=== PATIENT | female | born 1955 | race Caucasian/White ===

== ENCOUNTER 2018-10-23 11:12 | Inpatient (IN) | payer OTHER ==
--- NOTE | 2018-10-23 12:00 | PDOC ---
History of Present Illness - General Chief Complaint: Abnormal Lab Results (Outside) Stated Complaint: ABD NORMAL BLOOD WORK History Source: Patient Exam Limitations: No Limitations - History of Present Illness Initial Comments: 10/23/18 11:56 63 yo F h/o prior esrd, nephropathy, transplant, last dialysis 3 yrs ago, here with failing transplant. 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 and creatinine of 7. pt denies cp. no f/c does feel sob with walking. and leg swelling. no f/c. still had left upper extremity fistula. Past History - Past Medical History Allergies/Adverse Reactions: Allergies Allergy/AdvReac Type Severity Reaction Status Date / Time No Known Drug Allergies Allergy Verified 04/19/14 09:13 Home Medications: Ambulatory Orders Amlodipine Besylate [Norvasc -] 10 mg PO DAILY 04/19/14 Famotidine [Pepcid -] 20 mg PO DAILY 10/23/18 Furosemide [Lasix] 80 mg PO DAILY 10/23/18 Hydralazine HCl 100 mg PO TID 10/23/18 Leflunomide [Arava] 30 mg PO DAILY 10/23/18 Metoprolol Succinate [Toprol Xl] 50 mg PO DAILY 10/23/18 Multivitamin [Multiple Vitamins] 1 each PO DAILY 10/23/18 Nifedipine [Nifedipine ER] 90 mg PO DAILY 10/23/18 Pravastatin Sodium [Pravachol (Nf)] 40 mg PO HS 10/23/18 Prednisone 5 mg PO DAILY 10/23/18 Sodium Bicarbonate - 1,300 mg PO BID 10/23/18 Tacrolimus Anhydrous [Prograf] 5 mg PO BID 10/23/18 cloNIDine HCL [Catapres -] 0.1 mg PO DAILY 10/23/18 Anemia: Yes Asthma: No Cancer: No Cardiac Disorders: No CVA: No COPD: No CHF: No Dementia: No Diabetes: No GI Disorders: Yes (REFLUX) Disorders: No HTN: Yes Hypercholesterolemia: Yes Liver Disease: No Seizures: No Thyroid Disease: No - Immunization History Immunization Up to Date: No - Suicide/Smoking/Psychosocial Hx Smoking History: Never smoked Have you smoked in the past 12 months: No Number of Cigarettes Smoked Daily: 20 Information on smoking cessation initiated: No 'Breaking Loose' booklet given: 04/19/14 Hx Alcohol Use: No Drug/Substance Use Hx: No Substance Use Type: None Hx Substance Use Treatment: No Review of Systems - Review of Systems Constitutional: No: Chills, Diaphoresis, Fever HEENTM: No: Eye Pain Respiratory: Yes: Shortness of Breath. No: Cough Cardiac (ROS): No: Chest Pain ABD/GI: No: Vomiting : No: Burning, Dysuria Integumentary: No: Bruising All Other Systems: Reviewed and Negative *Physical Exam - Vital Signs Last Vital Signs Temp Pulse Resp BP Pulse Ox 98.2 F 74 16 135/54 L 97 10/23/18 11:16 10/23/18 11:16 10/23/18 11:16 10/23/18 11:16 10/23/18 11:16 - Physical Exam Comments: 10/23/18 11:58 awake alert lungs clear bilat heart rrr no mrg abd soft nt nd. ext wwp. mild nonpitting edema bilat lower ext. left upper ext fistula good bruit. nuero alert oriented x 3. skin warm and dry. Heart Score/ECG Review #1 General ECG Interpretation: Sinus Rhythm, Normal Rate (65), Normal Intervals, No acute ischemic changes ED Treatment Course - LABORATORY CBC & Chemistry Diagram: 10/23/18 13:03 10/23/18 13:03 - RADIOLOGY Radiology Studies Ordered: Category Date Time Status CHEST PA & LAT [RAD] Stat Radiology 10/23/18 11:51 Ordered Medical Decision Making - Medical Decision Making 10/23/18 11:59 63 yo F h/o renal transplant , esrd with worsenign sob edema. and increasing creatinine. 10/23/18 13:59 pt with severe anemia, likley secondary to ckd, renal failure. hgb 5. will admit for anemia renal failure. 10/23/18 14:02 d/w admitting team will admit pt for dialysis and transfusion of at least one unit prior to dialysis per dr Lamas. *DC/Admit/Observation/Transfer Diagnosis at time of Disposition: Anemia, ESRD on hemodialysis, Renal failure - Discharge Dispostion Condition at time of disposition: Stable Decision to Admit order: Yes - Referrals Referrals: Manas Rodriguez [Primary Care Provider] - - Patient Instructions - Post Discharge Activity
[2018-10-23 13:13] LABS: BASO % 0.4 % (0-2.0); EOS % 0.8 % (0-4.5); HEMATOCRIT 16.9 % (32.4-45.2); MCH 31.2 pg (25.7-33.7); MCHC 31.4 g/dl (32.0-36.0); MEAN CELL VOLUME 99.3 fl (80-96); MEAN PLT VOLUME 9.2 fl (7.5-11.1); MONO % 9.2 % (3.8-10.2); NEUT % 70.6 % (42.8-82.8); PLATELET COUNT 121 K/MM3 (134-434); RDW 17.9 % (11.6-15.6); WHITE BLOOD COUNT 4.8 K/mm3 (4.0-10.0)
[2018-10-23 13:25] LABS: HEMOGLOBIN 5.3 GM/dL (10.7-15.3)
[2018-10-23 13:41] LABS: BILIRUBIN,TOTAL 0.3 mg/dL (0.2-1); BLOOD UREA NITROGEN 65.3 mg/dL (7-18); CALCIUM 8.5 mg/dL (8.5-10.1); POTASSIUM 4.1 mmol/L (3.5-5.1); TOT PROT 5.9 g/dl (6.4-8.2)
[2018-10-23 13:47] LABS: CREATININE 7.6 mg/dL (0.55-1.3)
--- NOTE | 2018-10-23 14:35 | EKG ---
Test Reason : Blood Pressure : / mmHG Vent. Rate : 065 BPM Atrial Rate : 065 BPM P-R Int : 124 ms QRS Dur : 082 ms QT Int : 434 ms P-R-T Axes : 052 022 053 degrees QTc Int : 451 ms NORMAL SINUS RHYTHM NORMAL ECG WHEN COMPARED WITH ECG OF 06-OCT-2014 17:07, CRITERIA FOR SEPTAL INFARCT ARE NO LONGER PRESENT Confirmed by DAVID PHIPPS MD ([id number]) on 10/23/2018 2:35:31 PM Referred By: Confirmed By:DAVID PHIPPS MD
[2018-10-23 15:10] LABS: INR 0.97 (0.83-1.09); PROTHROMBIN TIME (PATIENT) 11.5 SEC (9.7-13.0)
--- NOTE | 2018-10-23 15:59 | CONSULT ---
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 She presented yesterday to the office after being send from the transplant team. Her creatinine had been in the 7 range. She complains of weakness and fatigue. She was found to be anemic. Her potassium was elevated from yesterdays labs however it is normal today. She denies chest pain or palpitations. SHe does have loss of appetite. - History Source History Provided By: Patient - Past Medical History Cardio/Vascular: Yes: HTN, Hyperlipdemia Gastrointestinal: Yes: GERD Renal/: Yes: Renal Failure, Hemodialysis - Past Surgical History Past Surgical History: Yes: AV Fistula/Graft, Kidney Transplant - Alcohol/Substance Use Hx Alcohol Use: No - Smoking History Smoking history: Never smoked Have you smoked in the past 12 months: No Aproximately how many cigarettes per day: 20 Home Medications - Allergies Allergies/Adverse Reactions: Allergies Allergy/AdvReac Type Severity Reaction Status Date / Time No Known Drug Allergies Allergy Verified 04/19/14 09:13 - Home Medications Home Medications: Ambulatory Orders Amlodipine Besylate [Norvasc -] 10 mg PO DAILY 04/19/14 Famotidine [Pepcid -] 20 mg PO DAILY 10/23/18 Furosemide [Lasix] 80 mg PO DAILY 10/23/18 Hydralazine HCl 100 mg PO TID 10/23/18 Leflunomide [Arava] 30 mg PO DAILY 10/23/18 Metoprolol Succinate [Toprol Xl] 50 mg PO DAILY 10/23/18 Multivitamin [Multiple Vitamins] 1 each PO DAILY 10/23/18 Nifedipine [Nifedipine ER] 90 mg PO DAILY 10/23/18 Pravastatin Sodium [Pravachol (Nf)] 40 mg PO HS 10/23/18 Prednisone 5 mg PO DAILY 10/23/18 Sodium Bicarbonate - 1,300 mg PO BID 10/23/18 Tacrolimus Anhydrous [Prograf] 5 mg PO BID 10/23/18 cloNIDine HCL [Catapres -] 0.1 mg PO DAILY 10/23/18 Family Disease History - Family Disease History Family History: Denies Review of Systems - Review of Systems Constitutional: reports: Malaise Eyes: reports: No Symptoms HENT: reports: No Symptoms Neck: reports: No Symptoms Cardiovascular: reports: Edema Respiratory: reports: SOB on Exertion Genitourinary: reports: Hematuria Musculoskeletal: reports: No Symptoms Integumentary: reports: No Symptoms Neurological: reports: No Symptoms Endocrine: reports: No Symptoms Hematology/Lymphatic: reports: No Symptoms Psychiatric: reports: No Symptoms Physical Exam Vital Signs: Vital Signs Temperature 98.6 F 10/23/18 14:42 Pulse Rate 88 10/23/18 14:42 Respiratory Rate 19 10/23/18 14:42 Blood Pressure 110/68 10/23/18 14:42 O2 Sat by Pulse Oximetry (%) 100 10/23/18 14:42 Constitutional: Yes: Calm Eyes: Yes: Conjunctiva Clear HENT: Yes: Atraumatic Neck: Yes: Supple Cardiovascular: Yes: S1, S2 Respiratory: Yes: CTA Bilaterally Gastrointestinal: Yes: Soft Renal/: Yes: WNL, Other (graft is non tender, neg bruit) Musculoskeletal: Yes: WNL Extremities: Yes: Other (left arm fistula with thrill and bruit) Edema: Yes Edema: LLE: Trace, RLE: Trace Neurological: Yes: Oriented Psychiatric: Yes: Oriented Labs: CBC, BMP 10/23/18 13:03 10/23/18 13:03 Assessment/Plan Impression 1. ESRD 2. kidney transplant 3. htn 4. anemia 5. BK nephropathy Plan - transfuse prbc - resume home meds including transplant meds - send ua and urine culture - abd ultrasound - potassium is stable - vascular eval for fistula - will start HD likely tomorrow - check hep panel
--- NOTE | 2018-10-23 16:20 | HP ---
Admitting History and Physical - Primary Care Physician PCP: Manas Rodriguez - Admission Chief Complaint: malaise History of Present Illness: Patient is a 63 year old female with a signficant past medical history of ESRD ( on dialysis via left arm fistula - last dialysis 3 years ago), right renal transplant 3 years at [facility] in the [place] from a an unknown donor, hypertension, neuropathy. Patient was sent here by nephrology after she was found to have developed kidney rejection and presents with a creatinine in the 7.6 range and labs noted to be anemic requiring 2 units of prbc transfusion. She complains of weakness and fatigue. Per Ed report, her potassium was elevated yesterday, but normal on our labs. Patient denies shortness of breath , denies chest pain, hematuria, denies bloody stools. She reports taking her anti rejection medications as ordered without missing any doses. On exam patient is awake, alert and in no acute distress. She further denies any dark/tarry stools, denies dizziness. States she has increased weakness and malaise. Patient is being admitted for initiation of dialysis. Will consult SW as patient will need to be set up with a home dialysis center. ED Course notable for: - hmg/hct 5.3/16.9 - stat order for 2 units of prbc - platelets 121 - creat 7.6/bun 65 - + bruit/thrill, left arm fistula - potassium wnl - Past Medical History Cardiovascular: Yes: HTN, Hyperlipdemia Gastrointestinal: Yes: GERD Renal/: Yes: Renal Failure, Hemodialysis - Past Surgical History Past Surgical History: Yes: AV Fistula/Graft, Kidney Transplant - Smoking History Smoking history: Never smoked Have you smoked in the past 12 months: No Aproximately how many cigarettes per day: 20 - Alcohol/Substance Use Hx Alcohol Use: No Home Medications - Allergies Allergies/Adverse Reactions: Allergies Allergy/AdvReac Type Severity Reaction Status Date / Time No Known Drug Allergies Allergy Verified 04/19/14 09:13 - Home Medications Home Medications: Ambulatory Orders Amlodipine Besylate [Norvasc -] 10 mg PO DAILY 04/19/14 Famotidine [Pepcid -] 20 mg PO DAILY 10/23/18 Furosemide [Lasix] 80 mg PO DAILY 10/23/18 Hydralazine HCl 100 mg PO TID 10/23/18 Leflunomide [Arava] 30 mg PO DAILY 10/23/18 Metoprolol Succinate [Toprol Xl] 50 mg PO DAILY 10/23/18 Multivitamin [Multiple Vitamins] 1 each PO DAILY 10/23/18 Nifedipine [Nifedipine ER] 90 mg PO DAILY 10/23/18 Pravastatin Sodium [Pravachol (Nf)] 40 mg PO HS 10/23/18 Prednisone 5 mg PO DAILY 10/23/18 Sodium Bicarbonate - 1,300 mg PO BID 10/23/18 Tacrolimus Anhydrous [Prograf] 5 mg PO BID 10/23/18 cloNIDine HCL [Catapres -] 0.1 mg PO DAILY 10/23/18 Physical Examination Vital Signs: Vital Signs Temperature 98.6 F 10/23/18 14:42 Pulse Rate 88 10/23/18 14:42 Respiratory Rate 19 10/23/18 14:42 Blood Pressure 110/68 10/23/18 14:42 O2 Sat by Pulse Oximetry (%) 100 10/23/18 14:42 Labs: CBC, BMP 10/23/18 13:03 10/23/18 13:03 Problem List - Problems (1) Kidney transplant rejection Assessment/Plan: s/p right kidney transplant at [facility] 3 years ago. Now with elevated bun/ creatinine on outpatient labs. hospital labs: bun65/creat 7.6. Potassium stable. patient for dialysis tomorrow as per nephrology. will received 2 units of prbc today for severe anemia. Start renal diet continue anti rejection meds per nephrology (2) Anemia Assessment/Plan: for 2 units of prbc for hmg/hct 5.3/16.9 iron studies ordered stool for occult blood ordered Code(s): D64.9 - ANEMIA, UNSPECIFIED (3) Renal failure Assessment/Plan: Bun/creat 65/ 7.6. Will continue anti rejection meds per renal. monitor labs daily. Code(s): N19 - UNSPECIFIED KIDNEY FAILURE (4) Hypertension Assessment/Plan: BP controlled. continue home meds. Amlodopine, metoprolol, hydralazine. Code(s): I10 - ESSENTIAL (PRIMARY) HYPERTENSION (5) Thrombocytopenia Assessment/Plan: history of low platelets. defer a/c 2/2 to low platelets and anemia. Code(s): D69.6 - THROMBOCYTOPENIA, UNSPECIFIED (6) Prophylactic measure Assessment/Plan: fen oral hydration monitor electrolytes renal diet prophy defer a/c Code(s): Z29.9 - ENCOUNTER FOR PROPHYLACTIC MEASURES, UNSPECIFIED Visit type - Emergency Visit Emergency Visit: Yes ED Registration Date: 10/23/18 Care time: The patient presented to the Emergency Department on the above date and was hospitalized for further evaluation of their emergent condition. - New Patient This patient is new to me today: Yes Date on this admission: 10/24/18 - Critical Care Critical Care patient: No
[2018-10-23] MEDS: SODIUM BICARBONATE 650 MG TABLET PO SCH (22:39)
[2018-10-23] MEDS: ATORVASTATIN CA 10 MG TABLET (FP) PO SCH (22:39)
[2018-10-23] MEDS: hydrALAZINE HCL 50 MG TABLET (FP) PO SCH (22:39)
[2018-10-23 22:45] LABS: EPI CELLS 1.7 /HPF (0-5/HPF); HYALINE CASTS 0 /lpf (0-8); PH,URINE >= 9.0 (5.0-8.0); URINE APPEARANCE CLOUDY; URINE BACTERIA 0.8 /hpf (NEGATIVE); URINE BILIRUBIN NEGATIVE (NEGATIVE); URINE COLOR RED; URINE GLUCOSE (UA) TRACE (NEGATIVE); URINE KETONE NEGATIVE (NEGATIVE); URINE LEUK ESTERASE TRACE (NEGATIVE); URINE NITRITE NEGATIVE (NEGATIVE); URINE PROTEIN 1+ (NEGATIVE); URINE RBC 2188 /hpf (0-4); URINE UROBILINOGEN 0.2 mg/dL (0.2-1.0); URINE WBC 4 /hpf (0-5)
[2018-10-23] MEDS: TACROLIMUS ANHYDROUS 5 MG CAPSULE PO SCH (23:20)
[2018-10-24] MEDS: hydrALAZINE HCL 50 MG TABLET (FP) PO SCH ×4 (06:13→22:37)
[2018-10-24] MEDS ORDERED: amLODIPine BESYLATE 10 MG TABLET (FP) PO SCH (10:00)
[2018-10-24] MEDS ORDERED: LEFLUNOMIDE 10 MG TABLET PO SCH (10:00)
[2018-10-24] MEDS ORDERED: FUROSEMIDE 40 MG TABLET (FP) PO SCH (10:00)
[2018-10-24 10:03] LABS: BASO % 0.4 % (0-2.0); EOS % 0.7 % (0-4.5); HEMATOCRIT 28.7 % (32.4-45.2); HEMOGLOBIN 9.6 GM/dL (10.7-15.3); LYMPH % 20.7 % (8-40); MCH 30.5 pg (25.7-33.7); MCHC 33.5 g/dl (32.0-36.0); MEAN CELL VOLUME 90.9 fl (80-96); MEAN PLT VOLUME 9.2 fl (7.5-11.1); MONO % 7.9 % (3.8-10.2); NEUT % 70.3 % (42.8-82.8); PLATELET COUNT 135 K/MM3 (134-434); RBC 3.16 M/mm3 (3.60-5.2); RDW 18.8 % (11.6-15.6); WHITE BLOOD COUNT 6.2 K/mm3 (4.0-10.0)
[2018-10-24 10:22] LABS: ALBUMIN 3.2 g/dl (3.4-5.0); BILIRUBIN,TOTAL 0.8 mg/dL (0.2-1); CALCIUM 8.9 mg/dL (8.5-10.1); CREATININE 7.1 mg/dL (0.55-1.3); MAGNESIUM 2.1 mg/dL (1.8-2.4); PHOSPHOROUS 3.4 mg/dL (2.5-4.9); TOT PROT 6.4 g/dl (6.4-8.2)
--- NOTE | 2018-10-24 11:22 | PN ---
Progress Note, Physician History of Present Illness: Patient is a 63 year old female with a signficant past medical history of ESRD ( on dialysis via left arm fistula - last dialysis 3 years ago), right renal transplant 3 years at [facility] in the [place] from an unknown donor, hypertension, neuropathy. Patient was sent here by nephrology after she was found to have developed kidney rejection and presents with a creatinine in the 7.6 range and labs noted to be anemic. She complains of weakness and fatigue. Per Ed report, her potassium was elevated yesterday on outpatient labs, but normal on our labs. Patient denies shortness of breath, denies chest pain, hematuria, denies bloody stools. She reports taking her anti rejection medications as ordered without missing any doses. On exam patient is awake, alert and in no acute distress. She further denies any dark/tarry stools, denies dizziness. States she has increased weakness and malaise. Patient is being admitted for initiation of dialysis. - Current Medication List Current Medications: Active Medications Atorvastatin Calcium (Lipitor -) 10 mg PO HS [facility] Last Admin: 10/23/18 22:39 Dose: 10 mg Clonidine (Catapres -) 0.1 mg PO DAILY [facility] Epoetin Talha (Epogen -) 5,000 unit IVPUSH ONCE ONE Stop: 10/24/18 10:30 Furosemide (Lasix -) 80 mg PO DAILY [facility] Hydralazine HCl (Apresoline -) 100 mg PO TID [facility] Last Admin: 10/24/18 06:13 Dose: 100 mg Sodium Chloride (Normal Saline -) 250 mls @ 3,000 mls/hr IV PRN PRN PRN Reason: Hypotension during Dialysis Stop: 10/25/18 10:29 Leflunomide (Arava -) 10 mg PO DAILY [facility] Metoprolol Succinate (Toprol Xl -) 50 mg PO DAILY [facility] Multivitamins/Minerals/Vitamin C (Tab-A-Vit -) 1 tab PO DAILY [facility] Nifedipine (Procardia Xl -) 90 mg PO DAILY [facility] Prednisone (Deltasone -) 5 mg PO DAILY [facility] Ranitidine HCl (Zantac -) 150 mg PO DAILY [facility] Sodium Bicarbonate (Sodium Bicarbonate -) 1,300 mg PO BID [facility] Last Admin: 10/23/18 22:39 Dose: 1,300 mg Tacrolimus (Prograf) 5 mg PO BID [facility] Last Admin: 10/23/18 23:20 Dose: 5 mg - Objective Vital Signs: Vital Signs Temperature 98.8 F 10/24/18 09:00 Pulse Rate 85 10/24/18 10:56 Respiratory Rate 20 10/24/18 10:56 Blood Pressure 138/78 10/24/18 10:56 O2 Sat by Pulse Oximetry (%) 97 10/23/18 23:41 Constitutional: Yes: Well Nourished, No Distress, Calm Eyes: Yes: WNL HENT: Yes: WNL Neck: Yes: WNL, Supple Cardiovascular: Yes: Regular Rate and Rhythm Respiratory: Yes: WNL, Regular, CTA Bilaterally Gastrointestinal: Yes: Normal Bowel Sounds, Soft ...Rectal Exam: Yes: Deferred Genitourinary: Yes: WNL Musculoskeletal: Yes: WNL Edema: Yes Edema: LLE: 1+, RLE: 1+ Integumentary: Yes: WNL Additional Findings/Remarks: left arm fistula, + bruit/thrill Labs: CBC, BMP 10/24/18 09:36 10/24/18 09:36 INR, PTT INR 0.97 (0.83-1.09) 10/23/18 14:17 Problem List - Problems (1) Kidney transplant rejection Assessment/Plan: s/p right kidney transplant at [facility] 3 years ago. Now with elevated bun/ creatinine on outpatient labs. hospital labs: bun65/creat 7.6 on admission, creat. 7.1 today. Potassium stable. patient for dialysis today pending vascular allowance to use left arm fistula. patient is s/p 2 units of prbc on 10/23/18 for severe anemia. - on renal diet - evaluated by dietary -renal dose medications continue anti rejection meds per nephrology (2) Anemia Assessment/Plan: s/p 2 units of prbc with appropriate rise in hmg/hct iron studies pending stool for occult blood negative, has +3 blood in urine Code(s): D64.9 - ANEMIA, UNSPECIFIED (3) Renal failure Assessment/Plan: for initiation of dialysis today for renal ultrasound today Code(s): N19 - UNSPECIFIED KIDNEY FAILURE (4) Hypertension Assessment/Plan: controlled Code(s): I10 - ESSENTIAL (PRIMARY) HYPERTENSION (5) Thrombocytopenia Assessment/Plan: history of low platelets. defer a/c 2/2 to low platelets and anemia. Code(s): D69.6 - THROMBOCYTOPENIA, UNSPECIFIED (6) Prophylactic measure Assessment/Plan: fen oral hydration monitor electrolytes renal diet prophy defer a/c Code(s): Z29.9 - ENCOUNTER FOR PROPHYLACTIC MEASURES, UNSPECIFIED Visit type - Emergency Visit Emergency Visit: Yes ED Registration Date: 10/23/18 Care time: The patient presented to the Emergency Department on the above date and was hospitalized for further evaluation of their emergent condition. - New Patient This patient is new to me today: No - Critical Care Critical Care patient: No - Discharge Referral Referred to [facility] Med P.C.: No
[2018-10-24 11:26] VITALS: BMI 19.7
[2018-10-24] MEDS ORDERED: SODIUM CHLORIDE 250 ML IV PRN (15:09)
[2018-10-24] MEDS ORDERED: EPOETIN ALFA 3,000 UNIT/1 ML ML IVPUSH ONE (15:15)
--- NOTE | 2018-10-24 15:47 | PN ---
Progress Note, Physician History of Present Illness: Pt seen and examined at bedside. She is awake and alert. She denies shortness of breath. She complains of fatigue and loss of appetite. - Current Medication List Current Medications: Active Medications Atorvastatin Calcium (Lipitor -) 10 mg PO HS [facility] Last Admin: 10/23/18 22:39 Dose: 10 mg Clonidine (Catapres -) 0.1 mg PO DAILY [facility] Furosemide (Lasix -) 80 mg PO DAILY [facility] Hydralazine HCl (Apresoline -) 100 mg PO TID [facility] Last Admin: 10/24/18 14:40 Dose: Not Given Sodium Chloride (Normal Saline -) 250 mls @ 3,000 mls/hr IV PRN PRN PRN Reason: Hypotension during Dialysis Stop: 10/24/18 22:00 Leflunomide (Arava -) 10 mg PO DAILY [facility] Metoprolol Succinate (Toprol Xl -) 50 mg PO DAILY [facility] Multivitamins/Minerals/Vitamin C (Tab-A-Vit -) 1 tab PO DAILY [facility] Nifedipine (Procardia Xl -) 90 mg PO DAILY [facility] Prednisone (Deltasone -) 5 mg PO DAILY [facility] Ranitidine HCl (Zantac -) 150 mg PO DAILY [facility] Sodium Bicarbonate (Sodium Bicarbonate -) 1,300 mg PO BID [facility] Last Admin: 10/23/18 22:39 Dose: 1,300 mg Tacrolimus (Prograf) 5 mg PO BID [facility] Last Admin: 10/23/18 23:20 Dose: 5 mg - Objective Vital Signs: Vital Signs Temperature 98.5 F 10/24/18 14:55 Pulse Rate 74 10/24/18 15:00 Respiratory Rate 18 10/24/18 15:00 Blood Pressure 184/98 H 10/24/18 15:00 O2 Sat by Pulse Oximetry (%) 97 10/23/18 23:41 Constitutional: Yes: Calm Eyes: Yes: Conjunctiva Clear HENT: Yes: Atraumatic Cardiovascular: Yes: S1, S2 Respiratory: Yes: CTA Bilaterally Gastrointestinal: Yes: Soft Genitourinary: Yes: WNL, Other (graft soft and non tender) Musculoskeletal: Yes: WNL Edema: Yes Edema: LLE: Trace, RLE: Trace Neurological: Yes: Oriented Psychiatric: Yes: Oriented Labs: CBC, BMP 10/24/18 09:36 10/24/18 09:36 INR, PTT INR 0.97 (0.83-1.09) 10/23/18 14:17 Problem List - Problems (1) Anemia Code(s): D64.9 - ANEMIA, UNSPECIFIED (2) ESRD on hemodialysis Code(s): N18.6 - END STAGE RENAL DISEASE; Z99.2 - DEPENDENCE ON RENAL DIALYSIS Assessment/Plan Current Medications Generic Name Dose Route Start Last Admin Trade Name Freq PRN Reason Stop Dose Admin Atorvastatin Calcium 10 mg 10/23/18 22:00 10/23/18 22:39 Lipitor - PO 10 mg HS [facility] Administration Clonidine 0.1 mg 10/24/18 10:00 Catapres - PO DAILY [facility] Furosemide 80 mg 10/24/18 10:00 Lasix - PO DAILY [facility] Hydralazine HCl 100 mg 10/23/18 22:00 10/24/18 14:40 Apresoline - PO Not Given TID [facility] Sodium Chloride 250 mls @ 3,000 mls/hr 10/24/18 15:09 Normal Saline - IV 10/24/18 22:00 PRN PRN Hypotension during Dialysis Leflunomide 10 mg 10/24/18 10:00 Arava - PO DAILY [facility] Metoprolol Succinate 50 mg 10/24/18 10:00 Toprol Xl - PO DAILY [facility] Multivitamins/Minerals/Vitamin C 1 tab 10/24/18 10:00 Tab-A-Vit - PO DAILY [facility] Nifedipine 90 mg 10/24/18 10:00 Procardia Xl - PO DAILY [facility] Prednisone 5 mg 10/24/18 10:00 Deltasone - PO DAILY [facility] Ranitidine HCl 150 mg 10/24/18 10:00 Zantac - PO DAILY [facility] Sodium Bicarbonate 1,300 mg 10/23/18 22:00 10/23/18 22:39 Sodium Bicarbonate - PO 1,300 mg BID [facility] Administration Tacrolimus 5 mg 10/23/18 22:00 10/23/18 23:20 Prograf PO 5 mg BID [facility] Administration Impression 1. ESRD 2. kidney transplant 3. htn 4. anemia 5. BK nephropathy Plan - HD today - give bp meds - d/c lasix and d/c bicarb - hg is improved - ultrasound reviewed - epogen for anemia - send information to [facility] for Renal care in [facility] as that is where she lives
--- NOTE | 2018-10-24 17:40 | CONSULT ---
Consult - text type - Consultation Consultation Note: 63 year old woman with failed kidney transplant who needs to restart dialysis. She has a left arm AV fistula. The fistula has a thrill but feels firm. This could be a sign of proximal stenosis. Rec: Ok to use fistula. If there is high venous pressure or excessive bleeding she will need a venogram.
[2018-10-24] MEDS: cloNIDine HCL 0.1 MG TABLET PO SCH (18:33)
[2018-10-24] MEDS: SODIUM BICARBONATE 650 MG TABLET PO SCH (18:34)
[2018-10-24] MEDS: NIFEdipine E.R. 90 MG TABLET (FP) PO SCH (18:34)
[2018-10-24] MEDS: predniSONE 5 MG TABLET (UD) PO SCH (18:34)
[2018-10-24] MEDS: MULTIVITAMINS (DAILY MVI) TABLET (FP) PO SCH (18:34)
[2018-10-24] MEDS: RANITIDINE HCL 150 MG TABLET (FP) PO SCH (18:34)
[2018-10-24] MEDS: TACROLIMUS ANHYDROUS 5 MG CAPSULE PO SCH (18:35)
[2018-10-24] MEDS: LEFLUNOMIDE 10 MG TABLET PO SCH (20:30)
[2018-10-24] MEDS: ATORVASTATIN CA 10 MG TABLET (FP) PO SCH (22:37)
[2018-10-25] MEDS: TACROLIMUS ANHYDROUS 5 MG CAPSULE PO SCH ×4 (00:35→22:14)
[2018-10-25] MEDS: hydrALAZINE HCL 50 MG TABLET (FP) PO SCH ×3 (06:52→22:14)
[2018-10-25] MEDS ORDERED: ONDANSETRON 4 MG/2 ML VIAL IVPUSH PRN (10:15)
[2018-10-25] MEDS: predniSONE 5 MG TABLET (UD) PO SCH ×2 (10:15→12:00)
[2018-10-25] MEDS: cloNIDine HCL 0.1 MG TABLET PO SCH ×2 (10:15→12:01)
[2018-10-25] MEDS: LEFLUNOMIDE 10 MG TABLET PO SCH ×2 (10:15→12:01)
[2018-10-25] MEDS: NIFEdipine E.R. 90 MG TABLET (FP) PO SCH ×2 (10:15→12:00)
[2018-10-25] MEDS: RANITIDINE HCL 150 MG TABLET (FP) PO SCH (10:16)
[2018-10-25] MEDS: MULTIVITAMINS (DAILY MVI) TABLET (FP) PO SCH ×2 (10:16→12:00)
[2018-10-25 11:01] LABS: BASO % 0.4 % (0-2.0); EOS % 0.7 % (0-4.5); HEMATOCRIT 29.2 % (32.4-45.2); HEMOGLOBIN 9.7 GM/dL (10.7-15.3); LYMPH % 24.1 % (8-40); MCH 30.3 pg (25.7-33.7); MCHC 33.2 g/dl (32.0-36.0); MEAN CELL VOLUME 91.2 fl (80-96); MEAN PLT VOLUME 9.2 fl (7.5-11.1); MONO % 10.9 % (3.8-10.2); NEUT % 63.9 % (42.8-82.8); PLATELET COUNT 117 K/MM3 (134-434); RDW 18.8 % (11.6-15.6); WHITE BLOOD COUNT 4.6 K/mm3 (4.0-10.0)
[2018-10-25 11:24] LABS: BILIRUBIN,TOTAL 0.5 mg/dL (0.2-1); BLOOD UREA NITROGEN 33.7 mg/dL (7-18); CREATININE 4.7 mg/dL (0.55-1.3); MAGNESIUM 1.9 mg/dL (1.8-2.4); POTASSIUM 4.5 mmol/L (3.5-5.1)
[2018-10-25] MEDS ORDERED: FAMOTIDINE 20 MG/50 ML IVPB 20 MG/50 ML MG IVPB SCH ×2 (11:45→22:00)
[2018-10-25] MEDS ORDERED: PT OWN MED DRAWER 7, Y5N ONE ×2 (11:51→22:13)
[2018-10-25] MEDS: FAMOTIDINE 20 MG/50 ML IVPB 20 MG/50 ML MG IVPB SCH (12:13)
--- NOTE | 2018-10-25 13:26 | PN ---
Progress Note, Physician History of Present Illness: Patient is a 63 year old female with a signficant past medical history of ESRD ( on dialysis via left arm fistula - last dialysis 3 years ago), right renal transplant 3 years at [facility] in the [place] from an unknown donor, hypertension, neuropathy. Patient was sent here by nephrology after she was found to have developed kidney rejection and presents with a creatinine in the 7.6 range and labs noted to be anemic. She complains of weakness and fatigue. Per Ed report, her potassium was elevated yesterday on outpatient labs, but normal on our labs. Patient denies shortness of breath, denies chest pain, hematuria, denies bloody stools. She reports taking her anti rejection medications as ordered without missing any doses. On exam patient is awake, alert and in no acute distress. She further denies any dark/tarry stools, denies dizziness. States she has increased weakness and malaise. Patient is being admitted for initiation of dialysis. - Current Medication List Current Medications: Active Medications Atorvastatin Calcium (Lipitor -) 10 mg PO HS [facility] Last Admin: 10/24/18 22:37 Dose: 10 mg Clonidine (Catapres -) 0.1 mg PO DAILY [facility] Last Admin: 10/25/18 12:01 Dose: 0.1 mg Hydralazine HCl (Apresoline -) 100 mg PO TID [facility] Last Admin: 10/25/18 06:52 Dose: 100 mg Famotidine/Sodium Chloride (Pepcid 20 Mg Premixed Ivpb -) 20 mg in 50 mls @ 100 mls/hr IVPB DAILY [facility] Last Admin: 10/25/18 12:13 Dose: 100 mls/hr Leflunomide (Arava -) 10 mg PO DAILY [facility] Last Admin: 10/25/18 12:01 Dose: 10 mg Metoprolol Succinate (Toprol Xl -) 50 mg PO DAILY [facility] Last Admin: 10/25/18 12:00 Dose: 50 mg Multivitamins/Minerals/Vitamin C (Tab-A-Vit -) 1 tab PO DAILY [facility] Last Admin: 10/25/18 12:00 Dose: 1 tab Nifedipine (Procardia Xl -) 90 mg PO DAILY [facility] Last Admin: 10/25/18 12:00 Dose: 90 mg Ondansetron HCl (Zofran Injection) 4 mg IVPUSH Q6H PRN PRN Reason: NAUSEA AND/OR VOMITING Last Admin: 10/25/18 10:51 Dose: 4 mg Prednisone (Deltasone -) 5 mg PO DAILY [facility] Last Admin: 10/25/18 12:00 Dose: 5 mg Tacrolimus (Prograf) 5 mg PO BID [facility] Last Admin: 10/25/18 12:01 Dose: 5 mg - Objective Vital Signs: Vital Signs Temperature 98.5 F 10/25/18 11:09 Pulse Rate 75 10/25/18 11:54 Respiratory Rate 20 10/25/18 11:54 Blood Pressure 129/67 10/25/18 11:54 O2 Sat by Pulse Oximetry (%) 95 10/24/18 21:00 Constitutional: Yes: Well Nourished, No Distress, Calm Eyes: Yes: WNL HENT: Yes: WNL Neck: Yes: WNL Cardiovascular: Yes: WNL, Regular Rate and Rhythm Respiratory: Yes: WNL, Regular, CTA Bilaterally Gastrointestinal: Yes: WNL, Normal Bowel Sounds, Soft ...Rectal Exam: Yes: WNL Genitourinary: Yes: WNL Musculoskeletal: Yes: WNL Extremities: Yes: WNL Edema: LLE: Trace, RLE: Trace Integumentary: Yes: WNL Wound/Incision: Yes: Clean/Dry Neurological: Yes: WNL, Alert, Oriented ...Motor Strength: WNL Psychiatric: Yes: WNL, Alert, Oriented Labs: CBC, BMP 10/25/18 07:10 10/25/18 07:10 INR, PTT INR 0.97 (0.83-1.09) 10/23/18 14:17 Problem List - Problems (1) Kidney transplant rejection Assessment/Plan: s/p right kidney transplant at [facility] 3 years ago. Now with elevated bun/ creatinine on outpatient labs. hospital labs: bun 65/creat 7.6 on admission, creat. 4.7 today. Potassium stable. She is s/p dialysis on 10/24/2018 via left upper arm AV fistula. She is s/p 2 units of prbc on 10/23/18 for severe anemia. - on renal diet - evaluated by dietary - renal dose medications continue anti rejection meds per nephrology (2) Anemia Assessment/Plan: s/p 2 units of prbc with appropriate rise in hmg/hct stool for occult blood negative, has +3 blood in urine Code(s): D64.9 - ANEMIA, UNSPECIFIED (3) Renal failure Assessment/Plan: for initiation of dialysis. renal u/s reviewed. patient needs outpatient dialysis set up by [facility]. Code(s): N19 - UNSPECIFIED KIDNEY FAILURE (4) Hypertension Assessment/Plan: controlled Code(s): I10 - ESSENTIAL (PRIMARY) HYPERTENSION (5) Thrombocytopenia Assessment/Plan: history of low platelets. defer a/c 2/2 to low platelets and anemia. Code(s): D69.6 - THROMBOCYTOPENIA, UNSPECIFIED (6) Prophylactic measure Assessment/Plan: fen oral hydration monitor electrolytes renal diet prophy defer a/c Code(s): Z29.9 - ENCOUNTER FOR PROPHYLACTIC MEASURES, UNSPECIFIED Visit type - Emergency Visit Emergency Visit: Yes ED Registration Date: 10/23/18 Care time: The patient presented to the Emergency Department on the above date and was hospitalized for further evaluation of their emergent condition. - New Patient This patient is new to me today: No - Critical Care Critical Care patient: No - Discharge Referral Referred to [facility] Med P.C.: No
--- NOTE | 2018-10-25 15:33 | PN ---
Progress Note, Physician History of Present Illness: Pt seen and examined at bedside. She is awake and alert. She denies shortness of breath. - Current Medication List Current Medications: Active Medications Atorvastatin Calcium (Lipitor -) 10 mg PO HS [facility] Last Admin: 10/24/18 22:37 Dose: 10 mg Clonidine (Catapres -) 0.1 mg PO DAILY [facility] Last Admin: 10/25/18 12:01 Dose: 0.1 mg Hydralazine HCl (Apresoline -) 100 mg PO TID [facility] Last Admin: 10/25/18 14:34 Dose: 100 mg Famotidine/Sodium Chloride (Pepcid 20 Mg Premixed Ivpb -) 20 mg in 50 mls @ 100 mls/hr IVPB DAILY [facility] Last Admin: 10/25/18 12:13 Dose: 100 mls/hr Leflunomide (Arava -) 10 mg PO DAILY [facility] Last Admin: 10/25/18 12:01 Dose: 10 mg Metoprolol Succinate (Toprol Xl -) 50 mg PO DAILY [facility] Last Admin: 10/25/18 12:00 Dose: 50 mg Multivitamins/Minerals/Vitamin C (Tab-A-Vit -) 1 tab PO DAILY [facility] Last Admin: 10/25/18 12:00 Dose: 1 tab Nifedipine (Procardia Xl -) 90 mg PO DAILY [facility] Last Admin: 10/25/18 12:00 Dose: 90 mg Ondansetron HCl (Zofran Injection) 4 mg IVPUSH Q6H PRN PRN Reason: NAUSEA AND/OR VOMITING Last Admin: 10/25/18 10:51 Dose: 4 mg Prednisone (Deltasone -) 5 mg PO DAILY [facility] Last Admin: 10/25/18 12:00 Dose: 5 mg Tacrolimus (Prograf) 5 mg PO BID [facility] Last Admin: 10/25/18 12:01 Dose: 5 mg - Objective Vital Signs: Vital Signs Temperature 98.4 F 10/25/18 14:52 Pulse Rate 69 10/25/18 14:33 Respiratory Rate 20 10/25/18 14:33 Blood Pressure 118/68 10/25/18 14:33 O2 Sat by Pulse Oximetry (%) 95 10/25/18 10:30 Constitutional: Yes: Calm Eyes: Yes: Conjunctiva Clear HENT: Yes: Atraumatic Neck: Yes: Supple Cardiovascular: Yes: S1, S2 Respiratory: Yes: CTA Bilaterally Gastrointestinal: Yes: Soft Genitourinary: Yes: Other (graft non tender) Musculoskeletal: Yes: WNL Edema: No Neurological: Yes: Oriented Psychiatric: Yes: Oriented Labs: CBC, BMP 10/25/18 07:10 10/25/18 07:10 INR, PTT INR 0.97 (0.83-1.09) 10/23/18 14:17 Problem List - Problems (1) Anemia Code(s): D64.9 - ANEMIA, UNSPECIFIED (2) ESRD on hemodialysis Code(s): N18.6 - END STAGE RENAL DISEASE; Z99.2 - DEPENDENCE ON RENAL DIALYSIS Assessment/Plan Current Medications Generic Name Dose Route Start Last Admin Trade Name Freq PRN Reason Stop Dose Admin Atorvastatin Calcium 10 mg 10/23/18 22:00 10/24/18 22:37 Lipitor - PO 10 mg HS SERJIO Administration Clonidine 0.1 mg 10/24/18 10:00 10/25/18 12:01 Catapres - PO 0.1 mg DAILY SERJIO Administration Hydralazine HCl 100 mg 10/23/18 22:00 10/25/18 14:34 Apresoline - PO 100 mg TID SERJIO Administration Famotidine/Sodium Chloride 20 mg in 50 mls @ 100 mls/hr 10/25/18 12:00 12:13 Pepcid 20 Mg Premixed Ivpb - IVPB 100 mls/hr DAILY SERJIO Administration Leflunomide 10 mg 10/24/18 10:00 10/25/18 12:01 Arava - PO 10 mg DAILY SERJIO Administration Metoprolol Succinate 50 mg 10/24/18 10:00 10/25/18 12:00 Toprol Xl - PO 50 mg DAILY SERJIO Administration Multivitamins/Minerals/Vitamin C 1 tab 10/24/18 10:00 10/25/18 12:00 Tab-A-Vit - PO 1 tab DAILY SERJIO Administration Nifedipine 90 mg 10/24/18 10:00 10/25/18 12:00 Procardia Xl - PO 90 mg DAILY SERJIO Administration Ondansetron HCl 4 mg 10/25/18 10:15 10/25/18 10:51 Zofran Injection IVPUSH 4 mg Q6H PRN Administration NAUSEA AND/OR VOMITING Prednisone 5 mg 10/24/18 10:00 10/25/18 12:00 Deltasone - PO 5 mg DAILY SERJIO Administration Tacrolimus 5 mg 10/23/18 22:00 10/25/18 12:01 Prograf PO 5 mg BID SERJIO Administration Impression 1. ESRD 2. kidney transplant 3. htn 4. anemia 5. BK nephropathy Plan - monitor bp - cont meds - renal diet - epogen for anemia - send information to [facility] for Renal care in [facility] as that is where she lives - next HD on Saturday
[2018-10-25] MEDS: ATORVASTATIN CA 10 MG TABLET (FP) PO SCH (22:14)
[2018-10-26] MEDS: hydrALAZINE HCL 50 MG TABLET (FP) PO SCH ×3 (05:49→22:04)
[2018-10-26 09:00] LABS: BASO % 0.6 % (0-2.0); EOS % 1.4 % (0-4.5); HEMATOCRIT 26.5 % (32.4-45.2); HEMOGLOBIN 8.9 GM/dL (10.7-15.3); LYMPH % 31.3 % (8-40); MCH 31.1 pg (25.7-33.7); MCHC 33.6 g/dl (32.0-36.0); MEAN CELL VOLUME 92.4 fl (80-96); MEAN PLT VOLUME 8.9 fl (7.5-11.1); MONO % 9.5 % (3.8-10.2); NEUT % 57.2 % (42.8-82.8); PLATELET COUNT 98 K/MM3 (134-434); RBC 2.87 M/mm3 (3.60-5.2); RDW 18.1 % (11.6-15.6); WHITE BLOOD COUNT 4.6 K/mm3 (4.0-10.0)
[2018-10-26 09:38] LABS: ALBUMIN 2.9 g/dl (3.4-5.0); BILIRUBIN,TOTAL 0.4 mg/dL (0.2-1); BLOOD UREA NITROGEN 45.9 mg/dL (7-18); CALCIUM 8.9 mg/dL (8.5-10.1); CREATININE 6.2 mg/dL (0.55-1.3); MAGNESIUM 2.2 mg/dL (1.8-2.4); POTASSIUM 4.2 mmol/L (3.5-5.1); TOT PROT 5.8 g/dl (6.4-8.2)
[2018-10-26] MEDS ORDERED: PT OWN MED DRAWER 7, Y5N ONE ×2 (10:35→21:26)
[2018-10-26] MEDS: cloNIDine HCL 0.1 MG TABLET PO SCH (10:36)
[2018-10-26] MEDS: predniSONE 5 MG TABLET (UD) PO SCH (10:36)
[2018-10-26] MEDS: MULTIVITAMINS (DAILY MVI) TABLET (FP) PO SCH (10:38)
[2018-10-26] MEDS: TACROLIMUS ANHYDROUS 5 MG CAPSULE PO SCH ×2 (10:39→22:06)
[2018-10-26] MEDS: NIFEdipine E.R. 90 MG TABLET (FP) PO SCH (10:39)
[2018-10-26] MEDS: FAMOTIDINE 20 MG/50 ML IVPB 20 MG/50 ML MG IVPB SCH (10:40)
[2018-10-26] MEDS: LEFLUNOMIDE 10 MG TABLET PO SCH (10:40)
--- NOTE | 2018-10-26 12:01 | PN ---
Progress Note, Physician History of Present Illness: Patient is a 63 year old female with a signficant past medical history of ESRD ( on dialysis via left arm fistula - last dialysis 3 years ago), right renal transplant 3 years at [facility] in the [place] from an unknown donor, hypertension, neuropathy. Patient was sent here by nephrology after she was found to have developed kidney rejection and presents with a creatinine in the 7.6 range and labs noted to be anemic. She complains of weakness and fatigue. Per Ed report, her potassium was elevated yesterday on outpatient labs, but normal on our labs. Patient denies shortness of breath, denies chest pain, hematuria, denies bloody stools. She reports taking her anti rejection medications as ordered without missing any doses. On exam patient is awake, alert and in no acute distress. She further denies any dark/tarry stools, denies dizziness. States she has increased weakness and malaise. Patient is being admitted for initiation of dialysis. - Current Medication List Current Medications: Active Medications Atorvastatin Calcium (Lipitor -) 10 mg PO HS [facility] Last Admin: 10/25/18 22:14 Dose: 10 mg Clonidine (Catapres -) 0.1 mg PO DAILY [facility] Last Admin: 10/26/18 10:36 Dose: 0.1 mg Hydralazine HCl (Apresoline -) 100 mg PO TID [facility] Last Admin: 10/26/18 05:49 Dose: 100 mg Famotidine/Sodium Chloride (Pepcid 20 Mg Premixed Ivpb -) 20 mg in 50 mls @ 100 mls/hr IVPB DAILY [facility] Last Admin: 10/26/18 10:40 Dose: 100 mls/hr Leflunomide (Arava -) 10 mg PO DAILY [facility] Last Admin: 10/26/18 10:40 Dose: 10 mg Metoprolol Succinate (Toprol Xl -) 50 mg PO DAILY [facility] Last Admin: 10/26/18 10:36 Dose: 50 mg Multivitamins/Minerals/Vitamin C (Tab-A-Vit -) 1 tab PO DAILY [facility] Last Admin: 10/26/18 10:38 Dose: 1 tab Nifedipine (Procardia Xl -) 90 mg PO DAILY [facility] Last Admin: 10/26/18 10:39 Dose: 90 mg Ondansetron HCl (Zofran Injection) 4 mg IVPUSH Q6H PRN PRN Reason: NAUSEA AND/OR VOMITING Last Admin: 10/25/18 10:51 Dose: 4 mg Prednisone (Deltasone -) 5 mg PO DAILY [facility] Last Admin: 10/26/18 10:36 Dose: 5 mg Tacrolimus (Prograf) 5 mg PO BID [facility] Last Admin: 10/26/18 10:39 Dose: 5 mg - Objective Vital Signs: Vital Signs Temperature 99.1 F 10/26/18 10:27 Pulse Rate 68 10/26/18 10:27 Respiratory Rate 20 10/26/18 10:27 Blood Pressure 153/82 10/26/18 10:27 O2 Sat by Pulse Oximetry (%) 95 10/25/18 21:00 Constitutional: Yes: Well Nourished, No Distress, Calm Eyes: Yes: WNL HENT: Yes: WNL Neck: Yes: Supple Cardiovascular: Yes: Regular Rate and Rhythm Respiratory: Yes: Regular Gastrointestinal: Yes: Normal Bowel Sounds ...Rectal Exam: Yes: Deferred Genitourinary: Yes: WNL Labs: CBC, BMP 10/26/18 08:40 10/26/18 08:40 INR, PTT INR 0.97 (0.83-1.09) 10/23/18 14:17 Problem List - Problems (1) Kidney transplant rejection Assessment/Plan: s/p right kidney transplant at [facility] 3 years ago. Now with elevated bun/ creatinine on outpatient labs. hospital labs: bun 65/creat 7.6 on admission, creat. 4.7 today. Potassium stable. She is s/p dialysis on 10/24/2018 via left upper arm AV fistula. She is s/p 2 units of prbc on 10/23/18 for severe anemia. - on renal diet - evaluated by dietary - renal dose medications continue anti rejection meds per nephrology (2) Anemia Assessment/Plan: s/p 2 units of prbc with appropriate rise in hmg/hct stool for occult blood negative, has +3 blood in urine Code(s): D64.9 - ANEMIA, UNSPECIFIED (3) Renal failure Assessment/Plan: for inpatient dialysis tomorrow per renal. renal u/s reviewed. patient needs outpatient dialysis set up by . hepatitis panel pending Code(s): N19 - UNSPECIFIED KIDNEY FAILURE (4) Hypertension Assessment/Plan: controlled Code(s): I10 - ESSENTIAL (PRIMARY) HYPERTENSION (5) Thrombocytopenia Assessment/Plan: history of low platelets. defer a/c 2/2 to low platelets and anemia. Code(s): D69.6 - THROMBOCYTOPENIA, UNSPECIFIED (6) Abnormal loss of weight Assessment/Plan: dietary following. on nepro bid. Code(s): R63.4 - ABNORMAL WEIGHT LOSS (7) Prophylactic measure Assessment/Plan: fen oral hydration monitor electrolytes renal diet prophy defer a/c Code(s): Z29.9 - ENCOUNTER FOR PROPHYLACTIC MEASURES, UNSPECIFIED Visit type - Emergency Visit Emergency Visit: No - New Patient This patient is new to me today: Yes Date on this admission: 10/26/18 - Critical Care Critical Care patient: No - Discharge Referral Referred to [facility] Med P.C.: No
--- NOTE | 2018-10-26 14:07 | PN ---
Progress Note, Physician History of Present Illness: Pt seen and examined at bedside. She is awake and alert. She denies shortness of breath. - Current Medication List Current Medications: Active Medications Atorvastatin Calcium (Lipitor -) 10 mg PO HS [facility] Last Admin: 10/25/18 22:14 Dose: 10 mg Clonidine (Catapres -) 0.1 mg PO DAILY [facility] Last Admin: 10/26/18 10:36 Dose: 0.1 mg Hydralazine HCl (Apresoline -) 100 mg PO TID [facility] Last Admin: 10/26/18 05:49 Dose: 100 mg Famotidine/Sodium Chloride (Pepcid 20 Mg Premixed Ivpb -) 20 mg in 50 mls @ 100 mls/hr IVPB DAILY [facility] Last Admin: 10/26/18 10:40 Dose: 100 mls/hr Leflunomide (Arava -) 10 mg PO DAILY [facility] Last Admin: 10/26/18 10:40 Dose: 10 mg Metoprolol Succinate (Toprol Xl -) 50 mg PO DAILY [facility] Last Admin: 10/26/18 10:36 Dose: 50 mg Multivitamins/Minerals/Vitamin C (Tab-A-Vit -) 1 tab PO DAILY [facility] Last Admin: 10/26/18 10:38 Dose: 1 tab Nifedipine (Procardia Xl -) 90 mg PO DAILY [facility] Last Admin: 10/26/18 10:39 Dose: 90 mg Ondansetron HCl (Zofran Injection) 4 mg IVPUSH Q6H PRN PRN Reason: NAUSEA AND/OR VOMITING Last Admin: 10/25/18 10:51 Dose: 4 mg Prednisone (Deltasone -) 5 mg PO DAILY [facility] Last Admin: 10/26/18 10:36 Dose: 5 mg Tacrolimus (Prograf) 5 mg PO BID [facility] Last Admin: 10/26/18 10:39 Dose: 5 mg - Objective Vital Signs: Vital Signs Temperature 99.1 F 10/26/18 10:27 Pulse Rate 68 10/26/18 10:27 Respiratory Rate 20 10/26/18 10:27 Blood Pressure 153/82 10/26/18 10:27 O2 Sat by Pulse Oximetry (%) 95 10/25/18 21:00 Constitutional: Yes: Calm Eyes: Yes: Conjunctiva Clear HENT: Yes: Atraumatic Neck: Yes: Supple Cardiovascular: Yes: S1, S2 Respiratory: Yes: CTA Bilaterally Gastrointestinal: Yes: Normal Bowel Sounds, Soft Genitourinary: Yes: WNL, Other (graft soft) Edema: No Neurological: Yes: Oriented Psychiatric: Yes: Oriented Labs: CBC, BMP 10/26/18 08:40 10/26/18 08:40 INR, PTT INR 0.97 (0.83-1.09) 10/23/18 14:17 Problem List - Problems (1) Anemia Code(s): D64.9 - ANEMIA, UNSPECIFIED (2) ESRD on hemodialysis Code(s): N18.6 - END STAGE RENAL DISEASE; Z99.2 - DEPENDENCE ON RENAL DIALYSIS Assessment/Plan Current Medications Generic Name Dose Route Start Last Admin Trade Name Freq PRN Reason Stop Dose Admin Atorvastatin Calcium 10 mg 10/23/18 22:00 10/25/18 22:14 Lipitor - PO 10 mg HS SERJIO Administration Clonidine 0.1 mg 10/24/18 10:00 10/26/18 10:36 Catapres - PO 0.1 mg DAILY SERJIO Administration Hydralazine HCl 100 mg 10/23/18 22:00 10/26/18 05:49 Apresoline - PO 100 mg TID SERJIO Administration Famotidine/Sodium Chloride 20 mg in 50 mls @ 100 mls/hr 10/25/18 12:00 10:40 Pepcid 20 Mg Premixed Ivpb - IVPB 100 mls/hr DAILY SERJIO Administration Leflunomide 10 mg 10/24/18 10:00 10/26/18 10:40 Arava - PO 10 mg DAILY SERJIO Administration Metoprolol Succinate 50 mg 10/24/18 10:00 10/26/18 10:36 Toprol Xl - PO 50 mg DAILY SERJIO Administration Multivitamins/Minerals/Vitamin C 1 tab 10/24/18 10:00 10/26/18 10:38 Tab-A-Vit - PO 1 tab DAILY SERJIO Administration Nifedipine 90 mg 10/24/18 10:00 10/26/18 10:39 Procardia Xl - PO 90 mg DAILY SERJIO Administration Ondansetron HCl 4 mg 10/25/18 10:15 10/25/18 10:51 Zofran Injection IVPUSH 4 mg Q6H PRN Administration NAUSEA AND/OR VOMITING Prednisone 5 mg 10/24/18 10:00 10/26/18 10:36 Deltasone - PO 5 mg DAILY SERJIO Administration Tacrolimus 5 mg 10/23/18 22:00 10/26/18 10:39 Prograf PO 5 mg BID SERJIO Administration Impression 1. ESRD 2. kidney transplant 3. htn 4. anemia 5. BK nephropathy Plan - HD tomorrow - epogen for anemia - pending outpt HD placement - renal diet - send information to [facility] for Renal care in [place] as that is where she lives - follow hep panel, will need results before hd placement
[2018-10-26] MEDS: ATORVASTATIN CA 10 MG TABLET (FP) PO SCH (22:05)
[2018-10-27] MEDS: hydrALAZINE HCL 50 MG TABLET (FP) PO SCH ×3 (05:49→21:43)
[2018-10-27] MEDS ORDERED: SODIUM CHLORIDE 250 ML IV PRN (09:27)
[2018-10-27] MEDS ORDERED: EPOETIN ALFA 10,000 UNIT/1 ML VIAL IVPUSH ONE (09:30)
[2018-10-27 09:49] LABS: BASO % 0.4 % (0-2.0); EOS % 1.1 % (0-4.5); HEMATOCRIT 27.4 % (32.4-45.2); LYMPH % 31.2 % (8-40); MCH 30.5 pg (25.7-33.7); MCHC 32.8 g/dl (32.0-36.0); MEAN PLT VOLUME 9.3 fl (7.5-11.1); MONO % 7.1 % (3.8-10.2); NEUT % 60.2 % (42.8-82.8); PLATELET COUNT 90 K/MM3 (134-434); RBC 2.95 M/mm3 (3.60-5.2); RDW 17.7 % (11.6-15.6); WHITE BLOOD COUNT 5.5 K/mm3 (4.0-10.0)
[2018-10-27 10:13] LABS: ALBUMIN 3.1 g/dl (3.4-5.0); BILIRUBIN,TOTAL 0.4 mg/dL (0.2-1); BLOOD UREA NITROGEN 58.5 mg/dL (7-18); CALCIUM 8.6 mg/dL (8.5-10.1); CREATININE 6.8 mg/dL (0.55-1.3); MAGNESIUM 2.1 mg/dL (1.8-2.4); POTASSIUM 3.7 mmol/L (3.5-5.1); TOT PROT 6.1 g/dl (6.4-8.2)
--- NOTE | 2018-10-27 10:24 | PN ---
Progress Note, Physician Chief Complaint: offers no complaints, wants to go home History of Present Illness: Patient is a 63 year old female with a signficant past medical history of ESRD ( on dialysis via left arm fistula - last dialysis 3 years ago), right renal transplant 3 years at [facility] in the [place] from an unknown donor, hypertension, neuropathy. Patient was sent here by nephrology after she was found to have developed kidney rejection and presents with a creatinine in the 7.6 range and labs noted to be anemic. She complains of weakness and fatigue. Per Ed report, her potassium was elevated yesterday on outpatient labs, but normal on our labs. Patient denies shortness of breath, denies chest pain, hematuria, denies bloody stools. She reports taking her anti rejection medications as ordered without missing any doses. On exam patient is awake, alert and in no acute distress. She further denies any dark/tarry stools, denies dizziness. States she has increased weakness and malaise. Patient was being admitted for initiation of dialysis. SW setting up home dialysis center. Awaiting results of hepatitis panel before discharging patient home. - Current Medication List Current Medications: Active Medications Atorvastatin Calcium (Lipitor -) 10 mg PO HS [facility] Last Admin: 10/26/18 22:05 Dose: 10 mg Clonidine (Catapres -) 0.1 mg PO DAILY [facility] Last Admin: 10/26/18 10:36 Dose: 0.1 mg Hydralazine HCl (Apresoline -) 100 mg PO TID [facility] Last Admin: 10/27/18 05:49 Dose: 100 mg Famotidine/Sodium Chloride (Pepcid 20 Mg Premixed Ivpb -) 20 mg in 50 mls @ 100 mls/hr IVPB DAILY [facility] Last Admin: 10/26/18 10:40 Dose: 100 mls/hr Leflunomide (Arava -) 10 mg PO DAILY [facility] Last Admin: 10/26/18 10:40 Dose: 10 mg Metoprolol Succinate (Toprol Xl -) 50 mg PO DAILY [facility] Last Admin: 10/26/18 10:36 Dose: 50 mg Multivitamins/Minerals/Vitamin C (Tab-A-Vit -) 1 tab PO DAILY [facility] Last Admin: 10/26/18 10:38 Dose: 1 tab Nifedipine (Procardia Xl -) 90 mg PO DAILY [facility] Last Admin: 10/26/18 10:39 Dose: 90 mg Ondansetron HCl (Zofran Injection) 4 mg IVPUSH Q6H PRN PRN Reason: NAUSEA AND/OR VOMITING Last Admin: 10/25/18 10:51 Dose: 4 mg Prednisone (Deltasone -) 5 mg PO DAILY [facility] Last Admin: 10/26/18 10:36 Dose: 5 mg Tacrolimus (Prograf) 5 mg PO BID [facility] Last Admin: 10/26/18 22:06 Dose: 5 mg - Objective Vital Signs: Vital Signs Temperature 97.6 F 10/27/18 06:00 Pulse Rate 67 10/27/18 06:00 Respiratory Rate 18 10/27/18 06:00 Blood Pressure 153/78 10/27/18 06:00 O2 Sat by Pulse Oximetry (%) 92 L 10/26/18 21:00 Constitutional: Yes: Well Nourished, No Distress, Calm Eyes: Yes: WNL HENT: Yes: WNL Neck: Yes: WNL Cardiovascular: Yes: WNL, Regular Rate and Rhythm Respiratory: Yes: Regular, CTA Bilaterally Labs: CBC, BMP 10/27/18 08:15 10/27/18 08:15 INR, PTT INR 0.97 (0.83-1.09) 10/23/18 14:17 Problem List - Problems (1) Kidney transplant rejection Assessment/Plan: s/p right kidney transplant at [facility] 3 years ago. Now with elevated bun/ creatinine on outpatient labs. hospital labs: bun 65/creat 7.6 on admission, improved with initiation of dialysis. Potassium stable. She is for dialysis today via left upper arm AV fistula. She is s/p 2 units of prbc on 10/23/18 for severe anemia. - on renal diet - evaluated by dietary - renal dose medications continue anti rejection meds per nephrology Awaiting hepatitis panel to result before discharge home. outpatient facility for dialysis being set up by social work. (2) Anemia Assessment/Plan: s/p 2 units of prbc with appropriate rise in hmg/hct stool for occult blood negative, has +3 blood in urine Code(s): D64.9 - ANEMIA, UNSPECIFIED (3) Renal failure Assessment/Plan: dialysis today renal u/s reviewed. patient needs outpatient dialysis set up by . hepatitis panel pending Code(s): N19 - UNSPECIFIED KIDNEY FAILURE (4) Hypertension Assessment/Plan: controlled Code(s): I10 - ESSENTIAL (PRIMARY) HYPERTENSION (5) Thrombocytopenia Assessment/Plan: history of low platelets. defer a/c 2/2 to low platelets and anemia. Code(s): D69.6 - THROMBOCYTOPENIA, UNSPECIFIED (6) Abnormal loss of weight Assessment/Plan: dietary following. on nepro bid. Code(s): R63.4 - ABNORMAL WEIGHT LOSS (7) Prophylactic measure Assessment/Plan: fen oral hydration monitor electrolytes renal diet prophy defer a/c Code(s): Z29.9 - ENCOUNTER FOR PROPHYLACTIC MEASURES, UNSPECIFIED Visit type - Emergency Visit Emergency Visit: Yes ED Registration Date: 10/23/18 Care time: The patient presented to the Emergency Department on the above date and was hospitalized for further evaluation of their emergent condition. - New Patient This patient is new to me today: No - Critical Care Critical Care patient: No - Discharge Referral Referred to [facility] Med P.C.: No
[2018-10-27] MEDS ORDERED: PT OWN MED DRAWER 7, Y5N ONE ×2 (10:44→20:58)
[2018-10-27] MEDS: predniSONE 5 MG TABLET (UD) PO SCH (12:30)
[2018-10-27] MEDS: cloNIDine HCL 0.1 MG TABLET PO SCH (12:30)
[2018-10-27] MEDS: FAMOTIDINE 20 MG/50 ML IVPB 20 MG/50 ML MG IVPB SCH (12:30)
[2018-10-27] MEDS: LEFLUNOMIDE 10 MG TABLET PO SCH (12:31)
[2018-10-27] MEDS: TACROLIMUS ANHYDROUS 5 MG CAPSULE PO SCH ×2 (12:31→21:44)
[2018-10-27] MEDS: NIFEdipine E.R. 90 MG TABLET (FP) PO SCH (12:34)
[2018-10-27] MEDS: MULTIVITAMINS (DAILY MVI) TABLET (FP) PO SCH (12:34)
[2018-10-27] MEDS ORDERED: LIDOCAINE 2.5%/PRILOCAINE 2.5% (5 Gram/TUBE) TP ONE (13:54)
--- NOTE | 2018-10-27 13:54 | PN ---
Progress Note, Physician History of Present Illness: Pt seen and examined at bedside. She is awake and alert. SHe tolerated HD. - Current Medication List Current Medications: Active Medications Atorvastatin Calcium (Lipitor -) 10 mg PO HS [facility] Last Admin: 10/26/18 22:05 Dose: 10 mg Clonidine (Catapres -) 0.1 mg PO DAILY [facility] Last Admin: 10/27/18 12:30 Dose: 0.1 mg Hydralazine HCl (Apresoline -) 100 mg PO TID [facility] Last Admin: 10/27/18 05:49 Dose: 100 mg Famotidine/Sodium Chloride (Pepcid 20 Mg Premixed Ivpb -) 20 mg in 50 mls @ 100 mls/hr IVPB DAILY [facility] Last Admin: 10/27/18 12:30 Dose: 100 mls/hr Leflunomide (Arava -) 10 mg PO DAILY [facility] Last Admin: 10/27/18 12:31 Dose: 10 mg Metoprolol Succinate (Toprol Xl -) 50 mg PO DAILY [facility] Last Admin: 10/27/18 12:30 Dose: 50 mg Multivitamins/Minerals/Vitamin C (Tab-A-Vit -) 1 tab PO DAILY [facility] Last Admin: 10/27/18 12:34 Dose: 1 tab Nifedipine (Procardia Xl -) 90 mg PO DAILY [facility] Last Admin: 10/27/18 12:34 Dose: 90 mg Ondansetron HCl (Zofran Injection) 4 mg IVPUSH Q6H PRN PRN Reason: NAUSEA AND/OR VOMITING Last Admin: 10/25/18 10:51 Dose: 4 mg Prednisone (Deltasone -) 5 mg PO DAILY [facility] Last Admin: 10/27/18 12:30 Dose: 5 mg Tacrolimus (Prograf) 5 mg PO BID [facility] Last Admin: 10/27/18 12:31 Dose: 5 mg - Objective Vital Signs: Vital Signs Temperature 98.2 F 10/27/18 10:00 Pulse Rate 81 10/27/18 12:06 Respiratory Rate 18 10/27/18 12:06 Blood Pressure 173/94 H 10/27/18 12:06 O2 Sat by Pulse Oximetry (%) 92 L 10/27/18 09:00 Constitutional: Yes: Calm Eyes: Yes: Conjunctiva Clear HENT: Yes: Atraumatic Neck: Yes: Supple Cardiovascular: Yes: S1, S2 Respiratory: Yes: CTA Bilaterally Gastrointestinal: Yes: Normal Bowel Sounds, Soft Genitourinary: Yes: WNL Musculoskeletal: Yes: WNL Edema: No Neurological: Yes: Oriented Psychiatric: Yes: Oriented Labs: CBC, BMP 10/27/18 08:15 10/27/18 08:15 INR, PTT INR 0.97 (0.83-1.09) 10/23/18 14:17 Problem List - Problems (1) Anemia Code(s): D64.9 - ANEMIA, UNSPECIFIED (2) ESRD on hemodialysis Code(s): N18.6 - END STAGE RENAL DISEASE; Z99.2 - DEPENDENCE ON RENAL DIALYSIS Assessment/Plan Microbiology 10/24/18 21:20 Blood - Peripheral Venous Blood Culture - Preliminary NO GROWTH OBTAINED AFTER 48 HOURS, INCUBATION TO CONTINUE FOR 3 DAYS. 10/24/18 21:45 Blood - Peripheral Venous Blood Culture - Preliminary NO GROWTH OBTAINED AFTER 48 HOURS, INCUBATION TO CONTINUE FOR 3 DAYS. Laboratory Tests 10/24/18 15:00 Hep Bs Antigen Negative Hep C Ab Diagnostic <0.1 Current Medications Generic Name Dose Route Start Last Admin Trade Name Leo PRN Reason Stop Dose Admin Atorvastatin Calcium 10 mg 10/23/18 22:00 10/26/18 22:05 Lipitor - PO 10 mg HS SERJIO Administration Clonidine 0.1 mg 10/24/18 10:00 10/27/18 12:30 Catapres - PO 0.1 mg DAILY SERJIO Administration Hydralazine HCl 100 mg 10/23/18 22:00 10/27/18 05:49 Apresoline - PO 100 mg TID SERJIO Administration Famotidine/Sodium Chloride 20 mg in 50 mls @ 100 mls/hr 10/25/18 12:00 12:30 Pepcid 20 Mg Premixed Ivpb - IVPB 100 mls/hr DAILY SERJIO Administration Leflunomide 10 mg 10/24/18 10:00 10/27/18 12:31 Arava - PO 10 mg DAILY SERJIO Administration Metoprolol Succinate 50 mg 10/24/18 10:00 10/27/18 12:30 Toprol Xl - PO 50 mg DAILY SERJIO Administration Multivitamins/Minerals/Vitamin C 1 tab 10/24/18 10:00 10/27/18 12:34 Tab-A-Vit - PO 1 tab DAILY SERJIO Administration Nifedipine 90 mg 10/24/18 10:00 10/27/18 12:34 Procardia Xl - PO 90 mg DAILY SERJIO Administration Ondansetron HCl 4 mg 10/25/18 10:15 10/25/18 10:51 Zofran Injection IVPUSH 4 mg Q6H PRN Administration NAUSEA AND/OR VOMITING Prednisone 5 mg 10/24/18 10:00 10/27/18 12:30 Deltasone - PO 5 mg DAILY SERJIO Administration Tacrolimus 5 mg 10/23/18 22:00 10/27/18 12:31 Prograf PO 5 mg BID SERJIO Administration Impression 1. ESRD 2. kidney transplant 3. htn 4. anemia 5. BK nephropathy Plan - pt tolerate HD - emla cream for access, will need script when discharged - pending placement - hep panel noted
--- NOTE | 2018-10-27 18:09 | DS ---
Physical Exam: SUBJECTIVE: Patient seen and examined OBJECTIVE: Vital Signs Period Temp Pulse Resp BP Sys/[place] Pulse Ox Last 24 Hr 97 F-99.3 F 65-81 18-18 106-176/52-98 92-92 PHYSICAL EXAM GENERAL: The patient is awake, alert, and fully oriented, in no acute distress. HEAD: Normal with no signs of trauma. EYES: PERRL, extraocular movements intact, sclera anicteric, conjunctiva clear. ENT: Ears normal, nares patent, oropharynx clear without exudates, moist mucous membranes. NECK: Trachea midline, full range of motion, supple. LUNGS: Breath sounds equal, clear to auscultation bilaterally, no wheezes, no crackles, no accessory muscle use. HEART: Regular rate and rhythm, S1, S2 without murmur, rub or gallop. ABDOMEN: Soft, nontender, nondistended, normoactive bowel sounds, no guarding, no rebound, no hepatosplenomegaly, no masses. EXTREMITIES: 2+ pulses, warm, well-perfused, no edema. NEUROLOGICAL: Cranial nerves II through XII grossly intact. Normal speech, gait not observed. PSYCH: Normal mood, normal affect. SKIN: Warm, dry, normal turgor, no rashes or lesions noted. LABS Laboratory Results - last 24 hr 10/23/18 10/27/18 10/27/18 14:27 08:15 08:15 WBC 5.5 RBC 2.95 L Hgb 9.0 L Hct 27.4 L MCV 93.0 MCH 30.5 MCHC 32.8 RDW 17.7 H Plt Count 90 L MPV 9.3 Absolute Neuts (auto) 3.3 Neutrophils % 60.2 Lymphocytes % 31.2 Monocytes % 7.1 Eosinophils % 1.1 Basophils % 0.4 Nucleated RBC % 0 Sodium 142 Potassium 3.7 Chloride 110 H Carbon Dioxide 24 Anion Gap 8 BUN 58.5 H Creatinine 6.8 H Est GFR (CKD-EPI)AfAm 6.89 Est GFR (CKD-EPI)NonAf 5.94 Random Glucose 127 H Calcium 8.6 Magnesium 2.1 Total Bilirubin 0.4 AST 11 L ALT 8 L Alkaline Phosphatase 79 Total Protein 6.1 L Albumin 3.1 L Blood Type A NEGATIVE Antibody Screen Negative Crossmatch See Detail HOSPITAL COURSE: Date of Admission:10/23/18 Date of Discharge: 10/27/18 Discharge Summary Reason For Visit: TRANSPLANTATION,ANEMIA,RENAL FAILURE Current Active Problems Abnormal loss of weight (Acute) Anemia (Acute) ESRD on hemodialysis (Acute) Kidney transplant rejection (Acute) Prophylactic measure (Acute) Renal failure (Acute) Condition: Stable - Instructions Referrals: Katie Lamas MD [Staff Physician] - Disposition: HOME - Home Medications Comprehensive Discharge Medication List: Ambulatory Orders Amlodipine Besylate [Norvasc -] 10 mg PO DAILY 04/19/14 Famotidine [Pepcid -] 20 mg PO DAILY 10/23/18 Furosemide [Lasix] 80 mg PO DAILY 10/23/18 Hydralazine HCl 100 mg PO TID 10/23/18 Leflunomide [Arava] 30 mg PO DAILY 10/23/18 Metoprolol Succinate [Toprol Xl] 50 mg PO DAILY 10/23/18 Multivitamin [Multiple Vitamins] 1 each PO DAILY 10/23/18 Nifedipine [Nifedipine ER] 90 mg PO DAILY 10/23/18 Pravastatin Sodium [Pravachol -] 40 mg PO HS 10/23/18 Prednisone 5 mg PO DAILY 10/23/18 Sodium Bicarbonate - 1,300 mg PO BID 10/23/18 Tacrolimus Anhydrous [Prograf] 5 mg PO BID 10/23/18 cloNIDine HCL [Catapres -] 0.1 mg PO DAILY 10/23/18 Problem List - Problems (2) Anemia Code(s): D64.9 - ANEMIA, UNSPECIFIED (3) Renal failure Code(s): N19 - UNSPECIFIED KIDNEY FAILURE (4) Hypertension Code(s): I10 - ESSENTIAL (PRIMARY) HYPERTENSION (5) Thrombocytopenia Code(s): D69.6 - THROMBOCYTOPENIA, UNSPECIFIED (6) Abnormal loss of weight Code(s): R63.4 - ABNORMAL WEIGHT LOSS (7) Prophylactic measure Code(s): Z29.9 - ENCOUNTER FOR PROPHYLACTIC MEASURES, UNSPECIFIED - Discharge Referral Referred to [facility] Med P.C.: No
[2018-10-27] MEDS: ATORVASTATIN CA 10 MG TABLET (FP) PO SCH (21:44)
[2018-10-27 22:06] LABS: HEP B CORE AB, TOT Negative (Negative)
[2018-10-28] MEDS: hydrALAZINE HCL 50 MG TABLET (FP) PO SCH (06:21)
[2018-10-28 07:54] VITALS: PULSE 74
[2018-10-28 08:19] VITALS: BP 145/72; TEMP 99.4
[2018-10-28] MEDS ORDERED: PT OWN MED DRAWER 7, Y5N ONE (09:30)
[2018-10-28] MEDS: LEFLUNOMIDE 10 MG TABLET PO SCH (10:16)
[2018-10-28] MEDS: cloNIDine HCL 0.1 MG TABLET PO SCH (10:16)
[2018-10-28] MEDS: predniSONE 5 MG TABLET (UD) PO SCH (10:16)
[2018-10-28] MEDS: FAMOTIDINE 20 MG/50 ML IVPB 20 MG/50 ML MG IVPB SCH (10:17)
[2018-10-28] MEDS: NIFEdipine E.R. 90 MG TABLET (FP) PO SCH (10:17)
[2018-10-28] MEDS: MULTIVITAMINS (DAILY MVI) TABLET (FP) PO SCH (10:17)
[2018-10-28] MEDS: TACROLIMUS ANHYDROUS 5 MG CAPSULE PO SCH (10:17)
[2018-10-28 10:23] LABS: BASO % 0.4 % (0-2.0); EOS % 0.8 % (0-4.5); HEMATOCRIT 28.4 % (32.4-45.2); HEMOGLOBIN 9.3 GM/dL (10.7-15.3); LYMPH % 30.7 % (8-40); MCH 30.6 pg (25.7-33.7); MCHC 32.7 g/dl (32.0-36.0); MEAN CELL VOLUME 93.4 fl (80-96); MEAN PLT VOLUME 9.4 fl (7.5-11.1); MONO % 10.3 % (3.8-10.2); NEUT % 57.8 % (42.8-82.8); PLATELET COUNT 89 K/MM3 (134-434); RBC 3.04 M/mm3 (3.60-5.2); RDW 17.3 % (11.6-15.6); WHITE BLOOD COUNT 5.3 K/mm3 (4.0-10.0)
[2018-10-28 10:56] LABS: ALBUMIN 3.2 g/dl (3.4-5.0); BILIRUBIN,TOTAL 0.4 mg/dL (0.2-1); BLOOD UREA NITROGEN 25.6 mg/dL (7-18); CALCIUM 8.9 mg/dL (8.5-10.1); CREATININE 4.5 mg/dL (0.55-1.3); MAGNESIUM 1.9 mg/dL (1.8-2.4); TOT PROT 6.4 g/dl (6.4-8.2)
--- NOTE | 2018-10-28 12:16 | DS ---
Physical Exam: SUBJECTIVE: Patient seen and examined OBJECTIVE: Vital Signs Period Temp Pulse Resp BP Sys/[place] Pulse Ox Last 24 Hr 98.4 F-99.4 F 66-78 17-18 99-160/53-86 94 PHYSICAL EXAM GENERAL: The patient is awake, alert, and fully oriented, in no acute distress. HEAD: Normal with no signs of trauma. EYES: PERRL, extraocular movements intact, sclera anicteric, conjunctiva clear. ENT: Ears normal, nares patent, oropharynx clear without exudates, moist mucous membranes. NECK: Trachea midline, full range of motion, supple. LUNGS: Breath sounds equal, clear to auscultation bilaterally, no wheezes, no crackles, no accessory muscle use. HEART: Regular rate and rhythm, S1, S2 without murmur, rub or gallop. ABDOMEN: Soft, nontender, nondistended, normoactive bowel sounds, no guarding, no rebound, no hepatosplenomegaly, no masses. EXTREMITIES: 2+ pulses, warm, well-perfused, no edema. NEUROLOGICAL: Cranial nerves II through XII grossly intact. Normal speech, gait not observed. PSYCH: Normal mood, normal affect. SKIN: Warm, dry, normal turgor, no rashes or lesions noted. LABS Laboratory Results - last 24 hr 10/25/18 10/25/18 10/28/18 05:00 06:40 10:08 WBC 5.3 RBC 3.04 L Hgb 9.3 L Hct 28.4 L MCV 93.4 MCH 30.6 MCHC 32.7 RDW 17.3 H Plt Count 89 L MPV 9.4 Absolute Neuts (auto) 3.1 Neutrophils % 57.8 Lymphocytes % 30.7 Monocytes % 10.3 H Eosinophils % 0.8 Basophils % 0.4 Nucleated RBC % 0 Sodium Potassium Chloride Carbon Dioxide Anion Gap BUN Creatinine Est GFR (CKD-EPI)AfAm Est GFR (CKD-EPI)NonAf Random Glucose Calcium Magnesium Total Bilirubin AST ALT Alkaline Phosphatase Total Protein Albumin Tacrolimus 7.4 Hep A IgM Ab Confirm Negative Hepatitis A Ab Total Positive H Hep Bs Antigen Negative Hep Bs Antibody Non reactive Hep B Core Total Ab Negative Hep B Core IgM Ab Negative Hepatitis Be Antibody Negative Hepatitis Be Antigen Negative HCV Quantitation Hcv not detected HCV RNA log copies/mL TNP 10/28/18 10:08 WBC RBC Hgb Hct MCV MCH MCHC RDW Plt Count MPV Absolute Neuts (auto) Neutrophils % Lymphocytes % Monocytes % Eosinophils % Basophils % Nucleated RBC % Sodium 143 Potassium 4.0 Chloride 106 Carbon Dioxide 29 Anion Gap 8 BUN 25.6 H Creatinine 4.5 H Est GFR (CKD-EPI)AfAm 11.35 Est GFR (CKD-EPI)NonAf 9.79 Random Glucose 118 H Calcium 8.9 Magnesium 1.9 Total Bilirubin 0.4 AST 13 L ALT 9 L Alkaline Phosphatase 81 Total Protein 6.4 Albumin 3.2 L Tacrolimus Hep A IgM Ab Confirm Hepatitis A Ab Total Hep Bs Antigen Hep Bs Antibody Hep B Core Total Ab Hep B Core IgM Ab Hepatitis Be Antibody Hepatitis Be Antigen HCV Quantitation HCV RNA log copies/mL HOSPITAL COURSE: Date of Admission:10/23/18 Date of Discharge: 10/28/18 Patient is a 63 year old female with a signficant past medical history of ESRD ( on dialysis via left arm fistula - last dialysis 3 years ago), right renal transplant 3 years at [facility] in the [place] from an unknown donor, hypertension, neuropathy. Patient was sent here by nephrology after she was found to have developed kidney rejection and presents with a creatinine in the 7.6 range and labs noted to be anemic. She complains of weakness and fatigue. Per Ed report, her potassium was elevated yesterday on outpatient labs, but normal on our labs. Patient denies shortness of breath, denies chest pain, hematuria, denies bloody stools. She reports taking her anti rejection medications as ordered without missing any doses. On exam patient is awake, alert and in no acute distress. She further denies any dark/tarry stools, denies dizziness. S Patient was being admitted for initiation of dialysis. SW set up home dialysis center. Discharge Summary Reason For Visit: TRANSPLANTATION,ANEMIA,RENAL FAILURE Current Active Problems Abnormal loss of weight (Acute) Anemia (Acute) ESRD on hemodialysis (Acute) Kidney transplant rejection (Acute) Prophylactic measure (Acute) Renal failure (Acute) Condition: Stable - Instructions Referrals: Katie Lamas MD [Staff Physician] - Disposition: HOME - Home Medications Comprehensive Discharge Medication List: Ambulatory Orders Amlodipine Besylate [Norvasc -] 10 mg PO DAILY 04/19/14 Famotidine [Pepcid -] 20 mg PO DAILY 10/23/18 Furosemide [Lasix] 80 mg PO DAILY 10/23/18 Hydralazine HCl 100 mg PO TID 10/23/18 Leflunomide [Arava] 30 mg PO DAILY 10/23/18 Metoprolol Succinate [Toprol Xl] 50 mg PO DAILY 10/23/18 Multivitamin [Multiple Vitamins] 1 each PO DAILY 10/23/18 Nifedipine [Nifedipine ER] 90 mg PO DAILY 10/23/18 Pravastatin Sodium [Pravachol -] 40 mg PO HS 10/23/18 Prednisone 5 mg PO DAILY 10/23/18 Sodium Bicarbonate - 1,300 mg PO BID 10/23/18 Tacrolimus Anhydrous [Prograf] 5 mg PO BID 10/23/18 cloNIDine HCL [Catapres -] 0.1 mg PO DAILY 10/23/18 Problem List - Problems (1) Kidney transplant rejection Assessment/Plan: s/p right kidney transplant at [facility] 3 years ago. Underwent HD yesterday without incident She is for dialysis today via left upper arm AV fistula. - on renal diet - renal dose medications continue anti rejection meds per nephrology (2) Anemia Assessment/Plan: s/p 2 units of prbc with appropriate rise in hmg/hct stool for occult blood negative, has +3 blood in urine will continue to follow H/H as outpatient Code(s): D64.9 - ANEMIA, UNSPECIFIED (3) Renal failure Assessment/Plan: dialysis 10/28 Code(s): N19 - UNSPECIFIED KIDNEY FAILURE (4) Hypertension Assessment/Plan: controlled c/w home medications Code(s): I10 - ESSENTIAL (PRIMARY) HYPERTENSION (5) Thrombocytopenia Assessment/Plan: history of low platelets. Plt count stable and will continue to follow as poutpatient Code(s): D69.6 - THROMBOCYTOPENIA, UNSPECIFIED (6) Abnormal loss of weight Assessment/Plan: Seen by eveline on nepro bi d and will continue as outpatient Code(s): R63.4 - ABNORMAL WEIGHT LOSS Patient to be discharged home with service set up for HD Minutes to complete discharge: 60 Discharge Summary Reason For Visit: TRANSPLANTATION,ANEMIA,RENAL FAILURE Current Active Problems Abnormal loss of weight (Acute) Anemia (Acute) ESRD on hemodialysis (Acute) Kidney transplant rejection (Acute) Prophylactic measure (Acute) Renal failure (Acute) Condition: Stable - Instructions Diet, Activity, Other Instructions: Continue renal diet with Nepro supplements twice daily. Referrals: Katie Lamas MD [Staff Physician] - - Home Medications Comprehensive Discharge Medication List: Ambulatory Orders Amlodipine Besylate [Norvasc -] 10 mg PO DAILY 04/19/14 Famotidine [Pepcid -] 20 mg PO DAILY 10/23/18 Furosemide [Lasix] 80 mg PO DAILY 10/23/18 Hydralazine HCl 100 mg PO TID 10/23/18 Leflunomide [Arava] 30 mg PO DAILY 10/23/18 Metoprolol Succinate [Toprol Xl] 50 mg PO DAILY 10/23/18 Multivitamin [Multiple Vitamins] 1 each PO DAILY 10/23/18 Nifedipine [Nifedipine ER] 90 mg PO DAILY 10/23/18 Pravastatin Sodium [Pravachol -] 40 mg PO HS 10/23/18 Prednisone 5 mg PO DAILY 10/23/18 Sodium Bicarbonate - 1,300 mg PO BID 10/23/18 Tacrolimus Anhydrous [Prograf] 5 mg PO BID 10/23/18 cloNIDine HCL [Catapres -] 0.1 mg PO DAILY 10/23/18 This patient is new to me today: Yes Date on this admission: 10/28/18 Emergency Visit: Yes ED Registration Date: 10/23/18 Care time: The patient presented to the Emergency Department on the above date and was hospitalized for further evaluation of their emergent condition. Critical Care patient: No - Discharge Referral Referred to [facility] Med P.C.: No
--- NOTE | 2018-10-28 14:28 | PN ---
Progress Note, Physician History of Present Illness: Pt seen and examined at bedside. She is awake and alert. HD was set up as outpt. - Objective Vital Signs: Vital Signs Temperature 99.4 F 10/28/18 08:18 Pulse Rate 74 10/28/18 08:18 Respiratory Rate 17 10/28/18 09:00 Blood Pressure 145/72 10/28/18 08:18 O2 Sat by Pulse Oximetry (%) 94 L 10/28/18 09:00 Constitutional: Yes: Calm Eyes: Yes: Conjunctiva Clear HENT: Yes: Atraumatic Neck: Yes: Supple Cardiovascular: Yes: S1, S2 Respiratory: Yes: CTA Bilaterally Gastrointestinal: Yes: Soft Genitourinary: Yes: WNL Musculoskeletal: Yes: WNL Edema: No Integumentary: Yes: WNL Neurological: Yes: Oriented Psychiatric: Yes: Oriented Labs: CBC, BMP 10/28/18 10:08 10/28/18 10:08 INR, PTT INR 0.97 (0.83-1.09) 10/23/18 14:17 Problem List - Problems (1) Anemia Code(s): D64.9 - ANEMIA, UNSPECIFIED (2) ESRD on hemodialysis Code(s): N18.6 - END STAGE RENAL DISEASE; Z99.2 - DEPENDENCE ON RENAL DIALYSIS Assessment/Plan Impression 1. ESRD 2. kidney transplant 3. htn 4. anemia 5. BK nephropathy Plan - hd set up as outpt - pt will be on a TTS schedule - her last hd was yesterday - resume home meds
== END 2018-10-28 14:01 | disposition home or self-care (01) | DRG 698 ==
LOC: JER 11:12 → JERBED 14:02 → J5S 21:56
PROVIDERS: ADMIT Internal Medicine; ATTEND Nurse Practitioner Acute Care
PROC: 30233N1 Transfusion of Nonautologous Red Blood Cells into Peripheral Vein, Percutaneous Approach (ICD-10-PCS; 2018-10-23)
PROC: 5A1D70Z Performance of Urinary Filtration, Intermittent, Less than 6 Hours Per Day (ICD-10-PCS; principal; 2018-10-27)
DX: T86.11 Kidney transplant rejection (principal); N18.6 End stage renal disease; N17.9 Acute kidney failure, unspecified; Z68.1 Body mass index [BMI] 19.9 or less, adult; I12.0 Hypertensive chronic kidney disease with stage 5 chronic kidney disease or end stage renal disease; Z94.0 Kidney transplant status; N14.2 Nephropathy induced by unspecified drug, medicament or biological substance; D69.6 Thrombocytopenia, unspecified; D64.9 Anemia, unspecified; R63.0 Anorexia; R63.4 Abnormal weight loss
CPT/HCPCS: 36415; 36430; 71046-TC-FY; 76775-TC; 76776-TC; 80048; 80053; 80197; 81003; 82272; 83540; 83550; 83735; 84100; 85025; 85610; 85730; 86704; 86706; 86707; 86708; 86709; 86803; 86850; 86900; 86901; 86922; 87040; 87086; 87340; 87522; 93005; 93010; 99285-25; J0735; J0885; P9038; P9058

== ENCOUNTER 2019-04-14 11:17 | Inpatient (IN) | payer OTHER ==
[2019-04-14] MEDS ORDERED: ACETAMINOPHEN INJECTION 100 ML IVPB ONE (11:35)
[2019-04-14] MEDS ORDERED: LACTATED RINGERS SOLUTION 1000 ML INFUS.BAG IV ONE (11:57)
--- NOTE | 2019-04-14 12:00 | PDOC ---
History of Present Illness - General Chief Complaint: SIRS, Suspected/Possible Stated Complaint: WEAKNESS FROM DIALYSIS Time Seen by Provider: 04/14/19 11:57 - History of Present Illness Initial Comments: The pt is a 63F w/ a history of ESRD on iHD (partial session today), s/p renal transplant s/p rejection 2/2 BK nephropathy, HTN, CKD who presents for evaluation of 5 days of chills, congestion, cough. She states that today at dialysis she was feeling weak during her session and was thus sent to the ED. She has not tried taking anything for her symptoms. She denies N/V/C/D, dysuria, hematuria, rash, or changes in sensation. 04/14/19 12:06 Past History - Past Medical History Allergies/Adverse Reactions: Allergies Allergy/AdvReac Type Severity Reaction Status Date / Time No Known Drug Allergies Allergy Verified 04/14/19 11:27 Home Medications: Ambulatory Orders Amlodipine Besylate [Norvasc -] 10 mg PO DAILY 04/19/14 Famotidine [Pepcid -] 20 mg PO DAILY 10/23/18 Furosemide [Lasix] 80 mg PO DAILY 10/23/18 Hydralazine HCl 100 mg PO TID 10/23/18 Leflunomide [Arava] 30 mg PO DAILY 10/23/18 Metoprolol Succinate [Toprol Xl] 50 mg PO DAILY 10/23/18 Multivitamin [Multiple Vitamins] 1 each PO DAILY 10/23/18 Nifedipine [Nifedipine ER] 90 mg PO DAILY 10/23/18 Pravastatin Sodium [Pravachol -] 40 mg PO HS 10/23/18 Prednisone 5 mg PO DAILY 10/23/18 Sodium Bicarbonate - 1,300 mg PO BID 10/23/18 Tacrolimus Anhydrous [Prograf] 5 mg PO BID 10/23/18 cloNIDine HCL [Catapres -] 0.1 mg PO DAILY 10/23/18 Anemia: Yes Asthma: No Cancer: No Cardiac Disorders: No CVA: No COPD: No CHF: No Dementia: No Diabetes: No Dialysis: Yes GI Disorders: Yes (REFLUX) Disorders: No HTN: Yes Hypercholesterolemia: Yes Liver Disease: No Seizures: No Thyroid Disease: No - Immunization History Immunization Up to Date: No - Psycho Social/Smoking Cessation Hx Smoking History: Smoker current status UNK Have you smoked in the past 12 months: No Number of Cigarettes Smoked Daily: 20 Information on smoking cessation initiated: No 'Breaking Loose' booklet given: 04/19/14 Hx Alcohol Use: No Drug/Substance Use Hx: No Substance Use Type: None Hx Substance Use Treatment: No Review of Systems - Review of Systems Able to Perform ROS?: Yes Comments:: GENERAL/CONSTITUTIONAL: + fever or chills HEAD, EYES, EARS, NOSE AND THROAT: No change in vision. No change in hearing. No sore throat CARDIOVASCULAR: No chest pain or shortness of breath RESPIRATORY: +cough; Denies hemoptysis GASTROINTESTINAL: No nausea, vomiting, diarrhea or constipation GENITOURINARY: No dysuria, frequency, or change in urination MUSCULOSKELETAL: No joint or muscle swelling or pain. No neck or back pain SKIN: No rash NEUROLOGIC: No headache, vertigo, loss of consciousness, or change in strength/ sensation ENDOCRINE: No increased thirst. No abnormal weight change HEMATOLOGIC/LYMPHATIC: No anemia, easy bleeding, or history of blood clots ALLERGIC/IMMUNOLOGIC: No hives or skin allergy 04/14/19 11:59 Is the patient limited Senegalese proficient: No *Physical Exam - Vital Signs Last Vital Signs Temp Pulse Resp BP Pulse Ox 102.0 F H 74 18 96/53 L 95 04/14/19 11:27 04/14/19 11:27 04/14/19 11:27 04/14/19 11:27 04/14/19 11:27 - Physical Exam GENERAL: Awake, tired appearing, and oriented to person/place/time HEAD: No signs of trauma, normoc ephalic, atraumatic EYES: PERRLA, EOMI, sclera anicteric, conjunctiva clear ENT: Hearing grossly normal, nares patent, oropharynx clear without exudates. Moist mucosa LUNGS: No distress, speaks in full sentences, clear to auscultation bilaterally HEART: Regular rate and rhythm, normal S1 and S2, no murmurs appreciated, peripheral pulses normal and equal bilaterally ABDOMEN: Soft, nontender, normoactive bowel sounds. No guarding, no rebound EXTREMITIES: Normal inspection, Normal range of motion, no edema. No clubbing or cyanosis NEUROLOGICAL: Cranial nerves II through XII grossly intact. Normal speech, no focal sensorimotor deficits SKIN: Warm, Dry 04/14/19 11:59 ED Treatment Course - LABORATORY CBC & Chemistry Diagram: 04/14/19 12:00 04/14/19 12:00 - RADIOLOGY Radiology Studies Ordered: Category Date Time Status CHEST X-RAY PORTABLE* [RAD] Stat Radiology 04/14/19 11:57 Ordered Radiograph Interpretation: RAD/CHEST X-RAY PORTABLE No evidence of pneumonia, atelectasis, pulmonary edema or CHF. No pleural effusion or pneumothorax is seen. Uncoiled thoracic aorta. Prominent cardiac silhouette. Intact visualized also structures Left axillary vascular stent. Bilateral apical pleural thickening, scarring. Impression. No evidence of active pulmonary disease 04/14/19 13:37 Medical Decision Making - Medical Decision Making The pt is a 63F w/ a history of ESRD on iHD (partial session today), s/p renal transplant s/p rejection 2/2 BK nephropathy, HTN, CKD who presents for evaluation of 5 days of chills, congestion, cough. Ddx: influenza vs sepsis ED Course Sepsis labs sent ECG CXR Influenza swab IVF, Ofirmev given ECG w/ NSR; HR 68; QTc 457; poor baseline in II-III; no ROSEY 04/14/19 12:18 CXR w/o acute pathology No leukocytosis Anemia noted, will not transfuse at this time Lytes unremarkable Cr noted, ESRD on iHD LFTs unremarkable Trop I neg Flu neg Will give IV abx for sepsis Pt signed out to Admitting Service Discharge - Discharge Information Problems reviewed: Yes Clinical Impression/Diagnosis: ESRD on hemodialysis Sepsis Qualifiers: Sepsis type: sepsis due to unspecified organism Sepsis acute organ dysfunction status: unspecified Qualified Code(s): A41.9 - Sepsis, unspecified organism Fever Qualifiers: Fever type: unspecified Qualified Code(s): R50.9 - Fever, unspecified Condition: Guarded - Admission Yes - Follow up/Referral - Patient Discharge Instructions - Post Discharge Activity
[2019-04-14] MEDS ORDERED: VANCOMYCIN 1 GM in D5W (PRE-DOCKED) 1,000 MG/250 ML IVPB ONE ×2 (12:04→13:04)
[2019-04-14] MEDS ORDERED: PIPERACILLIN/TAZOB 2.25 GM 2.25 GM in DEXTROSE 5%-WATER - 50 ML IVPB ONE ×2 (12:04→13:04)
[2019-04-14 12:26] LABS: EOS % 7.1 % (0-4.5); HEMOGLOBIN 7.3 GM/dL (10.7-15.3); LYMPH % 22.4 % (8-40); MCH 31.7 pg (25.7-33.7); MEAN CELL VOLUME 96.2 fl (80-96); MEAN PLT VOLUME 9.5 fl (7.5-11.1); MONO % 11.5 % (3.8-10.2); PLATELET COUNT 124 K/MM3 (134-434); RBC 2.29 M/mm3 (3.60-5.2); RDW 15.3 % (11.6-15.6); WHITE BLOOD COUNT 4.2 K/mm3 (4.0-10.0)
--- NOTE | 2019-04-14 12:40 | PDOC ---
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 She states that today at dialysis she was feeling weak during her session and was thus sent to the ED. did not finish her HD session She has not tried taking anything for her symptoms. She denies N/V/C/D, dysuria, hematuria, rash, or changes in sensation. - Physicial Exam PE: 04/14/19 12:51 Agree with the resident's HPI and PE as documented in the electronic medical record. NAD, well appearing, malodorous. EOMI, PERRL, nl conjunctiva, anicteric; neck supple. lungs clear, RRR, abdomen soft nontender. no rebound, guarding. Back nontender. RENE x4, no focal neuro deficits. No peripheral edema. normal color for ethnicity, WWP. LUE AVF, palp thrill. 04/14/19 14:20 - Medical Decision Making 04/14/19 12:39 Vital Signs Temp Pulse Resp BP Pulse Ox 99.6 F 68 18 90/50 L 100 04/14/19 12:34 04/14/19 12:34 04/14/19 12:34 04/14/19 12:34 04/14/19 12:34 Differential diagnosis includes viral syndrome, influenza, infection, dehydration, anemia, electrolyte/metabolic derangements, infection Vital signs notable for fever and hypotension, given IV fluids, patient is able to urinate so we will hydrate appropriately. No tachycardia, no respiratory distress, normal sats. Interpreted by ED Physician: CXR (2 view): no acute abnormality: no infiltrates , bones appear intact and structures normal alignment, cardiac silhouette within normal limits. no free air under diaphragm, no pneumothorax. Bilateral apical pleural thickening and scarring likely chronic Laboratory results remarkable for no WBC count, acute on chronic anemia likely secondary from her ESRD. Coags are normal, no acidosis. Creatinine is 7.5, patient gets dialysis did not finish her tray today. Her electrolytes including her potassium are normal limits. Troponin is negative. Flu is preliminarily negative as well. Patient could have bacterial infection given risk factors and ESRD requiring dialysis. Chest x-ray is negative for any acute pathology. IV antibiotics. vancomycin/zosyn given comorbidities treat ua prelim neg for infection, f/u culture given tylenol for fever bp remains stable with sbp in the 90s, mentating, no acute distress. Admission for dehydration/infection/borderline hypotension, continue supportive care medical management 04/14/19 14:20 04/14/19 16:32 04/14/19 16:32
[2019-04-14 12:47] LABS: INR 1.09 (0.83-1.09); PROTHROMBIN TIME (PATIENT) 12.9 SEC (9.7-13.0)
[2019-04-14 12:49] LABS: ACTIVATED PTT 34.2 SECONDS (25.2-36.5)
[2019-04-14 12:52] LABS: VENOUS PC02 42.7 mmHg (38-52); VENOUS PH 7.48 (7.31-7.41)
[2019-04-14 12:53] LABS: VENOUS PO2 < 49 mmHg (28-48)
[2019-04-14 13:11] LABS: ALBUMIN 2.7 g/dl (3.4-5.0); ALK PHOS 115 U/L (45-117); ANION GAP 7 MMOL/L (8-16); BILIRUBIN,TOTAL 0.4 mg/dL (0.2-1); BLOOD UREA NITROGEN 29.6 mg/dL (7-18); CALCIUM 7.9 mg/dL (8.5-10.1); CHLORIDE 98 mmol/L (98-107); CO2 32 mmol/L (21-32); GLUCOSE,RANDOM 95 mg/dL (74-106); POTASSIUM 4.3 mmol/L (3.5-5.1); SGOT/AST 17 U/L (15-37); SGPT/ALT 11 U/L (13-61); SODIUM 137 mmol/L (136-145); TOT PROT 6.4 g/dl (6.4-8.2)
[2019-04-14 13:13] LABS: CREATININE 7.5 mg/dL (0.55-1.3)
[2019-04-14] MEDS ORDERED: VANCOMYCIN 1 GRAM (PRE-DOCKED) 1,000 MG/250 ML BAG IVPB ONE (13:31)
[2019-04-14] MEDS ORDERED: PIPERACILLIN/TAZOB 2.25 GM 2.25 GM/50 ML BAG IVPB ONE (13:31)
--- NOTE | 2019-04-14 13:34 | EKG ---
Test Reason : Blood Pressure : / mmHG Vent. Rate : 068 BPM Atrial Rate : 068 BPM P-R Int : 128 ms QRS Dur : 090 ms QT Int : 430 ms P-R-T Axes : 055 -06 037 degrees QTc Int : 457 ms NORMAL SINUS RHYTHM POSSIBLE ANTERIOR INFARCT , AGE UNDETERMINED ABNORMAL ECG WHEN COMPARED WITH ECG OF 23-OCT-2018 12:42, BORDERLINE CRITERIA FOR ANTERIOR INFARCT ARE NOW PRESENT Confirmed by MD ARACELY, ALMITA ([id number]) on 04/14/2019 1:34:24 PM Referred By: Confirmed By:ALMITA JESSICA MD
--- NOTE | 2019-04-14 13:54 | CONSULT ---
Consultation: REQUESTING PROVIDER:Dr. 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 patient only tolerated an hour of dialysis this AM then developed fevers/chills/and abdominal pain. She had been complaining of cough/cold symptoms for a few days as well. This AM she had not eaten anything due to lack of appetite . she states that she has not been on transplant medications since March. she denies having any urinary symptoms, nor has she had any diarrhea. in the ER initial vitals: T102, BP 96/53, HR 68, labs notable: WBC 4.2, Hgb 7.3 (last Hgb 9.3), Cr 7.5, lactic acid 1.4 received 1L LR vanc/zosyn- CXR negative for any acute process. REVIEW OF SYSTEMS: CONSTITUTIONAL: Present: fever Absent: , chills, diaphoresis, generalized weakness, malaise, loss of appetite, weight change HEENT: Absent: rhinorrhea, nasal congestion, throat pain, throat swelling, difficulty swallowing, mouth swelling, ear pain, eye pain, visual changes CARDIOVASCULAR: Absent: chest pain, syncope, palpitations, irregular heart rate, lightheadedness , peripheral edema RESPIRATORY: Absent: cough, shortness of breath, dyspnea with exertion, orthopnea, wheezing, stridor, hemoptysis GASTROINTESTINAL: Absent: abdominal pain, abdominal distension, nausea, vomiting, diarrhea, constipation, melena, hematochezia GENITOURINARY: Absent: dysuria, frequency, urgency, hesitancy, hematuria, flank pain, genital pain MUSCULOSKELETAL: Absent: myalgia, arthralgia, joint swelling, back pain, neck pain SKIN: Absent: rash, itching, pallor HEMATOLOGIC/IMMUNOLOGIC: Absent: easy bleeding, easy bruising, lymphadenopathy, frequent infections ENDOCRINE: Absent: unexplained weight gain, unexplained weight loss, heat intolerance, cold intolerance NEUROLOGIC: Absent: headache, focal weakness or paresthesias, dizziness, unsteady gait, seizure, mental status changes, bladder or bowel incontinence PSYCHIATRIC: Absent: anxiety, depression, suicidal or homicidal ideation, hallucinations. PHYSICAL EXAMINATION Vital Signs - 24 hr 04/14/19 04/14/19 04/14/19 11:27 12:10 12:15 Temperature 102.0 F H 102 F H Pulse Rate 74 74 Pulse Rate [ Apical] Respiratory 18 20 Rate Blood Pressure 96/53 L 99/53 L Blood Pressure [Right Arm] O2 Sat by Pulse 95 98 Oximetry (%) 04/14/19 12:34 Temperature 99.6 F Pulse Rate Pulse Rate [ 68 Apical] Respiratory 18 Rate Blood Pressure Blood Pressure 90/50 L [Right Arm] O2 Sat by Pulse 100 Oximetry (%) GENERAL: Awake, alert, and fully oriented, in no acute distress. EYES: PEERLA; EOMI; no scleral icterus NECK: no JVD; no lymphadenopathy LUNGS: CTA B/L; no rales, rhonchi or wheezing HEART: Regular rate and rhythm, normal S1 and S2 without murmur, rub or gallop. ABDOMEN: Soft, NT/ND +BS in all 4 quadrants MUSCULOSKELETAL: Normal range of motion at all joints. No bony deformities or tenderness. No CVA tenderness. EXTREMITIES: warm; well-perfused no clubbing/cyanosis or edema . NEUROLOGICAL: Cranial nerves II-XII intact. Normal speech. Normal gait. PSYCHIATRIC: Cooperative. Good eye contact. Appropriate mood and affect. SKIN: Warm, dry, normal turgor, no rashes or lesions noted. Laboratory Results - last 24 hr 04/14/19 04/14/19 04/14/19 12:00 12:00 12:00 WBC 4.2 RBC 2.29 L Hgb 7.3 L Hct 22.0 L D MCV 96.2 H MCH 31.7 MCHC 33.0 RDW 15.3 D Plt Count 124 L D MPV 9.5 Absolute Neuts (auto) 2.4 Neutrophils % 58.0 Lymphocytes % 22.4 D Monocytes % 11.5 H Eosinophils % 7.1 H D Basophils % 1.0 Nucleated RBC % 0 PT with INR 12.90 INR 1.09 PTT (Actin FS) 34.2 VBG pH POC VBG pCO2 POC VBG pO2 VBG HCO3 VBG O2 Sat (Julio César) VBG Base Excess Sodium 137 Potassium 4.3 Chloride 98 Carbon Dioxide 32 Anion Gap 7 L BUN 29.6 H Creatinine 7.5 H* Est GFR (CKD-EPI)AfAm 6.12 Est GFR (CKD-EPI)NonAf 5.28 Random Glucose 95 Lactic Acid Calcium 7.9 L Total Bilirubin 0.4 AST 17 ALT 11 L Alkaline Phosphatase 115 Troponin I < 0.02 Total Protein 6.4 Albumin 2.7 L Influenza A (Rapid) Influenza B (Rapid) 04/14/19 04/14/19 04/14/19 12:00 12:00 12:00 WBC RBC Hgb Hct MCV MCH MCHC RDW Plt Count MPV Absolute Neuts (auto) Neutrophils % Lymphocytes % Monocytes % Eosinophils % Basophils % Nucleated RBC % PT with INR INR PTT (Actin FS) VBG pH 7.48 H POC VBG pCO2 42.7 POC VBG pO2 < 49 H VBG HCO3 31.2 H VBG O2 Sat (Julio César) 53.7 L VBG Base Excess 7.4 H Sodium Potassium Chloride Carbon Dioxide Anion Gap BUN Creatinine Est GFR (CKD-EPI)AfAm Est GFR (CKD-EPI)NonAf Random Glucose Lactic Acid 1.4 Calcium Total Bilirubin AST ALT Alkaline Phosphatase Troponin I Total Protein Albumin Influenza A (Rapid) Negative Influenza B (Rapid) Negative ASSESSMENT/PLAN: 63y/o F w/ PMH of ESRD on HD (partial session today- usually t//), s/p 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 Thank you for this consultative opportunity. Problem List - Problems (1) ESRD on hemodialysis Code(s): N18.6 - END STAGE RENAL DISEASE; Z99.2 - DEPENDENCE ON RENAL DIALYSIS Visit type - Emergency Visit Emergency Visit: Yes Care time: The patient presented to the Emergency Department on the above date and was hospitalized for further evaluation of their emergent condition. - New Patient This patient is new to me today: Yes Date on this admission: 04/14/19 - Critical Care Critical Care patient: No ATTENDING PHYSICIAN STATEMENT I saw and evaluated the patient. I reviewed the resident's note and discussed the case with the resident. I agree with the resident's findings and plan as documented. SUBJECTIVE: OBJECTIVE: ASSESSMENT AND PLAN:
--- NOTE | 2019-04-14 14:01 | HP ---
Admitting History and Physical - Primary Care Physician PCP: Manas Rodriguez - Admission Chief Complaint: cough, weakness, malaise x 5 days History of Present Illness: 63F w/ a history of ESRD on HD (partial session today), s/p renal transplant s/ p rejection 2/2 BK nephropathy, HTN, CKD who presents for evaluation of 5 days of chills, congestion, cough. SHe was sent to ED from HD for c/o weakness during sessions. She denies N/V/C/D, dysuria, hematuria, rash,fever. Of note she has been off anti rejection medications since mar. History Source: Patient Limitations to Obtaining History: Poor Historian - Past Medical History Cardiovascular: Yes: HTN, Hyperlipdemia Gastrointestinal: Yes: GERD Renal/: Yes: Renal Failure, Hemodialysis - Past Surgical History Past Surgical History: Yes: AV Fistula/Graft, Kidney Transplant - Smoking History Smoking history: Smoker current status UNK Have you smoked in the past 12 months: No Aproximately how many cigarettes per day: 20 - Alcohol/Substance Use Hx Alcohol Use: No - Social History Usual Living Arrangement: Yes: Alone ADL: Independent Occupation: on disability History of Recent Travel: No Home Medications - Allergies Allergies/Adverse Reactions: Allergies Allergy/AdvReac Type Severity Reaction Status Date / Time No Known Drug Allergies Allergy Verified 04/14/19 11:27 - Home Medications Home Medications: Ambulatory Orders Amlodipine Besylate [Norvasc -] 10 mg PO DAILY 04/19/14 Famotidine [Pepcid -] 20 mg PO DAILY 10/23/18 Furosemide [Lasix] 80 mg PO DAILY 10/23/18 Hydralazine HCl 100 mg PO TID 10/23/18 Leflunomide [Arava] 30 mg PO DAILY 10/23/18 Metoprolol Succinate [Toprol Xl] 50 mg PO DAILY 10/23/18 Multivitamin [Multiple Vitamins] 1 each PO DAILY 10/23/18 Nifedipine [Nifedipine ER] 90 mg PO DAILY 10/23/18 Pravastatin Sodium [Pravachol -] 40 mg PO HS 10/23/18 Prednisone 5 mg PO DAILY 10/23/18 Sodium Bicarbonate - 1,300 mg PO BID 10/23/18 Tacrolimus Anhydrous [Prograf] 5 mg PO BID 10/23/18 cloNIDine HCL [Catapres -] 0.1 mg PO DAILY 10/23/18 Family Medical History Family History: Denies Review of Systems - Review of Systems Constitutional: reports: Chills, Fever Eyes: reports: No Symptoms HENT: reports: Nasal Congestion Neck: reports: Swollen Glands Respiratory: reports: Cough Gastrointestinal: reports: Abdominal Pain (not presently) Genitourinary: reports: No Symptoms Breasts: reports: No Symptoms Reported Musculoskeletal: reports: No Symptoms Integumentary: reports: No Symptoms Neurological: reports: No Symptoms Endocrine: reports: No Symptoms Hematology/Lymphatic: reports: No Symptoms Psychiatric: reports: No Symptoms Physical Examination Vital Signs: Vital Signs Temperature 99.6 F 04/14/19 12:34 Pulse Rate 68 04/14/19 12:34 Respiratory Rate 18 04/14/19 12:34 Blood Pressure 90/50 L 04/14/19 12:34 O2 Sat by Pulse Oximetry (%) 100 04/14/19 12:34 Constitutional: Yes: Well Nourished, No Distress, Calm Eyes: Yes: WNL, Conjunctiva Clear, EOM Intact HENT: Yes: WNL, Atraumatic, Normocephalic Neck: Yes: WNL, Supple, Trachea Midline Cardiovascular: Yes: WNL, Regular Rate and Rhythm Respiratory: Yes: Regular, CTA Bilaterally, Diminished (at bases) Gastrointestinal: Yes: WNL, Normal Bowel Sounds, Soft ...Rectal Exam: Yes: Deferred Renal/: Yes: Anuria Breast(s): Yes: WNL Musculoskeletal: Yes: WNL Extremities: Yes: Other (left arm fistula +bruit +thrill) Edema: Yes Edema: LLE: Trace, RLE: Trace Peripheral Pulses WNL: Yes Peripheral Pulses: Left Radial: 2+, Right Radial: 2+, Left Doralis Pedis: 2+, Right Dorsalis Pedis: 2+, Left Femoral: 2+, Right Femoral: 2+ Integumentary: Yes: WNL Neurological: Yes: WNL, Alert, Oriented ...Motor Strength: WNL Psychiatric: Yes: WNL Labs: CBC, BMP 04/14/19 12:00 04/14/19 12:00 Imaging - Results Chest X-ray: Report Reviewed, Image Reviewed (no effusion/infiltrates) Problem List - Problems (1) Anemia in chronic kidney disease, on chronic dialysis Assessment/Plan: ESRD on HD Hgb 7.3 no signs of active bleeding BP low but responding to gentle hydration if becomes hemodynamically unstable with give 1u PRBC followed by lasix continue to monitor H/H 1 dose of epogen ordered and pending Code(s): N18.6 - END STAGE RENAL DISEASE; D63.1 - ANEMIA IN CHRONIC KIDNEY DISEASE; Z99.2 - DEPENDENCE ON RENAL DIALYSIS (2) Fever Assessment/Plan: 102 on admission to ED, 99.6 present;y pancultured tylenol prn vanco/zosyn x 1 dose each ID consulted Code(s): R50.9 - FEVER, UNSPECIFIED (3) Weakness Assessment/Plan: c/o weakness during HD session PT eval requested fall precautions Code(s): R53.1 - WEAKNESS (4) ESRD on hemodialysis Assessment/Plan: not able to complete HD session today renal consult request & schedule to be determined Code(s): N18.6 - END STAGE RENAL DISEASE; Z99.2 - DEPENDENCE ON RENAL DIALYSIS (5) Hypertension Assessment/Plan: on norvasc,nifidepine,hydralazine , metoprolol, lasix at home BP low will hold anti-hypertensives and re-evaluate in am Code(s): I10 - ESSENTIAL (PRIMARY) HYPERTENSION (6) Kidney transplant rejection Assessment/Plan: off all antirejection meds since Mar (7) Prophylactic measure Assessment/Plan: FEN Fluids: no addition IVF at this time Electrolytes: replete as indicated Nutrition: renal diet DVT prophylaxis: heparin sq oob, ambulation Dispo: admit for observation with possible in-patient admission Full code discharge planning Code(s): Z29.9 - ENCOUNTER FOR PROPHYLACTIC MEASURES, UNSPECIFIED Visit type - Emergency Visit Emergency Visit: Yes ED Registration Date: 04/14/19 Care time: The patient presented to the Emergency Department on the above date and was hospitalized for further evaluation of their emergent condition. - New Patient This patient is new to me today: Yes Date on this admission: 04/14/19 - Critical Care Critical Care patient: No
[2019-04-14] MEDS ORDERED: SODIUM CHLORIDE 1,000 ML IV STA (14:14)
[2019-04-14 14:20] LABS: EPI CELLS 0 /HPF (0-5/HPF); HYALINE CASTS 94 /lpf (0-8); URINE APPEARANCE CLOUDY; URINE BACTERIA 19.8 /hpf (NEGATIVE); URINE BILIRUBIN NEGATIVE (NEGATIVE); URINE COLOR YELLOW; URINE GLUCOSE (UA) TRACE (NEGATIVE); URINE KETONE NEGATIVE (NEGATIVE); URINE LEUK ESTERASE NEGATIVE (NEGATIVE); URINE NITRITE NEGATIVE (NEGATIVE); URINE PROTEIN 4+ (NEGATIVE); URINE RBC 53 /hpf (0-4); URINE UROBILINOGEN 0.2 mg/dL (0.2-1.0)
--- NOTE | 2019-04-14 15:32 | PN ---
Teaching Attending Note Name of Resident: Rachel Abrams (Nephrology) ATTENDING PHYSICIAN STATEMENT I saw and evaluated the patient. I reviewed the resident's note and discussed the case with the resident. I agree with the resident's findings and plan as documented. Renal Pt is a 63 year old female with pmhx of esrd, htn and failed transplant who I sent in for fever and chills during hd. SHe hada bout one hour of dialysis today. She complains of generalized body aches and malaise. She did have abd pain as well however that has resolved. pmhx esrd htn pshx avf kidney transplant nkda social hx denies family hx non contrib Laboratory Tests 04/14/19 12:00 Sodium 137 Potassium 4.3 BUN 29.6 H Creatinine 7.5 H* Current Medications Generic Name Dose Route Start Last Admin Trade Name Freq PRN Reason Stop Dose Admin Atorvastatin Calcium 10 mg 04/14/19 22:00 Lipitor - PO HS SERJIO Famotidine 20 mg 04/15/19 10:00 Pepcid - PO DAILY SERJIO Heparin Sodium (Porcine) 5,000 unit 04/14/19 22:00 Heparin - SQ BID SERJIO Leflunomide 10 mg 04/15/19 10:00 Arava - PO DAILY SERJIO Multivitamins/Minerals/Vitamin C 1 tab 04/15/19 10:00 Tab-A-Vit - PO DAILY SERJIO Sodium Bicarbonate 1,300 mg 04/14/19 22:00 Sodium Bicarbonate - PO BID SERJIO crdio s1s2 reg pulm clear GI soft ext neg edema skin neg rash Impression 1. ESRD 2. kidney transplant 3. htn 4. anemia 5. BK nephropathy 6. r/o sepsis Plan - hd tomorrow - follow cultures - d/c po bicarb - she is off of rejection meds - if she develops abd pain, get ct abdomen
[2019-04-14 18:16] LABS: URINE WBC 56.2 /hpf (0-5)
--- NOTE | 2019-04-14 18:16 | CON.ID ---
Consult Consult Specialty:: infectious diseases Referred by:: hospitalist Reason for Consultation:: fever,sepsis,weakness - History of Present Illness Chief Complaint: weakness History of Present Illness: 63F w/ a history of ESRD on HD (partial session today), s/p renal transplant s/ p rejection 2/2 BK nephropathy, HTN, CKD who presents for evaluation of 5 days of chills, congestion, cough. SHe was sent to ED from HD for c/o weakness during sessions. She denies N/V/C/D, dysuria, hematuria, rash,fever. Of note she has been off anti rejection medications since mar. patient feels very cold and weak - History Source History Provided By: Patient, Friend, Medical Record Limitations to Obtaining History: Language Barrier - Past Medical History Cardio/Vascular: Yes: HTN, Hyperlipdemia Gastrointestinal: Yes: GERD Renal/: Yes: Renal Failure, Hemodialysis - Past Surgical History Past Surgical History: Yes: AV Fistula/Graft, Kidney Transplant - Alcohol/Substance Use Hx Alcohol Use: No - Smoking History Smoking history: Smoker current status UNK Have you smoked in the past 12 months: No Aproximately how many cigarettes per day: 20 - Social History ADL: Independent Occupation: on disability History of Recent Travel: No Home Medications - Allergies Allergies/Adverse Reactions: Allergies Allergy/AdvReac Type Severity Reaction Status Date / Time No Known Drug Allergies Allergy Verified 04/14/19 11:27 - Home Medications Home Medications: Ambulatory Orders RX: Amlodipine Besylate [Norvasc -] 10 mg PO DAILY 04/19/14 RX: Famotidine [Pepcid -] 20 mg PO DAILY 10/23/18 RX: Furosemide [Lasix] 80 mg PO DAILY 10/23/18 RX: Hydralazine HCl 100 mg PO TID 10/23/18 RX: Leflunomide [Arava] 30 mg PO DAILY 10/23/18 RX: Metoprolol Succinate [Toprol Xl] 50 mg PO DAILY 10/23/18 RX: Multivitamin [Multiple Vitamins] 1 each PO DAILY 10/23/18 RX: Nifedipine [Nifedipine ER] 90 mg PO DAILY 10/23/18 RX: Pravastatin Sodium [Pravachol -] 40 mg PO HS 10/23/18 RX: Prednisone 5 mg PO DAILY 10/23/18 RX: Sodium Bicarbonate - 1,300 mg PO BID 10/23/18 RX: Tacrolimus Anhydrous [Prograf] 5 mg PO BID 10/23/18 RX: cloNIDine HCL [Catapres -] 0.1 mg PO DAILY 10/23/18 Review of Systems - Review of Systems Constitutional: reports: Fever, Weakness Eyes: reports: No Symptoms HENT: reports: No Symptoms Neck: reports: No Symptoms Cardiovascular: reports: No Symptoms Respiratory: reports: No Symptoms Gastrointestinal: reports: No Symptoms Genitourinary: reports: No Symptoms Musculoskeletal: reports: No Symptoms Integumentary: reports: No Symptoms Neurological: reports: No Symptoms Endocrine: reports: No Symptoms Hematology/Lymphatic: reports: No Symptoms Psychiatric: reports: No Symptoms Physical Exam Vital Signs: Vital Signs Temperature 99.6 F 04/14/19 12:34 Pulse Rate 69 04/14/19 15:38 Respiratory Rate 18 04/14/19 15:38 Blood Pressure 95/51 L 04/14/19 15:38 O2 Sat by Pulse Oximetry (%) 100 04/14/19 15:38 Constitutional: Yes: Calm, Mild Distress Eyes: Yes: Conjunctiva Clear HENT: Yes: Atraumatic, Normocephalic Neck: Yes: Supple, Trachea Midline Cardiovascular: Yes: Regular Rate and Rhythm Respiratory: Yes: Regular, CTA Bilaterally Gastrointestinal: Yes: Normal Bowel Sounds, Soft Musculoskeletal: Yes: WNL Extremities: Yes: WNL Neurological: Yes: Alert, Oriented Psychiatric: Yes: Alert, Oriented Labs: CBC, BMP 04/14/19 12:00 04/14/19 12:00 Imaging - Results Chest X-ray: Report Reviewed, Image Reviewed Assessment/Plan Problem List - Problems (1) Anemia in chronic kidney disease, on chronic dialysis Code(s): N18.6 - END STAGE RENAL DISEASE; D63.1 - ANEMIA IN CHRONIC KIDNEY DISEASE; Z99.2 - DEPENDENCE ON RENAL DIALYSIS (2) Fever Code(s): R50.9 - FEVER, UNSPECIFIED (3) Weakness Code(s): R53.1 - WEAKNESS (4) ESRD on hemodialysis Code(s): N18.6 - END STAGE RENAL DISEASE; Z99.2 - DEPENDENCE ON RENAL DIALYSIS (5) Hypertension Code(s): I10 - ESSENTIAL (PRIMARY) HYPERTENSION (6) Kidney transplant rejection Assessment/Plan: off all antirejection meds since Mar plan will start on broad spectrum abx monitor fevers close watch await for all reports imaging studies rest as per the team
[2019-04-14] MEDS: ACETAMINOPHEN 325 MG TABLET (FP) PO PRN (20:00)
[2019-04-14] MEDS ORDERED: TACROLIMUS ANHYDROUS 5 MG CAPSULE PO SCH (22:00)
[2019-04-14] MEDS ORDERED: PATIENT'S OWN MEDICATION (NON-FORMULARY) (Hydralazine Hcl [Hydralazine Hcl] 100 MG) PO SCH (22:00)
[2019-04-14] MEDS ORDERED: SODIUM BICARBONATE 650 MG TABLET PO SCH (22:00)
[2019-04-14] MEDS: HEPARIN NA (PORCINE) 5,000 UNITS/ML 1ML VIAL SQ SCH (22:13)
[2019-04-14] MEDS: ATORVASTATIN CA 10 MG TABLET (FP) PO SCH (22:14)
[2019-04-15] MEDS ORDERED: DEXTROSE 5%-WATER - 50 ML IVPB ONE ×3 (01:21→17:58)
[2019-04-15] MEDS ORDERED: PIPERACILLIN/TAZOBACTAM 2.25 GM VIAL IVPB ONE ×3 (01:21→17:58)
[2019-04-15] MEDS: PIPERACILLIN/TAZOB 2.25 GM 2.25 GM in DEXTROSE 5%-WATER - 50 ML IVPB SCH ×3 (01:48→18:04)
[2019-04-15] MEDS: ACETAMINOPHEN 1000 MG/100 ML VIAL (NON FORMULARY) IVPB PRN ×2 (06:27→18:27)
--- NOTE | 2019-04-15 07:37 | PN ---
Progress Note, Physician Chief Complaint: T 103 overnight. Denies any further abdominal pain. 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 SHe was sent to ED from HD for c/o weakness during sessions. She denies N/V/C/D, dysuria, hematuria, rash,fever. Of note she has been off anti rejection medications since mar. - Current Medication List Current Medications: Active Medications Acetaminophen (Ofirmev Injection -) 1,000 mg IVPB Q6H PRN PRN Reason: FEVER Stop: 04/15/19 23:59 Last Admin: 04/15/19 06:27 Dose: 1,000 mg Acetaminophen (Tylenol -) 650 mg PO Q6H PRN PRN Reason: FEVER Last Admin: 04/14/19 20:00 Dose: 650 mg Amlodipine Besylate (Norvasc -) 10 mg PO DAILY [facility] Atorvastatin Calcium (Lipitor -) 10 mg PO HS [facility] Last Admin: 04/14/19 22:14 Dose: 10 mg Clonidine (Catapres -) 0.1 mg PO DAILY [facility] Epoetin Talha (Epogen -) 10,000 unit IVPUSH ONCE ONE Stop: 04/15/19 15:33 Famotidine (Pepcid -) 20 mg PO DAILY [facility] Heparin Sodium (Porcine) (Heparin -) 5,000 unit SQ BID [facility] Last Admin: 04/14/19 22:13 Dose: 5,000 unit Sodium Chloride (Normal Saline -) 250 mls @ 3,000 mls/hr IV PRN PRN PRN Reason: Hypotension during Dialysis Stop: 04/15/19 15:32 Piperacillin Sod/Tazobactam (Sod 2.25 gm/ Dextrose) 50 mls @ 100 mls/hr IVPB Q8H-IV [facility] Last Admin: 04/15/19 01:48 Dose: 100 mls/hr Leflunomide (Arava -) 10 mg PO DAILY [facility] Multivitamins/Minerals/Vitamin C (Tab-A-Vit -) 1 tab PO DAILY [facility] Pneumococcal 13-Valent Conj Vacc (Prevnar 13 Syringe -) 0.5 ml IM .ONCE ONE Stop: 04/15/19 03:07 - Objective Vital Signs: Vital Signs Temperature 103 F H 04/15/19 06:00 Pulse Rate 85 04/15/19 06:00 Respiratory Rate 24 H 04/15/19 06:00 Blood Pressure 147/65 04/15/19 06:00 O2 Sat by Pulse Oximetry (%) 97 04/14/19 21:00 Additional Findings/Remarks: Constitutional: Yes: Well Nourished, No Distress, Calm Eyes: Yes: WNL, Conjunctiva Clear, EOM Intact HENT: Yes: WNL, Atraumatic, Normocephalic Neck: Yes: WNL, Supple, Trachea Midline Cardiovascular: Yes: WNL, Regular Rate and Rhythm Respiratory: Yes: Regular, CTA Bilaterally, Diminished (at bases) Gastrointestinal: Yes: WNL, Normal Bowel Sounds, Soft, nontender ...Rectal Exam: Yes: Deferred Renal/: Yes: Anuria Breast(s): Yes: WNL Musculoskeletal: Yes: WNL Extremities: Yes: Other (left arm fistula +bruit +thrill) Edema: Yes Edema: LLE: Trace, RLE: Trace Peripheral Pulses WNL: Yes Peripheral Pulses: Left Radial: 2+, Right Radial: 2+, Left Doralis Pedis: 2+, Right Dorsalis Pedis: 2+, Left Femoral: 2+, Right Femoral: 2+ Integumentary: Yes: WNL Neurological: Yes: WNL, Alert, Oriented ...Motor Strength: WNL Psychiatric: Yes: WNL Labs: CBC, BMP 04/14/19 12:00 04/14/19 12:00 INR, PTT INR 1.09 (0.83-1.09) 04/14/19 12:00 - ....Imaging Chest X-ray: Image Reviewed (no effusions infiltrates) Problem List - Problems (1) Anemia in chronic kidney disease, on chronic dialysis Assessment/Plan: ESRD on HD Hgb 6.9 no signs of active bleeding 1u of PRBC ordered while on HD continue to monitor H/H 1 dose of epogen given Code(s): N18.6 - END STAGE RENAL DISEASE; D63.1 - ANEMIA IN CHRONIC KIDNEY DISEASE; Z99.2 - DEPENDENCE ON RENAL DIALYSIS (2) Fever Assessment/Plan: spiked T to 103 last night at 2200 and again today at 0600 responded to tylenol pancultured in ED and repeat Bcx sent today tylenol prn c/w vanco by level /zosyn follow cx appreciate ID consultation Code(s): R50.9 - FEVER, UNSPECIFIED Qualifiers: Fever type: unspecified Qualified Code(s): R50.9 - Fever, unspecified (3) Weakness Assessment/Plan: c/w PT PT eval requested fall precautions Code(s): R53.1 - WEAKNESS (4) ESRD on hemodialysis Assessment/Plan: HD today Dr Lamas following Code(s): N18.6 - END STAGE RENAL DISEASE; Z99.2 - DEPENDENCE ON RENAL DIALYSIS (5) Hypertension Assessment/Plan: on norvasc,nifidepine,hydralazine , metoprolol, lasix at home BP low yesterday will start re-introducing meds as tolerated after HD Code(s): I10 - ESSENTIAL (PRIMARY) HYPERTENSION (6) Kidney transplant rejection Assessment/Plan: off all antirejection meds since Mar c/o abd pain on presnetation to ED, denies now abd CT ordered and pending to r/o BK involvement (7) Prophylactic measure Assessment/Plan: FEN Fluids: no addition IVF at this time Electrolytes: replete as indicated Nutrition: renal diet DVT prophylaxis: heparin sq oob, ambulation Dispo: requires in-patient admission-tele monitoring Full code discharge planning Code(s): Z29.9 - ENCOUNTER FOR PROPHYLACTIC MEASURES, UNSPECIFIED Visit type - Emergency Visit Emergency Visit: Yes ED Registration Date: 04/14/19 Care time: The patient presented to the Emergency Department on the above date and was hospitalized for further evaluation of their emergent condition. - New Patient This patient is new to me today: No - Critical Care Critical Care patient: No - Discharge Referral Referred to [facility] No
[2019-04-15 08:28] LABS: BASO % 0.2 % (0-2.0); EOS % 11.9 % (0-4.5); HEMATOCRIT 20.7 % (32.4-45.2); LYMPH % 11.6 % (8-40); MCH 31.9 pg (25.7-33.7); MCHC 33.2 g/dl (32.0-36.0); MEAN CELL VOLUME 96.1 fl (80-96); MEAN PLT VOLUME 9.5 fl (7.5-11.1); MONO % 9.2 % (3.8-10.2); NEUT % 67.1 % (42.8-82.8); PLATELET COUNT 109 K/MM3 (134-434); RBC 2.15 M/mm3 (3.60-5.2); RDW 15.7 % (11.6-15.6); WHITE BLOOD COUNT 3.6 K/mm3 (4.0-10.0)
[2019-04-15 08:39] LABS: HEMOGLOBIN 6.9 GM/dL (10.7-15.3)
[2019-04-15 08:50] LABS: ALBUMIN 2.3 g/dl (3.4-5.0); BILIRUBIN,TOTAL 0.4 mg/dL (0.2-1); BLOOD UREA NITROGEN 37.7 mg/dL (7-18); CALCIUM 7.2 mg/dL (8.5-10.1); PHOSPHOROUS 3.7 mg/dL (2.5-4.9); POTASSIUM 4.5 mmol/L (3.5-5.1); TOT PROT 5.7 g/dl (6.4-8.2)
[2019-04-15 09:12] LABS: CREATININE 8.9 mg/dL (0.55-1.3)
[2019-04-15] MEDS ORDERED: LEFLUNOMIDE 10 MG TABLET PO SCH ×2 (10:00)
[2019-04-15] MEDS ORDERED: cloNIDine HCL 0.1 MG TABLET PO SCH (10:00)
[2019-04-15] MEDS ORDERED: amLODIPine BESYLATE 10 MG TABLET (FP) PO SCH (10:00)
[2019-04-15] MEDS ORDERED: NIFEDIPINE 90 MG PO SCH (10:00)
[2019-04-15 10:09] LABS: ANISOCYTOSIS 1+; MACROCYTOSIS 0; PLATELET ESTIMATE DECREASED
[2019-04-15] MEDS: HEPARIN NA (PORCINE) 5,000 UNITS/ML 1ML VIAL SQ SCH ×2 (10:27→21:11)
[2019-04-15] MEDS: MULTIVITAMINS (DAILY MVI) TABLET (FP) PO SCH (10:28)
[2019-04-15] MEDS: amLODIPine BESYLATE 10 MG TABLET (FP) PO SCH (10:28)
[2019-04-15] MEDS: FAMOTIDINE 20 MG TABLET PO SCH (10:28)
[2019-04-15] MEDS: cloNIDine HCL 0.1 MG TABLET PO SCH (10:28)
[2019-04-15] MEDS ORDERED: PNEUMOC 13-VAL CONJ-DIP CRM/PF 0.5 ML DISP.SYRIN IM ONE (11:00)
[2019-04-15] MEDS ORDERED: SODIUM CHLORIDE 250 ML IV PRN (11:50)
--- NOTE | 2019-04-15 11:54 | PN ---
Progress Note, Physician History of Present Illness: patient looks much better spiked a high grade fever being dialysed - Current Medication List Current Medications: Active Medications Acetaminophen (Ofirmev Injection -) 1,000 mg IVPB Q6H PRN PRN Reason: FEVER Stop: 04/15/19 23:59 Last Admin: 04/15/19 06:27 Dose: 1,000 mg Acetaminophen (Tylenol -) 650 mg PO Q6H PRN PRN Reason: FEVER Last Admin: 04/14/19 20:00 Dose: 650 mg Amlodipine Besylate (Norvasc -) 10 mg PO DAILY [facility] Last Admin: 04/15/19 10:28 Dose: Not Given Atorvastatin Calcium (Lipitor -) 10 mg PO HS [facility] Last Admin: 04/14/19 22:14 Dose: 10 mg Clonidine (Catapres -) 0.1 mg PO DAILY [facility] Last Admin: 04/15/19 10:28 Dose: Not Given Epoetin Talha (Procrit -) 10,000 unit IVPUSH ONCE ONE Stop: 04/15/19 12:01 Famotidine (Pepcid -) 20 mg PO DAILY [facility] Last Admin: 04/15/19 10:28 Dose: 20 mg Heparin Sodium (Porcine) (Heparin -) 5,000 unit SQ BID [facility] Last Admin: 04/15/19 10:27 Dose: 5,000 unit Piperacillin Sod/Tazobactam (Sod 2.25 gm/ Dextrose) 50 mls @ 100 mls/hr IVPB Q8H-IV [facility] Last Admin: 04/15/19 10:27 Dose: 100 mls/hr Leflunomide (Arava -) 10 mg PO DAILY [facility] Multivitamins/Minerals/Vitamin C (Tab-A-Vit -) 1 tab PO DAILY [facility] Last Admin: 04/15/19 10:28 Dose: 1 tab - Objective Vital Signs: Vital Signs Temperature 99.3 F 04/15/19 10:00 Pulse Rate 78 04/15/19 08:29 Respiratory Rate 18 04/15/19 08:29 Blood Pressure 102/44 L 04/15/19 08:29 O2 Sat by Pulse Oximetry (%) 97 04/15/19 08:15 Constitutional: Yes: No Distress, Calm Cardiovascular: Yes: S1, S2 Respiratory: Yes: Regular, CTA Bilaterally Gastrointestinal: Yes: Normal Bowel Sounds, Soft Musculoskeletal: Yes: WNL Extremities: Yes: Other Neurological: Yes: Alert, Oriented Psychiatric: Yes: Alert, Oriented Labs: CBC, BMP 04/15/19 07:29 04/15/19 07:29 INR, PTT INR 1.09 (0.83-1.09) 04/14/19 12:00 Assessment/Plan Problem List - Problems (1) Anemia in chronic kidney disease, on chronic dialysis Code(s): N18.6 - END STAGE RENAL DISEASE; D63.1 - ANEMIA IN CHRONIC KIDNEY DISEASE; Z99.2 - DEPENDENCE ON RENAL DIALYSIS (2) Fever Code(s): R50.9 - FEVER, UNSPECIFIED (3) Weakness Code(s): R53.1 - WEAKNESS (4) ESRD on hemodialysis Code(s): N18.6 - END STAGE RENAL DISEASE; Z99.2 - DEPENDENCE ON RENAL DIALYSIS (5) Hypertension Code(s): I10 - ESSENTIAL (PRIMARY) HYPERTENSION (6) Kidney transplant rejection Assessment/Plan: off all antirejection meds since Mar plan continue abx vanco level ordered post dialysis if vanco level low will give a dose of vanco rest as per the team
[2019-04-15] MEDS ORDERED: EPOETIN ALFA 10,000 UNIT/1 ML VIAL IVPUSH ONE (12:00)
--- NOTE | 2019-04-15 12:50 | PN ---
Progress Note, Physician History of Present Illness: Pt seen and examined at bedside. She is awake and alert. She feels better today. - Current Medication List Current Medications: Active Medications Acetaminophen (Ofirmev Injection -) 1,000 mg IVPB Q6H PRN PRN Reason: FEVER Stop: 04/15/19 23:59 Last Admin: 04/15/19 06:27 Dose: 1,000 mg Acetaminophen (Tylenol -) 650 mg PO Q6H PRN PRN Reason: FEVER Last Admin: 04/14/19 20:00 Dose: 650 mg Amlodipine Besylate (Norvasc -) 10 mg PO DAILY [facility] Last Admin: 04/15/19 10:28 Dose: Not Given Atorvastatin Calcium (Lipitor -) 10 mg PO HS [facility] Last Admin: 04/14/19 22:14 Dose: 10 mg Clonidine (Catapres -) 0.1 mg PO DAILY [facility] Last Admin: 04/15/19 10:28 Dose: Not Given Famotidine (Pepcid -) 20 mg PO DAILY [facility] Last Admin: 04/15/19 10:28 Dose: 20 mg Heparin Sodium (Porcine) (Heparin -) 5,000 unit SQ BID [facility] Last Admin: 04/15/19 10:27 Dose: 5,000 unit Piperacillin Sod/Tazobactam (Sod 2.25 gm/ Dextrose) 50 mls @ 100 mls/hr IVPB Q8H-IV [facility] Last Admin: 04/15/19 10:27 Dose: 100 mls/hr Leflunomide (Arava -) 10 mg PO DAILY [facility] Multivitamins/Minerals/Vitamin C (Tab-A-Vit -) 1 tab PO DAILY [facility] Last Admin: 04/15/19 10:28 Dose: 1 tab - Objective Vital Signs: Vital Signs Temperature 98.8 F 04/15/19 11:35 Pulse Rate 71 04/15/19 12:10 Respiratory Rate 18 04/15/19 12:10 Blood Pressure 94/44 L 04/15/19 12:10 O2 Sat by Pulse Oximetry (%) 97 04/15/19 08:15 Constitutional: Yes: Calm Eyes: Yes: Conjunctiva Clear HENT: Yes: Atraumatic Neck: Yes: Supple Cardiovascular: Yes: S1, S2 Respiratory: Yes: CTA Bilaterally Gastrointestinal: Yes: Normal Bowel Sounds, Soft Genitourinary: Yes: WNL Musculoskeletal: Yes: WNL Edema: No Neurological: Yes: Oriented Psychiatric: Yes: Oriented Labs: CBC, BMP 04/15/19 07:29 04/15/19 07:29 INR, PTT INR 1.09 (0.83-1.09) 04/14/19 12:00 Assessment/Plan Current Medications Generic Name Dose Route Start Last Admin Trade Name Freq PRN Reason Stop Dose Admin Acetaminophen 1,000 mg 04/14/19 21:05 04/15/19 06:27 Ofirmev Injection - IVPB 04/15/19 23:59 1,000 mg Q6H PRN Administration FEVER Acetaminophen 650 mg 04/15/19 00:00 04/14/19 20:00 Tylenol - PO 650 mg Q6H PRN Administration FEVER Amlodipine Besylate 10 mg 04/15/19 10:00 04/15/19 10:28 Norvasc - PO Not Given DAILY [facility] Atorvastatin Calcium 10 mg 04/14/19 22:00 04/14/19 22:14 Lipitor - PO 10 mg HS [facility] Administration Clonidine 0.1 mg 04/15/19 10:00 04/15/19 10:28 Catapres - PO Not Given DAILY [facility] Famotidine 20 mg 04/15/19 10:00 04/15/19 10:28 Pepcid - PO 20 mg DAILY [facility] Administration Heparin Sodium (Porcine) 5,000 unit 04/14/19 22:00 04/15/19 10:27 Heparin - SQ 5,000 unit BID [facility] Administration Piperacillin Sod/Tazobactam 50 mls @ 100 mls/hr 04/15/19 02:00 04/15/19 10:27 Sod 2.25 gm/ Dextrose IVPB 100 mls/hr Q8H-IV [facility] Administration Leflunomide 10 mg 04/15/19 10:00 Arava - PO DAILY [facility] Multivitamins/Minerals/Vitamin C 1 tab 04/15/19 10:00 04/15/19 10:28 Tab-A-Vit - PO 1 tab DAILY [facility] Administration Impression 1. ESRD 2. kidney transplant 3. htn 4. anemia 5. BK nephropathy 6. r/o sepsis Plan - HD today - transfuse prbc - follow cultures - discussed with medical team - ct abdomen once stable
[2019-04-15] MEDS ORDERED: VANCOMYCIN 1 GM in D5W (PRE-DOCKED) 1,000 MG/250 ML IVPB ONE (16:00)
[2019-04-15] MEDS: LEFLUNOMIDE 10 MG TABLET PO SCH (16:14)
[2019-04-15] MEDS: ATORVASTATIN CA 10 MG TABLET (FP) PO SCH (21:10)
[2019-04-16] MEDS ORDERED: ACETAMINOPHEN 1000 MG/100 ML VIAL (NON FORMULARY) IVPB ONE (01:32)
[2019-04-16] MEDS ORDERED: ONDANSETRON 4 MG/2 ML VIAL IVPUSH ONE (01:33)
[2019-04-16] MEDS ORDERED: DEXTROSE 5%-WATER - 50 ML IVPB ONE ×3 (01:41→17:07)
[2019-04-16] MEDS ORDERED: PIPERACILLIN/TAZOBACTAM 2.25 GM VIAL IVPB ONE ×3 (01:41→17:07)
[2019-04-16] MEDS: PIPERACILLIN/TAZOB 2.25 GM 2.25 GM in DEXTROSE 5%-WATER - 50 ML IVPB SCH ×3 (01:44→17:33)
[2019-04-16 06:37] LABS: HEMATOCRIT 23.1 % (32.4-45.2); MCH 31.2 pg (25.7-33.7); MCHC 33.8 g/dl (32.0-36.0); MEAN CELL VOLUME 92.6 fl (80-96); MEAN PLT VOLUME 9.1 fl (7.5-11.1); PLATELET COUNT 113 K/MM3 (134-434); RDW 17.3 % (11.6-15.6); WHITE BLOOD COUNT 4.8 K/mm3 (4.0-10.0)
[2019-04-16 06:55] LABS: HEMOGLOBIN 7.8 GM/dL (10.7-15.3)
[2019-04-16 06:57] LABS: ALBUMIN 2.2 g/dl (3.4-5.0); BILIRUBIN,TOTAL 0.5 mg/dL (0.2-1); BLOOD UREA NITROGEN 15.4 mg/dL (7-18); CALCIUM 7.3 mg/dL (8.5-10.1); POTASSIUM 3.3 mmol/L (3.5-5.1); TOT PROT 5.5 g/dl (6.4-8.2)
--- NOTE | 2019-04-16 07:20 | PN ---
Progress Note, Physician Chief Complaint: Dialyzed yesterday. Afebrile. No complaints offered. 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 SHe was sent to ED from HD for c/o weakness during sessions. She denies N/V/C/D, dysuria, hematuria, rash,fever. Of note she has been off anti rejection medications since mar. - Current Medication List Current Medications: Active Medications Acetaminophen (Tylenol -) 650 mg PO Q6H PRN PRN Reason: FEVER Last Admin: 04/14/19 20:00 Dose: 650 mg Amlodipine Besylate (Norvasc -) 10 mg PO DAILY [facility] Last Admin: 04/15/19 10:28 Dose: Not Given Atorvastatin Calcium (Lipitor -) 10 mg PO HS [facility] Last Admin: 04/15/19 21:10 Dose: 10 mg Clonidine (Catapres -) 0.1 mg PO DAILY [facility] Last Admin: 04/15/19 10:28 Dose: Not Given Famotidine (Pepcid -) 20 mg PO DAILY [facility] Last Admin: 04/15/19 10:28 Dose: 20 mg Heparin Sodium (Porcine) (Heparin -) 5,000 unit SQ BID [facility] Last Admin: 04/15/19 21:11 Dose: 5,000 unit Piperacillin Sod/Tazobactam (Sod 2.25 gm/ Dextrose) 50 mls @ 100 mls/hr IVPB Q8H-IV [facility] Last Admin: 04/16/19 01:44 Dose: 100 mls/hr Leflunomide (Arava -) 10 mg PO DAILY [facility] Last Admin: 04/15/19 16:14 Dose: 10 mg Metoprolol Succinate (Toprol Xl -) 50 mg PO DAILY [facility] Multivitamins/Minerals/Vitamin C (Tab-A-Vit -) 1 tab PO DAILY [facility] Last Admin: 04/15/19 10:28 Dose: 1 tab - Objective Vital Signs: Vital Signs Temperature 98.7 F 04/16/19 06:00 Pulse Rate 71 04/16/19 06:00 Respiratory Rate 16 04/16/19 06:00 Blood Pressure 103/48 L 04/16/19 06:00 O2 Sat by Pulse Oximetry (%) 97 04/15/19 21:00 Additional Findings/Remarks: Constitutional: Yes: Well Nourished, No Distress, Calm Eyes: Yes: WNL, Conjunctiva Clear, EOM Intact HENT: Yes: WNL, Atraumatic, Normocephalic Neck: Yes: WNL, Supple, Trachea Midline Cardiovascular: Yes: WNL, Regular Rate and Rhythm Respiratory: Yes: Regular, CTA Bilaterally, Diminished (at bases) Gastrointestinal: Yes: WNL, Normal Bowel Sounds, Soft, nontender ...Rectal Exam: Yes: Deferred Renal/: Yes: Anuria Breast(s): Yes: WNL Musculoskeletal: Yes: WNL Extremities: Yes: Other (left arm fistula +bruit +thrill) Edema: Yes Edema: LLE: Trace, RLE: Trace Peripheral Pulses WNL: Yes Peripheral Pulses: Left Radial: 2+, Right Radial: 2+, Left Doralis Pedis: 2+, Right Dorsalis Pedis: 2+, Left Femoral: 2+, Right Femoral: 2+ Integumentary: Yes: WNL Neurological: Yes: WNL, Alert, Oriented ...Motor Strength: WNL Psychiatric: Yes: WNL Labs: CBC, BMP 04/16/19 05:20 04/16/19 05:20 INR, PTT INR 1.09 (0.83-1.09) 04/14/19 12:00 - ....Imaging Cat Scan: Report Reviewed (Abd CT: Polycystic kideny disease with multiple hepatic cysts. Mild hydro of trasplanted kidney. No acute pathology) Problem List - Problems (1) Anemia in chronic kidney disease, on chronic dialysis Assessment/Plan: ESRD on HD Hgb 7.8 no signs of active bleeding 1u of PRBC given on HD continue to monitor H/H 1 dose of epogen given Code(s): N18.6 - END STAGE RENAL DISEASE; D63.1 - ANEMIA IN CHRONIC KIDNEY DISEASE; Z99.2 - DEPENDENCE ON RENAL DIALYSIS (2) Fever Assessment/Plan: spiked T to 103 yesterday, afebrile presently BCx NGTD abd CT without acute pathology c/w vanco by level /zosyn appreciate ID consultation Code(s): R50.9 - FEVER, UNSPECIFIED Qualifiers: Fever type: unspecified Qualified Code(s): R50.9 - Fever, unspecified (3) Weakness Assessment/Plan: c/w PT fall precautions Code(s): R53.1 - WEAKNESS (4) ESRD on hemodialysis Assessment/Plan: HD as per renal Dr Lamas following Code(s): N18.6 - END STAGE RENAL DISEASE; Z99.2 - DEPENDENCE ON RENAL DIALYSIS (5) Hypertension Assessment/Plan: on norvasc,nifidepine,hydralazine , metoprolol, lasix at home restarted antihypertensive meds Code(s): I10 - ESSENTIAL (PRIMARY) HYPERTENSION (6) Kidney transplant rejection Assessment/Plan: off all antirejection meds since Mar c/o abd pain on presnetation to ED, denies now abd CT negative (7) Prophylactic measure Assessment/Plan: FEN Fluids: no addition IVF at this time Electrolytes: replete as indicated Nutrition: renal diet DVT prophylaxis: heparin sq oob, ambulation Dispo: requires in-patient admission-can transfer to med-surg unit Full code discharge planning Code(s): Z29.9 - ENCOUNTER FOR PROPHYLACTIC MEASURES, UNSPECIFIED Visit type - Emergency Visit Emergency Visit: Yes ED Registration Date: 04/16/19 Care time: The patient presented to the Emergency Department on the above date and was hospitalized for further evaluation of their emergent condition. - New Patient This patient is new to me today: No - Critical Care Critical Care patient: No - Discharge Referral Referred to [facility] No
[2019-04-16] MEDS ORDERED: POTASSIUM CHLORIDE TABS 20 MEQ TABLET.ER (FP) PO ONE (07:32)
[2019-04-16] MEDS: amLODIPine BESYLATE 10 MG TABLET (FP) PO SCH (11:09)
[2019-04-16] MEDS: FAMOTIDINE 20 MG TABLET PO SCH (11:09)
[2019-04-16] MEDS: cloNIDine HCL 0.1 MG TABLET PO SCH (11:10)
[2019-04-16] MEDS: MULTIVITAMINS (DAILY MVI) TABLET (FP) PO SCH (11:10)
[2019-04-16] MEDS: HEPARIN NA (PORCINE) 5,000 UNITS/ML 1ML VIAL SQ SCH ×2 (11:10→21:28)
[2019-04-16] MEDS ORDERED: PT OWN MED DRAWER 7, Y5N ONE (11:12)
[2019-04-16] MEDS: LEFLUNOMIDE 10 MG TABLET PO SCH (11:13)
--- NOTE | 2019-04-16 13:22 | PN ---
Progress Note, Physician History of Present Illness: Pt seen and examined at bedside. She is awake and alert. She denies shortness of breath. - Current Medication List Current Medications: Active Medications Acetaminophen (Tylenol -) 650 mg PO Q6H PRN PRN Reason: FEVER Last Admin: 04/14/19 20:00 Dose: 650 mg Amlodipine Besylate (Norvasc -) 10 mg PO DAILY [facility] Last Admin: 04/16/19 11:09 Dose: 10 mg Atorvastatin Calcium (Lipitor -) 10 mg PO HS [facility] Last Admin: 04/15/19 21:10 Dose: 10 mg Clonidine (Catapres -) 0.1 mg PO DAILY [facility] Last Admin: 04/16/19 11:10 Dose: 0.1 mg Famotidine (Pepcid -) 20 mg PO DAILY [facility] Last Admin: 04/16/19 11:09 Dose: 20 mg Heparin Sodium (Porcine) (Heparin -) 5,000 unit SQ BID [facility] Last Admin: 04/16/19 11:10 Dose: 5,000 unit Piperacillin Sod/Tazobactam (Sod 2.25 gm/ Dextrose) 50 mls @ 100 mls/hr IVPB Q8H-IV [facility] Last Admin: 04/16/19 11:10 Dose: 100 mls/hr Leflunomide (Arava -) 10 mg PO DAILY [facility] Last Admin: 04/16/19 11:13 Dose: 10 mg Metoprolol Succinate (Toprol Xl -) 50 mg PO DAILY [facility] Last Admin: 04/16/19 11:09 Dose: 50 mg Multivitamins/Minerals/Vitamin C (Tab-A-Vit -) 1 tab PO DAILY [facility] Last Admin: 04/16/19 11:10 Dose: 1 tab - Objective Vital Signs: Vital Signs Temperature 98.7 F 04/16/19 06:00 Pulse Rate 71 04/16/19 06:00 Respiratory Rate 16 04/16/19 06:00 Blood Pressure 103/48 L 04/16/19 06:00 O2 Sat by Pulse Oximetry (%) 95 04/16/19 09:00 Constitutional: Yes: Calm Eyes: Yes: Conjunctiva Clear HENT: Yes: Atraumatic Neck: Yes: Supple Cardiovascular: Yes: S1, S2 Respiratory: Yes: CTA Bilaterally Gastrointestinal: Yes: Soft Genitourinary: Yes: WNL Musculoskeletal: Yes: WNL Edema: No Neurological: Yes: Oriented Psychiatric: Yes: Oriented Labs: CBC, BMP 04/16/19 05:20 04/16/19 05:20 INR, PTT INR 1.09 (0.83-1.09) 04/14/19 12:00 Assessment/Plan Current Medications Generic Name Dose Route Start Last Admin Trade Name Freq PRN Reason Stop Dose Admin Acetaminophen 650 mg 04/15/19 00:00 04/14/19 20:00 Tylenol - PO 650 mg Q6H PRN Administration FEVER Amlodipine Besylate 10 mg 04/15/19 10:00 04/16/19 11:09 Norvasc - PO 10 mg DAILY [facility] Administration Atorvastatin Calcium 10 mg 04/14/19 22:00 04/15/19 21:10 Lipitor - PO 10 mg HS [facility] Administration Clonidine 0.1 mg 04/15/19 10:00 04/16/19 11:10 Catapres - PO 0.1 mg DAILY [facility] Administration Famotidine 20 mg 04/15/19 10:00 04/16/19 11:09 Pepcid - PO 20 mg DAILY [facility] Administration Heparin Sodium (Porcine) 5,000 unit 04/14/19 22:00 04/16/19 11:10 Heparin - SQ 5,000 unit BID [facility] Administration Piperacillin Sod/Tazobactam 50 mls @ 100 mls/hr 04/15/19 02:00 04/16/19 11:10 Sod 2.25 gm/ Dextrose IVPB 100 mls/hr Q8H-IV [facility] Administration Leflunomide 10 mg 04/15/19 10:00 04/16/19 11:13 Arava - PO 10 mg DAILY [facility] Administration Metoprolol Succinate 50 mg 04/16/19 10:00 04/16/19 11:09 Toprol Xl - PO 50 mg DAILY [facility] Administration Multivitamins/Minerals/Vitamin C 1 tab 04/15/19 10:00 04/16/19 11:10 Tab-A-Vit - PO 1 tab DAILY [facility] Administration Impression 1. ESRD 2. kidney transplant 3. htn 4. anemia 5. BK nephropathy 6. r/o sepsis Plan - pt had HD yesterday - HD tomorrow - contabx - follow cultures - ct reviewed - ID follow up - monitor temp
--- NOTE | 2019-04-16 14:23 | PN ---
Progress Note, Physician History of Present Illness: stable continues to spike fever clinically looks better - Current Medication List Current Medications: Active Medications Acetaminophen (Tylenol -) 650 mg PO Q6H PRN PRN Reason: FEVER Last Admin: 04/14/19 20:00 Dose: 650 mg Amlodipine Besylate (Norvasc -) 10 mg PO DAILY [facility] Last Admin: 04/16/19 11:09 Dose: 10 mg Atorvastatin Calcium (Lipitor -) 10 mg PO HS [facility] Last Admin: 04/15/19 21:10 Dose: 10 mg Clonidine (Catapres -) 0.1 mg PO DAILY [facility] Last Admin: 04/16/19 11:10 Dose: 0.1 mg Epoetin Talha (Epogen -) 12,000 unit IVPUSH ONCE ONE Stop: 04/17/19 13:23 Famotidine (Pepcid -) 20 mg PO DAILY [facility] Last Admin: 04/16/19 11:09 Dose: 20 mg Heparin Sodium (Porcine) (Heparin -) 5,000 unit SQ BID [facility] Last Admin: 04/16/19 11:10 Dose: 5,000 unit Piperacillin Sod/Tazobactam (Sod 2.25 gm/ Dextrose) 50 mls @ 100 mls/hr IVPB Q8H-IV [facility] Last Admin: 04/16/19 11:10 Dose: 100 mls/hr Sodium Chloride (Normal Saline -) 250 mls @ 3,000 mls/hr IV PRN PRN PRN Reason: Hypotension during Dialysis Stop: 04/17/19 13:23 Leflunomide (Arava -) 10 mg PO DAILY [facility] Last Admin: 04/16/19 11:13 Dose: 10 mg Metoprolol Succinate (Toprol Xl -) 50 mg PO DAILY [facility] Last Admin: 04/16/19 11:09 Dose: 50 mg Multivitamins/Minerals/Vitamin C (Tab-A-Vit -) 1 tab PO DAILY [facility] Last Admin: 04/16/19 11:10 Dose: 1 tab - Objective Vital Signs: Vital Signs Temperature 101.3 F H 04/16/19 14:00 Pulse Rate 74 04/16/19 14:00 Respiratory Rate 16 04/16/19 14:00 Blood Pressure 127/53 L 04/16/19 14:00 O2 Sat by Pulse Oximetry (%) 95 04/16/19 09:00 Constitutional: Yes: No Distress, Calm Cardiovascular: Yes: S1, S2 Respiratory: Yes: Regular, CTA Bilaterally Gastrointestinal: Yes: Normal Bowel Sounds, Soft Musculoskeletal: Yes: WNL Extremities: Yes: WNL Neurological: Yes: Alert, Oriented Psychiatric: Yes: Alert, Oriented Labs: CBC, BMP 04/16/19 05:20 04/16/19 05:20 INR, PTT INR 1.09 (0.83-1.09) 04/14/19 12:00 Assessment/Plan Problem List - Problems (1) Anemia in chronic kidney disease, on chronic dialysis Code(s): N18.6 - END STAGE RENAL DISEASE; D63.1 - ANEMIA IN CHRONIC KIDNEY DISEASE; Z99.2 - DEPENDENCE ON RENAL DIALYSIS (2) Fever Code(s): R50.9 - FEVER, UNSPECIFIED (3) Weakness Code(s): R53.1 - WEAKNESS (4) ESRD on hemodialysis Code(s): N18.6 - END STAGE RENAL DISEASE; Z99.2 - DEPENDENCE ON RENAL DIALYSIS (5) Hypertension Code(s): I10 - ESSENTIAL (PRIMARY) HYPERTENSION (6) Kidney transplant rejection Assessment/Plan: off all antirejection meds since Mar plan abx await for all reports monitor fever rest as per the team
[2019-04-16] MEDS: ACETAMINOPHEN 325 MG TABLET (FP) PO PRN (17:33)
[2019-04-16] MEDS: ATORVASTATIN CA 10 MG TABLET (FP) PO SCH (21:28)
[2019-04-17] MEDS: PIPERACILLIN/TAZOB 2.25 GM 2.25 GM in DEXTROSE 5%-WATER - 50 ML IVPB SCH ×2 (01:29→13:14)
[2019-04-17 07:14] LABS: BASO % 0.4 % (0-2.0); EOS % 16.9 % (0-4.5); HEMATOCRIT 24.9 % (32.4-45.2); HEMOGLOBIN 8.2 GM/dL (10.7-15.3); LYMPH % 14.9 % (8-40); MCH 31.4 pg (25.7-33.7); MEAN CELL VOLUME 95.3 fl (80-96); MEAN PLT VOLUME 9.4 fl (7.5-11.1); MONO % 8.5 % (3.8-10.2); NEUT % 59.3 % (42.8-82.8); PLATELET COUNT 111 K/MM3 (134-434); RBC 2.62 M/mm3 (3.60-5.2); WHITE BLOOD COUNT 5.5 K/mm3 (4.0-10.0)
[2019-04-17 07:31] LABS: ALBUMIN 2.1 g/dl (3.4-5.0); BILIRUBIN,TOTAL 0.4 mg/dL (0.2-1); BLOOD UREA NITROGEN 27.8 mg/dL (7-18); CALCIUM 7.7 mg/dL (8.5-10.1); CREATININE 7.3 mg/dL (0.55-1.3); MAGNESIUM 1.9 mg/dL (1.8-2.4); PHOSPHOROUS 2.2 mg/dL (2.5-4.9); POTASSIUM 4.4 mmol/L (3.5-5.1); TOT PROT 5.4 g/dl (6.4-8.2)
--- NOTE | 2019-04-17 07:33 | PN ---
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 SHe was sent to ED from HD for c/o weakness during sessions. She denies N/V/C/D, dysuria, hematuria, rash,fever. Of note she has been off anti rejection medications since mar. - Current Medication List Current Medications: Active Medications Acetaminophen (Tylenol -) 650 mg PO Q6H PRN PRN Reason: FEVER Last Admin: 04/16/19 17:33 Dose: 650 mg Amlodipine Besylate (Norvasc -) 10 mg PO DAILY [facility] Last Admin: 04/16/19 11:09 Dose: 10 mg Atorvastatin Calcium (Lipitor -) 10 mg PO HS [facility] Last Admin: 04/16/19 21:28 Dose: 10 mg Clonidine (Catapres -) 0.1 mg PO DAILY [facility] Last Admin: 04/16/19 11:10 Dose: 0.1 mg Epoetin Talha (Epogen -) 12,000 unit IVPUSH ONCE ONE Stop: 04/17/19 13:23 Famotidine (Pepcid -) 20 mg PO DAILY [facility] Last Admin: 04/16/19 11:09 Dose: 20 mg Heparin Sodium (Porcine) (Heparin -) 5,000 unit SQ BID [facility] Last Admin: 04/16/19 21:28 Dose: 5,000 unit Piperacillin Sod/Tazobactam (Sod 2.25 gm/ Dextrose) 50 mls @ 100 mls/hr IVPB Q8H-IV [facility] Last Admin: 04/17/19 01:29 Dose: 100 mls/hr Sodium Chloride (Normal Saline -) 250 mls @ 3,000 mls/hr IV PRN PRN PRN Reason: Hypotension during Dialysis Stop: 04/17/19 13:23 Leflunomide (Arava -) 10 mg PO DAILY [facility] Last Admin: 04/16/19 11:13 Dose: 10 mg Metoprolol Succinate (Toprol Xl -) 50 mg PO DAILY [facility] Last Admin: 04/16/19 11:09 Dose: 50 mg Multivitamins/Minerals/Vitamin C (Tab-A-Vit -) 1 tab PO DAILY [facility] Last Admin: 04/16/19 11:10 Dose: 1 tab - Objective Vital Signs: Vital Signs Temperature 100.4 F H 04/16/19 18:00 Pulse Rate 88 04/17/19 02:00 Respiratory Rate 30 H 04/17/19 02:00 Blood Pressure 131/53 L 04/17/19 02:00 O2 Sat by Pulse Oximetry (%) 95 04/16/19 21:00 Additional Findings/Remarks: Constitutional: Yes: Well Nourished, No Distress, Calm Eyes: Yes: WNL, Conjunctiva Clear, EOM Intact HENT: Yes: WNL, Atraumatic, Normocephalic Neck: Yes: WNL, Supple, Trachea Midline Cardiovascular: Yes: WNL, Regular Rate and Rhythm Respiratory: Yes: Regular, CTA Bilaterally, Diminished (at bases) Gastrointestinal: Yes: WNL, Normal Bowel Sounds, Soft, nontender ...Rectal Exam: Yes: Deferred Renal/: Yes: Anuria Breast(s): Yes: WNL Musculoskeletal: Yes: WNL Extremities: Yes: Other (left arm fistula +bruit +thrill) Edema: Yes Edema: LLE: Trace, RLE: Trace Peripheral Pulses WNL: Yes Peripheral Pulses: Left Radial: 2+, Right Radial: 2+, Left Doralis Pedis: 2+, Right Dorsalis Pedis: 2+, Left Femoral: 2+, Right Femoral: 2+ Integumentary: Yes: WNL Neurological: Yes: WNL, Alert, Oriented ...Motor Strength: WNL Psychiatric: Yes: WNL Labs: CBC, BMP 04/17/19 06:27 04/17/19 06:00 INR, PTT INR 1.09 (0.83-1.09) 04/14/19 12:00 Problem List - Problems (1) Anemia in chronic kidney disease, on chronic dialysis Code(s): N18.6 - END STAGE RENAL DISEASE; D63.1 - ANEMIA IN CHRONIC KIDNEY DISEASE; Z99.2 - DEPENDENCE ON RENAL DIALYSIS (2) Fever Code(s): R50.9 - FEVER, UNSPECIFIED Qualifiers: Fever type: unspecified Qualified Code(s): R50.9 - Fever, unspecified (3) Weakness Code(s): R53.1 - WEAKNESS (4) ESRD on hemodialysis Code(s): N18.6 - END STAGE RENAL DISEASE; Z99.2 - DEPENDENCE ON RENAL DIALYSIS (5) Hypertension Code(s): I10 - ESSENTIAL (PRIMARY) HYPERTENSION (7) Prophylactic measure Code(s): Z29.9 - ENCOUNTER FOR PROPHYLACTIC MEASURES, UNSPECIFIED Visit type - Emergency Visit Emergency Visit: Yes ED Registration Date: 04/16/19 Care time: The patient presented to the Emergency Department on the above date and was hospitalized for further evaluation of their emergent condition. - New Patient This patient is new to me today: No - Critical Care Critical Care patient: No - Discharge Referral Referred to [facility] Med P.C.: No
[2019-04-17] MEDS ORDERED: PIPERACILLIN/TAZOBACTAM 2.25 GM VIAL IVPB ONE (09:33)
[2019-04-17] MEDS ORDERED: DEXTROSE 5%-WATER - 50 ML IVPB ONE (09:33)
[2019-04-17] MEDS ORDERED: PT OWN MED DRAWER 7, Y5N ONE ×3 (09:33→12:13)
[2019-04-17 09:47] LABS: ANISOCYTOSIS 1+; MACROCYTOSIS 0; OVALOCYTE 1+; PLATELET ESTIMATE DECREASED
[2019-04-17] MEDS ORDERED: SODIUM CHLORIDE 250 ML IV PRN (10:23)
[2019-04-17] MEDS ORDERED: EPOETIN ALFA 10,000 UNIT, EPOETIN ALFA 2,000 UNIT IVPUSH ONE (11:30)
--- NOTE | 2019-04-17 12:20 | PN ---
Progress Note, Physician Chief Complaint: being dialyzed now. 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 SHe was sent to ED from HD for c/o weakness during sessions. She denies N/V/C/D, dysuria, hematuria, rash,fever. Of note she has been off anti rejection medications since mar. - Current Medication List Current Medications: Active Medications Acetaminophen (Tylenol -) 650 mg PO Q6H PRN PRN Reason: FEVER Last Admin: 04/16/19 17:33 Dose: 650 mg Amlodipine Besylate (Norvasc -) 10 mg PO DAILY [facility] Last Admin: 04/16/19 11:09 Dose: 10 mg Atorvastatin Calcium (Lipitor -) 10 mg PO HS [facility] Last Admin: 04/16/19 21:28 Dose: 10 mg Clonidine (Catapres -) 0.1 mg PO DAILY [facility] Last Admin: 04/16/19 11:10 Dose: 0.1 mg Famotidine (Pepcid -) 20 mg PO DAILY [facility] Last Admin: 04/16/19 11:09 Dose: 20 mg Heparin Sodium (Porcine) (Heparin -) 5,000 unit SQ BID [facility] Last Admin: 04/16/19 21:28 Dose: 5,000 unit Piperacillin Sod/Tazobactam (Sod 2.25 gm/ Dextrose) 50 mls @ 100 mls/hr IVPB Q8H-IV [facility] Last Admin: 04/17/19 01:29 Dose: 100 mls/hr Sodium Chloride (Normal Saline -) 250 mls @ 3,000 mls/hr IV PRN PRN PRN Reason: Hypotension during Dialysis Stop: 04/18/19 10:22 Leflunomide (Arava -) 10 mg PO DAILY [facility] Last Admin: 04/16/19 11:13 Dose: 10 mg Metoprolol Succinate (Toprol Xl -) 50 mg PO DAILY [facility] Last Admin: 04/16/19 11:09 Dose: 50 mg Multivitamins/Minerals/Vitamin C (Tab-A-Vit -) 1 tab PO DAILY [facility] Last Admin: 04/16/19 11:10 Dose: 1 tab - Objective Vital Signs: Vital Signs Temperature 99.1 F 04/17/19 06:00 Pulse Rate 92 H 04/17/19 11:50 Respiratory Rate 18 04/17/19 11:50 Blood Pressure 116/84 04/17/19 11:50 O2 Sat by Pulse Oximetry (%) 94 L 04/17/19 09:00 Additional Findings/Remarks: Constitutional: Yes: Well Nourished, No Distress, Calm Eyes: Yes: WNL, Conjunctiva Clear, EOM Intact HENT: Yes: WNL, Atraumatic, Normocephalic Neck: Yes: WNL, Supple, Trachea Midline Cardiovascular: Yes: WNL, Regular Rate and Rhythm Respiratory: Yes: Regular, CTA Bilaterally, Diminished (at bases) Gastrointestinal: Yes: WNL, Normal Bowel Sounds, Soft, nontender ...Rectal Exam: Yes: Deferred Renal/: Yes: Anuria Breast(s): Yes: WNL Musculoskeletal: Yes: WNL Extremities: Yes: Other (left arm fistula +bruit +thrill) Edema: Yes Edema: LLE: Trace, RLE: Trace Peripheral Pulses WNL: Yes Peripheral Pulses: Left Radial: 2+, Right Radial: 2+, Left Doralis Pedis: 2+, Right Dorsalis Pedis: 2+, Left Femoral: 2+, Right Femoral: 2+ Integumentary: Yes: WNL Neurological: Yes: WNL, Alert, Oriented ...Motor Strength: WNL Psychiatric: Yes: WNL Labs: CBC, BMP 04/17/19 06:27 04/17/19 06:00 INR, PTT INR 1.09 (0.83-1.09) 04/14/19 12:00 Problem List - Problems (1) Anemia in chronic kidney disease, on chronic dialysis Assessment/Plan: ESRD on HD Hgb 8.2 no signs of active bleeding 1u of PRBC given continue to monitor H/H 1 dose of epogen given Code(s): N18.6 - END STAGE RENAL DISEASE; D63.1 - ANEMIA IN CHRONIC KIDNEY DISEASE; Z99.2 - DEPENDENCE ON RENAL DIALYSIS (2) Fever Assessment/Plan: spiked T to 101 yesterday, afebrile presently BCx NGTD abd CT without acute pathology c/w vanco by level /zosyn appreciate ID consultation Code(s): R50.9 - FEVER, UNSPECIFIED Qualifiers: Fever type: unspecified Qualified Code(s): R50.9 - Fever, unspecified (3) Weakness Assessment/Plan: c/w PT fall precautions Code(s): R53.1 - WEAKNESS (4) ESRD on hemodialysis Assessment/Plan: HD as per renal Dr Lamas following Problems reviewed: Yes Code(s): N18.6 - END STAGE RENAL DISEASE; Z99.2 - DEPENDENCE ON RENAL DIALYSIS (5) Hypertension Assessment/Plan: on norvasc,nifidepine,hydralazine , metoprolol, lasix at home c/w antihypertensive meds as BP allows Code(s): I10 - ESSENTIAL (PRIMARY) HYPERTENSION (6) Kidney transplant rejection Assessment/Plan: off all antirejection meds since Mar c/o abd pain on presnetation to ED, denies now abd CT negative (7) Prophylactic measure Assessment/Plan: FEN Fluids: no addition IVF at this time Electrolytes: replete as indicated Nutrition: renal diet DVT prophylaxis: heparin sq oob, ambulation Dispo: requires in-patient admission-can transfer to med-surg unit Full code discharge planning Code(s): Z29.9 - ENCOUNTER FOR PROPHYLACTIC MEASURES, UNSPECIFIED Visit type - Emergency Visit Emergency Visit: Yes ED Registration Date: 04/16/19 Care time: The patient presented to the Emergency Department on the above date and was hospitalized for further evaluation of their emergent condition. - New Patient This patient is new to me today: No - Critical Care Critical Care patient: No - Discharge Referral Referred to [facility] Med P.C.: No
--- NOTE | 2019-04-17 12:53 | PN ---
Progress Note, Physician History of Present Illness: Pt seen and examined at bedside. She is awake and alert. She denies shortness of breath. She denies fevers but get chills. - Current Medication List Current Medications: Active Medications Acetaminophen (Tylenol -) 650 mg PO Q6H PRN PRN Reason: FEVER Last Admin: 04/16/19 17:33 Dose: 650 mg Amlodipine Besylate (Norvasc -) 10 mg PO DAILY [facility] Last Admin: 04/16/19 11:09 Dose: 10 mg Atorvastatin Calcium (Lipitor -) 10 mg PO HS [facility] Last Admin: 04/16/19 21:28 Dose: 10 mg Clonidine (Catapres -) 0.1 mg PO DAILY [facility] Last Admin: 04/16/19 11:10 Dose: 0.1 mg Famotidine (Pepcid -) 20 mg PO DAILY [facility] Last Admin: 04/16/19 11:09 Dose: 20 mg Heparin Sodium (Porcine) (Heparin -) 5,000 unit SQ BID [facility] Last Admin: 04/16/19 21:28 Dose: 5,000 unit Piperacillin Sod/Tazobactam (Sod 2.25 gm/ Dextrose) 50 mls @ 100 mls/hr IVPB Q8H-IV [facility] Last Admin: 04/17/19 01:29 Dose: 100 mls/hr Sodium Chloride (Normal Saline -) 250 mls @ 3,000 mls/hr IV PRN PRN PRN Reason: Hypotension during Dialysis Stop: 04/18/19 10:22 Leflunomide (Arava -) 10 mg PO DAILY [facility] Last Admin: 04/16/19 11:13 Dose: 10 mg Metoprolol Succinate (Toprol Xl -) 50 mg PO DAILY [facility] Last Admin: 04/16/19 11:09 Dose: 50 mg Multivitamins/Minerals/Vitamin C (Tab-A-Vit -) 1 tab PO DAILY [facility] Last Admin: 04/16/19 11:10 Dose: 1 tab - Objective Vital Signs: Vital Signs Temperature 99.1 F 04/17/19 06:00 Pulse Rate 92 H 04/17/19 11:50 Respiratory Rate 18 04/17/19 11:50 Blood Pressure 116/84 04/17/19 11:50 O2 Sat by Pulse Oximetry (%) 94 L 04/17/19 09:00 Constitutional: Yes: Calm Eyes: Yes: Conjunctiva Clear HENT: Yes: Atraumatic Neck: Yes: Supple Cardiovascular: Yes: S1, S2 Respiratory: Yes: CTA Bilaterally Gastrointestinal: Yes: Normal Bowel Sounds, Soft Genitourinary: Yes: WNL Musculoskeletal: Yes: WNL Edema: No Neurological: Yes: Oriented Psychiatric: Yes: Oriented Labs: CBC, BMP 04/17/19 06:27 04/17/19 06:00 INR, PTT INR 1.09 (0.83-1.09) 04/14/19 12:00 Problem List - Problems (1) ESRD on hemodialysis Code(s): N18.6 - END STAGE RENAL DISEASE; Z99.2 - DEPENDENCE ON RENAL DIALYSIS (2) Fever Code(s): R50.9 - FEVER, UNSPECIFIED Qualifiers: Fever type: unspecified Qualified Code(s): R50.9 - Fever, unspecified Assessment/Plan Current Medications Generic Name Dose Route Start Last Admin Trade Name Freq PRN Reason Stop Dose Admin Acetaminophen 650 mg 04/15/19 00:00 04/16/19 17:33 Tylenol - PO 650 mg Q6H PRN Administration FEVER Amlodipine Besylate 10 mg 04/15/19 10:00 04/16/19 11:09 Norvasc - PO 10 mg DAILY [facility] Administration Atorvastatin Calcium 10 mg 04/14/19 22:00 04/16/19 21:28 Lipitor - PO 10 mg HS [facility] Administration Clonidine 0.1 mg 04/15/19 10:00 04/16/19 11:10 Catapres - PO 0.1 mg DAILY [facility] Administration Famotidine 20 mg 04/15/19 10:00 04/16/19 11:09 Pepcid - PO 20 mg DAILY [facility] Administration Heparin Sodium (Porcine) 5,000 unit 04/14/19 22:00 04/16/19 21:28 Heparin - SQ 5,000 unit BID [facility] Administration Piperacillin Sod/Tazobactam 50 mls @ 100 mls/hr 04/15/19 02:00 04/17/19 01:29 Sod 2.25 gm/ Dextrose IVPB 100 mls/hr Q8H-IV [facility] Administration Sodium Chloride 250 mls @ 3,000 mls/hr 04/17/19 10:23 Normal Saline - IV 04/18/19 10:22 PRN PRN Hypotension during Dialysis Leflunomide 10 mg 04/15/19 10:00 04/16/19 11:13 Arava - PO 10 mg DAILY [facility] Administration Metoprolol Succinate 50 mg 04/16/19 10:00 04/16/19 11:09 Toprol Xl - PO 50 mg DAILY [facility] Administration Multivitamins/Minerals/Vitamin C 1 tab 04/15/19 10:00 04/16/19 11:10 Tab-A-Vit - PO 1 tab DAILY [facility] Administration Impression 1. ESRD 2. kidney transplant 3. htn 4. anemia 5. BK nephropathy 6. r/o sepsis Plan - cultures negative so far - HD today - ID follow up for abx duration - monitor temp
[2019-04-17] MEDS: LEFLUNOMIDE 10 MG TABLET PO SCH (13:14)
[2019-04-17] MEDS: FAMOTIDINE 20 MG TABLET PO SCH (13:15)
[2019-04-17] MEDS: MULTIVITAMINS (DAILY MVI) TABLET (FP) PO SCH (13:16)
[2019-04-17] MEDS: amLODIPine BESYLATE 10 MG TABLET (FP) PO SCH ×2 (13:16→13:49)
[2019-04-17] MEDS: cloNIDine HCL 0.1 MG TABLET PO SCH ×2 (13:18→14:05)
[2019-04-17] MEDS: HEPARIN NA (PORCINE) 5,000 UNITS/ML 1ML VIAL SQ SCH ×2 (13:18→21:23)
[2019-04-17] MEDS ORDERED: EPOETIN ALFA 3,000 UNIT/1 ML ML IVPUSH ONE (13:22)
--- NOTE | 2019-04-17 16:17 | PN ---
Progress Note, Physician History of Present Illness: patient clinically stable still continues to spike all cx negative so far - Current Medication List Current Medications: Active Medications Acetaminophen (Tylenol -) 650 mg PO Q6H PRN PRN Reason: FEVER Last Admin: 04/16/19 17:33 Dose: 650 mg Amlodipine Besylate (Norvasc -) 10 mg PO DAILY [facility] Last Admin: 04/17/19 13:49 Dose: Not Given Atorvastatin Calcium (Lipitor -) 10 mg PO HS [facility] Last Admin: 04/16/19 21:28 Dose: 10 mg Clonidine (Catapres -) 0.1 mg PO DAILY [facility] Last Admin: 04/17/19 14:05 Dose: Not Given Famotidine (Pepcid -) 20 mg PO DAILY [facility] Last Admin: 04/17/19 13:15 Dose: 20 mg Heparin Sodium (Porcine) (Heparin -) 5,000 unit SQ BID [facility] Last Admin: 04/17/19 13:18 Dose: 5,000 unit Sodium Chloride (Normal Saline -) 250 mls @ 3,000 mls/hr IV PRN PRN PRN Reason: Hypotension during Dialysis Stop: 04/18/19 10:22 Leflunomide (Arava -) 10 mg PO DAILY [facility] Last Admin: 04/17/19 13:14 Dose: 10 mg Metoprolol Succinate (Toprol Xl -) 50 mg PO DAILY [facility] Last Admin: 04/17/19 13:15 Dose: 50 mg Multivitamins/Minerals/Vitamin C (Tab-A-Vit -) 1 tab PO DAILY [facility] Last Admin: 04/17/19 13:16 Dose: 1 tab - Objective Vital Signs: Vital Signs Temperature 98.3 F 04/17/19 10:00 Pulse Rate 108 H 04/17/19 13:00 Respiratory Rate 18 04/17/19 13:00 Blood Pressure 130/89 04/17/19 13:00 O2 Sat by Pulse Oximetry (%) 94 L 04/17/19 09:00 Constitutional: Yes: No Distress, Calm Cardiovascular: Yes: S1, S2 Respiratory: Yes: Regular, CTA Bilaterally Gastrointestinal: Yes: Normal Bowel Sounds, Soft Musculoskeletal: Yes: WNL Extremities: Yes: WNL Neurological: Yes: Alert, Oriented Psychiatric: Yes: Alert, Oriented Labs: CBC, BMP 04/17/19 06:27 04/17/19 06:00 INR, PTT INR 1.09 (0.83-1.09) 04/14/19 12:00 Assessment/Plan Problem List - Problems (1) Anemia in chronic kidney disease, on chronic dialysis Code(s): N18.6 - END STAGE RENAL DISEASE; D63.1 - ANEMIA IN CHRONIC KIDNEY DISEASE; Z99.2 - DEPENDENCE ON RENAL DIALYSIS (2) Fever Code(s): R50.9 - FEVER, UNSPECIFIED (3) Weakness Code(s): R53.1 - WEAKNESS (4) ESRD on hemodialysis Code(s): N18.6 - END STAGE RENAL DISEASE; Z99.2 - DEPENDENCE ON RENAL DIALYSIS (5) Hypertension Code(s): I10 - ESSENTIAL (PRIMARY) HYPERTENSION (6) Kidney transplant rejection Assessment/Plan: off all antirejection meds since Mar i am going to hold off on abx and monitor if patient spikes again will alonzo cx rest as per the team monitor closely
[2019-04-17] MEDS: VITAMIN B COMP W-C 1 EA TABLET PO SCH (17:15)
[2019-04-17] MEDS: ACETAMINOPHEN 325 MG TABLET (FP) PO PRN (18:40)
[2019-04-17] MEDS: ATORVASTATIN CA 10 MG TABLET (FP) PO SCH (21:23)
--- NOTE | 2019-04-18 08:42 | PN ---
Progress Note, Physician Chief Complaint: Pt with mild tenderness over AV graft site. Afebrile overnight. 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 She was sent to ED from HD for c/o weakness during sessions. She denies N/V/C/D, dysuria, hematuria, rash,fever. Of note she has been off anti rejection medications since mar. - Current Medication List Current Medications: Active Medications Acetaminophen (Tylenol -) 650 mg PO Q6H PRN PRN Reason: FEVER Last Admin: 04/17/19 18:40 Dose: 650 mg Amlodipine Besylate (Norvasc -) 10 mg PO DAILY [facility] Atorvastatin Calcium (Lipitor -) 10 mg PO HS [facility] Last Admin: 04/17/19 21:23 Dose: 10 mg Clonidine (Catapres -) 0.1 mg PO DAILY [facility] Famotidine (Pepcid -) 20 mg PO DAILY [facility] Heparin Sodium (Porcine) (Heparin -) 5,000 unit SQ BID [facility] Last Admin: 04/17/19 21:23 Dose: 5,000 unit Sodium Chloride (Normal Saline -) 250 mls @ 3,000 mls/hr IV PRN PRN PRN Reason: Hypotension during Dialysis Stop: 04/18/19 10:22 Leflunomide (Arava -) 10 mg PO DAILY [facility] Metoprolol Succinate (Toprol Xl -) 50 mg PO DAILY [facility] Multivit/Ca Carb/B Cmplx/FA/Prenat (Nephro-Niharika -) 1 tablet PO DAILY [facility] Last Admin: 04/17/19 17:15 Dose: 1 tablet Multivitamins/Minerals/Vitamin C (Tab-A-Vit -) 1 tab PO DAILY [facility] - Objective Vital Signs: Vital Signs Temperature 98.7 F 04/18/19 06:00 Pulse Rate 96 H 04/18/19 06:00 Respiratory Rate 18 04/18/19 06:00 Blood Pressure 116/55 L 04/18/19 06:00 O2 Sat by Pulse Oximetry (%) 96 04/17/19 21:00 Additional Findings/Remarks: Constitutional: Yes: Well Nourished, No Distress, Calm Eyes: Yes: WNL, Conjunctiva Clear, EOM Intact HENT: Yes: WNL, Atraumatic, Normocephalic Neck: Yes: WNL, Supple, Trachea Midline Cardiovascular: Yes: WNL, Regular Rate and Rhythm Respiratory: Yes: Regular, CTA Bilaterally, Diminished (at bases) Gastrointestinal: Yes: WNL, Normal Bowel Sounds, Soft, nontender ...Rectal Exam: Yes: Deferred Renal/: Yes: Anuria Breast(s): Yes: WNL Musculoskeletal: Yes: WNL Extremities: Yes: Other (left arm fistula +bruit +thrill. Mild erythema to sire , mild tenderness) Edema: Yes Edema: LLE: Trace, RLE: Trace Peripheral Pulses WNL: Yes Peripheral Pulses: Left Radial: 2+, Right Radial: 2+, Left Doralis Pedis: 2+, Right Dorsalis Pedis: 2+, Left Femoral: 2+, Right Femoral: 2+ Integumentary: Yes: WNL Neurological: Yes: WNL, Alert, Oriented ...Motor Strength: WNL Psychiatric: Yes: WNL Labs: INR, PTT INR 1.09 (0.83-1.09) 04/14/19 12:00 Problem List - Problems (1) Anemia in chronic kidney disease, on chronic dialysis Assessment/Plan: ESRD on HD Hgb 8.0 1u PRBC during stay,1 dose of epogen continue to monitor H/H Code(s): N18.6 - END STAGE RENAL DISEASE; D63.1 - ANEMIA IN CHRONIC KIDNEY DISEASE; Z99.2 - DEPENDENCE ON RENAL DIALYSIS (2) Fever Assessment/Plan: afebrile BCx NGTD abd CT without acute pathology observe off abx appreciate ID consultation Code(s): R50.9 - FEVER, UNSPECIFIED Qualifiers: Fever type: unspecified Qualified Code(s): R50.9 - Fever, unspecified (3) Weakness Assessment/Plan: c/w PT fall precautions Code(s): R53.1 - WEAKNESS (4) ESRD on hemodialysis Assessment/Plan: HD as per renal Dr Lamas following Code(s): N18.6 - END STAGE RENAL DISEASE; Z99.2 - DEPENDENCE ON RENAL DIALYSIS (5) Hypertension Assessment/Plan: on norvasc,nifidepine,hydralazine , metoprolol, lasix at home c/w antihypertensive meds as BP allows Code(s): I10 - ESSENTIAL (PRIMARY) HYPERTENSION (6) Kidney transplant rejection Assessment/Plan: off all antirejection meds since Mar c/o abd pain on presentation to ED, denies now abd CT negative (7) Prophylactic measure Assessment/Plan: FEN Fluids: no addition IVF at this time Electrolytes: replete as indicated Nutrition: renal diet DVT prophylaxis: heparin sq oob, ambulation Dispo: requires in-patient admission-can transfer to med-surg unit Full code discharge planning Code(s): Z29.9 - ENCOUNTER FOR PROPHYLACTIC MEASURES, UNSPECIFIED Visit type - Emergency Visit Emergency Visit: Yes ED Registration Date: 04/16/19 Care time: The patient presented to the Emergency Department on the above date and was hospitalized for further evaluation of their emergent condition. - New Patient This patient is new to me today: No - Critical Care Critical Care patient: No - Discharge Referral Referred to [facility] Med [facility] No
[2019-04-18 08:44] LABS: BASO % 0.6 % (0-2.0); EOS % 16.6 % (0-4.5); HEMATOCRIT 24.2 % (32.4-45.2); LYMPH % 22.9 % (8-40); MCHC 33.1 g/dl (32.0-36.0); MEAN CELL VOLUME 93.8 fl (80-96); MEAN PLT VOLUME 9.6 fl (7.5-11.1); MONO % 12.7 % (3.8-10.2); NEUT % 47.2 % (42.8-82.8); PLATELET COUNT 108 K/MM3 (134-434); RBC 2.58 M/mm3 (3.60-5.2); RDW 16.9 % (11.6-15.6); WHITE BLOOD COUNT 4.9 K/mm3 (4.0-10.0)
[2019-04-18 09:13] LABS: ALBUMIN 2.1 g/dl (3.4-5.0); BILIRUBIN,TOTAL 0.3 mg/dL (0.2-1); BLOOD UREA NITROGEN 16.8 mg/dL (7-18); CALCIUM 7.4 mg/dL (8.5-10.1); MAGNESIUM 1.9 mg/dL (1.8-2.4); PHOSPHOROUS 1.9 mg/dL (2.5-4.9); POTASSIUM 3.7 mmol/L (3.5-5.1); TOT PROT 5.5 g/dl (6.4-8.2)
[2019-04-18] MEDS: amLODIPine BESYLATE 10 MG TABLET (FP) PO SCH (10:14)
[2019-04-18] MEDS: LEFLUNOMIDE 10 MG TABLET PO SCH (10:14)
[2019-04-18] MEDS: cloNIDine HCL 0.1 MG TABLET PO SCH (10:15)
[2019-04-18] MEDS: MULTIVITAMINS (DAILY MVI) TABLET (FP) PO SCH (10:15)
[2019-04-18] MEDS: VITAMIN B COMP W-C 1 EA TABLET PO SCH (10:15)
[2019-04-18] MEDS: HEPARIN NA (PORCINE) 5,000 UNITS/ML 1ML VIAL SQ SCH ×2 (10:15→21:42)
[2019-04-18] MEDS: FAMOTIDINE 20 MG TABLET PO SCH (10:15)
[2019-04-18 15:27] LABS: ANISOCYTOSIS 1+; MACROCYTOSIS 0; OVALOCYTE 1+; PLATELET ESTIMATE DECREASED; TEAR DROP CELLS 1+
--- NOTE | 2019-04-18 17:22 | PN ---
Progress Note, Physician History of Present Illness: Pt is alert, denies having any specific complaints. No SOB/cough/abd pain/ dysuria. Afebrile today. - Current Medication List Current Medications: Active Medications Acetaminophen (Tylenol -) 650 mg PO Q6H PRN PRN Reason: FEVER Last Admin: 04/17/19 18:40 Dose: 650 mg Amlodipine Besylate (Norvasc -) 10 mg PO DAILY COUNTS INCLUDE 234 BEDS AT THE [facility] Last Admin: 04/18/19 10:14 Dose: 10 mg Atorvastatin Calcium (Lipitor -) 10 mg PO HS COUNTS INCLUDE 234 BEDS AT THE [facility] Last Admin: 04/17/19 21:23 Dose: 10 mg Clonidine (Catapres -) 0.1 mg PO DAILY COUNTS INCLUDE 234 BEDS AT THE [facility] Last Admin: 04/18/19 10:15 Dose: 0.1 mg Famotidine (Pepcid -) 20 mg PO DAILY COUNTS INCLUDE 234 BEDS AT THE [facility] Last Admin: 04/18/19 10:15 Dose: 20 mg Heparin Sodium (Porcine) (Heparin -) 5,000 unit SQ BID COUNTS INCLUDE 234 BEDS AT THE [facility] Last Admin: 04/18/19 10:15 Dose: 5,000 unit Leflunomide (Arava -) 10 mg PO DAILY COUNTS INCLUDE 234 BEDS AT THE [facility] Last Admin: 04/18/19 10:14 Dose: 10 mg Metoprolol Succinate (Toprol Xl -) 50 mg PO DAILY COUNTS INCLUDE 234 BEDS AT THE [facility] Last Admin: 04/18/19 10:14 Dose: 50 mg Multivit/Ca Carb/B Cmplx/FA/Prenat (Nephro-Niharika -) 1 tablet PO DAILY COUNTS INCLUDE 234 BEDS AT THE [facility] Last Admin: 04/18/19 10:15 Dose: 1 tablet Multivitamins/Minerals/Vitamin C (Tab-A-Vit -) 1 tab PO DAILY COUNTS INCLUDE 234 BEDS AT THE [facility] Last Admin: 04/18/19 10:15 Dose: 1 tab - Objective Vital Signs: Vital Signs Temperature 98.6 F 04/18/19 14:25 Pulse Rate 81 04/18/19 14:25 Respiratory Rate 18 04/18/19 14:25 Blood Pressure 101/55 L 04/18/19 14:25 O2 Sat by Pulse Oximetry (%) 96 04/18/19 08:20 Constitutional: Yes: No Distress, Calm Cardiovascular: Yes: Regular Rate and Rhythm Respiratory: Yes: CTA Bilaterally Gastrointestinal: Yes: Normal Bowel Sounds, Soft Genitourinary: Yes: WNL Neurological: Yes: Alert, Oriented Labs: CBC, BMP 04/18/19 07:00 04/18/19 07:00 INR, PTT INR 1.09 (0.83-1.09) 04/14/19 12:00 Microbiology 04/14/19 12:00 Blood - Peripheral Venous Blood Culture - Preliminary NO GROWTH OBTAINED AFTER 96 HOURS, INCUBATION TO CONTINUE FOR 1 DAYS. 04/14/19 12:00 Blood - Peripheral Venous Blood Culture - Preliminary NO GROWTH OBTAINED AFTER 96 HOURS, INCUBATION TO CONTINUE FOR 1 DAYS. 04/14/19 21:30 Blood - Peripheral Venous Blood Culture - Preliminary NO GROWTH OBTAINED AFTER 72 HOURS, INCUBATION TO CONTINUE FOR 2 DAYS. 04/14/19 21:30 Blood - Peripheral Venous Blood Culture - Preliminary NO GROWTH OBTAINED AFTER 72 HOURS, INCUBATION TO CONTINUE FOR 2 DAYS. 04/14/19 13:00 Urine - Urine Clean Catch Urine Culture - Final NO GROWTH OBTAINED Problem List - Problems (1) ESRD on hemodialysis Code(s): N18.6 - END STAGE RENAL DISEASE; Z99.2 - DEPENDENCE ON RENAL DIALYSIS (2) Fever Code(s): R50.9 - FEVER, UNSPECIFIED Qualifiers: Fever type: unspecified Qualified Code(s): R50.9 - Fever, unspecified (3) Anemia Code(s): D64.9 - ANEMIA, UNSPECIFIED (4) Hypertension Code(s): I10 - ESSENTIAL (PRIMARY) HYPERTENSION Assessment/Plan Pt is afebrile, without specific complaints at this time Repeat cultures neg. Continue monitor off of antibiotics
--- NOTE | 2019-04-18 18:54 | PN ---
Progress Note (short form) - Note Progress Note: 1. ESRD 2. kidney transplant 3. htn 4. anemia 5. BK nephropathy 6. r/o sepsis Current Medications Acetaminophen (Tylenol -) 650 mg PO Q6H PRN PRN Reason: FEVER Last Admin: 04/17/19 18:40 Dose: 650 mg Amlodipine Besylate (Norvasc -) 10 mg PO DAILY [facility] Last Admin: 04/18/19 10:14 Dose: 10 mg Atorvastatin Calcium (Lipitor -) 10 mg PO HS [facility] Last Admin: 04/17/19 21:23 Dose: 10 mg Clonidine (Catapres -) 0.1 mg PO DAILY [facility] Last Admin: 04/18/19 10:15 Dose: 0.1 mg Famotidine (Pepcid -) 20 mg PO DAILY [facility] Last Admin: 04/18/19 10:15 Dose: 20 mg Heparin Sodium (Porcine) (Heparin -) 5,000 unit SQ BID [facility] Last Admin: 04/18/19 10:15 Dose: 5,000 unit Leflunomide (Arava -) 10 mg PO DAILY [facility] Last Admin: 04/18/19 10:14 Dose: 10 mg Metoprolol Succinate (Toprol Xl -) 50 mg PO DAILY [facility] Last Admin: 04/18/19 10:14 Dose: 50 mg Multivit/Ca Carb/B Cmplx/FA/Prenat (Nephro-Niharika -) 1 tablet PO DAILY [facility] Last Admin: 04/18/19 10:15 Dose: 1 tablet Multivitamins/Minerals/Vitamin C (Tab-A-Vit -) 1 tab PO DAILY [facility] Last Admin: 04/18/19 10:15 Dose: 1 tab Last Vital Signs Temp Pulse Resp BP Pulse Ox 98.6 F 81 18 101/55 L 96 04/18/19 14:25 04/18/19 14:25 04/18/19 14:25 04/18/19 14:25 04/18/19 08:20 CBC, BMP 04/18/19 07:00 04/18/19 07:00 Plan - cultures negative so far - HD today - ID follow up for abx duration - monitor temp
[2019-04-18] MEDS: ATORVASTATIN CA 10 MG TABLET (FP) PO SCH (21:42)
[2019-04-19 07:56] LABS: BASO % 0.7 % (0-2.0); EOS % 14.8 % (0-4.5); HEMOGLOBIN 7.9 GM/dL (10.7-15.3); LYMPH % 32.6 % (8-40); MCH 31.1 pg (25.7-33.7); MEAN CELL VOLUME 94.2 fl (80-96); MEAN PLT VOLUME 9.1 fl (7.5-11.1); MONO % 11.6 % (3.8-10.2); NEUT % 40.3 % (42.8-82.8); PLATELET COUNT 104 K/MM3 (134-434); RBC 2.55 M/mm3 (3.60-5.2); RDW 16.4 % (11.6-15.6); WHITE BLOOD COUNT 4.9 K/mm3 (4.0-10.0)
--- NOTE | 2019-04-19 08:01 | PN ---
Progress Note, Physician Chief Complaint: Spiking fevers to 101.0. All cultures negative. Pending TTE & ultrasound of fistula. 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 She was sent to ED from HD for c/o weakness during sessions. She denies N/V/C/D, dysuria, hematuria, rash,fever. Of note she has been off anti rejection medications since mar. - Current Medication List Current Medications: Active Medications Acetaminophen (Tylenol -) 650 mg PO Q6H PRN PRN Reason: FEVER Last Admin: 04/17/19 18:40 Dose: 650 mg Amlodipine Besylate (Norvasc -) 10 mg PO DAILY [facility] Last Admin: 04/18/19 10:14 Dose: 10 mg Atorvastatin Calcium (Lipitor -) 10 mg PO HS [facility] Last Admin: 04/18/19 21:42 Dose: 10 mg Clonidine (Catapres -) 0.1 mg PO DAILY [facility] Last Admin: 04/18/19 10:15 Dose: 0.1 mg Famotidine (Pepcid -) 20 mg PO DAILY [facility] Last Admin: 04/18/19 10:15 Dose: 20 mg Heparin Sodium (Porcine) (Heparin -) 5,000 unit SQ BID [facility] Last Admin: 04/18/19 21:42 Dose: 5,000 unit Leflunomide (Arava -) 10 mg PO DAILY [facility] Last Admin: 04/18/19 10:14 Dose: 10 mg Metoprolol Succinate (Toprol Xl -) 50 mg PO DAILY [facility] Last Admin: 04/18/19 10:14 Dose: 50 mg Multivit/Ca Carb/B Cmplx/FA/Prenat (Nephro-Niharika -) 1 tablet PO DAILY [facility] Last Admin: 04/18/19 10:15 Dose: 1 tablet Multivitamins/Minerals/Vitamin C (Tab-A-Vit -) 1 tab PO DAILY [facility] Last Admin: 04/18/19 10:15 Dose: 1 tab - Objective Vital Signs: Vital Signs Temperature 98.7 F 04/19/19 06:00 Pulse Rate 87 04/19/19 06:00 Respiratory Rate 18 04/19/19 06:00 Blood Pressure 112/64 01/19/20 06:00 O2 Sat by Pulse Oximetry (%) 95 04/18/19 21:00 Additional Findings/Remarks: Constitutional: Yes: Well Nourished, No Distress, Calm Eyes: Yes: WNL, Conjunctiva Clear, EOM Intact HENT: Yes: WNL, Atraumatic, Normocephalic Neck: Yes: WNL, Supple, Trachea Midline Cardiovascular: Yes: WNL, Regular Rate and Rhythm Respiratory: Yes: Regular, CTA Bilaterally, Diminished (at bases) Gastrointestinal: Yes: WNL, Normal Bowel Sounds, Soft, nontender ...Rectal Exam: Yes: Deferred Renal/: Yes: Anuria Breast(s): Yes: WNL Musculoskeletal: Yes: WNL Extremities: Yes: Other (left arm fistula +bruit +thrill. Mild erythema to site , mild tenderness) Edema: Yes Edema: LLE: Trace, RLE: Trace Peripheral Pulses WNL: Yes Peripheral Pulses: Left Radial: 2+, Right Radial: 2+, Left Doralis Pedis: 2+, Right Dorsalis Pedis: 2+, Left Femoral: 2+, Right Femoral: 2+ Integumentary: Yes: WNL Neurological: Yes: WNL, Alert, Oriented ...Motor Strength: WNL Psychiatric: Yes: WNL Labs: CBC, BMP 04/19/19 07:07 INR, PTT INR 1.09 (0.83-1.09) 04/14/19 12:00 Problem List - Problems (1) Anemia in chronic kidney disease, on chronic dialysis Assessment/Plan: ESRD on HD Hgb 7.9 1u PRBC during stay,1 dose of epogen continue to monitor H/H Code(s): N18.6 - END STAGE RENAL DISEASE; D63.1 - ANEMIA IN CHRONIC KIDNEY DISEASE; Z99.2 - DEPENDENCE ON RENAL DIALYSIS (2) Fever Assessment/Plan: spiked to 101.3 BCx, Ucx NGTD(both repeated) abd CT without acute pathology TTE pending, LE dopplers to r/o DVT & doppler of fistula pending observe off abx appreciate ID consultation Code(s): R50.9 - FEVER, UNSPECIFIED Qualifiers: Fever type: unspecified Qualified Code(s): R50.9 - Fever, unspecified (3) Weakness Assessment/Plan: c/w PT fall precautions Code(s): R53.1 - WEAKNESS (4) ESRD on hemodialysis Assessment/Plan: HD as per renal Dr Lamas following Code(s): N18.6 - END STAGE RENAL DISEASE; Z99.2 - DEPENDENCE ON RENAL DIALYSIS (5) Hypertension Assessment/Plan: on norvasc,nifidepine,hydralazine , metoprolol, lasix at home c/w antihypertensive meds as BP allows Code(s): I10 - ESSENTIAL (PRIMARY) HYPERTENSION (6) Kidney transplant rejection Assessment/Plan: off all antirejection meds since Mar c/o abd pain on presentation to ED, denies now abd CT negative (7) Prophylactic measure Assessment/Plan: FEN Fluids: no addition IVF at this time Electrolytes: replete as indicated Nutrition: renal diet DVT prophylaxis: heparin sq oob, ambulation Dispo: requires in-patient admission Full code discharge planning Code(s): Z29.9 - ENCOUNTER FOR PROPHYLACTIC MEASURES, UNSPECIFIED Visit type - Emergency Visit Emergency Visit: Yes ED Registration Date: 04/16/19 Care time: The patient presented to the Emergency Department on the above date and was hospitalized for further evaluation of their emergent condition. - New Patient This patient is new to me today: No - Critical Care Critical Care patient: No - Discharge Referral Referred to [facility] No
[2019-04-19 08:27] LABS: BILIRUBIN,TOTAL 0.3 mg/dL (0.2-1); BLOOD UREA NITROGEN 27.8 mg/dL (7-18); CALCIUM 7.8 mg/dL (8.5-10.1); MAGNESIUM 2.1 mg/dL (1.8-2.4); POTASSIUM 3.7 mmol/L (3.5-5.1); TOT PROT 5.5 g/dl (6.4-8.2)
[2019-04-19 08:59] LABS: CREATININE 7.4 mg/dL (0.55-1.3)
[2019-04-19] MEDS ORDERED: PT OWN MED DRAWER 7, Y5N ONE (09:20)
[2019-04-19] MEDS: LEFLUNOMIDE 10 MG TABLET PO SCH (10:36)
[2019-04-19] MEDS: HEPARIN NA (PORCINE) 5,000 UNITS/ML 1ML VIAL SQ SCH ×2 (10:37→21:32)
[2019-04-19] MEDS: amLODIPine BESYLATE 10 MG TABLET (FP) PO SCH (10:37)
[2019-04-19] MEDS: cloNIDine HCL 0.1 MG TABLET PO SCH (10:37)
[2019-04-19] MEDS: VITAMIN B COMP W-C 1 EA TABLET PO SCH (10:37)
[2019-04-19] MEDS: MULTIVITAMINS (DAILY MVI) TABLET (FP) PO SCH (10:38)
[2019-04-19] MEDS: FAMOTIDINE 20 MG TABLET PO SCH (10:38)
[2019-04-19] MEDS: ACETAMINOPHEN 325 MG TABLET (FP) PO PRN (11:01)
[2019-04-19 12:39] LABS: ANISOCYTOSIS 1+; MACROCYTOSIS 0; OVALOCYTE 1+; PLATELET ESTIMATE DECREASED; TEAR DROP CELLS 1+
[2019-04-19] MEDS ORDERED: VANCOMYCIN 1 GRAM (PRE-DOCKED) 1,000 MG/250 ML BAG IVPB ONE (20:06)
--- NOTE | 2019-04-19 20:13 | PN ---
Progress Note, Physician History of Present Illness: Pt with recurrence of fevers. Today she states she feels tired but denies SOB/ cough/CP/[place]/neck stiffness/ abd pain/n/v/d/rash or any other specific complaints. - Current Medication List Current Medications: Active Medications Acetaminophen (Tylenol -) 650 mg PO Q6H PRN PRN Reason: FEVER Last Admin: 04/19/19 11:01 Dose: 650 mg Amlodipine Besylate (Norvasc -) 10 mg PO DAILY [facility] Last Admin: 04/19/19 10:37 Dose: 10 mg Atorvastatin Calcium (Lipitor -) 10 mg PO HS [facility] Last Admin: 04/18/19 21:42 Dose: 10 mg Clonidine (Catapres -) 0.1 mg PO DAILY [facility] Last Admin: 04/19/19 10:37 Dose: 0.1 mg Famotidine (Pepcid -) 20 mg PO DAILY [facility] Last Admin: 04/19/19 10:38 Dose: 20 mg Heparin Sodium (Porcine) (Heparin -) 5,000 unit SQ BID [facility] Last Admin: 04/19/19 10:37 Dose: 5,000 unit Vancomycin HCl 1,000 mg/ (Dextrose) 250 mls @ 166.667 mls/hr IVPB ONCE ONE; Protocol Stop: 04/19/19 21:35 Leflunomide (Arava -) 10 mg PO DAILY [facility] Last Admin: 04/19/19 10:36 Dose: 10 mg Metoprolol Succinate (Toprol Xl -) 50 mg PO DAILY [facility] Last Admin: 04/19/19 10:38 Dose: 50 mg Multivit/Ca Carb/B Cmplx/FA/Prenat (Nephro-Niharika -) 1 tablet PO DAILY [facility] Last Admin: 04/19/19 10:37 Dose: 1 tablet Multivitamins/Minerals/Vitamin C (Tab-A-Vit -) 1 tab PO DAILY [facility] Last Admin: 04/19/19 10:38 Dose: 1 tab - Objective Vital Signs: Vital Signs Temperature 100.2 F H 04/19/19 14:24 Pulse Rate 78 04/19/19 14:24 Respiratory Rate 18 04/19/19 14:24 Blood Pressure 89/46 L 04/19/19 14:24 O2 Sat by Pulse Oximetry (%) 95 04/18/19 21:00 Constitutional: Yes: No Distress Eyes: Yes: Conjunctiva Clear, EOM Intact Cardiovascular: Yes: Regular Rate and Rhythm Respiratory: Yes: CTA Bilaterally Gastrointestinal: Yes: Normal Bowel Sounds, Soft Genitourinary: Yes: WNL Musculoskeletal: Yes: WNL Extremities: Yes: WNL Edema: No Integumentary: Yes: WNL Neurological: Yes: Alert, Oriented Labs: CBC, BMP 04/19/19 07:07 04/19/19 07:07 INR, PTT INR 1.09 (0.83-1.09) 04/14/19 12:00 Microbiology 04/14/19 12:00 Blood - Peripheral Venous Blood Culture - Final NO GROWTH AFTER 5 DAYS INCUBATION 04/14/19 12:00 Blood - Peripheral Venous Blood Culture - Final NO GROWTH AFTER 5 DAYS INCUBATION 04/14/19 21:30 Blood - Peripheral Venous Blood Culture - Preliminary NO GROWTH OBTAINED AFTER 96 HOURS, INCUBATION TO CONTINUE FOR 1 DAYS. 04/14/19 21:30 Blood - Peripheral Venous Blood Culture - Preliminary NO GROWTH OBTAINED AFTER 96 HOURS, INCUBATION TO CONTINUE FOR 1 DAYS. 04/14/19 13:00 Urine - Urine Clean Catch Urine Culture - Final NO GROWTH OBTAINED - ....Imaging Chest X-ray: Report Reviewed Cat Scan: Report Reviewed Problem List - Problems (1) ESRD on hemodialysis Code(s): N18.6 - END STAGE RENAL DISEASE; Z99.2 - DEPENDENCE ON RENAL DIALYSIS (2) Fever Code(s): R50.9 - FEVER, UNSPECIFIED Qualifiers: Fever type: unspecified Qualified Code(s): R50.9 - Fever, unspecified (3) Anemia Code(s): D64.9 - ANEMIA, UNSPECIFIED (4) Hypertension Code(s): I10 - ESSENTIAL (PRIMARY) HYPERTENSION Assessment/Plan Recurrent Fever ESRD on HD s/p Renal transplant with failure/BK nephropathy HTN -- Pt febrile again today, feels tired. Unclear source. -- Will repeat blood cultures , awaiting TTE and US of AV fistula -- will give one dose of Vancomycin now -- continue monitor vitals, labs daily
--- NOTE | 2019-04-19 21:31 | PN ---
Progress Note (short form) - Note Progress Note: 1. ESRD 2. kidney transplant 3. htn 4. anemia 5. BK nephropathy 6. r/o sepsis Current Medications Acetaminophen (Tylenol -) 650 mg PO Q6H PRN PRN Reason: FEVER Last Admin: 04/19/19 11:01 Dose: 650 mg Amlodipine Besylate (Norvasc -) 10 mg PO DAILY [facility] Last Admin: 04/19/19 10:37 Dose: 10 mg Atorvastatin Calcium (Lipitor -) 10 mg PO HS [facility] Last Admin: 04/18/19 21:42 Dose: 10 mg Clonidine (Catapres -) 0.1 mg PO DAILY [facility] Last Admin: 04/19/19 10:37 Dose: 0.1 mg Famotidine (Pepcid -) 20 mg PO DAILY [facility] Last Admin: 04/19/19 10:38 Dose: 20 mg Heparin Sodium (Porcine) (Heparin -) 5,000 unit SQ BID [facility] Last Admin: 04/19/19 10:37 Dose: 5,000 unit Vancomycin HCl (Vancomycin (Pre-Docked)) 1,000 mg in 250 mls @ 166.667 mls/hr IVPB ONCE ONE; Protocol Stop: 04/19/19 21:35 Leflunomide (Arava -) 10 mg PO DAILY [facility] Last Admin: 04/19/19 10:36 Dose: 10 mg Metoprolol Succinate (Toprol Xl -) 50 mg PO DAILY [facility] Last Admin: 04/19/19 10:38 Dose: 50 mg Multivit/Ca Carb/B Cmplx/FA/Prenat (Nephro-Niharika -) 1 tablet PO DAILY [facility] Last Admin: 04/19/19 10:37 Dose: 1 tablet Multivitamins/Minerals/Vitamin C (Tab-A-Vit -) 1 tab PO DAILY [facility] Last Admin: 04/19/19 10:38 Dose: 1 tab Last Vital Signs Temp Pulse Resp BP Pulse Ox 100.4 F H 80 18 116/53 L 95 04/19/19 18:00 04/19/19 18:00 04/19/19 18:00 04/19/19 18:00 04/18/19 21:00 alert denies any localizing symptoms Lungs clear Heart reg Abd soft Ext no redness or signs ocellulitis avf site looks intact CBC, BMP 04/19/19 07:07 04/19/19 07:07 CBC, BMP 04/18/19 07:00 04/18/19 07:00 ESRD Kidney txplant anemia Plan HD maintenance in am
[2019-04-19] MEDS: ATORVASTATIN CA 10 MG TABLET (FP) PO SCH (21:32)
[2019-04-19] MEDS ORDERED: SODIUM CHLORIDE 250 ML IV PRN (21:33)
[2019-04-20] MEDS: ACETAMINOPHEN 325 MG TABLET (FP) PO PRN (06:03)
--- NOTE | 2019-04-20 08:49 | PN ---
Progress Note (short form) - Note Progress Note: VASCULAR 63yo F was consulted to vascular to evaluate LUE AV fistula to rule out source of infection. Pt has been spiking fevers and feeling weak. Pt denies any pain or issues with her fistula, she continues to get HD without issue. Last Vital Signs Temp Pulse Resp BP Pulse Ox 101.2 F H 83 18 109/55 L 95 04/20/19 06:00 04/20/19 06:00 04/20/19 06:00 04/20/19 06:00 04/18/19 21:00 CBC, BMP 04/19/19 07:07 04/19/19 07:07 PE: Gen: A&O x 3 Resp: breathing comfortably LUE: AV fistula nontender, no erythema, good thrill, +2 radial pulse, no edema <Jose Delgadillo - Last Filed: 04/20/19 08:35> - Note Progress Note: Left upper arm fistula has no erythema, swelling or tenderness. It is highly unlikely that this is a source of infection. <Momo Bedoya - Last Filed: 04/22/19 08:57> Problem List - Problems (1) Fever Assessment/Plan: Plan -AV fistula appears completely benign, no signs of infection at this time. May continue to use for HD Pt discussed with Dr. Bedoya who agrees with plan Code(s): R50.9 - FEVER, UNSPECIFIED Qualifiers: Fever type: unspecified Qualified Code(s): R50.9 - Fever, unspecified <Jose Delgadillo - Last Filed: 04/20/19 08:35>
[2019-04-20 09:14] LABS: BASO % 0.6 % (0-2.0); EOS % 15.1 % (0-4.5); HEMATOCRIT 23.2 % (32.4-45.2); HEMOGLOBIN 7.7 GM/dL (10.7-15.3); LYMPH % 19.7 % (8-40); MCH 31.8 pg (25.7-33.7); MCHC 33.4 g/dl (32.0-36.0); MEAN CELL VOLUME 95.1 fl (80-96); MEAN PLT VOLUME 9.3 fl (7.5-11.1); MONO % 11.1 % (3.8-10.2); NEUT % 53.5 % (42.8-82.8); PLATELET COUNT 93 K/MM3 (134-434); RBC 2.44 M/mm3 (3.60-5.2); RDW 16.3 % (11.6-15.6)
[2019-04-20] MEDS ORDERED: SODIUM CHLORIDE 250 ML IV PRN (09:30)
--- NOTE | 2019-04-20 09:44 | PN ---
Physical Exam: SUBJECTIVE: Patient seen and examined at the bedside. states she is having chills. 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 She also reported abdominal pain. Patient has been off antirejection medications s/p Renal transplant with failure per renal. imaging: ct/abdomen/pelvis without contrast 04/15/19: findings consistent with adult polycystic kidney disease, multiple hepatic cysts. mild hepatosplenomegaly, s/ p right renal transplat with mild hydronephrosis of the transplanted kidney. Vital Signs Period Temp Pulse Resp BP Sys/[place] Pulse Ox Last 24 Hr 97.9 F-101.3 F 71-95 18-18 89-125/46-78 GENERAL: The patient is awake, alert, and fully oriented, in no acute distress. HEAD: Normal with no signs of trauma. EYES: PERRL, extraocular movements intact, sclera anicteric, conjunctiva clear. No ptosis. ENT: Ears normal, nares patent, oropharynx clear without exudates NECK: Trachea midline, full range of motion, supple. LUNGS: Breath sounds equal, diminished bilaterally HEART: Regular rate and rhythm ABDOMEN: Soft, nontender, nondistended, normoactive bowel sounds EXTREMITIES: no edema. NEUROLOGICAL: Normal speech, gait not observed. PSYCH: Normal mood, normal affect. SKIN: Warm, dry, normal turgor, no rashes or lesions noted Laboratory Results - last 24 hr 04/19/19 04/20/19 07:07 08:45 WBC 6.0 RBC 2.44 L Hgb 7.7 L Hct 23.2 L MCV 95.1 MCH 31.8 MCHC 33.4 RDW 16.3 H Plt Count 93 L MPV 9.3 Absolute Neuts (auto) 3.2 Neutrophils % 53.5 D Neutrophils % (Manual) 35.3 L Band Neutrophils % 1.0 Lymphocytes % 19.7 D Lymphocytes % (Manual) 27.3 D Monocytes % 11.1 H Monocytes % (Manual) 9 Eosinophils % 15.1 H Eosinophils % (Manual) 10.1 H Basophils % 0.6 Basophils % (Manual) 1.0 Myelocytes % (Man) 0 Promyelocytes % (Man) 0 Blast Cells % (Manual) 0 Nucleated RBC % 0 0 Metamyelocytes 0 Hypochromia 0 Platelet Estimate Decreased Platelet Comment Present Polychromasia 0 Poikilocytosis 1+ Anisocytosis 1+ Microcytosis 1+ Macrocytosis 0 Spherocytes 1+ Tear Drop Cells 1+ Ovalocytes 1+ Active Medications Generic Name Dose Route Start Last Admin Trade Name Freq PRN Reason Stop Dose Admin Acetaminophen 650 mg 04/17/19 18:30 04/20/19 06:03 Tylenol - PO 650 mg Q6H PRN Administration FEVER Amlodipine Besylate 10 mg 04/18/19 10:00 04/19/19 10:37 Norvasc - PO 10 mg DAILY [facility] Administration Atorvastatin Calcium 10 mg 04/17/19 22:00 04/19/19 21:32 Lipitor - PO 10 mg HS [facility] Administration Clonidine 0.1 mg 04/18/19 10:00 04/19/19 10:37 Catapres - PO 0.1 mg DAILY [facility] Administration Epoetin Talha 10,000 unit 04/20/19 11:00 Procrit - IVPUSH 04/20/19 11:01 ONCE ONE Famotidine 20 mg 04/18/19 10:00 04/19/19 10:38 Pepcid - PO 20 mg DAILY [facility] Administration Heparin Sodium (Porcine) 5,000 unit 04/17/19 22:00 04/19/19 21:32 Heparin - SQ 5,000 unit BID [facility] Administration Sodium Chloride 250 mls @ 3,000 mls/hr 04/20/19 09:30 Normal Saline - IV 04/21/19 09:29 PRN PRN Hypotension during Dialysis Leflunomide 10 mg 04/18/19 10:00 04/19/19 10:36 Arava - PO 10 mg DAILY [facility] Administration Metoprolol Succinate 50 mg 04/18/19 10:00 04/19/19 10:38 Toprol Xl - PO 50 mg DAILY [facility] Administration Multivit/Ca Carb/B Cmplx/FA/Prenat 1 tablet 04/17/19 17:00 04/19/19 10:37 Nephro-Niharika - PO 1 tablet DAILY [facility] Administration Multivitamins/Minerals/Vitamin C 1 tab 04/18/19 10:00 04/19/19 10:38 Tab-A-Vit - PO 1 tab DAILY [facility] Administration ASSESSMENT/PLAN: Problem List - Problems (1) Anemia in chronic kidney disease, on chronic dialysis Assessment/Plan: s/p Renal transplant with failure now on chronic dialysis Code(s): N18.6 - END STAGE RENAL DISEASE; D63.1 - ANEMIA IN CHRONIC KIDNEY DISEASE; Z99.2 - DEPENDENCE ON RENAL DIALYSIS (2) ESRD on hemodialysis Assessment/Plan: s/p dialysis today Code(s): N18.6 - END STAGE RENAL DISEASE; Z99.2 - DEPENDENCE ON RENAL DIALYSIS (3) Fever Assessment/Plan: continues to have fever, tmax 101.2. unknown source abd pelvis without source of fever blood culture repeated and pending Code(s): R50.9 - FEVER, UNSPECIFIED Qualifiers: Fever type: unspecified Qualified Code(s): R50.9 - Fever, unspecified (4) Sepsis Assessment/Plan: spiked to 101.2, blood and urine negative and repeated abd ct without acute pathology of fevers echo pending, lower ext dopplers negative fistula doppler ID consulted and following Code(s): A41.9 - SEPSIS, UNSPECIFIED ORGANISM Qualifiers: Sepsis type: sepsis due to unspecified organism Sepsis acute organ dysfunction status: unspecified Qualified Code(s): A41.9 - Sepsis, unspecified organism (5) Weakness Code(s): R53.1 - WEAKNESS (6) Anemia Code(s): D64.9 - ANEMIA, UNSPECIFIED (7) Kidney transplant rejection Assessment/Plan: off antirejection medications. (8) Thrombocytopenia Code(s): D69.6 - THROMBOCYTOPENIA, UNSPECIFIED (9) Prophylactic measure Code(s): Z29.9 - ENCOUNTER FOR PROPHYLACTIC MEASURES, UNSPECIFIED (10) Hypertension Assessment/Plan: on norvasc,nifidepine,hydralazine , metoprolol, lasix at home c/w antihypertensive meds as BP allows Code(s): I10 - ESSENTIAL (PRIMARY) HYPERTENSION Visit type - Emergency Visit Emergency Visit: Yes ED Registration Date: 04/16/19 Care time: The patient presented to the Emergency Department on the above date and was hospitalized for further evaluation of their emergent condition. - New Patient This patient is new to me today: Yes Date on this admission: 04/20/19 - Critical Care Critical Care patient: No - Discharge Referral Referred to [facility] No
[2019-04-20 09:57] LABS: BILIRUBIN,TOTAL 0.5 mg/dL (0.2-1); BLOOD UREA NITROGEN 41.6 mg/dL (7-18); CALCIUM 7.9 mg/dL (8.5-10.1); MAGNESIUM 2.1 mg/dL (1.8-2.4); PHOSPHOROUS 2.3 mg/dL (2.5-4.9); POTASSIUM 3.4 mmol/L (3.5-5.1); TOT PROT 5.7 g/dl (6.4-8.2)
[2019-04-20 10:52] LABS: CREATININE 9.5 mg/dL (0.55-1.3)
[2019-04-20] MEDS ORDERED: EPOETIN ALFA 10,000 UNIT/1 ML VIAL IVPUSH ONE (11:00)
--- NOTE | 2019-04-20 13:01 | PN ---
Progress Note, Physician History of Present Illness: continues to spike fever - Current Medication List Current Medications: Active Medications Acetaminophen (Tylenol -) 650 mg PO Q6H PRN PRN Reason: FEVER Last Admin: 04/20/19 06:03 Dose: 650 mg Amlodipine Besylate (Norvasc -) 10 mg PO DAILY [facility] Last Admin: 04/19/19 10:37 Dose: 10 mg Atorvastatin Calcium (Lipitor -) 10 mg PO HS [facility] Last Admin: 04/19/19 21:32 Dose: 10 mg Clonidine (Catapres -) 0.1 mg PO DAILY [facility] Last Admin: 04/19/19 10:37 Dose: 0.1 mg Famotidine (Pepcid -) 20 mg PO DAILY [facility] Last Admin: 04/19/19 10:38 Dose: 20 mg Heparin Sodium (Porcine) (Heparin -) 5,000 unit SQ BID [facility] Last Admin: 04/19/19 21:32 Dose: 5,000 unit Sodium Chloride (Normal Saline -) 250 mls @ 3,000 mls/hr IV PRN PRN PRN Reason: Hypotension during Dialysis Stop: 04/21/19 09:29 Leflunomide (Arava -) 10 mg PO DAILY [facility] Last Admin: 04/19/19 10:36 Dose: 10 mg Metoprolol Succinate (Toprol Xl -) 50 mg PO DAILY [facility] Last Admin: 04/19/19 10:38 Dose: 50 mg Multivit/Ca Carb/B Cmplx/FA/Prenat (Nephro-Niharika -) 1 tablet PO DAILY [facility] Last Admin: 04/19/19 10:37 Dose: 1 tablet Multivitamins/Minerals/Vitamin C (Tab-A-Vit -) 1 tab PO DAILY [facility] Last Admin: 04/19/19 10:38 Dose: 1 tab - Objective Vital Signs: Vital Signs Temperature 97.9 F 04/20/19 08:40 Pulse Rate 71 04/20/19 11:50 Respiratory Rate 18 04/20/19 11:50 Blood Pressure 97/49 L 04/20/19 11:50 O2 Sat by Pulse Oximetry (%) 95 04/18/19 21:00 Constitutional: Yes: No Distress, Calm Cardiovascular: Yes: S1, S2 Respiratory: Yes: Regular, CTA Bilaterally Gastrointestinal: Yes: Normal Bowel Sounds, Soft Musculoskeletal: Yes: WNL Extremities: Yes: WNL Neurological: Yes: Alert, Oriented Psychiatric: Yes: Alert, Oriented Labs: CBC, BMP 04/20/19 08:45 04/20/19 08:45 INR, PTT INR 1.09 (0.83-1.09) 04/14/19 12:00 Assessment/Plan Problem List - Problems (1) Anemia in chronic kidney disease, on chronic dialysis Code(s): N18.6 - END STAGE RENAL DISEASE; D63.1 - ANEMIA IN CHRONIC KIDNEY DISEASE; Z99.2 - DEPENDENCE ON RENAL DIALYSIS (2) Fever Code(s): R50.9 - FEVER, UNSPECIFIED (3) Weakness Code(s): R53.1 - WEAKNESS (4) ESRD on hemodialysis Code(s): N18.6 - END STAGE RENAL DISEASE; Z99.2 - DEPENDENCE ON RENAL DIALYSIS (5) Hypertension Code(s): I10 - ESSENTIAL (PRIMARY) HYPERTENSION (6) Kidney transplant rejection Assessment/Plan: off all antirejection meds since Mar plan awaiting cmv results if patient continues to spike fever will have to start gangcylovir will d/w the team will need to d/w the derrickman helper rest as per the team
[2019-04-20] MEDS: HEPARIN NA (PORCINE) 5,000 UNITS/ML 1ML VIAL SQ SCH ×2 (13:34→21:15)
[2019-04-20] MEDS: cloNIDine HCL 0.1 MG TABLET PO SCH (13:34)
[2019-04-20] MEDS: LEFLUNOMIDE 10 MG TABLET PO SCH (13:34)
[2019-04-20] MEDS: FAMOTIDINE 20 MG TABLET PO SCH (13:35)
[2019-04-20] MEDS: VITAMIN B COMP W-C 1 EA TABLET PO SCH (13:35)
[2019-04-20] MEDS: amLODIPine BESYLATE 10 MG TABLET (FP) PO SCH (13:35)
[2019-04-20] MEDS: MULTIVITAMINS (DAILY MVI) TABLET (FP) PO SCH (13:35)
[2019-04-20 14:58] LABS: ANISOCYTOSIS 1+; MACROCYTOSIS 0; OVALOCYTE 1+; PLATELET ESTIMATE DECREASED; TEAR DROP CELLS 1+
--- NOTE | 2019-04-20 16:44 | PN ---
Progress Note, Physician History of Present Illness: Pt seen and examined at bedside. SHe is awake and alert. She tolerated HD. - Current Medication List Current Medications: Active Medications Acetaminophen (Tylenol -) 650 mg PO Q6H PRN PRN Reason: FEVER Last Admin: 04/20/19 06:03 Dose: 650 mg Amlodipine Besylate (Norvasc -) 10 mg PO DAILY [facility] Last Admin: 04/20/19 13:35 Dose: 10 mg Atorvastatin Calcium (Lipitor -) 10 mg PO HS [facility] Last Admin: 04/19/19 21:32 Dose: 10 mg Clonidine (Catapres -) 0.1 mg PO DAILY [facility] Last Admin: 04/20/19 13:34 Dose: 0.1 mg Famotidine (Pepcid -) 20 mg PO DAILY [facility] Last Admin: 04/20/19 13:35 Dose: 20 mg Heparin Sodium (Porcine) (Heparin -) 5,000 unit SQ BID [facility] Last Admin: 04/20/19 13:34 Dose: 5,000 unit Sodium Chloride (Normal Saline -) 250 mls @ 3,000 mls/hr IV PRN PRN PRN Reason: Hypotension during Dialysis Stop: 04/21/19 09:29 Leflunomide (Arava -) 10 mg PO DAILY [facility] Last Admin: 04/20/19 13:34 Dose: 10 mg Metoprolol Succinate (Toprol Xl -) 50 mg PO DAILY [facility] Last Admin: 04/20/19 13:36 Dose: 50 mg Multivit/Ca Carb/B Cmplx/FA/Prenat (Nephro-Niharika -) 1 tablet PO DAILY [facility] Last Admin: 04/20/19 13:35 Dose: 1 tablet Multivitamins/Minerals/Vitamin C (Tab-A-Vit -) 1 tab PO DAILY [facility] Last Admin: 04/20/19 13:35 Dose: 1 tab - Objective Vital Signs: Vital Signs Temperature 99.8 F H 04/20/19 15:02 Pulse Rate 80 04/20/19 15:02 Respiratory Rate 20 04/20/19 15:02 Blood Pressure 94/45 L 04/20/19 15:02 O2 Sat by Pulse Oximetry (%) 95 04/18/19 21:00 Constitutional: Yes: Calm Eyes: Yes: Conjunctiva Clear HENT: Yes: Atraumatic Neck: Yes: Supple Cardiovascular: Yes: S1, S2 Respiratory: Yes: CTA Bilaterally Gastrointestinal: Yes: Soft Genitourinary: Yes: WNL Musculoskeletal: Yes: WNL Edema: No Neurological: Yes: Oriented Psychiatric: Yes: Oriented Labs: CBC, BMP 04/20/19 08:45 04/20/19 08:45 INR, PTT INR 1.09 (0.83-1.09) 04/14/19 12:00 Problem List - Problems (1) ESRD on hemodialysis Code(s): N18.6 - END STAGE RENAL DISEASE; Z99.2 - DEPENDENCE ON RENAL DIALYSIS (2) Fever Code(s): R50.9 - FEVER, UNSPECIFIED Qualifiers: Qualified Code(s): R50.9 - Fever, unspecified Assessment/Plan Current Medications Generic Name Dose Route Start Last Admin Trade Name Freq PRN Reason Stop Dose Admin Acetaminophen 650 mg 04/17/19 18:30 04/20/19 06:03 Tylenol - PO 650 mg Q6H PRN Administration FEVER Amlodipine Besylate 10 mg 04/18/19 10:00 04/20/19 13:35 Norvasc - PO 10 mg DAILY [facility] Administration Atorvastatin Calcium 10 mg 04/17/19 22:00 04/19/19 21:32 Lipitor - PO 10 mg HS [facility] Administration Clonidine 0.1 mg 04/18/19 10:00 04/20/19 13:34 Catapres - PO 0.1 mg DAILY [facility] Administration Famotidine 20 mg 04/18/19 10:00 04/20/19 13:35 Pepcid - PO 20 mg DAILY [facility] Administration Heparin Sodium (Porcine) 5,000 unit 04/17/19 22:00 04/20/19 13:34 Heparin - SQ 5,000 unit BID [facility] Administration Sodium Chloride 250 mls @ 3,000 mls/hr 04/20/19 09:30 Normal Saline - IV 04/21/19 09:29 PRN PRN Hypotension during Dialysis Leflunomide 10 mg 04/18/19 10:00 04/20/19 13:34 Arava - PO 10 mg DAILY [facility] Administration Metoprolol Succinate 50 mg 04/18/19 10:00 04/20/19 13:36 Toprol Xl - PO 50 mg DAILY [facility] Administration Multivit/Ca Carb/B Cmplx/FA/Prenat 1 tablet 04/17/19 17:00 04/20/19 13:35 Nephro-Niharika - PO 1 tablet DAILY [facility] Administration Multivitamins/Minerals/Vitamin C 1 tab 04/18/19 10:00 04/20/19 13:35 Tab-A-Vit - PO 1 tab DAILY [facility] Administration Impression 1. ESRD 2. kidney transplant 3. htn 4. anemia 5. BK nephropathy 6. r/o sepsis Plan - HD today - fever workup per ID - cultures negative so far - monitor temp - epogen for anemia
[2019-04-20] MEDS: ATORVASTATIN CA 10 MG TABLET (FP) PO SCH (21:15)
[2019-04-21 05:08] LABS: CMV IgM 38.4 AU/mL (0.0-29.9)
[2019-04-21 08:30] LABS: BASO % 0.7 % (0-2.0); EOS % 10.6 % (0-4.5); HEMATOCRIT 22.1 % (32.4-45.2); HEMOGLOBIN 7.3 GM/dL (10.7-15.3); LYMPH % 30.9 % (8-40); MCH 32.1 pg (25.7-33.7); MCHC 33.2 g/dl (32.0-36.0); MEAN CELL VOLUME 96.7 fl (80-96); MEAN PLT VOLUME 10.1 fl (7.5-11.1); NEUT % 44.8 % (42.8-82.8); PLATELET COUNT 83 K/MM3 (134-434); RBC 2.29 M/mm3 (3.60-5.2); RDW 16.5 % (11.6-15.6); WHITE BLOOD COUNT 5.2 K/mm3 (4.0-10.0)
[2019-04-21 09:01] LABS: ALBUMIN 1.8 g/dl (3.4-5.0); BILIRUBIN,TOTAL 0.5 mg/dL (0.2-1); BLOOD UREA NITROGEN 16.5 mg/dL (7-18); CALCIUM 7.7 mg/dL (8.5-10.1); CREATININE 5.7 mg/dL (0.55-1.3); POTASSIUM 3.8 mmol/L (3.5-5.1); TOT PROT 5.7 g/dl (6.4-8.2)
[2019-04-21] MEDS ORDERED: PT OWN MED DRAWER 7, Y5N ONE (09:12)
[2019-04-21] MEDS: amLODIPine BESYLATE 10 MG TABLET (FP) PO SCH (09:34)
[2019-04-21] MEDS: MULTIVITAMINS (DAILY MVI) TABLET (FP) PO SCH (09:34)
[2019-04-21] MEDS: FAMOTIDINE 20 MG TABLET PO SCH (09:35)
[2019-04-21] MEDS: HEPARIN NA (PORCINE) 5,000 UNITS/ML 1ML VIAL SQ SCH ×2 (09:35→21:18)
[2019-04-21] MEDS: cloNIDine HCL 0.1 MG TABLET PO SCH (09:35)
[2019-04-21] MEDS: VITAMIN B COMP W-C 1 EA TABLET PO SCH (09:35)
[2019-04-21] MEDS: LEFLUNOMIDE 10 MG TABLET PO SCH (09:36)
--- NOTE | 2019-04-21 11:08 | PN ---
Progress Note, Physician History of Present Illness: stable has been afebrile for more than 24 hours - Current Medication List Current Medications: Active Medications Acetaminophen (Tylenol -) 650 mg PO Q6H PRN PRN Reason: FEVER Last Admin: 04/20/19 06:03 Dose: 650 mg Amlodipine Besylate (Norvasc -) 10 mg PO DAILY [facility] Last Admin: 04/21/19 09:34 Dose: 10 mg Atorvastatin Calcium (Lipitor -) 10 mg PO HS [facility] Last Admin: 04/20/19 21:15 Dose: 10 mg Clonidine (Catapres -) 0.1 mg PO DAILY [facility] Last Admin: 04/21/19 09:35 Dose: 0.1 mg Famotidine (Pepcid -) 20 mg PO DAILY [facility] Last Admin: 04/21/19 09:35 Dose: 20 mg Heparin Sodium (Porcine) (Heparin -) 5,000 unit SQ BID [facility] Last Admin: 04/21/19 09:35 Dose: 5,000 unit Leflunomide (Arava -) 10 mg PO DAILY [facility] Last Admin: 04/21/19 09:36 Dose: 10 mg Metoprolol Succinate (Toprol Xl -) 50 mg PO DAILY [facility] Last Admin: 04/21/19 09:35 Dose: 50 mg Multivit/Ca Carb/B Cmplx/FA/Prenat (Nephro-Niharika -) 1 tablet PO DAILY [facility] Last Admin: 04/21/19 09:35 Dose: 1 tablet Multivitamins/Minerals/Vitamin C (Tab-A-Vit -) 1 tab PO DAILY [facility] Last Admin: 04/21/19 09:34 Dose: 1 tab - Objective Vital Signs: Vital Signs Temperature 98.4 F 04/21/19 10:00 Pulse Rate 79 04/21/19 10:00 Respiratory Rate 20 04/21/19 10:00 Blood Pressure 101/49 L 04/21/19 10:00 O2 Sat by Pulse Oximetry (%) 97 04/21/19 09:00 Constitutional: Yes: No Distress, Calm Cardiovascular: Yes: S1, S2 Respiratory: Yes: Regular, CTA Bilaterally Gastrointestinal: Yes: Normal Bowel Sounds, Soft Musculoskeletal: Yes: WNL Extremities: Yes: WNL Neurological: Yes: Alert, Oriented Psychiatric: Yes: Alert, Oriented Labs: CBC, BMP 04/21/19 07:47 04/21/19 07:47 INR, PTT INR 1.09 (0.83-1.09) 04/14/19 12:00 Assessment/Plan Problem List - Problems (1) Anemia in chronic kidney disease, on chronic dialysis Code(s): N18.6 - END STAGE RENAL DISEASE; D63.1 - ANEMIA IN CHRONIC KIDNEY DISEASE; Z99.2 - DEPENDENCE ON RENAL DIALYSIS (2) Fever Code(s): R50.9 - FEVER, UNSPECIFIED (3) Weakness Code(s): R53.1 - WEAKNESS (4) ESRD on hemodialysis Code(s): N18.6 - END STAGE RENAL DISEASE; Z99.2 - DEPENDENCE ON RENAL DIALYSIS (5) Hypertension Code(s): I10 - ESSENTIAL (PRIMARY) HYPERTENSION (6) Kidney transplant rejection Assessment/Plan: off all antirejection meds since Mar plan continue current mgmt will treat with antiviral if patient spikes
[2019-04-21 12:55] LABS: ANISOCYTOSIS 2+; MACROCYTOSIS 0; PLATELET ESTIMATE DECREASED
[2019-04-21] MEDS: ACETAMINOPHEN 325 MG TABLET (FP) PO PRN (14:00)
--- NOTE | 2019-04-21 14:49 | PN ---
Progress Note, Physician History of Present Illness: Pt seen and examined at bedside. She is awake and appears comfortable. She denies fevers or chills. - Current Medication List Current Medications: Active Medications Acetaminophen (Tylenol -) 650 mg PO Q6H PRN PRN Reason: FEVER Last Admin: 04/21/19 14:00 Dose: 650 mg Amlodipine Besylate (Norvasc -) 10 mg PO DAILY [facility] Last Admin: 04/21/19 09:34 Dose: 10 mg Atorvastatin Calcium (Lipitor -) 10 mg PO HS [facility] Last Admin: 04/20/19 21:15 Dose: 10 mg Clonidine (Catapres -) 0.1 mg PO DAILY [facility] Last Admin: 04/21/19 09:35 Dose: 0.1 mg Famotidine (Pepcid -) 20 mg PO DAILY [facility] Last Admin: 04/21/19 09:35 Dose: 20 mg Heparin Sodium (Porcine) (Heparin -) 5,000 unit SQ BID [facility] Last Admin: 04/21/19 09:35 Dose: 5,000 unit Leflunomide (Arava -) 10 mg PO DAILY [facility] Last Admin: 04/21/19 09:36 Dose: 10 mg Metoprolol Succinate (Toprol Xl -) 50 mg PO DAILY [facility] Last Admin: 04/21/19 09:35 Dose: 50 mg Multivit/Ca Carb/B Cmplx/FA/Prenat (Nephro-Niharika -) 1 tablet PO DAILY [facility] Last Admin: 04/21/19 09:35 Dose: 1 tablet Multivitamins/Minerals/Vitamin C (Tab-A-Vit -) 1 tab PO DAILY [facility] Last Admin: 04/21/19 09:34 Dose: 1 tab - Objective Vital Signs: Vital Signs Temperature 98.4 F 04/21/19 10:00 Pulse Rate 79 04/21/19 10:00 Respiratory Rate 20 04/21/19 10:00 Blood Pressure 101/49 L 04/21/19 10:00 O2 Sat by Pulse Oximetry (%) 97 04/21/19 09:00 Constitutional: Yes: Calm Eyes: Yes: Conjunctiva Clear HENT: Yes: Atraumatic Cardiovascular: Yes: S1, S2 Respiratory: Yes: CTA Bilaterally Gastrointestinal: Yes: Soft Genitourinary: Yes: WNL Musculoskeletal: Yes: WNL Edema: No Integumentary: Yes: Other (afv with thrill and bruit) Neurological: Yes: Oriented Psychiatric: Yes: Oriented Labs: CBC, BMP 04/21/19 07:47 04/21/19 07:47 INR, PTT INR 1.09 (0.83-1.09) 04/14/19 12:00 Problem List - Problems (1) ESRD on hemodialysis Code(s): N18.6 - END STAGE RENAL DISEASE; Z99.2 - DEPENDENCE ON RENAL DIALYSIS (2) Fever Code(s): R50.9 - FEVER, UNSPECIFIED Qualifiers: Fever type: unspecified Qualified Code(s): R50.9 - Fever, unspecified Assessment/Plan Current Medications Generic Name Dose Route Start Last Admin Trade Name Freq PRN Reason Stop Dose Admin Acetaminophen 650 mg 04/17/19 18:30 04/21/19 14:00 Tylenol - PO 650 mg Q6H PRN Administration FEVER Amlodipine Besylate 10 mg 04/18/19 10:00 04/21/19 09:34 Norvasc - PO 10 mg DAILY [facility] Administration Atorvastatin Calcium 10 mg 04/17/19 22:00 04/20/19 21:15 Lipitor - PO 10 mg HS [facility] Administration Clonidine 0.1 mg 04/18/19 10:00 04/21/19 09:35 Catapres - PO 0.1 mg DAILY [facility] Administration Famotidine 20 mg 04/18/19 10:00 04/21/19 09:35 Pepcid - PO 20 mg DAILY [facility] Administration Heparin Sodium (Porcine) 5,000 unit 04/17/19 22:00 04/21/19 09:35 Heparin - SQ 5,000 unit BID [facility] Administration Leflunomide 10 mg 04/18/19 10:00 04/21/19 09:36 Arava - PO 10 mg DAILY [facility] Administration Metoprolol Succinate 50 mg 04/18/19 10:00 04/21/19 09:35 Toprol Xl - PO 50 mg DAILY [facility] Administration Multivit/Ca Carb/B Cmplx/FA/Prenat 1 tablet 04/17/19 17:00 04/21/19 09:35 Nephro-Niharika - PO 1 tablet DAILY [facility] Administration Multivitamins/Minerals/Vitamin C 1 tab 04/18/19 10:00 04/21/19 09:34 Tab-A-Vit - PO 1 tab DAILY [facility] Administration Impression 1. ESRD 2. kidney transplant 3. htn 4. anemia 5. BK nephropathy 6. r/o sepsis 7. r/o CMV Plan - HD tomorrow - epogen for anemia - antiviral per ID - monitor temp -
--- NOTE | 2019-04-21 16:54 | PN ---
Physical Exam: SUBJECTIVE: Patient seen and examined at the bedside. denies pain. 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 She also reported abdominal pain. Patient has been off antirejection medications s/p Renal transplant with failure per renal. Per ID, patient is + for CMV virus and will need treatment with ganciclovir to be coordinated with dialysis. First dose to be given tomorrow. imaging: ct/abdomen/pelvis without contrast 04/15/19: findings consistent with adult polycystic kidney disease, multiple hepatic cysts. mild hepatosplenomegaly, s/ p right renal transplant with mild hydronephrosis of the transplanted kidney. Vital Signs Period Temp Pulse Resp BP Sys/[place] Pulse Ox Last 24 Hr 98.4 F-100.4 F 76-86 18-20 83-108/42-58 97 GENERAL: The patient is awake, alert, and fully oriented, in no acute distress. HEAD: Normal with no signs of trauma. EYES: PERRL, extraocular movements intact, sclera anicteric, conjunctiva clear. No ptosis. ENT: Ears normal, nares patent, oropharynx clear without exudates NECK: Trachea midline, full range of motion, supple. LUNGS: Breath sounds equal, diminished bilaterally HEART: Regular rate and rhythm ABDOMEN: Soft, nontender, nondistended, normoactive bowel sounds EXTREMITIES: no edema. NEUROLOGICAL: Normal speech, gait not observed. PSYCH: Normal mood, normal affect. SKIN: Warm, dry, normal turgor, no rashes or lesions noted Laboratory Results - last 24 hr 04/20/19 04/21/19 04/21/19 08:45 07:47 07:47 WBC 5.2 RBC 2.29 L Hgb 7.3 L Hct 22.1 L MCV 96.7 H MCH 32.1 MCHC 33.2 RDW 16.5 H Plt Count 83 L MPV 10.1 Absolute Neuts (auto) 2.3 Neutrophils % 44.8 Neutrophils % (Manual) 58.8 Band Neutrophils % 1.0 Lymphocytes % 30.9 D Lymphocytes % (Manual) 24.5 D Monocytes % 13.0 H Monocytes % (Manual) 4 Eosinophils % 10.6 H Eosinophils % (Manual) 7.9 H Basophils % 0.7 Basophils % (Manual) 0.0 Myelocytes % (Man) 0 Promyelocytes % (Man) 0 Blast Cells % (Manual) 0 Nucleated RBC % 0 Metamyelocytes 0 Hypochromia 0 Platelet Estimate Decreased Polychromasia 1+ Anisocytosis 2+ Microcytosis 0 Macrocytosis 0 Sodium 138 Potassium 3.8 Chloride 101 Carbon Dioxide 32 Anion Gap 6 L BUN 16.5 Creatinine 5.7 H Est GFR (CKD-EPI)AfAm 8.53 Est GFR (CKD-EPI)NonAf 7.36 Random Glucose 88 Calcium 7.7 L Magnesium 2.0 Total Bilirubin 0.5 AST 28 ALT 20 Alkaline Phosphatase 87 Total Protein 5.7 L Albumin 1.8 L CMV IgG Ab > 10.00 H CMV IgM Ab 38.4 H Active Medications Generic Name Dose Route Start Last Admin Trade Name Freq PRN Reason Stop Dose Admin Acetaminophen 650 mg 04/17/19 18:30 04/21/19 14:00 Tylenol - PO 650 mg Q6H PRN Administration FEVER Amlodipine Besylate 10 mg 04/18/19 10:00 04/21/19 09:34 Norvasc - PO 10 mg DAILY [facility] Administration Atorvastatin Calcium 10 mg 04/17/19 22:00 04/20/19 21:15 Lipitor - PO 10 mg HS [facility] Administration Clonidine 0.1 mg 04/18/19 10:00 04/21/19 09:35 Catapres - PO 0.1 mg DAILY [facility] Administration Famotidine 20 mg 04/18/19 10:00 04/21/19 09:35 Pepcid - PO 20 mg DAILY [facility] Administration Heparin Sodium (Porcine) 5,000 unit 04/17/19 22:00 04/21/19 09:35 Heparin - SQ 5,000 unit BID [facility] Administration Leflunomide 10 mg 04/18/19 10:00 04/21/19 09:36 Arava - PO 10 mg DAILY [facility] Administration Metoprolol Succinate 50 mg 04/18/19 10:00 04/21/19 09:35 Toprol Xl - PO 50 mg DAILY [facility] Administration Multivit/Ca Carb/B Cmplx/FA/Prenat 1 tablet 04/17/19 17:00 04/21/19 09:35 Nephro-Niharika - PO 1 tablet DAILY [facility] Administration Multivitamins/Minerals/Vitamin C 1 tab 04/18/19 10:00 04/21/19 09:34 Tab-A-Vit - PO 1 tab DAILY [facility] Administration ASSESSMENT/PLAN: Problem List - Problems (1) CMV (cytomegalovirus infection) status positive Assessment/Plan: Patient will need treatment with antivirals per ID for approximately 2 weeks to be coordinated with dialysis. First dose to be given with scheduled dialysis tomorrow. Code(s): B25.9 - CYTOMEGALOVIRAL DISEASE, UNSPECIFIED (2) Anemia in chronic kidney disease, on chronic dialysis Assessment/Plan: s/p Renal transplant with failure now on chronic dialysis Code(s): N18.6 - END STAGE RENAL DISEASE; D63.1 - ANEMIA IN CHRONIC KIDNEY DISEASE; Z99.2 - DEPENDENCE ON RENAL DIALYSIS (3) ESRD on hemodialysis Assessment/Plan: s/p dialysis today Code(s): N18.6 - END STAGE RENAL DISEASE; Z99.2 - DEPENDENCE ON RENAL DIALYSIS (4) Fever Assessment/Plan: continues to have fever, tmax 100.4. unknown source abd pelvis without source of fever blood culture repeated and pending Code(s): R50.9 - FEVER, UNSPECIFIED Qualifiers: Fever type: unspecified Qualified Code(s): R50.9 - Fever, unspecified (5) Sepsis Assessment/Plan: blood and urine negative and repeated abd ct without acute pathology of fevers echo pending, lower ext dopplers negative fistula doppler ID consulted and following Code(s): A41.9 - SEPSIS, UNSPECIFIED ORGANISM Qualifiers: Sepsis type: sepsis due to unspecified organism Sepsis acute organ dysfunction status: unspecified Qualified Code(s): A41.9 - Sepsis, unspecified organism (6) Weakness Code(s): R53.1 - WEAKNESS (7) Anemia Code(s): D64.9 - ANEMIA, UNSPECIFIED (8) Kidney transplant rejection Assessment/Plan: off antirejection medications. (9) Thrombocytopenia Assessment/Plan: monitor with daily labs Code(s): D69.6 - THROMBOCYTOPENIA, UNSPECIFIED (10) Hypertension Assessment/Plan: on norvasc,nifidepine,hydralazine , metoprolol, lasix at home c/w antihypertensive meds as BP allows Code(s): I10 - ESSENTIAL (PRIMARY) HYPERTENSION (11) Prophylactic measure Assessment/Plan: heparin bid Code(s): Z29.9 - ENCOUNTER FOR PROPHYLACTIC MEASURES, UNSPECIFIED Visit type - Emergency Visit Emergency Visit: Yes ED Registration Date: 04/16/19 Care time: The patient presented to the Emergency Department on the above date and was hospitalized for further evaluation of their emergent condition. - New Patient This patient is new to me today: No - Critical Care Critical Care patient: No - Discharge Referral Referred to [facility] Med P.C.: No
[2019-04-21] MEDS: ATORVASTATIN CA 10 MG TABLET (FP) PO SCH (21:19)
[2019-04-22 07:54] LABS: BASO % 0.8 % (0-2.0); EOS % 10.2 % (0-4.5); HEMATOCRIT 23.8 % (32.4-45.2); HEMOGLOBIN 7.8 GM/dL (10.7-15.3); LYMPH % 31.7 % (8-40); MCH 31.9 pg (25.7-33.7); MCHC 32.9 g/dl (32.0-36.0); MEAN PLT VOLUME 9.6 fl (7.5-11.1); NEUT % 43.3 % (42.8-82.8); PLATELET COUNT 81 K/MM3 (134-434); RBC 2.45 M/mm3 (3.60-5.2); RDW 16.7 % (11.6-15.6); WHITE BLOOD COUNT 6.1 K/mm3 (4.0-10.0)
[2019-04-22 08:28] LABS: ALBUMIN 1.9 g/dl (3.4-5.0); BILIRUBIN,TOTAL 0.5 mg/dL (0.2-1); BLOOD UREA NITROGEN 31.7 mg/dL (7-18); CALCIUM 7.7 mg/dL (8.5-10.1); MAGNESIUM 2.2 mg/dL (1.8-2.4); POTASSIUM 3.9 mmol/L (3.5-5.1); TOT PROT 5.9 g/dl (6.4-8.2)
[2019-04-22 08:43] LABS: CREATININE 7.6 mg/dL (0.55-1.3)
[2019-04-22] MEDS ORDERED: PT OWN MED DRAWER 7, Y5N ONE (09:04)
--- NOTE | 2019-04-22 09:48 | PN ---
Progress Note, Physician History of Present Illness: stable still spiking fevers - Current Medication List Current Medications: Active Medications Acetaminophen (Tylenol -) 650 mg PO Q6H PRN PRN Reason: FEVER Last Admin: 04/21/19 14:00 Dose: 650 mg Amlodipine Besylate (Norvasc -) 10 mg PO DAILY [facility] Last Admin: 04/21/19 09:34 Dose: 10 mg Atorvastatin Calcium (Lipitor -) 10 mg PO HS [facility] Last Admin: 04/21/19 21:19 Dose: 10 mg Clonidine (Catapres -) 0.1 mg PO DAILY [facility] Last Admin: 04/21/19 09:35 Dose: 0.1 mg Famotidine (Pepcid -) 20 mg PO DAILY [facility] Last Admin: 04/21/19 09:35 Dose: 20 mg Heparin Sodium (Porcine) (Heparin -) 5,000 unit SQ BID [facility] Last Admin: 04/21/19 21:18 Dose: 5,000 unit Leflunomide (Arava -) 10 mg PO DAILY [facility] Last Admin: 04/21/19 09:36 Dose: 10 mg Metoprolol Succinate (Toprol Xl -) 50 mg PO DAILY [facility] Last Admin: 04/21/19 09:35 Dose: 50 mg Multivit/Ca Carb/B Cmplx/FA/Prenat (Nephro-Niharika -) 1 tablet PO DAILY [facility] Last Admin: 04/21/19 09:35 Dose: 1 tablet Multivitamins/Minerals/Vitamin C (Tab-A-Vit -) 1 tab PO DAILY [facility] Last Admin: 04/21/19 09:34 Dose: 1 tab - Objective Vital Signs: Vital Signs Temperature 99.7 F H 04/22/19 06:00 Pulse Rate 75 04/22/19 06:00 Respiratory Rate 20 04/22/19 06:00 Blood Pressure 103/72 04/22/19 06:00 O2 Sat by Pulse Oximetry (%) 95 04/21/19 21:00 Constitutional: Yes: No Distress, Calm Neck: Yes: Supple, Trachea Midline Cardiovascular: Yes: Regular Rate and Rhythm Respiratory: Yes: Regular, CTA Bilaterally Gastrointestinal: Yes: Normal Bowel Sounds, Soft Musculoskeletal: Yes: WNL Extremities: Yes: WNL Neurological: Yes: Alert, Oriented Psychiatric: Yes: Alert, Oriented Labs: CBC, BMP 04/22/19 07:05 04/22/19 07:05 INR, PTT INR 1.09 (0.83-1.09) 04/14/19 12:00 Assessment/Plan Problem List - Problems (1) Anemia in chronic kidney disease, on chronic dialysis Code(s): N18.6 - END STAGE RENAL DISEASE; D63.1 - ANEMIA IN CHRONIC KIDNEY DISEASE; Z99.2 - DEPENDENCE ON RENAL DIALYSIS (2) Fever Code(s): R50.9 - FEVER, UNSPECIFIED (3) Weakness Code(s): R53.1 - WEAKNESS (4) ESRD on hemodialysis Code(s): N18.6 - END STAGE RENAL DISEASE; Z99.2 - DEPENDENCE ON RENAL DIALYSIS (5) Hypertension Code(s): I10 - ESSENTIAL (PRIMARY) HYPERTENSION (6) Kidney transplant rejection Assessment/Plan: off all antirejection meds since Mar plan continue current mgmt will treat with antiviral gangciclovir to start today after dialysis rest as per the team
[2019-04-22] MEDS: VITAMIN B COMP W-C 1 EA TABLET PO SCH (09:55)
[2019-04-22] MEDS: HEPARIN NA (PORCINE) 5,000 UNITS/ML 1ML VIAL SQ SCH ×2 (09:55→21:35)
[2019-04-22] MEDS: MULTIVITAMINS (DAILY MVI) TABLET (FP) PO SCH (09:56)
[2019-04-22] MEDS: cloNIDine HCL 0.1 MG TABLET PO SCH (09:56)
[2019-04-22] MEDS: amLODIPine BESYLATE 10 MG TABLET (FP) PO SCH (09:56)
[2019-04-22] MEDS: FAMOTIDINE 20 MG TABLET PO SCH (09:56)
[2019-04-22] MEDS: LEFLUNOMIDE 10 MG TABLET PO SCH (09:57)
[2019-04-22 12:37] LABS: ANISOCYTOSIS 1+; MACROCYTOSIS 1+; OVALOCYTE 1+; PLATELET ESTIMATE DECREASED; SICKELED CELLS 1+
--- NOTE | 2019-04-22 14:12 | ECHO ---
Name: SITA LOPEZ Exam:Adult Echocardiogram Study Date: 04/22/2019 11:19 AM Age: 63 yrs Height: 62 in Weight: 126 lb BSA: 1.6 m2 MMode/2D Measurements & Calculations IVSd: 0.86 cm Ao root diam: 2.8 cm LVIDd: 4.7 cm LA dimension: 3.2 cm LVIDs: 3.3 cm LVPWd: 1.1 cm LVPWs: 1.2 cm EDV(Teich): 101.4 ml ESV(Teich): 45.7 ml LVOT diam: 1.7 cm LAV (MOD-bp): 55.0 ml RV S Nikolay: 13.9 cm/sec Doppler Measurements & Calculations MV E max nikolay: 70.6 cm/sec Ao V2 max: 142.8 cm/sec MV A max nikolay: 89.3 cm/sec Ao max P.2 mmHg MV E/A: 0.79 MEMO(V,D): 2.1 cm2 MV dec time: 0.17 sec LV V1 max P.4 mmHg TR max nikolay: 269.4 cm/sec LV V1 max: 126.4 cm/sec TR max P.1 mmHg PA V2 max: 100.4 cm/sec Med Peak E' Nikolay: 8.1 cm/sec PA max P.0 mmHg Med E/e': 8.7 Lat Peak E' Nikolay: 15.9 cm/sec Lat E/e': 4.4 Procedure A two-dimensional transthoracic echocardiogram with color flow and Doppler was performed. The study w as technically difficult with many images being suboptimal in quality. Left Ventricle The left ventricular size, thickness and function are normal. The left ventricle is not well visualiz ed. The left ventricular ejection fraction is normal. Regional wall motion abnormalities cannot be excluded d ue to limited visualization. Right Ventricle The right ventricle is not well visualized. Atria Normal left and right atrial size and function. Mitral Valve There is mild mitral valve thickening. There is no mitral valve stenosis. There is mild mitral regurg itation. Tricuspid Valve There is mild tricuspid valve thickening. There is no tricuspid stenosis. There is severe tricuspid regurgitation. Right ventricular systolic pressure is elevated at 30-40mmHg. Aortic Valve The aortic valve is not well visualized. No hemodynamically significant valvular aortic stenosis. No aortic regurgitation is present. Pulmonic Valve The pulmonic valve is not well visualized. Great Vessels The aortic root is normal size. Pericardium/Pleura There is no pericardial effusion. Interpretation Summary There is mild mitral regurgitation. Right ventricular systolic pressure is elevated at 30-40mmHg. There is severe tricuspid regurgitation. The study was technically difficult with many images being suboptimal in quality. The left ventricle is not well visualized. Regional wall motion abnormalities cannot be excluded due to limited visualization. MD Steven Moran 04/22/2019 02:11 PM
[2019-04-22] MEDS ORDERED: EPOETIN ALFA 10,000 UNIT, EPOETIN ALFA 2,000 UNIT IVPUSH ONE (14:30)
[2019-04-22] MEDS ORDERED: DEXTROSE 5% IVPB SCH (15:00)
[2019-04-22] MEDS ORDERED: GANCICLOVIR IVPB SCH (15:00)
[2019-04-22] MEDS ORDERED: WATER IVPB SCH (15:00)
--- NOTE | 2019-04-22 15:36 | PN ---
Physical Exam: SUBJECTIVE: Patient seen and examined in dialysis. denies malaise or dizziness. denies chills. 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 She also reported abdominal pain. Patient has been off antirejection medications s/p Renal transplant with failure per renal. Per ID, patient is + for CMV virus and will need treatment with ganciclovir to be coordinated with dialysis (will need for a total of 2 weeks - 6 doses). First dose given today after dialysis. imaging: ct/abdomen/pelvis without contrast 04/15/19: findings consistent with adult polycystic kidney disease, multiple hepatic cysts. mild hepatosplenomegaly, s/ p right renal transplant with mild hydronephrosis of the transplanted kidney. Vital Signs Period Temp Pulse Resp BP Sys/Markham Pulse Ox Last 24 Hr 98.3 F-100 F 60-82 18-20 87-108/47-72 93-95 GENERAL: The patient is awake, alert, and fully oriented, in no acute distress. HEAD: Normal with no signs of trauma. EYES: PERRL, extraocular movements intact, sclera anicteric, conjunctiva clear. No ptosis. ENT: Ears normal, nares patent, oropharynx clear without exudates NECK: Trachea midline, full range of motion, supple. LUNGS: Breath sounds equal, diminished bilaterally HEART: Regular rate and rhythm ABDOMEN: Soft, nontender, nondistended, normoactive bowel sounds EXTREMITIES: no edema. NEUROLOGICAL: Normal speech, gait not observed. PSYCH: Normal mood, normal affect. SKIN: Warm, dry, normal turgor, no rashes or lesions noted Laboratory Results - last 24 hr 04/22/19 04/22/19 07:05 07:05 WBC 6.1 RBC 2.45 L Hgb 7.8 L Hct 23.8 L MCV 97.0 H MCH 31.9 MCHC 32.9 RDW 16.7 H Plt Count 81 L MPV 9.6 Absolute Neuts (auto) 2.6 Neutrophils % 43.3 Neutrophils % (Manual) 42.4 L Band Neutrophils % 1.9 Lymphocytes % 31.7 Lymphocytes % (Manual) 31.1 D Monocytes % 14.0 H Monocytes % (Manual) 6 Eosinophils % 10.2 H Eosinophils % (Manual) 11.3 H Basophils % 0.8 Basophils % (Manual) 1.9 D Myelocytes % (Man) 0 Promyelocytes % (Man) 0 Blast Cells % (Manual) 0 Nucleated RBC % 1 H Metamyelocytes 0 Hypochromia 0 Platelet Estimate Decreased Platelet Comment Present Polychromasia 1+ Poikilocytosis 1+ Anisocytosis 1+ Microcytosis 1+ Macrocytosis 1+ Sickle Cells 1+ Ovalocytes 1+ Sodium 136 Potassium 3.9 Chloride 99 Carbon Dioxide 29 Anion Gap 9 BUN 31.7 H Creatinine 7.6 H* Est GFR (CKD-EPI)AfAm 6.02 Est GFR (CKD-EPI)NonAf 5.20 Random Glucose 93 Calcium 7.7 L Magnesium 2.2 Total Bilirubin 0.5 AST 29 ALT 22 Alkaline Phosphatase 92 Total Protein 5.9 L Albumin 1.9 L Active Medications Generic Name Dose Route Start Last Admin Trade Name Freq PRN Reason Stop Dose Admin Acetaminophen 650 mg 04/17/19 18:30 04/21/19 14:00 Tylenol - PO 650 mg Q6H PRN Administration FEVER Amlodipine Besylate 10 mg 04/18/19 10:00 04/22/19 09:56 Norvasc - PO 10 mg DAILY SERJIO Administration Atorvastatin Calcium 10 mg 04/17/19 22:00 04/21/19 21:19 Lipitor - PO 10 mg HS SERJIO Administration Clonidine 0.1 mg 04/18/19 10:00 04/22/19 09:56 Catapres - PO 0.1 mg DAILY SERJIO Administration Famotidine 20 mg 04/18/19 10:00 04/22/19 09:56 Pepcid - PO 20 mg DAILY SERJIO Administration Heparin Sodium (Porcine) 5,000 unit 04/17/19 22:00 04/22/19 09:55 Heparin - SQ 5,000 unit BID SERJIO Administration Ganciclovir 60 mg/ Dextrose 100 mls @ 100 mls/hr 04/22/19 18:00 IVPB 05/04/19 18:59 [email or web address] SERJIO Leflunomide 10 mg 04/18/19 10:00 04/22/19 09:57 Arava - PO 10 mg DAILY SERJIO Administration Metoprolol Succinate 50 mg 04/18/19 10:00 04/22/19 09:55 Toprol Xl - PO 50 mg DAILY SERJIO Administration Multivit/Ca Carb/B Cmplx/FA/Prenat 1 tablet 04/17/19 17:00 04/22/19 09:55 Nephro-Niharika - PO 1 tablet DAILY SERJIO Administration Multivitamins/Minerals/Vitamin C 1 tab 04/18/19 10:00 04/22/19 09:56 Tab-A-Vit - PO 1 tab DAILY SERJIO Administration ASSESSMENT/PLAN: Problem List - Problems (1) CMV (cytomegalovirus infection) status positive Assessment/Plan: Patient will need treatment with antivirals per ID for approximately 2 weeks to be coordinated with dialysis (6 doses total). First dose to be given today after dialysis. monitor response. Code(s): B25.9 - CYTOMEGALOVIRAL DISEASE, UNSPECIFIED (2) Anemia in chronic kidney disease, on chronic dialysis Assessment/Plan: s/p Renal transplant with failure now on chronic dialysis Code(s): N18.6 - END STAGE RENAL DISEASE; D63.1 - ANEMIA IN CHRONIC KIDNEY DISEASE; Z99.2 - DEPENDENCE ON RENAL DIALYSIS (3) ESRD on hemodialysis Assessment/Plan: dialysis today Code(s): N18.6 - END STAGE RENAL DISEASE; Z99.2 - DEPENDENCE ON RENAL DIALYSIS (4) Fever Assessment/Plan: fever curve improving, being treated for CMV with gancyclovir abd pelvis without source of fever blood culture repeated and pending Code(s): R50.9 - FEVER, UNSPECIFIED Qualifiers: Fever type: unspecified Qualified Code(s): R50.9 - Fever, unspecified (5) Sepsis Assessment/Plan: blood and urine negative and repeated abd ct without acute pathology of fevers echo pending, lower ext dopplers negative ID consulted and following Code(s): A41.9 - SEPSIS, UNSPECIFIED ORGANISM Qualifiers: Sepsis type: sepsis due to unspecified organism Sepsis acute organ dysfunction status: unspecified Qualified Code(s): A41.9 - Sepsis, unspecified organism (6) Weakness Code(s): R53.1 - WEAKNESS (7) Anemia Assessment/Plan: epogen per renal Code(s): D64.9 - ANEMIA, UNSPECIFIED (8) Kidney transplant rejection Assessment/Plan: off antirejection medications. (9) Thrombocytopenia Assessment/Plan: monitor with daily labs Code(s): D69.6 - THROMBOCYTOPENIA, UNSPECIFIED (10) Hypertension Assessment/Plan: on norvasc,nifidepine,hydralazine , metoprolol, lasix at home c/w antihypertensive meds as BP allows Code(s): I10 - ESSENTIAL (PRIMARY) HYPERTENSION (11) Prophylactic measure Assessment/Plan: heparin bid Code(s): Z29.9 - ENCOUNTER FOR PROPHYLACTIC MEASURES, UNSPECIFIED Visit type - Emergency Visit Emergency Visit: Yes ED Registration Date: 04/16/19 Care time: The patient presented to the Emergency Department on the above date and was hospitalized for further evaluation of their emergent condition. - New Patient This patient is new to me today: No - Critical Care Critical Care patient: No - Discharge Referral Referred to [facility] Med P.C.: No
[2019-04-22] MEDS: GANCICLOVIR IVPB SCH (17:32)
[2019-04-22] MEDS: WATER IVPB SCH (17:32)
[2019-04-22] MEDS: DEXTROSE 5% IVPB SCH (17:32)
--- NOTE | 2019-04-22 18:44 | PN ---
Progress Note, Physician History of Present Illness: Pt seen and examined at bedside. She is awake and alert. She is due for HD today. - Current Medication List Current Medications: Active Medications Acetaminophen (Tylenol -) 650 mg PO Q6H PRN PRN Reason: FEVER Last Admin: 04/21/19 14:00 Dose: 650 mg Amlodipine Besylate (Norvasc -) 10 mg PO DAILY [facility] Last Admin: 04/22/19 09:56 Dose: 10 mg Atorvastatin Calcium (Lipitor -) 10 mg PO HS [facility] Last Admin: 04/21/19 21:19 Dose: 10 mg Clonidine (Catapres -) 0.1 mg PO DAILY [facility] Last Admin: 04/22/19 09:56 Dose: 0.1 mg Famotidine (Pepcid -) 20 mg PO DAILY [facility] Last Admin: 04/22/19 09:56 Dose: 20 mg Heparin Sodium (Porcine) (Heparin -) 5,000 unit SQ BID [facility] Last Admin: 04/22/19 09:55 Dose: 5,000 unit Ganciclovir 60 mg/ Dextrose 100 mls @ 100 mls/hr IVPB [email or web address] [facility] Stop: 05/04/19 18:59 Last Admin: 04/22/19 17:32 Dose: 100 mls/hr Leflunomide (Arava -) 10 mg PO DAILY [facility] Last Admin: 04/22/19 09:57 Dose: 10 mg Metoprolol Succinate (Toprol Xl -) 50 mg PO DAILY [facility] Last Admin: 04/22/19 09:55 Dose: 50 mg Multivit/Ca Carb/B Cmplx/FA/Prenat (Nephro-Niharika -) 1 tablet PO DAILY [facility] Last Admin: 04/22/19 09:55 Dose: 1 tablet Multivitamins/Minerals/Vitamin C (Tab-A-Vit -) 1 tab PO DAILY [facility] Last Admin: 04/22/19 09:56 Dose: 1 tab - Objective Vital Signs: Vital Signs Temperature 98.3 F 04/22/19 13:55 Pulse Rate 62 04/22/19 17:05 Respiratory Rate 18 04/22/19 17:05 Blood Pressure 105/67 04/22/19 17:05 O2 Sat by Pulse Oximetry (%) 93 L 04/22/19 09:00 Constitutional: Yes: Calm Eyes: Yes: Conjunctiva Clear HENT: Yes: Atraumatic Neck: Yes: Supple Cardiovascular: Yes: S1, S2 Respiratory: Yes: CTA Bilaterally Gastrointestinal: Yes: Soft Genitourinary: Yes: WNL Edema: No Neurological: Yes: Oriented Psychiatric: Yes: Oriented Labs: CBC, BMP 04/22/19 07:05 04/22/19 07:05 INR, PTT INR 1.09 (0.83-1.09) 04/14/19 12:00 Problem List - Problems (1) ESRD on hemodialysis Code(s): N18.6 - END STAGE RENAL DISEASE; Z99.2 - DEPENDENCE ON RENAL DIALYSIS (2) Fever Code(s): R50.9 - FEVER, UNSPECIFIED Qualifiers: Fever type: unspecified Qualified Code(s): R50.9 - Fever, unspecified Assessment/Plan Current Medications Generic Name Dose Route Start Last Admin Trade Name Freq PRN Reason Stop Dose Admin Acetaminophen 650 mg 04/17/19 18:30 04/21/19 14:00 Tylenol - PO 650 mg Q6H PRN Administration FEVER Amlodipine Besylate 10 mg 04/18/19 10:00 04/22/19 09:56 Norvasc - PO 10 mg DAILY SERJIO Administration Atorvastatin Calcium 10 mg 04/17/19 22:00 04/21/19 21:19 Lipitor - PO 10 mg HS SERJIO Administration Clonidine 0.1 mg 04/18/19 10:00 04/22/19 09:56 Catapres - PO 0.1 mg DAILY SERJIO Administration Famotidine 20 mg 04/18/19 10:00 04/22/19 09:56 Pepcid - PO 20 mg DAILY SERJIO Administration Heparin Sodium (Porcine) 5,000 unit 04/17/19 22:00 04/22/19 09:55 Heparin - SQ 5,000 unit BID SERJIO Administration Ganciclovir 60 mg/ Dextrose 100 mls @ 100 mls/hr 04/22/19 18:00 04/22/19 17: 32 IVPB 05/04/19 18:59 100 mls/hr [email or web address] SERJIO Administration Leflunomide 10 mg 04/18/19 10:00 04/22/19 09:57 Arava - PO 10 mg DAILY SERJIO Administration Metoprolol Succinate 50 mg 04/18/19 10:00 04/22/19 09:55 Toprol Xl - PO 50 mg DAILY SERJIO Administration Multivit/Ca Carb/B Cmplx/FA/Prenat 1 tablet 04/17/19 17:00 04/22/19 09:55 Nephro-Niharika - PO 1 tablet DAILY SERJIO Administration Multivitamins/Minerals/Vitamin C 1 tab 04/18/19 10:00 04/22/19 09:56 Tab-A-Vit - PO 1 tab DAILY SERJIO Administration Impression 1. ESRD 2. kidney transplant 3. htn 4. anemia 5. BK nephropathy 6. r/o sepsis 7. r/o CMV Plan - HD today - antiviral therapy per ID - monitor hg - cont epogen - monitor for fevers
[2019-04-22] MEDS: ACETAMINOPHEN 325 MG TABLET (FP) PO PRN (21:34)
[2019-04-22] MEDS: ATORVASTATIN CA 10 MG TABLET (FP) PO SCH (21:34)
[2019-04-23] MEDS: ACETAMINOPHEN 325 MG TABLET (FP) PO PRN ×3 (07:57→23:58)
[2019-04-23] MEDS: HEPARIN NA (PORCINE) 5,000 UNITS/ML 1ML VIAL SQ SCH ×2 (09:23→21:33)
[2019-04-23] MEDS: VITAMIN B COMP W-C 1 EA TABLET PO SCH (09:23)
[2019-04-23] MEDS: MULTIVITAMINS (DAILY MVI) TABLET (FP) PO SCH (09:23)
[2019-04-23] MEDS: cloNIDine HCL 0.1 MG TABLET PO SCH (09:24)
[2019-04-23] MEDS: amLODIPine BESYLATE 10 MG TABLET (FP) PO SCH (09:24)
[2019-04-23] MEDS: FAMOTIDINE 20 MG TABLET PO SCH (09:24)
--- NOTE | 2019-04-23 09:42 | PN ---
Progress Note, Physician History of Present Illness: stable low grade fever - Current Medication List Current Medications: Active Medications Acetaminophen (Tylenol -) 650 mg PO Q6H PRN PRN Reason: FEVER Last Admin: 04/23/19 07:57 Dose: 650 mg Amlodipine Besylate (Norvasc -) 10 mg PO DAILY [facility] Last Admin: 04/23/19 09:24 Dose: 10 mg Atorvastatin Calcium (Lipitor -) 10 mg PO HS [facility] Last Admin: 04/22/19 21:34 Dose: 10 mg Clonidine (Catapres -) 0.1 mg PO DAILY [facility] Last Admin: 04/23/19 09:24 Dose: 0.1 mg Famotidine (Pepcid -) 20 mg PO DAILY [facility] Last Admin: 04/23/19 09:24 Dose: 20 mg Heparin Sodium (Porcine) (Heparin -) 5,000 unit SQ BID [facility] Last Admin: 04/23/19 09:23 Dose: 5,000 unit Ganciclovir 60 mg/ Dextrose 100 mls @ 100 mls/hr IVPB [email or web address] [facility] Stop: 05/04/19 18:59 Last Admin: 04/22/19 17:32 Dose: 100 mls/hr Metoprolol Succinate (Toprol Xl -) 50 mg PO DAILY [facility] Last Admin: 04/23/19 09:26 Dose: 50 mg Multivit/Ca Carb/B Cmplx/FA/Prenat (Nephro-Niharika -) 1 tablet PO DAILY [facility] Last Admin: 04/23/19 09:23 Dose: 1 tablet Multivitamins/Minerals/Vitamin C (Tab-A-Vit -) 1 tab PO DAILY [facility] Last Admin: 04/23/19 09:23 Dose: 1 tab - Objective Vital Signs: Vital Signs Temperature 100.3 F H 04/23/19 08:54 Pulse Rate 93 H 04/23/19 08:54 Respiratory Rate 20 04/23/19 08:54 Blood Pressure 110/55 L 04/23/19 08:54 O2 Sat by Pulse Oximetry (%) 95 04/22/19 21:00 Constitutional: Yes: No Distress, Calm Cardiovascular: Yes: S1, S2 Respiratory: Yes: Regular, CTA Bilaterally Gastrointestinal: Yes: Normal Bowel Sounds, Soft Musculoskeletal: Yes: WNL Extremities: Yes: Other Neurological: Yes: Alert, Oriented Psychiatric: Yes: Alert, Oriented Labs: CBC, BMP 04/22/19 07:05 04/22/19 07:05 INR, PTT INR 1.09 (0.83-1.09) 04/14/19 12:00 Assessment/Plan Problem List - Problems (1) Anemia in chronic kidney disease, on chronic dialysis Code(s): N18.6 - END STAGE RENAL DISEASE; D63.1 - ANEMIA IN CHRONIC KIDNEY DISEASE; Z99.2 - DEPENDENCE ON RENAL DIALYSIS (2) Fever Code(s): R50.9 - FEVER, UNSPECIFIED (3) Weakness Code(s): R53.1 - WEAKNESS (4) ESRD on hemodialysis Code(s): N18.6 - END STAGE RENAL DISEASE; Z99.2 - DEPENDENCE ON RENAL DIALYSIS (5) Hypertension Code(s): I10 - ESSENTIAL (PRIMARY) HYPERTENSION (6) Kidney transplant rejection Assessment/Plan: off all antirejection meds since Mar plan antivirals monitor fevers rest as per the team
--- NOTE | 2019-04-23 10:58 | PN ---
Physical Exam: SUBJECTIVE: Patient seen and examined. sitting up in bed. denies pain or discomfort. 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 She also reported abdominal pain. Patient has been off antirejection medications s/p Renal transplant with failure per renal. Per ID, patient is + for CMV virus and will need treatment with ganciclovir to be coordinated with dialysis (will need for a total of 2 weeks - 6 doses). Received 1st dose yesterday after dialysis. discharge plan: once afebrile x 24 hours. tmax 100.3 this a.m. imaging: ct/abdomen/pelvis without contrast 04/15/19: findings consistent with adult polycystic kidney disease, multiple hepatic cysts. mild hepatosplenomegaly, s/ p right renal transplant with mild hydronephrosis of the transplanted kidney. Vital Signs Period Temp Pulse Resp BP Sys/[place] Pulse Ox Last 24 Hr 98.1 F-100.3 F 60-96 18-20 87-116/45-69 95-95 GENERAL: The patient is awake, alert, and fully oriented, in no acute distress. HEAD: Normal with no signs of trauma. EYES: PERRL, extraocular movements intact, sclera anicteric, conjunctiva clear. No ptosis. ENT: Ears normal, nares patent, oropharynx clear without exudates NECK: Trachea midline, full range of motion, supple. LUNGS: Breath sounds equal, diminished bilaterally HEART: Regular rate and rhythm ABDOMEN: Soft, nontender, nondistended, normoactive bowel sounds EXTREMITIES: no edema. NEUROLOGICAL: Normal speech, gait not observed. PSYCH: Normal mood, normal affect. SKIN: Warm, dry, normal turgor, no rashes or lesions noted Laboratory Results - last 24 hr 04/22/19 07:05 Neutrophils % (Manual) 42.4 L Band Neutrophils % 1.9 Lymphocytes % (Manual) 31.1 D Monocytes % (Manual) 6 Eosinophils % (Manual) 11.3 H Basophils % (Manual) 1.9 D Myelocytes % (Man) 0 Promyelocytes % (Man) 0 Blast Cells % (Manual) 0 Nucleated RBC % 1 H Metamyelocytes 0 Hypochromia 0 Platelet Estimate Decreased Platelet Comment Present Polychromasia 1+ Poikilocytosis 1+ Anisocytosis 1+ Microcytosis 1+ Macrocytosis 1+ Sickle Cells 1+ Ovalocytes 1+ Active Medications Generic Name Dose Route Start Last Admin Trade Name Olvinq PRN Reason Stop Dose Admin Acetaminophen 650 mg 04/17/19 18:30 04/23/19 07:57 Tylenol - PO 650 mg Q6H PRN Administration FEVER Amlodipine Besylate 10 mg 04/18/19 10:00 04/23/19 09:24 Norvasc - PO 10 mg DAILY SERJIO Administration Atorvastatin Calcium 10 mg 04/17/19 22:00 04/22/19 21:34 Lipitor - PO 10 mg HS SERJIO Administration Clonidine 0.1 mg 04/18/19 10:00 04/23/19 09:24 Catapres - PO 0.1 mg DAILY SERJIO Administration Famotidine 20 mg 04/18/19 10:00 04/23/19 09:24 Pepcid - PO 20 mg DAILY SERJIO Administration Heparin Sodium (Porcine) 5,000 unit 04/17/19 22:00 04/23/19 09:23 Heparin - SQ 5,000 unit BID SERJIO Administration Ganciclovir 60 mg/ Dextrose 100 mls @ 100 mls/hr 04/22/19 18:00 04/22/19 17: 32 IVPB 05/04/19 18:59 100 mls/hr [email or web address] SERJIO Administration Metoprolol Succinate 50 mg 04/18/19 10:00 04/23/19 09:26 Toprol Xl - PO 50 mg DAILY SERJIO Administration Multivit/Ca Carb/B Cmplx/FA/Prenat 1 tablet 04/17/19 17:00 04/23/19 09:23 Nephro-Niharika - PO 1 tablet DAILY SERJIO Administration Multivitamins/Minerals/Vitamin C 1 tab 04/18/19 10:00 04/23/19 09:23 Tab-A-Vit - PO 1 tab DAILY SERJIO Administration ASSESSMENT/PLAN: Problem List - Problems (1) CMV (cytomegalovirus infection) status positive Assessment/Plan: Patient will need treatment with antivirals per ID for approximately 2 weeks to be coordinated with dialysis (6 doses total). First dose given 04/22, 2nd dose to be given tomorrow after dialysis, then can continue subsequent doses as an outpatient. Code(s): B25.9 - CYTOMEGALOVIRAL DISEASE, UNSPECIFIED (2) Anemia in chronic kidney disease, on chronic dialysis Assessment/Plan: s/p Renal transplant with failure now on chronic dialysis Code(s): N18.6 - END STAGE RENAL DISEASE; D63.1 - ANEMIA IN CHRONIC KIDNEY DISEASE; Z99.2 - DEPENDENCE ON RENAL DIALYSIS (3) ESRD on hemodialysis Assessment/Plan: dialysis per renal Code(s): N18.6 - END STAGE RENAL DISEASE; Z99.2 - DEPENDENCE ON RENAL DIALYSIS (4) Fever Assessment/Plan: fever curve improving, being treated for CMV with gancyclovir abd pelvis without source of fever blood culture repeated and pending Code(s): R50.9 - FEVER, UNSPECIFIED Qualifiers: Fever type: unspecified Qualified Code(s): R50.9 - Fever, unspecified (5) Sepsis Assessment/Plan: blood and urine negative and repeated abd ct without acute pathology of fevers echo pending, lower ext dopplers negative ID consulted and following Code(s): A41.9 - SEPSIS, UNSPECIFIED ORGANISM Qualifiers: Sepsis type: sepsis due to unspecified organism Sepsis acute organ dysfunction status: unspecified Qualified Code(s): A41.9 - Sepsis, unspecified organism (6) Weakness Code(s): R53.1 - WEAKNESS (7) Anemia Assessment/Plan: epogen per renal for 1 unit of prbc today Code(s): D64.9 - ANEMIA, UNSPECIFIED (8) Kidney transplant rejection Assessment/Plan: off antirejection medications. (9) Thrombocytopenia Assessment/Plan: monitor with daily labs Code(s): D69.6 - THROMBOCYTOPENIA, UNSPECIFIED (10) Hypertension Assessment/Plan: on norvasc,nifidepine,hydralazine , metoprolol, lasix at home c/w antihypertensive meds as BP allows Code(s): I10 - ESSENTIAL (PRIMARY) HYPERTENSION (11) Prophylactic measure Assessment/Plan: heparin bid Code(s): Z29.9 - ENCOUNTER FOR PROPHYLACTIC MEASURES, UNSPECIFIED Visit type - Emergency Visit Emergency Visit: Yes ED Registration Date: 04/16/19 Care time: The patient presented to the Emergency Department on the above date and was hospitalized for further evaluation of their emergent condition. - New Patient This patient is new to me today: No - Critical Care Critical Care patient: No - Discharge Referral Referred to [facility] Med P.C.: No
[2019-04-23 11:44] LABS: EOS % 9.2 % (0-4.5); HEMATOCRIT 21.3 % (32.4-45.2); LYMPH % 21.1 % (8-40); MCH 31.1 pg (25.7-33.7); MCHC 32.4 g/dl (32.0-36.0); MEAN PLT VOLUME 10.2 fl (7.5-11.1); MONO % 10.5 % (3.8-10.2); NEUT % 58.2 % (42.8-82.8); PLATELET COUNT 89 K/MM3 (134-434); RBC 2.22 M/mm3 (3.60-5.2); RDW 17.1 % (11.6-15.6)
[2019-04-23 11:48] LABS: HEMOGLOBIN 6.9 GM/dL (10.7-15.3)
[2019-04-23 12:47] LABS: ALBUMIN 1.9 g/dl (3.4-5.0); BILIRUBIN,TOTAL 0.3 mg/dL (0.2-1); BLOOD UREA NITROGEN 17.4 mg/dL (7-18); CALCIUM 7.7 mg/dL (8.5-10.1); MAGNESIUM 1.9 mg/dL (1.8-2.4); POTASSIUM 3.8 mmol/L (3.5-5.1); TOT PROT 5.8 g/dl (6.4-8.2)
--- NOTE | 2019-04-23 19:17 | PN ---
Progress Note, Physician History of Present Illness: Pt seen and examined at bedside. SHe is awake and alert. She denies shortness of breath. - Current Medication List Current Medications: Active Medications Acetaminophen (Tylenol -) 650 mg PO Q6H PRN PRN Reason: FEVER Last Admin: 04/23/19 16:24 Dose: 650 mg Amlodipine Besylate (Norvasc -) 10 mg PO DAILY [facility] Last Admin: 04/23/19 09:24 Dose: 10 mg Atorvastatin Calcium (Lipitor -) 10 mg PO HS [facility] Last Admin: 04/22/19 21:34 Dose: 10 mg Clonidine (Catapres -) 0.1 mg PO DAILY [facility] Last Admin: 04/23/19 09:24 Dose: 0.1 mg Famotidine (Pepcid -) 20 mg PO DAILY [facility] Last Admin: 04/23/19 09:24 Dose: 20 mg Heparin Sodium (Porcine) (Heparin -) 5,000 unit SQ BID [facility] Last Admin: 04/23/19 09:23 Dose: 5,000 unit Ganciclovir 60 mg/ Dextrose 100 mls @ 100 mls/hr IVPB [email or web address] [facility] Stop: 05/04/19 18:59 Last Admin: 04/22/19 17:32 Dose: 100 mls/hr Metoprolol Succinate (Toprol Xl -) 50 mg PO DAILY [facility] Last Admin: 04/23/19 09:26 Dose: 50 mg Multivit/Ca Carb/B Cmplx/FA/Prenat (Nephro-Niharika -) 1 tablet PO DAILY [facility] Last Admin: 04/23/19 09:23 Dose: 1 tablet Multivitamins/Minerals/Vitamin C (Tab-A-Vit -) 1 tab PO DAILY [facility] Last Admin: 04/23/19 09:23 Dose: 1 tab - Objective Vital Signs: Vital Signs Temperature 98.6 F 04/23/19 16:33 Pulse Rate 79 04/23/19 16:33 Respiratory Rate 20 04/23/19 16:33 Blood Pressure 127/54 L 04/23/19 16:33 O2 Sat by Pulse Oximetry (%) 95 04/23/19 09:00 Constitutional: Yes: Calm Eyes: Yes: Conjunctiva Clear HENT: Yes: Atraumatic Neck: Yes: Supple Cardiovascular: Yes: S1, S2 Respiratory: Yes: CTA Bilaterally Gastrointestinal: Yes: Soft Genitourinary: Yes: Other (graft soft and non tender) Musculoskeletal: Yes: WNL Edema: No Integumentary: Yes: WNL Neurological: Yes: Oriented Psychiatric: Yes: Oriented Labs: CBC, BMP 04/23/19 10:15 04/23/19 10:15 INR, PTT INR 1.09 (0.83-1.09) 04/14/19 12:00 Problem List - Problems (1) ESRD on hemodialysis Code(s): N18.6 - END STAGE RENAL DISEASE; Z99.2 - DEPENDENCE ON RENAL DIALYSIS (2) Fever Code(s): R50.9 - FEVER, UNSPECIFIED Qualifiers: Fever type: unspecified Qualified Code(s): R50.9 - Fever, unspecified Assessment/Plan Current Medications Generic Name Dose Route Start Last Admin Trade Name Freq PRN Reason Stop Dose Admin Acetaminophen 650 mg 04/17/19 18:30 04/23/19 16:24 Tylenol - PO 650 mg Q6H PRN Administration FEVER Amlodipine Besylate 10 mg 04/18/19 10:00 04/23/19 09:24 Norvasc - PO 10 mg DAILY SERJIO Administration Atorvastatin Calcium 10 mg 04/17/19 22:00 04/22/19 21:34 Lipitor - PO 10 mg HS SERJIO Administration Clonidine 0.1 mg 04/18/19 10:00 04/23/19 09:24 Catapres - PO 0.1 mg DAILY SERJIO Administration Famotidine 20 mg 04/18/19 10:00 04/23/19 09:24 Pepcid - PO 20 mg DAILY SERJIO Administration Heparin Sodium (Porcine) 5,000 unit 04/17/19 22:00 04/23/19 09:23 Heparin - SQ 5,000 unit BID SERJIO Administration Ganciclovir 60 mg/ Dextrose 100 mls @ 100 mls/hr 04/22/19 18:00 04/22/19 17: 32 IVPB 05/04/19 18:59 100 mls/hr [email or web address] SERJIO Administration Metoprolol Succinate 50 mg 04/18/19 10:00 04/23/19 09:26 Toprol Xl - PO 50 mg DAILY SERJIO Administration Multivit/Ca Carb/B Cmplx/FA/Prenat 1 tablet 04/17/19 17:00 04/23/19 09:23 Nephro-Niharika - PO 1 tablet DAILY SERJIO Administration Multivitamins/Minerals/Vitamin C 1 tab 04/18/19 10:00 04/23/19 09:23 Tab-A-Vit - PO 1 tab DAILY SERJIO Administration Impression 1. ESRD 2. kidney transplant 3. htn 4. anemia 5. BK nephropathy 6. r/o sepsis 7. r/o CMV Plan - ID input appreciated - HD tomorrow - pt getting prbc today - cont epogen - monitor for fevers
[2019-04-23] MEDS: ATORVASTATIN CA 10 MG TABLET (FP) PO SCH (21:33)
[2019-04-23] MEDS ORDERED: ACETAMINOPHEN 650 MG SUPP.RECT PR ONE (22:54)
[2019-04-24 06:58] LABS: BASO % 0.8 % (0-2.0); EOS % 9.2 % (0-4.5); HEMATOCRIT 27.8 % (32.4-45.2); HEMOGLOBIN 9.2 GM/dL (10.7-15.3); LYMPH % 25.5 % (8-40); MCH 30.7 pg (25.7-33.7); MCHC 33.1 g/dl (32.0-36.0); MEAN CELL VOLUME 92.9 fl (80-96); MEAN PLT VOLUME 10.2 fl (7.5-11.1); MONO % 9.6 % (3.8-10.2); NEUT % 54.9 % (42.8-82.8); PLATELET COUNT 93 K/MM3 (134-434); RBC 2.99 M/mm3 (3.60-5.2); RDW 16.5 % (11.6-15.6); WHITE BLOOD COUNT 5.5 K/mm3 (4.0-10.0)
[2019-04-24 07:32] LABS: BILIRUBIN,TOTAL 0.5 mg/dL (0.2-1); BLOOD UREA NITROGEN 30.6 mg/dL (7-18); CALCIUM 7.8 mg/dL (8.5-10.1); CREATININE 6.5 mg/dL (0.55-1.3); MAGNESIUM 2.1 mg/dL (1.8-2.4); POTASSIUM 4.3 mmol/L (3.5-5.1)
--- NOTE | 2019-04-24 10:46 | PN ---
Progress Note, Physician History of Present Illness: stable still spiking fever - Current Medication List Current Medications: Active Medications Acetaminophen (Tylenol -) 650 mg PO Q6H PRN PRN Reason: FEVER Last Admin: 04/23/19 23:58 Dose: 650 mg Amlodipine Besylate (Norvasc -) 10 mg PO DAILY [facility] Last Admin: 04/23/19 09:24 Dose: 10 mg Atorvastatin Calcium (Lipitor -) 10 mg PO HS [facility] Last Admin: 04/23/19 21:33 Dose: 10 mg Clonidine (Catapres -) 0.1 mg PO DAILY [facility] Last Admin: 04/23/19 09:24 Dose: 0.1 mg Epoetin Talha (Epogen -) 12,000 unit IVPUSH ONCE ONE Stop: 04/24/19 19:18 Famotidine (Pepcid -) 20 mg PO DAILY [facility] Last Admin: 04/23/19 09:24 Dose: 20 mg Heparin Sodium (Porcine) (Heparin -) 5,000 unit SQ BID [facility] Last Admin: 04/23/19 21:33 Dose: 5,000 unit Ganciclovir 60 mg/ Dextrose 100 mls @ 100 mls/hr IVPB [id number] [facility] Stop: 05/04/19 18:59 Last Admin: 04/22/19 17:32 Dose: 100 mls/hr Sodium Chloride (Normal Saline -) 250 mls @ 3,000 mls/hr IV PRN PRN PRN Reason: Hypotension during Dialysis Stop: 04/24/19 19:17 Metoprolol Succinate (Toprol Xl -) 50 mg PO DAILY [facility] Last Admin: 04/23/19 09:26 Dose: 50 mg Multivit/Ca Carb/B Cmplx/FA/Prenat (Nephro-Niharika -) 1 tablet PO DAILY [facility] Last Admin: 04/23/19 09:23 Dose: 1 tablet Multivitamins/Minerals/Vitamin C (Tab-A-Vit -) 1 tab PO DAILY [facility] Last Admin: 04/23/19 09:23 Dose: 1 tab - Objective Vital Signs: Vital Signs Temperature 98.6 F 04/24/19 06:14 Pulse Rate 84 04/24/19 06:14 Respiratory Rate 18 04/24/19 08:21 Blood Pressure 114/56 L 04/24/19 06:14 O2 Sat by Pulse Oximetry (%) 96 04/24/19 08:21 Constitutional: Yes: No Distress, Calm Cardiovascular: Yes: S1, S2 Respiratory: Yes: Regular, CTA Bilaterally Gastrointestinal: Yes: Normal Bowel Sounds, Soft Musculoskeletal: Yes: WNL Extremities: Yes: WNL Neurological: Yes: Alert, Oriented Psychiatric: Yes: Alert Labs: CBC, BMP 04/24/19 05:45 04/24/19 05:45 INR, PTT INR 1.09 (0.83-1.09) 04/14/19 12:00 Assessment/Plan Problem List - Problems (1) Anemia in chronic kidney disease, on chronic dialysis Code(s): N18.6 - END STAGE RENAL DISEASE; D63.1 - ANEMIA IN CHRONIC KIDNEY DISEASE; Z99.2 - DEPENDENCE ON RENAL DIALYSIS (2) Fever Code(s): R50.9 - FEVER, UNSPECIFIED (3) Weakness Code(s): R53.1 - WEAKNESS (4) ESRD on hemodialysis Code(s): N18.6 - END STAGE RENAL DISEASE; Z99.2 - DEPENDENCE ON RENAL DIALYSIS (5) Hypertension Code(s): I10 - ESSENTIAL (PRIMARY) HYPERTENSION (6) Kidney transplant rejection Assessment/Plan: off all antirejection meds since Mar plan antivirals monitor fevers rest as per the team
--- NOTE | 2019-04-24 10:50 | PN ---
Physical Exam: SUBJECTIVE: Patient seen and examined. still with fevers. 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 She also reported abdominal pain. Patient has been off antirejection medications s/p Renal transplant with failure per renal. Per ID, patient is + for CMV virus and will need treatment with ganciclovir to be coordinated with dialysis (will need for a total of 2 weeks - 6 doses). Received 1st dose yesterday after dialysis. discharge plan: once afebrile x 24 hours. tmax 101 this a.m. imaging: ct/abdomen/pelvis without contrast 04/15/19: findings consistent with adult polycystic kidney disease, multiple hepatic cysts. mild hepatosplenomegaly, s/ p right renal transplant with mild hydronephrosis of the transplanted kidney. Vital Signs Period Temp Pulse Resp BP Sys/[place] Pulse Ox Last 24 Hr 98.2 F-101.1 F 70-84 18-20 82-127/45-58 95-96 GENERAL: The patient is awake, alert, and fully oriented, in no acute distress. HEAD: Normal with no signs of trauma. EYES: PERRL, extraocular movements intact, sclera anicteric, conjunctiva clear. No ptosis. ENT: Ears normal, nares patent, oropharynx clear without exudates NECK: Trachea midline, full range of motion, supple. LUNGS: Breath sounds equal, diminished bilaterally HEART: Regular rate and rhythm ABDOMEN: Soft, nontender, nondistended, normoactive bowel sounds EXTREMITIES: no edema. NEUROLOGICAL: Normal speech, gait not observed. PSYCH: Normal mood, normal affect. SKIN: Warm, dry, normal turgor, no rashes or lesions noted Laboratory Results - last 24 hr 04/23/19 04/23/19 04/23/19 10:15 10:15 13:35 WBC 5.0 RBC 2.22 L Hgb 6.9 L* Hct 21.3 L MCV 96.0 MCH 31.1 MCHC 32.4 RDW 17.1 H Plt Count 89 L MPV 10.2 Absolute Neuts (auto) 2.9 Neutrophils % 58.2 D Lymphocytes % 21.1 D Monocytes % 10.5 H Eosinophils % 9.2 H Basophils % 1.0 Nucleated RBC % 0 Sodium 138 Potassium 3.8 Chloride 100 Carbon Dioxide 32 Anion Gap 6 L BUN 17.4 Creatinine 5.0 H Est GFR (CKD-EPI)AfAm 9.99 Est GFR (CKD-EPI)NonAf 8.62 Random Glucose 132 H Calcium 7.7 L Magnesium 1.9 Total Bilirubin 0.3 AST 20 ALT 15 Alkaline Phosphatase 86 Total Protein 5.8 L Albumin 1.9 L Blood Type A NEGATIVE Antibody Screen Negative Crossmatch See Detail 04/24/19 04/24/19 05:45 05:45 WBC 5.5 RBC 2.99 L Hgb 9.2 L Hct 27.8 L D MCV 92.9 MCH 30.7 MCHC 33.1 RDW 16.5 H Plt Count 93 L MPV 10.2 Absolute Neuts (auto) 3.0 Neutrophils % 54.9 Lymphocytes % 25.5 D Monocytes % 9.6 Eosinophils % 9.2 H Basophils % 0.8 Nucleated RBC % 0 Sodium 136 Potassium 4.3 Chloride 99 Carbon Dioxide 28 Anion Gap 8 BUN 30.6 H Creatinine 6.5 H Est GFR (CKD-EPI)AfAm 7.27 Est GFR (CKD-EPI)NonAf 6.28 Random Glucose 93 Calcium 7.8 L Magnesium 2.1 Total Bilirubin 0.5 AST 18 ALT 15 Alkaline Phosphatase 107 Total Protein 6.0 L Albumin 2.0 L Blood Type Antibody Screen Crossmatch Active Medications Generic Name Dose Route Start Last Admin Trade Name Freq PRN Reason Stop Dose Admin Acetaminophen 650 mg 04/17/19 18:30 04/23/19 23:58 Tylenol - PO 650 mg Q6H PRN Administration FEVER Amlodipine Besylate 10 mg 04/18/19 10:00 04/23/19 09:24 Norvasc - PO 10 mg DAILY [facility] Administration Atorvastatin Calcium 10 mg 04/17/19 22:00 04/23/19 21:33 Lipitor - PO 10 mg HS [facility] Administration Clonidine 0.1 mg 04/18/19 10:00 04/23/19 09:24 Catapres - PO 0.1 mg DAILY [facility] Administration Epoetin Talha 12,000 unit 04/24/19 19:17 Epogen - IVPUSH 04/24/19 19:18 ONCE ONE Famotidine 20 mg 04/18/19 10:00 04/23/19 09:24 Pepcid - PO 20 mg DAILY [facility] Administration Heparin Sodium (Porcine) 5,000 unit 04/17/19 22:00 04/23/19 21:33 Heparin - SQ 5,000 unit BID [facility] Administration Ganciclovir 60 mg/ Dextrose 100 mls @ 100 mls/hr 04/22/19 18:00 04/22/19 17: 32 IVPB 05/04/19 18:59 100 mls/hr [id number] [facility] Administration Sodium Chloride 250 mls @ 3,000 mls/hr 04/23/19 19:17 Normal Saline - IV 04/24/19 19:17 PRN PRN Hypotension during Dialysis Metoprolol Succinate 50 mg 04/18/19 10:00 04/23/19 09:26 Toprol Xl - PO 50 mg DAILY [facility] Administration Multivit/Ca Carb/B Cmplx/FA/Prenat 1 tablet 04/17/19 17:00 04/23/19 09:23 Nephro-Niharika - PO 1 tablet DAILY [facility] Administration Multivitamins/Minerals/Vitamin C 1 tab 04/18/19 10:00 04/23/19 09:23 Tab-A-Vit - PO 1 tab DAILY [facility] Administration ASSESSMENT/PLAN: Problem List - Problems (1) CMV (cytomegalovirus infection) status positive Assessment/Plan: Patient will need treatment with antivirals per ID for approximately 2 weeks to be coordinated with dialysis (6 doses total). First dose given 04/22, 2nd dose to be given today after dialysis, then can continue subsequent doses as an outpatient. Code(s): B25.9 - CYTOMEGALOVIRAL DISEASE, UNSPECIFIED (2) Anemia in chronic kidney disease, on chronic dialysis Assessment/Plan: s/p Renal transplant with failure now on chronic dialysis Code(s): N18.6 - END STAGE RENAL DISEASE; D63.1 - ANEMIA IN CHRONIC KIDNEY DISEASE; Z99.2 - DEPENDENCE ON RENAL DIALYSIS (3) ESRD on hemodialysis Assessment/Plan: dialysis per renal Code(s): N18.6 - END STAGE RENAL DISEASE; Z99.2 - DEPENDENCE ON RENAL DIALYSIS (4) Fever Assessment/Plan: fever curve improving, being treated for CMV with gancyclovir abd pelvis without source of fever blood culture repeated and negative Code(s): R50.9 - FEVER, UNSPECIFIED Qualifiers: Fever type: unspecified Qualified Code(s): R50.9 - Fever, unspecified (5) Sepsis Assessment/Plan: blood and urine negative and repeated abd ct without acute pathology of fevers echo pending, lower ext dopplers negative ID consulted and following Code(s): A41.9 - SEPSIS, UNSPECIFIED ORGANISM Qualifiers: Sepsis type: sepsis due to unspecified organism Sepsis acute organ dysfunction status: unspecified Qualified Code(s): A41.9 - Sepsis, unspecified organism (6) Weakness Code(s): R53.1 - WEAKNESS (7) Anemia Assessment/Plan: epogen per renal. s/p 1 u nit of prbc. Code(s): D64.9 - ANEMIA, UNSPECIFIED (8) Kidney transplant rejection Assessment/Plan: off antirejection medications. (9) Thrombocytopenia Assessment/Plan: monitor with daily labs Code(s): D69.6 - THROMBOCYTOPENIA, UNSPECIFIED (10) Hypertension Assessment/Plan: on norvasc,nifidepine,hydralazine , metoprolol, lasix at home c/w antihypertensive meds as BP allows Code(s): I10 - ESSENTIAL (PRIMARY) HYPERTENSION (11) Prophylactic measure Assessment/Plan: heparin bid Code(s): Z29.9 - ENCOUNTER FOR PROPHYLACTIC MEASURES, UNSPECIFIED Visit type - Emergency Visit Emergency Visit: Yes ED Registration Date: 04/16/19 Care time: The patient presented to the Emergency Department on the above date and was hospitalized for further evaluation of their emergent condition. - New Patient This patient is new to me today: No - Critical Care Critical Care patient: No - Discharge Referral Referred to [facility] Med P.C.: No
[2019-04-24] MEDS: ACETAMINOPHEN 325 MG TABLET (FP) PO PRN ×2 (11:09→21:23)
[2019-04-24] MEDS ORDERED: SODIUM CHLORIDE 250 ML IV PRN (12:22)
[2019-04-24] MEDS: HEPARIN NA (PORCINE) 5,000 UNITS/ML 1ML VIAL SQ SCH ×2 (12:22→21:25)
[2019-04-24] MEDS ORDERED: EPOETIN ALFA 3,000 UNIT/1 ML ML IVPUSH ONE (13:00)
--- NOTE | 2019-04-24 15:39 | PN ---
Progress Note, Physician History of Present Illness: Pt seen and examined at bedside. She is awake and alert. She is tolerating HD. - Current Medication List Current Medications: Active Medications Acetaminophen (Tylenol -) 650 mg PO Q6H PRN PRN Reason: FEVER Last Admin: 04/24/19 11:09 Dose: 650 mg Amlodipine Besylate (Norvasc -) 10 mg PO DAILY [facility] Last Admin: 04/23/19 09:24 Dose: 10 mg Atorvastatin Calcium (Lipitor -) 10 mg PO HS [facility] Last Admin: 04/23/19 21:33 Dose: 10 mg Clonidine (Catapres -) 0.1 mg PO DAILY [facility] Last Admin: 04/23/19 09:24 Dose: 0.1 mg Famotidine (Pepcid -) 20 mg PO DAILY [facility] Last Admin: 04/23/19 09:24 Dose: 20 mg Heparin Sodium (Porcine) (Heparin -) 5,000 unit SQ BID [facility] Last Admin: 04/24/19 12:22 Dose: Not Given Ganciclovir 60 mg/ Dextrose 100 mls @ 100 mls/hr IVPB [id number] [facility] Stop: 05/04/19 18:59 Last Admin: 04/22/19 17:32 Dose: 100 mls/hr Sodium Chloride (Normal Saline -) 250 mls @ 3,000 mls/hr IV PRN PRN PRN Reason: Hypotension during Dialysis Stop: 04/25/19 12:21 Metoprolol Succinate (Toprol Xl -) 50 mg PO DAILY [facility] Last Admin: 04/23/19 09:26 Dose: 50 mg Multivit/Ca Carb/B Cmplx/FA/Prenat (Nephro-Niharika -) 1 tablet PO DAILY [facility] Last Admin: 04/23/19 09:23 Dose: 1 tablet Multivitamins/Minerals/Vitamin C (Tab-A-Vit -) 1 tab PO DAILY [facility] Last Admin: 04/23/19 09:23 Dose: 1 tab - Objective Vital Signs: Vital Signs Temperature 101.9 F H 04/24/19 11:00 Pulse Rate 80 04/24/19 13:45 Respiratory Rate 18 04/24/19 13:45 Blood Pressure 126/64 04/24/19 13:45 O2 Sat by Pulse Oximetry (%) 96 04/24/19 08:21 Constitutional: Yes: Calm Eyes: Yes: Conjunctiva Clear HENT: Yes: Atraumatic Neck: Yes: Supple Cardiovascular: Yes: S1, S2 Respiratory: Yes: CTA Bilaterally Gastrointestinal: Yes: Soft Genitourinary: Yes: WNL Musculoskeletal: Yes: WNL Edema: No Neurological: Yes: Oriented Psychiatric: Yes: Oriented Labs: CBC, BMP 04/24/19 05:45 04/24/19 05:45 INR, PTT INR 1.09 (0.83-1.09) 04/14/19 12:00 Problem List - Problems (1) ESRD on hemodialysis Code(s): N18.6 - END STAGE RENAL DISEASE; Z99.2 - DEPENDENCE ON RENAL DIALYSIS (2) Fever Code(s): R50.9 - FEVER, UNSPECIFIED Qualifiers: Fever type: unspecified Qualified Code(s): R50.9 - Fever, unspecified Assessment/Plan Current Medications Generic Name Dose Route Start Last Admin Trade Name Freq PRN Reason Stop Dose Admin Acetaminophen 650 mg 04/17/19 18:30 04/24/19 11:09 Tylenol - PO 650 mg Q6H PRN Administration FEVER Amlodipine Besylate 10 mg 04/18/19 10:00 04/23/19 09:24 Norvasc - PO 10 mg DAILY [facility] Administration Atorvastatin Calcium 10 mg 04/17/19 22:00 04/23/19 21:33 Lipitor - PO 10 mg HS [facility] Administration Clonidine 0.1 mg 04/18/19 10:00 04/23/19 09:24 Catapres - PO 0.1 mg DAILY [facility] Administration Famotidine 20 mg 04/18/19 10:00 04/23/19 09:24 Pepcid - PO 20 mg DAILY [facility] Administration Heparin Sodium (Porcine) 5,000 unit 04/17/19 22:00 04/24/19 12:22 Heparin - SQ Not Given BID [facility] Ganciclovir 60 mg/ Dextrose 100 mls @ 100 mls/hr 04/22/19 18:00 04/22/19 17: 32 IVPB 05/04/19 18:59 100 mls/hr [id number] [facility] Administration Sodium Chloride 250 mls @ 3,000 mls/hr 04/24/19 12:22 Normal Saline - IV 04/25/19 12:21 PRN PRN Hypotension during Dialysis Metoprolol Succinate 50 mg 04/18/19 10:00 04/23/19 09:26 Toprol Xl - PO 50 mg DAILY [facility] Administration Multivit/Ca Carb/B Cmplx/FA/Prenat 1 tablet 04/17/19 17:00 04/23/19 09:23 Nephro-Niharika - PO 1 tablet DAILY [facility] Administration Multivitamins/Minerals/Vitamin C 1 tab 04/18/19 10:00 04/23/19 09:23 Tab-A-Vit - PO 1 tab DAILY [facility] Administration Microbiology 04/14/19 21:30 Blood - Peripheral Venous Blood Culture - Final NO GROWTH AFTER 5 DAYS INCUBATION 04/14/19 21:30 Blood - Peripheral Venous Blood Culture - Final NO GROWTH AFTER 5 DAYS INCUBATION 04/14/19 13:00 Urine - Urine Clean Catch Urine Culture - Final NO GROWTH OBTAINED 04/14/19 12:00 Blood - Peripheral Venous Blood Culture - Final NO GROWTH AFTER 5 DAYS INCUBATION 04/14/19 12:00 Blood - Peripheral Venous Blood Culture - Final NO GROWTH AFTER 5 DAYS INCUBATION 04/22/19 10:00 Blood - Peripheral Venous Blood Culture - Preliminary NO GROWTH OBTAINED AFTER 48 HOURS, INCUBATION TO CONTINUE FOR 3 DAYS. 04/22/19 09:45 Blood - Peripheral Venous Blood Culture - Preliminary NO GROWTH OBTAINED AFTER 48 HOURS, INCUBATION TO CONTINUE FOR 3 DAYS. 04/21/19 07:55 Blood - Peripheral Venous Blood Culture - Preliminary NO GROWTH OBTAINED AFTER 72 HOURS, INCUBATION TO CONTINUE FOR 2 DAYS. 04/21/19 07:47 Blood - Peripheral Venous Blood Culture - Preliminary NO GROWTH OBTAINED AFTER 72 HOURS, INCUBATION TO CONTINUE FOR 2 DAYS. 04/20/19 20:30 Blood - Peripheral Venous Blood Culture - Preliminary NO GROWTH OBTAINED AFTER 72 HOURS, INCUBATION TO CONTINUE FOR 2 DAYS. 04/20/19 20:25 Blood - Peripheral Venous Blood Culture - Preliminary NO GROWTH OBTAINED AFTER 72 HOURS, INCUBATION TO CONTINUE FOR 2 DAYS. 04/19/19 11:10 Blood - Picc Line Blood Culture - Preliminary NO GROWTH OBTAINED AFTER 96 HOURS, INCUBATION TO CONTINUE FOR 1 DAYS. 04/19/19 11:10 Blood - Picc Line Blood Culture - Preliminary NO GROWTH OBTAINED AFTER 96 HOURS, INCUBATION TO CONTINUE FOR 1 DAYS. Laboratory Tests 04/20/19 08:45 CMV IgG Ab > 10.00 H CMV IgM Ab 38.4 H Impression 1. ESRD 2. kidney transplant 3. htn 4. anemia 5. BK nephropathy 6. r/o sepsis 7. positive CMV Plan - HD today - hg is improved - cont epogen - cultures negative so far - antivirals per ID - monitor for fevers
[2019-04-24] MEDS ORDERED: PT OWN MED DRAWER 7, Y5N ONE (17:08)
[2019-04-24] MEDS: VITAMIN B COMP W-C 1 EA TABLET PO SCH (17:48)
[2019-04-24] MEDS: cloNIDine HCL 0.1 MG TABLET PO SCH (17:48)
[2019-04-24] MEDS: MULTIVITAMINS (DAILY MVI) TABLET (FP) PO SCH (17:48)
[2019-04-24] MEDS: FAMOTIDINE 20 MG TABLET PO SCH (17:48)
[2019-04-24] MEDS: amLODIPine BESYLATE 10 MG TABLET (FP) PO SCH (17:48)
[2019-04-24] MEDS: DEXTROSE 5% IVPB SCH (17:50)
[2019-04-24] MEDS: WATER IVPB SCH (17:50)
[2019-04-24] MEDS: GANCICLOVIR IVPB SCH (17:50)
[2019-04-24] MEDS: ATORVASTATIN CA 10 MG TABLET (FP) PO SCH (21:25)
[2019-04-25] MEDS: ACETAMINOPHEN 325 MG TABLET (FP) PO PRN (06:40)
[2019-04-25 07:15] LABS: BASO % 0.8 % (0-2.0); EOS % 8.6 % (0-4.5); HEMATOCRIT 29.2 % (32.4-45.2); HEMOGLOBIN 9.6 GM/dL (10.7-15.3); MCH 30.6 pg (25.7-33.7); MEAN CELL VOLUME 92.7 fl (80-96); MEAN PLT VOLUME 9.9 fl (7.5-11.1); MONO % 9.3 % (3.8-10.2); NEUT % 64.3 % (42.8-82.8); PLATELET COUNT 101 K/MM3 (134-434); RBC 3.15 M/mm3 (3.60-5.2); RDW 16.4 % (11.6-15.6); WHITE BLOOD COUNT 5.1 K/mm3 (4.0-10.0)
[2019-04-25 07:48] LABS: BILIRUBIN,TOTAL 0.5 mg/dL (0.2-1); BLOOD UREA NITROGEN 14.6 mg/dL (7-18); CALCIUM 8.1 mg/dL (8.5-10.1); POTASSIUM 4.2 mmol/L (3.5-5.1); TOT PROT 6.4 g/dl (6.4-8.2)
--- NOTE | 2019-04-25 10:13 | PN ---
Physical Exam: SUBJECTIVE: Patient seen and examined. per primary rn, patient noted to have hematuria overnight. 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 She also reported abdominal pain. Patient has been off antirejection medications s/p Renal transplant with failure per renal. Per ID, patient is + for CMV virus and will need treatment with ganciclovir to be coordinated with dialysis (will need for a total of 2 weeks - 6 doses). imaging: ct/abdomen/pelvis without contrast 04/15/19: findings consistent with adult polycystic kidney disease, multiple hepatic cysts. mild hepatosplenomegaly, s/ p right renal transplant with mild hydronephrosis of the transplanted kidney. chest xray: right bibaslar nodule not seen on prior imaging. Vital Signs Period Temp Pulse Resp BP Sys/[place] Pulse Ox Last 24 Hr 98.5 F-101.9 F 80-96 18-180 107-131/58-69 97-97 GENERAL: The patient is awake in no acute distress. HEAD: Normal with no signs of trauma. EYES: PERRL, extraocular movements intact, sclera anicteric, conjunctiva clear. No ptosis. ENT: Ears normal, nares patent, oropharynx clear without exudates NECK: Trachea midline, full range of motion, supple. LUNGS: Breath sounds equal, diminished bilaterally HEART: Regular rate and rhythm ABDOMEN: Soft, nontender, nondistended, normoactive bowel sounds EXTREMITIES: no edema. NEUROLOGICAL: Normal speech, gait not observed. PSYCH: Normal mood, normal affect. SKIN: Warm, dry, normal turgor, no rashes or lesions noted Laboratory Results - last 24 hr 04/25/19 04/25/19 05:45 05:45 WBC 5.1 RBC 3.15 L Hgb 9.6 L Hct 29.2 L MCV 92.7 MCH 30.6 MCHC 33.0 RDW 16.4 H Plt Count 101 L MPV 9.9 Absolute Neuts (auto) 3.3 Neutrophils % 64.3 Lymphocytes % 17.0 D Monocytes % 9.3 Eosinophils % 8.6 H Basophils % 0.8 Nucleated RBC % 0 Sodium 136 Potassium 4.2 Chloride 98 Carbon Dioxide 31 Anion Gap 8 BUN 14.6 Creatinine 4.0 H Est GFR (CKD-EPI)AfAm 13.08 Est GFR (CKD-EPI)NonAf 11.29 Random Glucose 90 Calcium 8.1 L Magnesium 2.0 Total Bilirubin 0.5 AST 19 ALT 13 Alkaline Phosphatase 113 Total Protein 6.4 Albumin 2.0 L Active Medications Generic Name Dose Route Start Last Admin Trade Name Freq PRN Reason Stop Dose Admin Acetaminophen 650 mg 04/17/19 18:30 04/25/19 06:40 Tylenol - PO 650 mg Q6H PRN Administration FEVER Amlodipine Besylate 10 mg 04/18/19 10:00 04/24/19 17:48 Norvasc - PO 10 mg DAILY [facility] Administration Atorvastatin Calcium 10 mg 04/17/19 22:00 04/24/19 21:25 Lipitor - PO 10 mg HS [facility] Administration Clonidine 0.1 mg 04/18/19 10:00 04/24/19 17:48 Catapres - PO 0.1 mg DAILY [facility] Administration Famotidine 20 mg 04/18/19 10:00 04/24/19 17:48 Pepcid - PO 20 mg DAILY [facility] Administration Heparin Sodium (Porcine) 5,000 unit 04/17/19 22:00 04/24/19 21:25 Heparin - SQ 5,000 unit BID [facility] Administration Ganciclovir 60 mg/ Dextrose 100 mls @ 100 mls/hr 04/22/19 18:00 04/24/19 17: 50 IVPB 05/04/19 18:59 100 mls/hr [email or web address] [facility] Administration Sodium Chloride 250 mls @ 3,000 mls/hr 04/24/19 12:22 Normal Saline - IV 04/25/19 12:21 PRN PRN Hypotension during Dialysis Metoprolol Succinate 50 mg 04/18/19 10:00 04/24/19 17:48 Toprol Xl - PO 50 mg DAILY [facility] Administration Multivit/Ca Carb/B Cmplx/FA/Prenat 1 tablet 04/17/19 17:00 04/24/19 17:48 Nephro-Niharika - PO 1 tablet DAILY [facility] Administration Multivitamins/Minerals/Vitamin C 1 tab 04/18/19 10:00 04/24/19 17:48 Tab-A-Vit - PO 1 tab DAILY [facility] Administration ASSESSMENT/PLAN: Problem List - Problems (1) CMV (cytomegalovirus infection) status positive Assessment/Plan: Patient will need treatment with antivirals per ID for approximately 2 weeks to be coordinated with dialysis (6 doses total). first two doses given inpatient. Code(s): B25.9 - CYTOMEGALOVIRAL DISEASE, UNSPECIFIED (2) Anemia in chronic kidney disease, on chronic dialysis Assessment/Plan: s/p Renal transplant with failure now on chronic dialysis Code(s): N18.6 - END STAGE RENAL DISEASE; D63.1 - ANEMIA IN CHRONIC KIDNEY DISEASE; Z99.2 - DEPENDENCE ON RENAL DIALYSIS (3) ESRD on hemodialysis Assessment/Plan: dialysis per renal Code(s): N18.6 - END STAGE RENAL DISEASE; Z99.2 - DEPENDENCE ON RENAL DIALYSIS (4) Fever Assessment/Plan: fever curve improving, being treated for CMV with gancyclovir, has received 2 doses abd pelvis without source of fever blood culture repeated and negative sent urine culture Code(s): R50.9 - FEVER, UNSPECIFIED Qualifiers: Fever type: unspecified Qualified Code(s): R50.9 - Fever, unspecified (5) Sepsis Assessment/Plan: blood and urine negative and repeated abd ct without acute pathology of fevers echo pending, lower ext dopplers negative ID consulted and following Code(s): A41.9 - SEPSIS, UNSPECIFIED ORGANISM Qualifiers: Sepsis type: sepsis due to unspecified organism Sepsis acute organ dysfunction status: unspecified Qualified Code(s): A41.9 - Sepsis, unspecified organism (6) Weakness Code(s): R53.1 - WEAKNESS (7) Anemia Assessment/Plan: epogen per renal. s/p 1 u nit of prbc. Code(s): D64.9 - ANEMIA, UNSPECIFIED (8) Kidney transplant rejection Assessment/Plan: off antirejection medications. (9) Thrombocytopenia Assessment/Plan: monitor with daily labs Code(s): D69.6 - THROMBOCYTOPENIA, UNSPECIFIED (10) Hypertension Assessment/Plan: on norvasc,nifidepine,hydralazine , metoprolol, lasix at home c/w antihypertensive meds as BP allows Code(s): I10 - ESSENTIAL (PRIMARY) HYPERTENSION (11) Prophylactic measure Assessment/Plan: heparin bid Code(s): Z29.9 - ENCOUNTER FOR PROPHYLACTIC MEASURES, UNSPECIFIED Visit type - Emergency Visit Emergency Visit: Yes ED Registration Date: 04/16/19 Care time: The patient presented to the Emergency Department on the above date and was hospitalized for further evaluation of their emergent condition. - New Patient This patient is new to me today: No - Critical Care Critical Care patient: No - Discharge Referral Referred to [facility] Med P.C[facility] No
[2019-04-25] MEDS: MULTIVITAMINS (DAILY MVI) TABLET (FP) PO SCH (10:19)
[2019-04-25] MEDS: FAMOTIDINE 20 MG TABLET PO SCH (10:19)
[2019-04-25] MEDS: amLODIPine BESYLATE 10 MG TABLET (FP) PO SCH (10:19)
[2019-04-25] MEDS: cloNIDine HCL 0.1 MG TABLET PO SCH (10:19)
[2019-04-25] MEDS: VITAMIN B COMP W-C 1 EA TABLET PO SCH (10:20)
--- NOTE | 2019-04-25 10:31 | PN ---
Progress Note, Physician History of Present Illness: stable had some bleeding through urine still spiking fever - Current Medication List Current Medications: Active Medications Acetaminophen (Tylenol -) 650 mg PO Q6H PRN PRN Reason: FEVER Last Admin: 04/25/19 06:40 Dose: 650 mg Amlodipine Besylate (Norvasc -) 10 mg PO DAILY [facility] Last Admin: 04/25/19 10:19 Dose: 10 mg Atorvastatin Calcium (Lipitor -) 10 mg PO HS [facility] Last Admin: 04/24/19 21:25 Dose: 10 mg Clonidine (Catapres -) 0.1 mg PO DAILY [facility] Last Admin: 04/25/19 10:19 Dose: 0.1 mg Famotidine (Pepcid -) 20 mg PO DAILY [facility] Last Admin: 04/25/19 10:19 Dose: 20 mg Heparin Sodium (Porcine) (Heparin -) 5,000 unit SQ BID [facility] Last Admin: 04/24/19 21:25 Dose: 5,000 unit Ganciclovir 60 mg/ Dextrose 100 mls @ 100 mls/hr IVPB [id number]@1800 [facility] Stop: 05/04/19 18:59 Last Admin: 04/24/19 17:50 Dose: 100 mls/hr Sodium Chloride (Normal Saline -) 250 mls @ 3,000 mls/hr IV PRN PRN PRN Reason: Hypotension during Dialysis Stop: 04/25/19 12:21 Metoprolol Succinate (Toprol Xl -) 50 mg PO DAILY [facility] Last Admin: 04/25/19 10:19 Dose: 50 mg Multivit/Ca Carb/B Cmplx/FA/Prenat (Nephro-Niharika -) 1 tablet PO DAILY [facility] Last Admin: 04/25/19 10:20 Dose: 1 tablet Multivitamins/Minerals/Vitamin C (Tab-A-Vit -) 1 tab PO DAILY [facility] Last Admin: 04/25/19 10:19 Dose: 1 tab - Objective Vital Signs: Vital Signs Temperature 98 F 04/25/19 10:22 Pulse Rate 75 04/25/19 10:22 Respiratory Rate 18 04/25/19 10:22 Blood Pressure 104/53 L 04/25/19 10:22 O2 Sat by Pulse Oximetry (%) 97 04/25/19 08:37 Constitutional: Yes: No Distress, Calm Cardiovascular: Yes: S1, S2 Respiratory: Yes: Regular, CTA Bilaterally Gastrointestinal: Yes: Normal Bowel Sounds, Soft Musculoskeletal: Yes: WNL Extremities: Yes: WNL Neurological: Yes: Alert, Oriented Psychiatric: Yes: Alert Labs: CBC, BMP 04/25/19 05:45 04/25/19 05:45 INR, PTT INR 1.09 (0.83-1.09) 04/14/19 12:00 Assessment/Plan Problem List - Problems (1) Anemia in chronic kidney disease, on chronic dialysis Code(s): N18.6 - END STAGE RENAL DISEASE; D63.1 - ANEMIA IN CHRONIC KIDNEY DISEASE; Z99.2 - DEPENDENCE ON RENAL DIALYSIS (2) Fever Code(s): R50.9 - FEVER, UNSPECIFIED (3) Weakness Code(s): R53.1 - WEAKNESS (4) ESRD on hemodialysis Code(s): N18.6 - END STAGE RENAL DISEASE; Z99.2 - DEPENDENCE ON RENAL DIALYSIS (5) Hypertension Code(s): I10 - ESSENTIAL (PRIMARY) HYPERTENSION (6) Kidney transplant rejection Assessment/Plan: off all antirejection meds since Mar plan antivirals monitor fevers rest as per the team urine cx rest as per the team
[2019-04-25 12:45] LABS: PH,URINE >= 9.0 (5.0-8.0); URINE APPEARANCE Turbid; URINE BILIRUBIN 1+ (NEGATIVE); URINE COLOR Red; URINE GLUCOSE (UA) 1+ (NEGATIVE); URINE KETONE Negative (NEGATIVE); URINE LEUK ESTERASE Negative (NEGATIVE); URINE NITRITE Positive (NEGATIVE); URINE PROTEIN 3+ (NEGATIVE); URINE UROBILINOGEN 0.2 mg/dL (0.2-1.0)
[2019-04-25 13:39] LABS: EPI CELLS 8.6 /HPF (0-5/HPF); URINE BACTERIA 8.2 /hpf (NEGATIVE); URINE RBC 2189.4 /hpf (0-4); URINE WBC 8.3 /hpf (0-5)
[2019-04-25] MEDS: ATORVASTATIN CA 10 MG TABLET (FP) PO SCH (22:30)
[2019-04-26] MEDS: ACETAMINOPHEN 325 MG TABLET (FP) PO PRN ×4 (01:13→21:20)
[2019-04-26 07:04] LABS: BASO % 0.7 % (0-2.0); EOS % 10.4 % (0-4.5); HEMATOCRIT 30.4 % (32.4-45.2); HEMOGLOBIN 9.9 GM/dL (10.7-15.3); LYMPH % 29.9 % (8-40); MCH 30.8 pg (25.7-33.7); MCHC 32.8 g/dl (32.0-36.0); MEAN PLT VOLUME 9.5 fl (7.5-11.1); MONO % 8.1 % (3.8-10.2); NEUT % 50.9 % (42.8-82.8); PLATELET COUNT 112 K/MM3 (134-434); RBC 3.23 M/mm3 (3.60-5.2); RDW 16.3 % (11.6-15.6); WHITE BLOOD COUNT 6.5 K/mm3 (4.0-10.0)
[2019-04-26 07:21] LABS: BILIRUBIN,TOTAL 0.4 mg/dL (0.2-1); BLOOD UREA NITROGEN 27.9 mg/dL (7-18); CREATININE 6.5 mg/dL (0.55-1.3); MAGNESIUM 2.1 mg/dL (1.8-2.4); TOT PROT 6.5 g/dl (6.4-8.2)
[2019-04-26] MEDS: cloNIDine HCL 0.1 MG TABLET PO SCH (10:18)
[2019-04-26] MEDS: HEPARIN NA (PORCINE) 5,000 UNITS/ML 1ML VIAL SQ SCH ×2 (10:18→21:20)
[2019-04-26] MEDS: MULTIVITAMINS (DAILY MVI) TABLET (FP) PO SCH (10:19)
[2019-04-26] MEDS: amLODIPine BESYLATE 10 MG TABLET (FP) PO SCH (10:19)
[2019-04-26] MEDS: FAMOTIDINE 20 MG TABLET PO SCH (10:19)
[2019-04-26] MEDS: VITAMIN B COMP W-C 1 EA TABLET PO SCH (10:19)
--- NOTE | 2019-04-26 11:19 | PN ---
Progress Note, Physician History of Present Illness: stable fever curve improving - Current Medication List Current Medications: Active Medications Acetaminophen (Tylenol -) 650 mg PO Q6H PRN PRN Reason: FEVER Last Admin: 04/26/19 06:53 Dose: 650 mg Amlodipine Besylate (Norvasc -) 10 mg PO DAILY [facility] Last Admin: 04/26/19 10:19 Dose: 10 mg Atorvastatin Calcium (Lipitor -) 10 mg PO HS [facility] Last Admin: 04/25/19 22:30 Dose: 10 mg Clonidine (Catapres -) 0.1 mg PO DAILY [facility] Last Admin: 04/26/19 10:18 Dose: 0.1 mg Famotidine (Pepcid -) 20 mg PO DAILY [facility] Last Admin: 04/26/19 10:19 Dose: 20 mg Heparin Sodium (Porcine) (Heparin -) 5,000 unit SQ BID [facility] Last Admin: 04/26/19 10:18 Dose: 5,000 unit Ganciclovir 60 mg/ Dextrose 100 mls @ 100 mls/hr IVPB MoWeFr@1800 [facility] Stop: 05/04/19 18:59 Last Admin: 04/24/19 17:50 Dose: 100 mls/hr Metoprolol Succinate (Toprol Xl -) 50 mg PO DAILY [facility] Last Admin: 04/26/19 10:19 Dose: 50 mg Multivit/Ca Carb/B Cmplx/FA/Prenat (Nephro-Niharika -) 1 tablet PO DAILY [facility] Last Admin: 04/26/19 10:19 Dose: 1 tablet Multivitamins/Minerals/Vitamin C (Tab-A-Vit -) 1 tab PO DAILY [facility] Last Admin: 04/26/19 10:19 Dose: 1 tab - Objective Vital Signs: Vital Signs Temperature 99.0 F 04/26/19 06:00 Pulse Rate 75 04/26/19 06:00 Respiratory Rate 18 04/26/19 06:00 Blood Pressure 101/57 L 04/26/19 06:00 O2 Sat by Pulse Oximetry (%) 95 04/25/19 21:00 Constitutional: Yes: No Distress, Calm Cardiovascular: Yes: S1, S2 Respiratory: Yes: Regular, CTA Bilaterally Gastrointestinal: Yes: Normal Bowel Sounds, Soft Musculoskeletal: Yes: WNL Extremities: Yes: WNL Neurological: Yes: Alert, Oriented Psychiatric: Yes: Alert, Oriented Labs: CBC, BMP 04/26/19 05:45 04/26/19 05:45 INR, PTT INR 1.09 (0.83-1.09) 04/14/19 12:00 Assessment/Plan Problem List - Problems (1) Anemia in chronic kidney disease, on chronic dialysis Code(s): N18.6 - END STAGE RENAL DISEASE; D63.1 - ANEMIA IN CHRONIC KIDNEY DISEASE; Z99.2 - DEPENDENCE ON RENAL DIALYSIS (2) Fever Code(s): R50.9 - FEVER, UNSPECIFIED (3) Weakness Code(s): R53.1 - WEAKNESS (4) ESRD on hemodialysis Code(s): N18.6 - END STAGE RENAL DISEASE; Z99.2 - DEPENDENCE ON RENAL DIALYSIS (5) Hypertension Code(s): I10 - ESSENTIAL (PRIMARY) HYPERTENSION (6) Kidney transplant rejection Assessment/Plan: off all antirejection meds since Mar plan antivirals monitor fevers rest as per the team urine cx rest as per the team
--- NOTE | 2019-04-26 11:20 | PN ---
Physical Exam: SUBJECTIVE: Patient seen and examined at the bedside, awake and alert. 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 She also reported abdominal pain. Patient has been off antirejection medications s/p Renal transplant with failure per renal. Per ID, patient is + for CMV virus and will need treatment with ganciclovir to be coordinated with dialysis (will need for a total of 2 weeks = 6 doses). She has received 2 doses of gancyclovir and her 3rd dose will be scheduled with dialysis tomorrow. discharge once she is afebrile x 24 hours. fever curve improving. imaging: ct/abdomen/pelvis without contrast 04/15/19: findings consistent with adult polycystic kidney disease, multiple hepatic cysts. mild hepatosplenomegaly, s/ p right renal transplant with mild hydronephrosis of the transplanted kidney. chest xray: right bibaslar nodule not seen on prior imaging. Vital Signs Period Temp Pulse Resp BP Sys/[place] Pulse Ox Last 24 Hr 99.0 F-100.2 F 73-76 18-20 84-101/47-57 95 GENERAL: The patient is awake in no acute distress. HEAD: Normal with no signs of trauma. EYES: PERRL, extraocular movements intact, sclera anicteric, conjunctiva clear. No ptosis. ENT: Ears normal, nares patent, oropharynx clear without exudates NECK: Trachea midline, full range of motion, supple. LUNGS: Breath sounds equal, diminished bilaterally HEART: Regular rate and rhythm ABDOMEN: Soft, nontender, nondistended, normoactive bowel sounds EXTREMITIES: no edema. NEUROLOGICAL: Normal speech, gait not observed. PSYCH: Normal mood, normal affect. SKIN: Warm, dry, normal turgor, no rashes or lesions noted Laboratory Results - last 24 hr 04/25/19 04/26/19 04/26/19 11:45 05:45 05:45 WBC 6.5 RBC 3.23 L Hgb 9.9 L Hct 30.4 L MCV 94.0 MCH 30.8 MCHC 32.8 RDW 16.3 H Plt Count 112 L MPV 9.5 Absolute Neuts (auto) 3.3 Neutrophils % 50.9 D Lymphocytes % 29.9 D Monocytes % 8.1 Eosinophils % 10.4 H Basophils % 0.7 Nucleated RBC % 0 Sodium 135 L Potassium 4.0 Chloride 97 L Carbon Dioxide 29 Anion Gap 9 BUN 27.9 H Creatinine 6.5 H Est GFR (CKD-EPI)AfAm 7.27 Est GFR (CKD-EPI)NonAf 6.28 Random Glucose 84 Calcium 8.0 L Magnesium 2.1 Total Bilirubin 0.4 AST 24 ALT 16 Alkaline Phosphatase 124 H Total Protein 6.5 Albumin 2.0 L Urine Color Red Urine Appearance Turbid Urine pH >= 9.0 H Ur Specific [place] 1.020 Urine Protein 3+ H Urine Glucose (UA) 1+ H Urine Ketones Negative Urine Blood 3+ H Urine Nitrite Positive Urine Bilirubin 1+ H Urine Urobilinogen 0.2 Ur Leukocyte Esterase Negative Urine WBC (Auto) 8.3 Urine RBC (Auto) 2189.4 U Pathogenic Cast Auto None U Epithel Cells (Auto) 8.6 Urine Bacteria (Auto) 8.2 Active Medications Generic Name Dose Route Start Last Admin Trade Name Freq PRN Reason Stop Dose Admin Acetaminophen 650 mg 04/17/19 18:30 04/26/19 06:53 Tylenol - PO 650 mg Q6H PRN Administration FEVER Amlodipine Besylate 10 mg 04/18/19 10:00 04/26/19 10:19 Norvasc - PO 10 mg DAILY [facility] Administration Atorvastatin Calcium 10 mg 04/17/19 22:00 04/25/19 22:30 Lipitor - PO 10 mg HS [facility] Administration Clonidine 0.1 mg 04/18/19 10:00 04/26/19 10:18 Catapres - PO 0.1 mg DAILY [facility] Administration Famotidine 20 mg 04/18/19 10:00 04/26/19 10:19 Pepcid - PO 20 mg DAILY [facility] Administration Heparin Sodium (Porcine) 5,000 unit 04/17/19 22:00 04/26/19 10:18 Heparin - SQ 5,000 unit BID [facility] Administration Ganciclovir 60 mg/ Dextrose 100 mls @ 100 mls/hr 04/22/19 18:00 04/24/19 17: 50 IVPB 05/04/19 18:59 100 mls/hr MoWeFr@1800 [facility] Administration Metoprolol Succinate 50 mg 04/18/19 10:00 04/26/19 10:19 Toprol Xl - PO 50 mg DAILY [facility] Administration Multivit/Ca Carb/B Cmplx/FA/Prenat 1 tablet 04/17/19 17:00 04/26/19 10:19 Nephro-Niharika - PO 1 tablet DAILY [facility] Administration Multivitamins/Minerals/Vitamin C 1 tab 04/18/19 10:00 04/26/19 10:19 Tab-A-Vit - PO 1 tab DAILY [facility] Administration ASSESSMENT/PLAN: Problem List - Problems (1) CMV (cytomegalovirus infection) status positive Assessment/Plan: Patient will need treatment with antivirals per ID for approximately 2 weeks to be coordinated with dialysis (6 doses total). fever curve improving ID following. Code(s): B25.9 - CYTOMEGALOVIRAL DISEASE, UNSPECIFIED (2) Anemia in chronic kidney disease, on chronic dialysis Assessment/Plan: s/p Renal transplant with failure now on chronic dialysis Code(s): N18.6 - END STAGE RENAL DISEASE; D63.1 - ANEMIA IN CHRONIC KIDNEY DISEASE; Z99.2 - DEPENDENCE ON RENAL DIALYSIS (3) ESRD on hemodialysis Assessment/Plan: dialysis per renal Code(s): N18.6 - END STAGE RENAL DISEASE; Z99.2 - DEPENDENCE ON RENAL DIALYSIS (4) Fever Assessment/Plan: fever curve improving, being treated for CMV with gancyclovir, has received 2 doses, abd pelvis without source of fever blood culture repeated and negative sent urine culture Code(s): R50.9 - FEVER, UNSPECIFIED Qualifiers: Fever type: unspecified Qualified Code(s): R50.9 - Fever, unspecified (5) Sepsis Assessment/Plan: blood and urine negative and repeated abd ct without acute pathology of fevers lower ext dopplers negative ID consulted and following Code(s): A41.9 - SEPSIS, UNSPECIFIED ORGANISM Qualifiers: Sepsis type: sepsis due to unspecified organism Sepsis acute organ dysfunction status: unspecified Qualified Code(s): A41.9 - Sepsis, unspecified organism (6) Weakness Code(s): R53.1 - WEAKNESS (7) Anemia Assessment/Plan: epogen per renal. s/p 1 u nit of prbc. Code(s): D64.9 - ANEMIA, UNSPECIFIED (8) Kidney transplant rejection Assessment/Plan: off antirejection medications. (9) Thrombocytopenia Assessment/Plan: monitor with daily labs Code(s): D69.6 - THROMBOCYTOPENIA, UNSPECIFIED (10) Hypertension Assessment/Plan: on norvasc,nifidepine,hydralazine , metoprolol, lasix at home c/w antihypertensive meds as BP allows Code(s): I10 - ESSENTIAL (PRIMARY) HYPERTENSION (11) Prophylactic measure Assessment/Plan: heparin bid Code(s): Z29.9 - ENCOUNTER FOR PROPHYLACTIC MEASURES, UNSPECIFIED Visit type - Emergency Visit Emergency Visit: Yes ED Registration Date: 04/16/19 Care time: The patient presented to the Emergency Department on the above date and was hospitalized for further evaluation of their emergent condition. - New Patient This patient is new to me today: No - Critical Care Critical Care patient: No - Discharge Referral Referred to [facility] Med P.C.: No
[2019-04-26] MEDS: ATORVASTATIN CA 10 MG TABLET (FP) PO SCH (21:20)
--- NOTE | 2019-04-27 08:02 | PN ---
Progress Note, Physician Chief Complaint: Seen and examined while on HD. Asking when she will be dc home.Still with low grade temps. Off abxx History of Present Illness: 63F w/ a history of ESRD on HD (partial session today), s/p renal transplant s/ p rejection 2/2 BK nephropathy, HTN, CKD who presents for evaluation of 5 days of chills, congestion, cough. She was sent to ED from HD for c/o weakness during sessions. She denies N/V/C/D, dysuria, hematuria, rash,fever. Of note she has been off anti rejection medications since mar. 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 Pending dc to home when afebrile for 24 hr - Current Medication List Current Medications: Active Medications Acetaminophen (Tylenol -) 650 mg PO Q6H PRN PRN Reason: FEVER Last Admin: 04/26/19 21:20 Dose: 650 mg Amlodipine Besylate (Norvasc -) 10 mg PO DAILY [facility] Last Admin: 04/26/19 10:19 Dose: 10 mg Atorvastatin Calcium (Lipitor -) 10 mg PO HS [facility] Last Admin: 04/26/19 21:20 Dose: 10 mg Clonidine (Catapres -) 0.1 mg PO DAILY [facility] Last Admin: 04/26/19 10:18 Dose: 0.1 mg Famotidine (Pepcid -) 20 mg PO DAILY [facility] Last Admin: 04/26/19 10:19 Dose: 20 mg Heparin Sodium (Porcine) (Heparin -) 5,000 unit SQ BID [facility] Last Admin: 04/26/19 21:20 Dose: 5,000 unit Ganciclovir 60 mg/ Dextrose 100 mls @ 100 mls/hr IVPB [id number]@1800 [facility] Stop: 05/04/19 18:59 Last Admin: 04/24/19 17:50 Dose: 100 mls/hr Metoprolol Succinate (Toprol Xl -) 50 mg PO DAILY [facility] Last Admin: 04/26/19 10:19 Dose: 50 mg Multivit/Ca Carb/B Cmplx/FA/Prenat (Nephro-Niharika -) 1 tablet PO DAILY [facility] Last Admin: 04/26/19 10:19 Dose: 1 tablet Multivitamins/Minerals/Vitamin C (Tab-A-Vit -) 1 tab PO DAILY [facility] Last Admin: 04/26/19 10:19 Dose: 1 tab - Objective Vital Signs: Vital Signs Temperature 97.8 F 04/27/19 06:08 Pulse Rate 83 04/27/19 06:08 Respiratory Rate 18 04/27/19 06:08 Blood Pressure 106/48 L 04/27/19 06:08 O2 Sat by Pulse Oximetry (%) 96 04/26/19 21:00 Additional Findings/Remarks: Constitutional: Yes: Well Nourished, No Distress, Calm Eyes: Yes: WNL, Conjunctiva Clear, EOM Intact HENT: Yes: WNL, Atraumatic, Normocephalic Neck: Yes: WNL, Supple, Trachea Midline Cardiovascular: Yes: WNL, Regular Rate and Rhythm Respiratory: Yes: Regular, CTA Bilaterally, Diminished (at bases) Gastrointestinal: Yes: WNL, Normal Bowel Sounds, Soft, nontender ...Rectal Exam: Yes: Deferred Renal/: Yes: Anuria Breast(s): Yes: WNL Musculoskeletal: Yes: WNL Extremities: Yes: Other (left arm fistula +bruit +thrill. Edema: Yes Edema: LLE: Trace, RLE: Trace Peripheral Pulses WNL: Yes Peripheral Pulses: Left Radial: 2+, Right Radial: 2+, Left Doralis Pedis: 2+, Right Dorsalis Pedis: 2+, Left Femoral: 2+, Right Femoral: 2+ Integumentary: Yes: WNL Neurological: Yes: WNL, Alert, Oriented ...Motor Strength: WNL Psychiatric: Yes: WNL Labs: CBC, BMP 04/26/19 05:45 04/26/19 05:45 INR, PTT INR 1.09 (0.83-1.09) 04/14/19 12:00 - ....Imaging Chest X-ray: Report Reviewed ( chest xray: right bibaslar nodule not seen on prior imaging.) Cat Scan: Report Reviewed (ct/abdomen/pelvis without contrast 04/15/19: findings consistent with adult polycystic kidney disease, multiple hepatic cysts. mild hepatosplenomegaly, s/p right renal transplant with mild hydronephrosis of the transplanted kidney.) Problem List - Problems (1) Anemia in chronic kidney disease, on chronic dialysis Assessment/Plan: ESRD on HD Hgb stable continue to monitor H/H Code(s): N18.6 - END STAGE RENAL DISEASE; D63.1 - ANEMIA IN CHRONIC KIDNEY DISEASE; Z99.2 - DEPENDENCE ON RENAL DIALYSIS (2) Fever Assessment/Plan: remains with low grade temps lasr spike 04/25 101.5 BCx, Ucx NGTD abd CT without acute pathology TTE without vegetations Doppler of fistula patent continue to observe off abx dc home when afebrile x 24 hr appreciate ID consultation Code(s): R50.9 - FEVER, UNSPECIFIED Qualifiers: Fever type: unspecified Qualified Code(s): R50.9 - Fever, unspecified (3) Weakness Assessment/Plan: c/w PT fall precautions Code(s): R53.1 - WEAKNESS (4) ESRD on hemodialysis Assessment/Plan: HD as per renal Dr Lamas following Code(s): N18.6 - END STAGE RENAL DISEASE; Z99.2 - DEPENDENCE ON RENAL DIALYSIS (5) Hypertension Assessment/Plan: on norvasc,nifidepine,hydralazine , metoprolol, lasix at home c/w antihypertensive meds as BP allows Code(s): I10 - ESSENTIAL (PRIMARY) HYPERTENSION (6) Kidney transplant rejection Assessment/Plan: off all antirejection meds since Mar (7) Prophylactic measure Assessment/Plan: FEN Fluids: no addition IVF at this time Electrolytes: replete as indicated Nutrition: renal diet DVT prophylaxis: heparin sq oob, ambulation Dispo: requires in-patient admission Full code discharge planning Code(s): Z29.9 - ENCOUNTER FOR PROPHYLACTIC MEASURES, UNSPECIFIED (8) CMV (cytomegalovirus infection) status positive Assessment/Plan: Patient will need treatment with antivirals per ID for approximately 2 weeks to be coordinated with dialysis (6 doses total). still with low garde temp Tmax 100.2 @ 1400 ID following. Code(s): B25.9 - CYTOMEGALOVIRAL DISEASE, UNSPECIFIED Visit type - Emergency Visit Emergency Visit: Yes ED Registration Date: 04/16/19 Care time: The patient presented to the Emergency Department on the above date and was hospitalized for further evaluation of their emergent condition. - New Patient This patient is new to me today: No - Critical Care Critical Care patient: No - Discharge Referral Referred to [facility] Med P.C.: No
[2019-04-27] MEDS: HEPARIN NA (PORCINE) 5,000 UNITS/ML 1ML VIAL SQ SCH ×2 (09:08→21:43)
[2019-04-27] MEDS: VITAMIN B COMP W-C 1 EA TABLET PO SCH (09:09)
[2019-04-27] MEDS: FAMOTIDINE 20 MG TABLET PO SCH (09:09)
[2019-04-27] MEDS: MULTIVITAMINS (DAILY MVI) TABLET (FP) PO SCH (09:09)
[2019-04-27] MEDS ORDERED: EPOETIN ALFA 10,000 UNIT, EPOETIN ALFA 2,000 UNIT IVPUSH ONE (10:00)
--- NOTE | 2019-04-27 10:43 | PN ---
Progress Note, Physician History of Present Illness: improving fever curver improving - Current Medication List Current Medications: Active Medications Acetaminophen (Tylenol -) 650 mg PO Q6H PRN PRN Reason: FEVER Last Admin: 04/26/19 21:20 Dose: 650 mg Amlodipine Besylate (Norvasc -) 10 mg PO DAILY [facility] Last Admin: 04/26/19 10:19 Dose: 10 mg Atorvastatin Calcium (Lipitor -) 10 mg PO HS [facility] Last Admin: 04/26/19 21:20 Dose: 10 mg Clonidine (Catapres -) 0.1 mg PO DAILY [facility] Last Admin: 04/26/19 10:18 Dose: 0.1 mg Famotidine (Pepcid -) 20 mg PO DAILY [facility] Last Admin: 04/27/19 09:09 Dose: 20 mg Heparin Sodium (Porcine) (Heparin -) 5,000 unit SQ BID [facility] Last Admin: 04/27/19 09:08 Dose: 5,000 unit Ganciclovir 60 mg/ Dextrose 100 mls @ 100 mls/hr IVPB MoWeFr@1800 [facility] Stop: 05/04/19 18:59 Last Admin: 04/24/19 17:50 Dose: 100 mls/hr Metoprolol Succinate (Toprol Xl -) 50 mg PO DAILY [facility] Last Admin: 04/26/19 10:19 Dose: 50 mg Multivit/Ca Carb/B Cmplx/FA/Prenat (Nephro-Niharika -) 1 tablet PO DAILY [facility] Last Admin: 04/27/19 09:09 Dose: 1 tablet Multivitamins/Minerals/Vitamin C (Tab-A-Vit -) 1 tab PO DAILY [facility] Last Admin: 04/27/19 09:09 Dose: 1 tab - Objective Vital Signs: Vital Signs Temperature 98.3 F 04/27/19 10:00 Pulse Rate 74 04/27/19 10:05 Respiratory Rate 18 04/27/19 10:05 Blood Pressure 120/60 04/27/19 10:05 O2 Sat by Pulse Oximetry (%) 96 04/26/19 21:00 Constitutional: Yes: No Distress, Calm Cardiovascular: Yes: S1, S2 Respiratory: Yes: Regular, CTA Bilaterally Musculoskeletal: Yes: WNL Extremities: Yes: WNL Neurological: Yes: Alert, Oriented Psychiatric: Yes: Alert, Oriented Labs: CBC, BMP 04/26/19 05:45 04/26/19 05:45 INR, PTT INR 1.09 (0.83-1.09) 04/14/19 12:00 Assessment/Plan Problem List - Problems (1) Anemia in chronic kidney disease, on chronic dialysis Code(s): N18.6 - END STAGE RENAL DISEASE; D63.1 - ANEMIA IN CHRONIC KIDNEY DISEASE; Z99.2 - DEPENDENCE ON RENAL DIALYSIS (2) Fever Code(s): R50.9 - FEVER, UNSPECIFIED (3) Weakness Code(s): R53.1 - WEAKNESS (4) ESRD on hemodialysis Code(s): N18.6 - END STAGE RENAL DISEASE; Z99.2 - DEPENDENCE ON RENAL DIALYSIS (5) Hypertension Code(s): I10 - ESSENTIAL (PRIMARY) HYPERTENSION (6) Kidney transplant rejection Assessment/Plan: off all antirejection meds since Mar plan continue iv antivirals rest as per the team
[2019-04-27 11:22] LABS: EOS % 7.3 % (0-4.5); HEMATOCRIT 27.8 % (32.4-45.2); HEMOGLOBIN 9.1 GM/dL (10.7-15.3); LYMPH % 25.4 % (8-40); MCH 30.5 pg (25.7-33.7); MCHC 32.6 g/dl (32.0-36.0); MEAN CELL VOLUME 93.4 fl (80-96); MEAN PLT VOLUME 9.9 fl (7.5-11.1); MONO % 8.1 % (3.8-10.2); NEUT % 58.2 % (42.8-82.8); PLATELET COUNT 134 K/MM3 (134-434); RBC 2.97 M/mm3 (3.60-5.2); RDW 16.6 % (11.6-15.6); WHITE BLOOD COUNT 7.1 K/mm3 (4.0-10.0)
[2019-04-27 12:09] LABS: BILIRUBIN,TOTAL 0.4 mg/dL (0.2-1); CALCIUM 7.5 mg/dL (8.5-10.1); MAGNESIUM 2.3 mg/dL (1.8-2.4); POTASSIUM 4.6 mmol/L (3.5-5.1); TOT PROT 6.6 g/dl (6.4-8.2)
[2019-04-27 12:14] LABS: CREATININE 8.7 mg/dL (0.55-1.3)
[2019-04-27] MEDS: amLODIPine BESYLATE 10 MG TABLET (FP) PO SCH (14:04)
[2019-04-27] MEDS: ACETAMINOPHEN 325 MG TABLET (FP) PO PRN (14:18)
--- NOTE | 2019-04-27 16:18 | PN ---
Progress Note, Physician History of Present Illness: Pt seen and examined at bedside. She is awake and alert. She still has low grade fevers. - Current Medication List Current Medications: Active Medications Acetaminophen (Tylenol -) 650 mg PO Q6H PRN PRN Reason: FEVER Last Admin: 04/27/19 14:18 Dose: 650 mg Amlodipine Besylate (Norvasc -) 10 mg PO DAILY [facility] Last Admin: 04/27/19 14:04 Dose: 10 mg Atorvastatin Calcium (Lipitor -) 10 mg PO HS [facility] Last Admin: 04/26/19 21:20 Dose: 10 mg Clonidine (Catapres -) 0.1 mg PO DAILY [facility] Last Admin: 04/26/19 10:18 Dose: 0.1 mg Famotidine (Pepcid -) 20 mg PO DAILY [facility] Last Admin: 04/27/19 09:09 Dose: 20 mg Heparin Sodium (Porcine) (Heparin -) 5,000 unit SQ BID [facility] Last Admin: 04/27/19 09:08 Dose: 5,000 unit Ganciclovir 60 mg/ Dextrose 100 mls @ 100 mls/hr IVPB [email or web address] [facility] Stop: 05/04/19 18:59 Last Admin: 04/24/19 17:50 Dose: 100 mls/hr Metoprolol Succinate (Toprol Xl -) 50 mg PO DAILY [facility] Last Admin: 04/27/19 14:03 Dose: 50 mg Multivit/Ca Carb/B Cmplx/FA/Prenat (Nephro-Niharika -) 1 tablet PO DAILY [facility] Last Admin: 04/27/19 09:09 Dose: 1 tablet Multivitamins/Minerals/Vitamin C (Tab-A-Vit -) 1 tab PO DAILY [facility] Last Admin: 04/27/19 09:09 Dose: 1 tab - Objective Vital Signs: Vital Signs Temperature 100.2 F H 04/27/19 14:51 Pulse Rate 95 H 04/27/19 14:51 Respiratory Rate 18 04/27/19 14:51 Blood Pressure 132/88 04/27/19 14:51 O2 Sat by Pulse Oximetry (%) 95 04/27/19 09:00 Constitutional: Yes: Calm Eyes: Yes: Conjunctiva Clear HENT: Yes: Atraumatic Neck: Yes: Supple Cardiovascular: Yes: S1, S2 Respiratory: Yes: CTA Bilaterally Gastrointestinal: Yes: Soft Genitourinary: Yes: WNL Extremities: Yes: WNL Edema: No Neurological: Yes: Oriented Psychiatric: Yes: Oriented Labs: CBC, BMP 04/27/19 10:10 04/27/19 10:10 INR, PTT INR 1.09 (0.83-1.09) 04/14/19 12:00 Problem List - Problems (1) ESRD on hemodialysis Code(s): N18.6 - END STAGE RENAL DISEASE; Z99.2 - DEPENDENCE ON RENAL DIALYSIS (2) Fever Code(s): R50.9 - FEVER, UNSPECIFIED Qualifiers: Fever type: unspecified Qualified Code(s): R50.9 - Fever, unspecified Assessment/Plan Current Medications Generic Name Dose Route Start Last Admin Trade Name Freq PRN Reason Stop Dose Admin Acetaminophen 650 mg 04/17/19 18:30 04/27/19 14:18 Tylenol - PO 650 mg Q6H PRN Administration FEVER Amlodipine Besylate 10 mg 04/18/19 10:00 04/27/19 14:04 Norvasc - PO 10 mg DAILY SERJIO Administration Atorvastatin Calcium 10 mg 04/17/19 22:00 04/26/19 21:20 Lipitor - PO 10 mg HS SERJIO Administration Clonidine 0.1 mg 04/18/19 10:00 04/26/19 10:18 Catapres - PO 0.1 mg DAILY SERJIO Administration Famotidine 20 mg 04/18/19 10:00 04/27/19 09:09 Pepcid - PO 20 mg DAILY SERJIO Administration Heparin Sodium (Porcine) 5,000 unit 04/17/19 22:00 04/27/19 09:08 Heparin - SQ 5,000 unit BID SERJIO Administration Ganciclovir 60 mg/ Dextrose 100 mls @ 100 mls/hr 04/22/19 18:00 04/24/19 17: 50 IVPB 05/04/19 18:59 100 mls/hr [email or web address] SERJIO Administration Metoprolol Succinate 50 mg 04/18/19 10:00 04/27/19 14:03 Toprol Xl - PO 50 mg DAILY SERJIO Administration Multivit/Ca Carb/B Cmplx/FA/Prenat 1 tablet 04/17/19 17:00 04/27/19 09:09 Nephro-Niharika - PO 1 tablet DAILY SERJIO Administration Multivitamins/Minerals/Vitamin C 1 tab 04/18/19 10:00 04/27/19 09:09 Tab-A-Vit - PO 1 tab DAILY SERJIO Administration Microbiology 04/26/19 06:05 Urine - Urine Clean Catch Urine Culture - Final NO GROWTH OBTAINED 04/22/19 10:00 Blood - Peripheral Venous Blood Culture - Final NO GROWTH AFTER 5 DAYS INCUBATION 04/22/19 09:45 Blood - Peripheral Venous Blood Culture - Final NO GROWTH AFTER 5 DAYS INCUBATION 04/21/19 07:55 Blood - Peripheral Venous Blood Culture - Final NO GROWTH AFTER 5 DAYS INCUBATION 04/21/19 07:47 Blood - Peripheral Venous Blood Culture - Final NO GROWTH AFTER 5 DAYS INCUBATION 04/20/19 20:30 Blood - Peripheral Venous Blood Culture - Final NO GROWTH AFTER 5 DAYS INCUBATION 04/20/19 20:25 Blood - Peripheral Venous Blood Culture - Final NO GROWTH AFTER 5 DAYS INCUBATION 04/19/19 11:10 Blood - Picc Line Blood Culture - Final NO GROWTH AFTER 5 DAYS INCUBATION 04/19/19 11:10 Blood - Picc Line Blood Culture - Final NO GROWTH AFTER 5 DAYS INCUBATION 04/14/19 21:30 Blood - Peripheral Venous Blood Culture - Final NO GROWTH AFTER 5 DAYS INCUBATION 04/14/19 21:30 Blood - Peripheral Venous Blood Culture - Final NO GROWTH AFTER 5 DAYS INCUBATION 04/14/19 13:00 Urine - Urine Clean Catch Urine Culture - Final NO GROWTH OBTAINED 04/14/19 12:00 Blood - Peripheral Venous Blood Culture - Final NO GROWTH AFTER 5 DAYS INCUBATION 04/14/19 12:00 Blood - Peripheral Venous Blood Culture - Final NO GROWTH AFTER 5 DAYS INCUBATION Impression 1. ESRD 2. kidney transplant 3. htn 4. anemia 5. BK nephropathy 6. r/o sepsis 7. positive CMV Plan - HD today - monitor hg - pt still with low grade fever, ID follow up - cultures negative so far - antivirals per ID - monitor for fevers
[2019-04-27] MEDS: cloNIDine HCL 0.1 MG TABLET PO SCH (16:58)
[2019-04-27] MEDS: ATORVASTATIN CA 10 MG TABLET (FP) PO SCH (21:43)
[2019-04-28] MEDS: ACETAMINOPHEN 325 MG TABLET (FP) PO PRN ×2 (05:57→22:23)
[2019-04-28 07:09] LABS: BASO % 1.1 % (0-2.0); EOS % 7.5 % (0-4.5); HEMATOCRIT 25.5 % (32.4-45.2); HEMOGLOBIN 8.3 GM/dL (10.7-15.3); LYMPH % 33.7 % (8-40); MCH 30.4 pg (25.7-33.7); MCHC 32.5 g/dl (32.0-36.0); MEAN CELL VOLUME 93.5 fl (80-96); MEAN PLT VOLUME 9.3 fl (7.5-11.1); MONO % 11.5 % (3.8-10.2); NEUT % 46.2 % (42.8-82.8); PLATELET COUNT 127 K/MM3 (134-434); RBC 2.72 M/mm3 (3.60-5.2); RDW 16.4 % (11.6-15.6); WHITE BLOOD COUNT 4.3 K/mm3 (4.0-10.0)
[2019-04-28 07:34] LABS: ALBUMIN 1.9 g/dl (3.4-5.0); BILIRUBIN,TOTAL 0.9 mg/dL (0.2-1); BLOOD UREA NITROGEN 20.2 mg/dL (7-18); CALCIUM 7.9 mg/dL (8.5-10.1); CREATININE 4.9 mg/dL (0.55-1.3); POTASSIUM 4.2 mmol/L (3.5-5.1); TOT PROT 6.3 g/dl (6.4-8.2)
[2019-04-28] MEDS: FAMOTIDINE 20 MG TABLET PO SCH (10:35)
[2019-04-28] MEDS: VITAMIN B COMP W-C 1 EA TABLET PO SCH (10:35)
[2019-04-28] MEDS: MULTIVITAMINS (DAILY MVI) TABLET (FP) PO SCH (10:35)
--- NOTE | 2019-04-28 11:39 | PN ---
Progress Note, Physician History of Present Illness: stable no new issues looks good - Current Medication List Current Medications: Active Medications Acetaminophen (Tylenol -) 650 mg PO Q6H PRN PRN Reason: FEVER Last Admin: 04/28/19 05:57 Dose: 650 mg Amlodipine Besylate (Norvasc -) 10 mg PO DAILY [facility] Last Admin: 04/27/19 14:04 Dose: 10 mg Atorvastatin Calcium (Lipitor -) 10 mg PO HS [facility] Last Admin: 04/27/19 21:43 Dose: 10 mg Clonidine (Catapres -) 0.1 mg PO DAILY [facility] Last Admin: 04/27/19 16:58 Dose: Not Given Famotidine (Pepcid -) 20 mg PO DAILY [facility] Last Admin: 04/28/19 10:35 Dose: 20 mg Heparin Sodium (Porcine) (Heparin -) 5,000 unit SQ BID [facility] Last Admin: 04/27/19 21:43 Dose: 5,000 unit Ganciclovir 60 mg/ Dextrose 100 mls @ 100 mls/hr IVPB [email or web address] [facility] Stop: 05/04/19 18:59 Last Admin: 04/24/19 17:50 Dose: 100 mls/hr Metoprolol Succinate (Toprol Xl -) 50 mg PO DAILY [facility] Last Admin: 04/27/19 14:03 Dose: 50 mg Multivit/Ca Carb/B Cmplx/FA/Prenat (Nephro-Niharika -) 1 tablet PO DAILY [facility] Last Admin: 04/28/19 10:35 Dose: 1 tablet Multivitamins/Minerals/Vitamin C (Tab-A-Vit -) 1 tab PO DAILY [facility] Last Admin: 04/28/19 10:35 Dose: 1 tab - Objective Vital Signs: Vital Signs Temperature 98.1 F 04/28/19 08:52 Pulse Rate 95 H 04/28/19 08:52 Respiratory Rate 18 04/28/19 08:52 Blood Pressure 102/54 L 04/28/19 08:52 O2 Sat by Pulse Oximetry (%) 95 04/27/19 21:00 Constitutional: Yes: No Distress, Calm Cardiovascular: Yes: S1, S2 Respiratory: Yes: Regular, CTA Bilaterally Gastrointestinal: Yes: Normal Bowel Sounds, Soft Musculoskeletal: Yes: WNL Extremities: Yes: WNL Neurological: Yes: Alert, Oriented Psychiatric: Yes: Alert, Oriented Labs: CBC, BMP 04/28/19 06:23 04/28/19 06:23 INR, PTT INR 1.09 (0.83-1.09) 04/14/19 12:00 Assessment/Plan Problem List - Problems (1) Anemia in chronic kidney disease, on chronic dialysis Code(s): N18.6 - END STAGE RENAL DISEASE; D63.1 - ANEMIA IN CHRONIC KIDNEY DISEASE; Z99.2 - DEPENDENCE ON RENAL DIALYSIS (2) Fever Code(s): R50.9 - FEVER, UNSPECIFIED (3) Weakness Code(s): R53.1 - WEAKNESS (4) ESRD on hemodialysis Code(s): N18.6 - END STAGE RENAL DISEASE; Z99.2 - DEPENDENCE ON RENAL DIALYSIS (5) Hypertension Code(s): I10 - ESSENTIAL (PRIMARY) HYPERTENSION (6) Kidney transplant rejection Assessment/Plan: off all antirejection meds since Mar plan continue iv antivirals rest as per the team can complete the course as out patient
[2019-04-28] MEDS: DEXTROSE 5% IVPB SCH (11:46)
[2019-04-28] MEDS: GANCICLOVIR IVPB SCH (11:46)
[2019-04-28] MEDS: WATER IVPB SCH (11:46)
[2019-04-28] MEDS: cloNIDine HCL 0.1 MG TABLET PO SCH (11:47)
[2019-04-28] MEDS: HEPARIN NA (PORCINE) 5,000 UNITS/ML 1ML VIAL SQ SCH ×2 (11:47→22:23)
[2019-04-28] MEDS: amLODIPine BESYLATE 10 MG TABLET (FP) PO SCH (11:48)
--- NOTE | 2019-04-28 12:00 | DS ---
Physical Exam: SUBJECTIVE: Patient seen and examined OBJECTIVE: Vital Signs Period Temp Pulse Resp BP Sys/[place] Pulse Ox Last 24 Hr 98.1 F-100.2 F 60-95 18-18 92-132/41-88 95 PHYSICAL EXAM GENERAL: The patient is awake, alert, and fully oriented, in no acute distress. HEAD: Normal with no signs of trauma. EYES: PERRL, extraocular movements intact, sclera anicteric, conjunctiva clear. ENT: Ears normal, nares patent, oropharynx clear without exudates, moist mucous membranes. NECK: Trachea midline, full range of motion, supple. LUNGS: Breath sounds equal, clear to auscultation bilaterally, no wheezes, no crackles, no accessory muscle use. HEART: Regular rate and rhythm, S1, S2 without murmur, rub or gallop. ABDOMEN: Soft, nontender, nondistended, normoactive bowel sounds, no guarding, no rebound, no hepatosplenomegaly, no masses. EXTREMITIES: 2+ pulses, warm, well-perfused, no edema. NEUROLOGICAL: Cranial nerves II through XII grossly intact. Normal speech, gait not observed. PSYCH: Normal mood, normal affect. SKIN: Warm, dry, normal turgor, no rashes or lesions noted. LABS Laboratory Results - last 24 hr 04/27/19 04/28/19 04/28/19 10:10 06:23 06:23 WBC 4.3 RBC 2.72 L Hgb 8.3 L Hct 25.5 L MCV 93.5 MCH 30.4 MCHC 32.5 RDW 16.4 H Plt Count 127 L MPV 9.3 Absolute Neuts (auto) 2.0 Neutrophils % 46.2 D Lymphocytes % 33.7 D Monocytes % 11.5 H Eosinophils % 7.5 H Basophils % 1.1 Nucleated RBC % 0 Sodium 132 L 138 Potassium 4.6 4.2 Chloride 96 L 99 Carbon Dioxide 25 32 Anion Gap 11 7 L BUN 43.0 H 20.2 H Creatinine 8.7 H* 4.9 H Est GFR (CKD-EPI)AfAm 5.11 10.24 Est GFR (CKD-EPI)NonAf 4.41 8.83 Random Glucose 85 94 Calcium 7.5 L 7.9 L Magnesium 2.3 2.0 Total Bilirubin 0.4 0.9 AST 23 21 ALT 16 12 L Alkaline Phosphatase 136 H 127 H Total Protein 6.6 6.3 L Albumin 2.0 L 1.9 L HOSPITAL COURSE: Date of Admission:04/16/19 Date of Discharge: 04/28/19 Discharge Summary Problems reviewed: Yes Reason For Visit: ESRD,SEPSIS,HYPERTENSION Current Active Problems Anemia in chronic kidney disease, on chronic dialysis (Acute) CMV (cytomegalovirus infection) status positive (Acute) ESRD on hemodialysis (Acute) Fever (Acute) Sepsis (Acute) Weakness (Acute) Condition: Stable - Instructions Diet, Activity, Other Instructions: [place]: You will be discharged home today. You will need to receive antiviral therapy with your dialysis (on Mondays, Wednesdays and Fridays). We have started the antiviral therapy here and your last dose will be on May 04. This will be done through your dialysis and you do not have to do anything for this, we have scheduled it already. Continue your dialysis schedule. Here is your new medications list and these are the ONLY medications you should be on at home Metoprolol XL 50mg ONCE PER DAY for blood pressure control Clonidone 0.1mg ONCE PER DAY for blood pressure control Norvasc (Amlodopine) 10mg ONCE PER DAY for blood pressure control Lipitor 10mg ONCE PER DAY at bed time for cholesterol Pepcid 20mg ONCE PER DAY for stomach upset Thank you for allowing us to care for you Referrals: Katie Lamas MD [Staff Physician] - Manas Rodriguez [Primary Care Provider] - Disposition: HOME - Home Medications Comprehensive Discharge Medication List: Ambulatory Orders Amlodipine Besylate [Norvasc -] 10 mg PO DAILY 04/19/14 Famotidine [Pepcid -] 20 mg PO DAILY 10/23/18 Metoprolol Succinate [Toprol Xl] 50 mg PO DAILY 10/23/18 Multivitamin [Multiple Vitamins] 1 each PO DAILY 10/23/18 Pravastatin Sodium [Pravachol -] 40 mg PO HS 10/23/18 cloNIDine HCL [Catapres -] 0.1 mg PO DAILY 10/23/18 Amlodipine Besylate [Norvasc -] 10 mg PO DAILY #0 tablet 04/28/19 Ganciclovir [Cytovene (Restricted To Id) -] 60 mg IVPB [email or web address] vial Metoprolol Succinate [Toprol XL -] 50 mg PO DAILY #0 tab.sr.24h 04/28/19 cloNIDine HCL [Catapres -] 0.1 mg PO DAILY #0 tablet 04/28/19 Problem List - Problems (1) CMV (cytomegalovirus infection) status positive Code(s): B25.9 - CYTOMEGALOVIRAL DISEASE, UNSPECIFIED (2) Anemia in chronic kidney disease, on chronic dialysis Code(s): N18.6 - END STAGE RENAL DISEASE; D63.1 - ANEMIA IN CHRONIC KIDNEY DISEASE; Z99.2 - DEPENDENCE ON RENAL DIALYSIS (3) ESRD on hemodialysis Code(s): N18.6 - END STAGE RENAL DISEASE; Z99.2 - DEPENDENCE ON RENAL DIALYSIS (4) Fever Code(s): R50.9 - FEVER, UNSPECIFIED Qualifiers: Fever type: unspecified Qualified Code(s): R50.9 - Fever, unspecified (5) Sepsis Code(s): A41.9 - SEPSIS, UNSPECIFIED ORGANISM Qualifiers: Sepsis type: sepsis due to unspecified organism Sepsis acute organ dysfunction status: unspecified Qualified Code(s): A41.9 - Sepsis, unspecified organism (6) Weakness Code(s): R53.1 - WEAKNESS (7) Anemia Code(s): D64.9 - ANEMIA, UNSPECIFIED (9) Thrombocytopenia Code(s): D69.6 - THROMBOCYTOPENIA, UNSPECIFIED (10) Hypertension Code(s): I10 - ESSENTIAL (PRIMARY) HYPERTENSION (11) Prophylactic measure Code(s): Z29.9 - ENCOUNTER FOR PROPHYLACTIC MEASURES, UNSPECIFIED - Discharge Referral Referred to [facility] Med P.C.: No
--- NOTE | 2019-04-28 16:21 | PN ---
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 She also reported abdominal pain. Patient has been off antirejection medications s/p Renal transplant with failure per renal. Per ID, patient is + for CMV virus and will need treatment with ganciclovir to be coordinated with dialysis (will need for a total of 2 weeks = 6 doses). She has received 2 doses of gancyclovir and her 3rd dose will be scheduled with dialysis tomorrow. discharge once she is afebrile x 24 hours. fever curve improving. *patient to receive 6 total doses of ganciclovir 60mg, based on this schedule. 04/22/2019 received after dialysis per [facility] - 1st dose 04/24/2019 received after dialysis per [facility] - 2nd dose 04/27/2019 please confirm that this dose was given after dialysis (not scanned into [facility]) - 3rd dose 04/29/2019 - scheduled to receive 4th dose after dialysis 05/01/2019 - scheduled to receive 5th dose after dialysis 05/04/2019 -scheduled to received 6th and final dose after dialysis. Period Temp Pulse Resp BP Sys/[place] Pulse Ox Last 24 Hr 98.1 F-99 F 60-95 18-20 102-122/54-62 95-100 GENERAL: The patient is awake in no acute distress. HEAD: Normal with no signs of trauma. EYES: PERRL, extraocular movements intact, sclera anicteric, conjunctiva clear. No ptosis. ENT: Ears normal, nares patent, oropharynx clear without exudates NECK: Trachea midline, full range of motion, supple. LUNGS: Breath sounds equal, diminished bilaterally HEART: Regular rate and rhythm ABDOMEN: Soft, nontender, nondistended, normoactive bowel sounds EXTREMITIES: no edema. NEUROLOGICAL: Normal speech, gait not observed. PSYCH: Normal mood, normal affect. SKIN: Warm, dry, normal turgor, no rashes or lesions noted Laboratory Results - last 24 hr 04/28/19 04/28/19 06:23 06:23 WBC 4.3 RBC 2.72 L Hgb 8.3 L Hct 25.5 L MCV 93.5 MCH 30.4 MCHC 32.5 RDW 16.4 H Plt Count 127 L MPV 9.3 Absolute Neuts (auto) 2.0 Neutrophils % 46.2 D Lymphocytes % 33.7 D Monocytes % 11.5 H Eosinophils % 7.5 H Basophils % 1.1 Nucleated RBC % 0 Sodium 138 Potassium 4.2 Chloride 99 Carbon Dioxide 32 Anion Gap 7 L BUN 20.2 H Creatinine 4.9 H Est GFR (CKD-EPI)AfAm 10.24 Est GFR (CKD-EPI)NonAf 8.83 Random Glucose 94 Calcium 7.9 L Magnesium 2.0 Total Bilirubin 0.9 AST 21 ALT 12 L Alkaline Phosphatase 127 H Total Protein 6.3 L Albumin 1.9 L Active Medications Generic Name Dose Route Start Last Admin Trade Name Freq PRN Reason Stop Dose Admin Acetaminophen 650 mg 04/17/19 18:30 04/28/19 05:57 Tylenol - PO 650 mg Q6H PRN Administration FEVER Amlodipine Besylate 10 mg 04/18/19 10:00 04/28/19 11:48 Norvasc - PO Not Given DAILY [facility] Atorvastatin Calcium 10 mg 04/17/19 22:00 04/27/19 21:43 Lipitor - PO 10 mg HS SERJIO Administration Clonidine 0.1 mg 04/18/19 10:00 04/28/19 11:47 Catapres - PO Not Given DAILY [facility] Famotidine 20 mg 04/18/19 10:00 04/28/19 10:35 Pepcid - PO 20 mg DAILY [facility] Administration Heparin Sodium (Porcine) 5,000 unit 04/17/19 22:00 04/28/19 11:47 Heparin - SQ Not Given BID [facility] Ganciclovir 60 mg/ Dextrose 100 mls @ 100 mls/hr 04/22/19 18:00 04/28/19 11: 46 IVPB 05/04/19 18:59 Not Given [email or web address] [facility] Metoprolol Succinate 50 mg 04/18/19 10:00 04/28/19 11:48 Toprol Xl - PO Not Given DAILY [facility] Multivit/Ca Carb/B Cmplx/FA/Prenat 1 tablet 04/17/19 17:00 04/28/19 10:35 Nephro-Niharika - PO 1 tablet DAILY SERJIO Administration Multivitamins/Minerals/Vitamin C 1 tab 04/18/19 10:00 04/28/19 10:35 Tab-A-Vit - PO 1 tab DAILY SEJRIO Administration ASSESSMENT/PLAN: Problem List - Problems (1) CMV (cytomegalovirus infection) status positive Assessment/Plan: Patient will need treatment with antivirals per ID for approximately 2 weeks to be coordinated with dialysis (6 doses total). See dosing schedule above Code(s): B25.9 - CYTOMEGALOVIRAL DISEASE, UNSPECIFIED (2) Anemia in chronic kidney disease, on chronic dialysis Assessment/Plan: s/p Renal transplant with failure now on chronic dialysis Code(s): N18.6 - END STAGE RENAL DISEASE; D63.1 - ANEMIA IN CHRONIC KIDNEY DISEASE; Z99.2 - DEPENDENCE ON RENAL DIALYSIS (3) ESRD on hemodialysis Assessment/Plan: dialysis per renal Code(s): N18.6 - END STAGE RENAL DISEASE; Z99.2 - DEPENDENCE ON RENAL DIALYSIS (4) Fever Assessment/Plan: fever curve improving, being treated for CMV with gancyclovir abd pelvis without source of fever blood culture repeated and negative sent urine culture Code(s): R50.9 - FEVER, UNSPECIFIED Qualifiers: Fever type: unspecified Qualified Code(s): R50.9 - Fever, unspecified (5) Sepsis Assessment/Plan: blood and urine negative and repeated abd ct without acute pathology of fevers lower ext dopplers negative ID consulted and following Code(s): A41.9 - SEPSIS, UNSPECIFIED ORGANISM Qualifiers: Sepsis type: sepsis due to unspecified organism Sepsis acute organ dysfunction status: unspecified Qualified Code(s): A41.9 - Sepsis, unspecified organism (6) Weakness Code(s): R53.1 - WEAKNESS (7) Anemia Assessment/Plan: epogen per renal. s/p 1 u nit of prbc. Code(s): D64.9 - ANEMIA, UNSPECIFIED (8) Kidney transplant rejection Assessment/Plan: off antirejection medications. (9) Thrombocytopenia Assessment/Plan: stable Code(s): D69.6 - THROMBOCYTOPENIA, UNSPECIFIED (10) Hypertension Assessment/Plan: bp stable on current meds. continue these meds on discharge. Code(s): I10 - ESSENTIAL (PRIMARY) HYPERTENSION (11) Prophylactic measure Assessment/Plan: heparin bid Code(s): Z29.9 - ENCOUNTER FOR PROPHYLACTIC MEASURES, UNSPECIFIED Visit type - Emergency Visit Emergency Visit: Yes ED Registration Date: 04/16/19 Care time: The patient presented to the Emergency Department on the above date and was hospitalized for further evaluation of their emergent condition. - New Patient This patient is new to me today: No - Critical Care Critical Care patient: No - Discharge Referral Referred to [facility] Med P.C.: No
--- NOTE | 2019-04-28 19:33 | PN ---
Progress Note, Physician History of Present Illness: Pt seen and examined at bedside. She is awake and alert. She is eager to go home. - Current Medication List Current Medications: Active Medications Acetaminophen (Tylenol -) 650 mg PO Q6H PRN PRN Reason: FEVER Last Admin: 04/28/19 05:57 Dose: 650 mg Amlodipine Besylate (Norvasc -) 10 mg PO DAILY [facility] Last Admin: 04/28/19 11:48 Dose: Not Given Atorvastatin Calcium (Lipitor -) 10 mg PO HS [facility] Last Admin: 04/27/19 21:43 Dose: 10 mg Clonidine (Catapres -) 0.1 mg PO DAILY [facility] Last Admin: 04/28/19 11:47 Dose: Not Given Famotidine (Pepcid -) 20 mg PO DAILY [facility] Last Admin: 04/28/19 10:35 Dose: 20 mg Heparin Sodium (Porcine) (Heparin -) 5,000 unit SQ BID [facility] Last Admin: 04/28/19 11:47 Dose: Not Given Ganciclovir 60 mg/ Dextrose 100 mls @ 100 mls/hr IVPB [email or web address] [facility] Stop: 05/04/19 18:59 Last Admin: 04/28/19 11:46 Dose: Not Given Metoprolol Succinate (Toprol Xl -) 50 mg PO DAILY [facility] Last Admin: 04/28/19 11:48 Dose: Not Given Multivit/Ca Carb/B Cmplx/FA/Prenat (Nephro-Niharika -) 1 tablet PO DAILY [facility] Last Admin: 04/28/19 10:35 Dose: 1 tablet Multivitamins/Minerals/Vitamin C (Tab-A-Vit -) 1 tab PO DAILY [facility] Last Admin: 04/28/19 10:35 Dose: 1 tab - Objective Vital Signs: Vital Signs Temperature 99.5 F 04/28/19 19:13 Pulse Rate 93 H 04/28/19 19:13 Respiratory Rate 18 04/28/19 19:13 Blood Pressure 109/57 L 04/28/19 19:13 O2 Sat by Pulse Oximetry (%) 100 04/28/19 09:00 Constitutional: Yes: Calm Eyes: Yes: Conjunctiva Clear HENT: Yes: Atraumatic Neck: Yes: Supple Cardiovascular: Yes: S1, S2 Respiratory: Yes: CTA Bilaterally Gastrointestinal: Yes: Normal Bowel Sounds, Soft Genitourinary: Yes: WNL Musculoskeletal: Yes: WNL Edema: No Neurological: Yes: Oriented Psychiatric: Yes: Oriented Labs: CBC, BMP 04/28/19 06:23 04/28/19 06:23 INR, PTT INR 1.09 (0.83-1.09) 04/14/19 12:00 Problem List - Problems (1) ESRD on hemodialysis Code(s): N18.6 - END STAGE RENAL DISEASE; Z99.2 - DEPENDENCE ON RENAL DIALYSIS (2) Fever Code(s): R50.9 - FEVER, UNSPECIFIED Qualifiers: Fever type: unspecified Qualified Code(s): R50.9 - Fever, unspecified Assessment/Plan Current Medications Generic Name Dose Route Start Last Admin Trade Name Freq PRN Reason Stop Dose Admin Acetaminophen 650 mg 04/17/19 18:30 04/28/19 05:57 Tylenol - PO 650 mg Q6H PRN Administration FEVER Amlodipine Besylate 10 mg 04/18/19 10:00 04/28/19 11:48 Norvasc - PO Not Given DAILY [facility] Atorvastatin Calcium 10 mg 04/17/19 22:00 04/27/19 21:43 Lipitor - PO 10 mg HS SERJIO Administration Clonidine 0.1 mg 04/18/19 10:00 04/28/19 11:47 Catapres - PO Not Given DAILY [facility] Famotidine 20 mg 04/18/19 10:00 04/28/19 10:35 Pepcid - PO 20 mg DAILY SERJIO Administration Heparin Sodium (Porcine) 5,000 unit 04/17/19 22:00 04/28/19 11:47 Heparin - SQ Not Given BID [facility] Ganciclovir 60 mg/ Dextrose 100 mls @ 100 mls/hr 04/22/19 18:00 04/28/19 11: 46 IVPB 05/04/19 18:59 Not Given [email or web address] [facility] Metoprolol Succinate 50 mg 04/18/19 10:00 04/28/19 11:48 Toprol Xl - PO Not Given DAILY [facility] Multivit/Ca Carb/B Cmplx/FA/Prenat 1 tablet 04/17/19 17:00 04/28/19 10:35 Nephro-Niharika - PO 1 tablet DAILY [facility] Administration Multivitamins/Minerals/Vitamin C 1 tab 04/18/19 10:00 04/28/19 10:35 Tab-A-Vit - PO 1 tab DAILY SERJIO Administration Impression 1. ESRD 2. kidney transplant 3. htn 4. anemia 5. BK nephropathy 6. r/o sepsis 7. positive CMV Plan - HD tomorrow - will need to arrange for ganciclovir for outpt, it is not stocked in HD - cultures negative so far - antivirals per ID - monitor for fevers
[2019-04-28] MEDS: ATORVASTATIN CA 10 MG TABLET (FP) PO SCH (22:23)
[2019-04-29] MEDS: ACETAMINOPHEN 325 MG TABLET (FP) PO PRN (06:00)
[2019-04-29] MEDS: cloNIDine HCL 0.1 MG TABLET PO SCH (09:10)
[2019-04-29] MEDS ORDERED: SODIUM CHLORIDE 250 ML IV PRN (09:19)
[2019-04-29] MEDS: amLODIPine BESYLATE 10 MG TABLET (FP) PO SCH (09:23)
[2019-04-29] MEDS: VITAMIN B COMP W-C 1 EA TABLET PO SCH (09:23)
[2019-04-29] MEDS: MULTIVITAMINS (DAILY MVI) TABLET (FP) PO SCH (09:24)
[2019-04-29] MEDS: FAMOTIDINE 20 MG TABLET PO SCH (09:24)
[2019-04-29] MEDS: HEPARIN NA (PORCINE) 5,000 UNITS/ML 1ML VIAL SQ SCH ×2 (09:27→21:26)
[2019-04-29] MEDS ORDERED: EPOETIN ALFA 20,000 UNIT/1 ML VIAL IVPUSH ONE (09:30)
--- NOTE | 2019-04-29 09:59 | PN ---
Progress Note, Physician History of Present Illness: stable spiked a fever - Current Medication List Current Medications: Active Medications Acetaminophen (Tylenol -) 650 mg PO Q6H PRN PRN Reason: FEVER Last Admin: 04/29/19 06:00 Dose: 650 mg Amlodipine Besylate (Norvasc -) 10 mg PO DAILY [facility] Last Admin: 04/29/19 09:23 Dose: Not Given Atorvastatin Calcium (Lipitor -) 10 mg PO HS [facility] Last Admin: 04/28/19 22:23 Dose: 10 mg Clonidine (Catapres -) 0.1 mg PO DAILY [facility] Last Admin: 04/29/19 09:10 Dose: Not Given Famotidine (Pepcid -) 20 mg PO DAILY [facility] Last Admin: 04/29/19 09:24 Dose: 20 mg Heparin Sodium (Porcine) (Heparin -) 5,000 unit SQ BID [facility] Last Admin: 04/29/19 09:27 Dose: 5,000 unit Ganciclovir 60 mg/ Dextrose 100 mls @ 100 mls/hr IVPB [id number] [facility] Stop: 05/04/19 18:59 Last Admin: 04/28/19 11:46 Dose: Not Given Metoprolol Succinate (Toprol Xl -) 50 mg PO DAILY [facility] Last Admin: 04/29/19 09:24 Dose: Not Given Multivit/Ca Carb/B Cmplx/FA/Prenat (Nephro-Niharika -) 1 tablet PO DAILY [facility] Last Admin: 04/29/19 09:23 Dose: 1 tablet Multivitamins/Minerals/Vitamin C (Tab-A-Vit -) 1 tab PO DAILY [facility] Last Admin: 04/29/19 09:24 Dose: 1 tab - Objective Vital Signs: Vital Signs Temperature 98.8 F 04/29/19 08:31 Pulse Rate 92 H 04/29/19 08:31 Respiratory Rate 18 04/29/19 09:00 Blood Pressure 109/60 04/29/19 08:31 O2 Sat by Pulse Oximetry (%) 98 04/29/19 09:00 Constitutional: Yes: No Distress, Calm Cardiovascular: Yes: S1, S2 Respiratory: Yes: Regular, CTA Bilaterally Gastrointestinal: Yes: Normal Bowel Sounds, Soft Musculoskeletal: Yes: WNL Extremities: Yes: WNL Neurological: Yes: Alert, Oriented Psychiatric: Yes: Alert, Oriented Labs: CBC, BMP 04/28/19 06:23 04/28/19 06:23 INR, PTT INR 1.09 (0.83-1.09) 04/14/19 12:00 Assessment/Plan Problem List - Problems (1) Anemia in chronic kidney disease, on chronic dialysis Code(s): N18.6 - END STAGE RENAL DISEASE; D63.1 - ANEMIA IN CHRONIC KIDNEY DISEASE; Z99.2 - DEPENDENCE ON RENAL DIALYSIS (2) Fever Code(s): R50.9 - FEVER, UNSPECIFIED (3) Weakness Code(s): R53.1 - WEAKNESS (4) ESRD on hemodialysis Code(s): N18.6 - END STAGE RENAL DISEASE; Z99.2 - DEPENDENCE ON RENAL DIALYSIS (5) Hypertension Code(s): I10 - ESSENTIAL (PRIMARY) HYPERTENSION (6) Kidney transplant rejection Assessment/Plan: off all antirejection meds since Mar plan continue iv antivirals rest as per the team can complete the course as out patient monitor fevers
[2019-04-29 11:00] LABS: BASO % 1.1 % (0-2.0); EOS % 9.4 % (0-4.5); HEMATOCRIT 26.4 % (32.4-45.2); HEMOGLOBIN 8.5 GM/dL (10.7-15.3); LYMPH % 25.4 % (8-40); MCH 30.2 pg (25.7-33.7); MCHC 32.3 g/dl (32.0-36.0); MEAN CELL VOLUME 93.8 fl (80-96); MEAN PLT VOLUME 9.5 fl (7.5-11.1); MONO % 9.1 % (3.8-10.2); PLATELET COUNT 153 K/MM3 (134-434); RBC 2.81 M/mm3 (3.60-5.2); RDW 16.3 % (11.6-15.6); WHITE BLOOD COUNT 4.4 K/mm3 (4.0-10.0)
[2019-04-29 11:45] LABS: ALBUMIN 2.1 g/dl (3.4-5.0); BILIRUBIN,TOTAL 0.4 mg/dL (0.2-1); BLOOD UREA NITROGEN 31.1 mg/dL (7-18); CALCIUM 8.1 mg/dL (8.5-10.1); MAGNESIUM 2.1 mg/dL (1.8-2.4); POTASSIUM 4.2 mmol/L (3.5-5.1); TOT PROT 6.6 g/dl (6.4-8.2)
[2019-04-29 12:03] LABS: CREATININE 7.5 mg/dL (0.55-1.3)
[2019-04-29] MEDS: GANCICLOVIR IVPB SCH ×2 (12:40→18:03)
[2019-04-29] MEDS: WATER IVPB SCH ×2 (12:40→18:03)
[2019-04-29] MEDS: DEXTROSE 5% IVPB SCH ×2 (12:40→18:03)
--- NOTE | 2019-04-29 13:08 | PN ---
Progress Note, Physician History of Present Illness: Pt seen and examined at bedside. SHe is tolerating HD. - Current Medication List Current Medications: Active Medications Acetaminophen (Tylenol -) 650 mg PO Q6H PRN PRN Reason: FEVER Last Admin: 04/29/19 06:00 Dose: 650 mg Amlodipine Besylate (Norvasc -) 10 mg PO DAILY [facility] Last Admin: 04/29/19 09:23 Dose: Not Given Atorvastatin Calcium (Lipitor -) 10 mg PO HS [facility] Last Admin: 04/28/19 22:23 Dose: 10 mg Clonidine (Catapres -) 0.1 mg PO DAILY [facility] Last Admin: 04/29/19 09:10 Dose: Not Given Famotidine (Pepcid -) 20 mg PO DAILY [facility] Last Admin: 04/29/19 09:24 Dose: 20 mg Heparin Sodium (Porcine) (Heparin -) 5,000 unit SQ BID [facility] Last Admin: 04/29/19 09:27 Dose: 5,000 unit Ganciclovir 60 mg/ Dextrose 100 mls @ 100 mls/hr IVPB [id number] [facility] Stop: 05/04/19 18:59 Last Admin: 04/29/19 12:40 Dose: 100 mls/hr Methylprednisolone Sodium Succinate (Solu-Medrol -) 100 mg IVPUSH DAILY [facility] Stop: 04/30/19 10:01 Metoprolol Succinate (Toprol Xl -) 50 mg PO DAILY [facility] Last Admin: 04/29/19 09:24 Dose: Not Given Multivit/Ca Carb/B Cmplx/FA/Prenat (Nephro-Niharika -) 1 tablet PO DAILY [facility] Last Admin: 04/29/19 09:23 Dose: 1 tablet Multivitamins/Minerals/Vitamin C (Tab-A-Vit -) 1 tab PO DAILY [facility] Last Admin: 04/29/19 09:24 Dose: 1 tab - Objective Vital Signs: Vital Signs Temperature 98.8 F 04/29/19 09:40 Pulse Rate 102 H 04/29/19 12:15 Respiratory Rate 18 04/29/19 12:15 Blood Pressure 95/56 L 04/29/19 12:15 O2 Sat by Pulse Oximetry (%) 98 04/29/19 09:00 Constitutional: Yes: Calm Eyes: Yes: Conjunctiva Clear HENT: Yes: Atraumatic Cardiovascular: Yes: S1, S2 Respiratory: Yes: CTA Bilaterally Gastrointestinal: Yes: Soft Genitourinary: Yes: Other (graft is not tender) Musculoskeletal: Yes: WNL Edema: No Neurological: Yes: Oriented Psychiatric: Yes: Oriented Labs: CBC, BMP 04/29/19 10:00 04/29/19 10:00 INR, PTT INR 1.09 (0.83-1.09) 04/14/19 12:00 Problem List - Problems (1) ESRD on hemodialysis Code(s): N18.6 - END STAGE RENAL DISEASE; Z99.2 - DEPENDENCE ON RENAL DIALYSIS (2) Fever Code(s): R50.9 - FEVER, UNSPECIFIED Qualifiers: Fever type: unspecified Qualified Code(s): R50.9 - Fever, unspecified Assessment/Plan Current Medications Generic Name Dose Route Start Last Admin Trade Name Freq PRN Reason Stop Dose Admin Acetaminophen 650 mg 04/17/19 18:30 04/29/19 06:00 Tylenol - PO 650 mg Q6H PRN Administration FEVER Amlodipine Besylate 10 mg 04/18/19 10:00 04/29/19 09:23 Norvasc - PO Not Given DAILY [facility] Atorvastatin Calcium 10 mg 04/17/19 22:00 04/28/19 22:23 Lipitor - PO 10 mg HS [facility] Administration Clonidine 0.1 mg 04/18/19 10:00 04/29/19 09:10 Catapres - PO Not Given DAILY [facility] Famotidine 20 mg 04/18/19 10:00 04/29/19 09:24 Pepcid - PO 20 mg DAILY [facility] Administration Heparin Sodium (Porcine) 5,000 unit 04/17/19 22:00 04/29/19 09:27 Heparin - SQ 5,000 unit BID [facility] Administration Ganciclovir 60 mg/ Dextrose 100 mls @ 100 mls/hr 04/22/19 18:00 04/29/19 12: 40 IVPB 05/04/19 18:59 100 mls/hr [id number] [facility] Administration Methylprednisolone Sodium Succinate 100 mg 04/29/19 13:00 Solu-Medrol - IVPUSH 04/30/19 10:01 DAILY [facility] Metoprolol Succinate 50 mg 04/18/19 10:00 04/29/19 09:24 Toprol Xl - PO Not Given DAILY [facility] Multivit/Ca Carb/B Cmplx/FA/Prenat 1 tablet 04/17/19 17:00 04/29/19 09:23 Nephro-Niharika - PO 1 tablet DAILY [facility] Administration Multivitamins/Minerals/Vitamin C 1 tab 04/18/19 10:00 04/29/19 09:24 Tab-A-Vit - PO 1 tab DAILY [facility] Administration Impression 1. ESRD 2. kidney transplant 3. htn 4. anemia 5. BK nephropathy 6. r/o sepsis 7. positive CMV Plan - HD today - pt still with fevers - pt on gancyclovir - cultures negative so far - antivirals per ID
--- NOTE | 2019-04-29 14:06 | PN ---
Progress Note, Physician Chief Complaint: Pt upset that she remains in hospital. 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 She was sent to ED from HD for c/o weakness during sessions. She denies N/V/C/D, dysuria, hematuria, rash,fever. Of note she has been off anti rejection medications since mar. 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 Pending dc to home when afebrile for 24 hr - Current Medication List Current Medications: Active Medications Acetaminophen (Tylenol -) 650 mg PO Q6H PRN PRN Reason: FEVER Last Admin: 04/29/19 06:00 Dose: 650 mg Amlodipine Besylate (Norvasc -) 10 mg PO DAILY [facility] Last Admin: 04/29/19 09:23 Dose: Not Given Atorvastatin Calcium (Lipitor -) 10 mg PO HS [facility] Last Admin: 04/28/19 22:23 Dose: 10 mg Clonidine (Catapres -) 0.1 mg PO DAILY [facility] Last Admin: 04/29/19 09:10 Dose: Not Given Famotidine (Pepcid -) 20 mg PO DAILY [facility] Last Admin: 04/29/19 09:24 Dose: 20 mg Heparin Sodium (Porcine) (Heparin -) 5,000 unit SQ BID [facility] Last Admin: 04/29/19 09:27 Dose: 5,000 unit Ganciclovir 60 mg/ Dextrose 100 mls @ 100 mls/hr IVPB [id number] [facility] Stop: 05/04/19 18:59 Last Admin: 04/29/19 12:40 Dose: 100 mls/hr Methylprednisolone Sodium Succinate (Solu-Medrol -) 100 mg IVPUSH DAILY [facility] Stop: 04/30/19 10:01 Metoprolol Succinate (Toprol Xl -) 50 mg PO DAILY [facility] Last Admin: 04/29/19 09:24 Dose: Not Given Multivit/Ca Carb/B Cmplx/FA/Prenat (Nephro-Niharika -) 1 tablet PO DAILY [facility] Last Admin: 04/29/19 09:23 Dose: 1 tablet Multivitamins/Minerals/Vitamin C (Tab-A-Vit -) 1 tab PO DAILY [facility] Last Admin: 04/29/19 09:24 Dose: 1 tab - Objective Vital Signs: Vital Signs Temperature 98.8 F 04/29/19 09:40 Pulse Rate 96 H 04/29/19 12:50 Respiratory Rate 18 04/29/19 12:50 Blood Pressure 108/68 04/29/19 12:50 O2 Sat by Pulse Oximetry (%) 98 04/29/19 09:00 Additional Findings/Remarks: Constitutional: Yes: Well Nourished, No Distress, Calm Eyes: Yes: WNL, Conjunctiva Clear, EOM Intact HENT: Yes: WNL, Atraumatic, Normocephalic Neck: Yes: WNL, Supple, Trachea Midline Cardiovascular: Yes: WNL, Regular Rate and Rhythm Respiratory: Yes: Regular, CTA Bilaterally, Diminished (at bases) Gastrointestinal: Yes: WNL, Normal Bowel Sounds, Soft, nontender ...Rectal Exam: Yes: Deferred Renal/: Yes: Anuria Breast(s): Yes: WNL Musculoskeletal: Yes: WNL Extremities: Yes: Other left arm fistula +bruit +thrill. Edema: Yes Edema: LLE: Trace, RLE: Trace Peripheral Pulses WNL: Yes Peripheral Pulses: Left Radial: 2+, Right Radial: 2+, Left Doralis Pedis: 2+, Right Dorsalis Pedis: 2+, Left Femoral: 2+, Right Femoral: 2+ Integumentary: Yes: WNL Neurological: Yes: WNL, Alert, Oriented ...Motor Strength: WNL Psychiatric: Yes: WNL Labs: CBC, BMP 04/29/19 10:00 04/29/19 10:00 INR, PTT INR 1.09 (0.83-1.09) 04/14/19 12:00 Problem List - Problems (1) Anemia in chronic kidney disease, on chronic dialysis Assessment/Plan: ESRD on HD Hgb stable continue to monitor H/H Code(s): N18.6 - END STAGE RENAL DISEASE; D63.1 - ANEMIA IN CHRONIC KIDNEY DISEASE; Z99.2 - DEPENDENCE ON RENAL DIALYSIS (2) Fever Assessment/Plan: remains spiking temp, Tmax 101.[address] Tavarez transplant surgeon at [facility] and recommended giving high dose steroids x 2 days. If fever resolve source may be from rejected kidney. Did not accept for transfer to [facility] but will continue to follow as outpatient for transplant nephrectomy BCx, Ucx NGTD abd CT without acute pathology TTE without vegetations Doppler of fistula patent continue to observe off abx dc home when afebrile x 24 hr appreciate ID consultation Code(s): R50.9 - FEVER, UNSPECIFIED Qualifiers: Fever type: unspecified Qualified Code(s): R50.9 - Fever, unspecified (3) Weakness Assessment/Plan: c/w PT fall precautions Code(s): R53.1 - WEAKNESS (4) ESRD on hemodialysis Assessment/Plan: HD as per renal Dr Lamas following Code(s): N18.6 - END STAGE RENAL DISEASE; Z99.2 - DEPENDENCE ON RENAL DIALYSIS (5) Hypertension Assessment/Plan: on norvasc,nifidepine,hydralazine , metoprolol, lasix at home c/w antihypertensive meds as BP allows Code(s): I10 - ESSENTIAL (PRIMARY) HYPERTENSION (6) Kidney transplant rejection Assessment/Plan: off all antirejection meds since Mar (7) Prophylactic measure Assessment/Plan: FEN Fluids: no addition IVF at this time Electrolytes: replete as indicated Nutrition: renal diet DVT prophylaxis: heparin sq oob, ambulation Dispo: requires in-patient admission Full code discharge planning Code(s): Z29.9 - ENCOUNTER FOR PROPHYLACTIC MEASURES, UNSPECIFIED (8) CMV (cytomegalovirus infection) status positive Assessment/Plan: Patient will need treatment with antivirals per ID for approximately 2 weeks to be coordinated with dialysis (6 doses total). ID following Code(s): B25.9 - CYTOMEGALOVIRAL DISEASE, UNSPECIFIED Visit type - Emergency Visit Emergency Visit: Yes ED Registration Date: 04/16/19 Care time: The patient presented to the Emergency Department on the above date and was hospitalized for further evaluation of their emergent condition. - New Patient This patient is new to me today: No - Critical Care Critical Care patient: No - Discharge Referral [facility] No
[2019-04-29] MEDS: methylPREDNISolone NA SUCC 125 MG/2 ML VIAL IVPUSH SCH (14:43)
[2019-04-29 15:36] VITALS: BMI 19.0
[2019-04-29] MEDS: AMINO ACIDS/PROTEIN HYDROLYS 30 ML LIQUID.PKT PO SCH (18:02)
[2019-04-29] MEDS: ATORVASTATIN CA 10 MG TABLET (FP) PO SCH (21:26)
--- NOTE | 2019-04-30 07:59 | PN ---
Progress Note, Physician Chief Complaint: No fevers over night. In better spirits today. 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 She was sent to ED from HD for c/o weakness during sessions. She denies N/V/C/D, dysuria, hematuria, rash,fever. Of note she has been off anti rejection medications since mar. 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 Pending dc to home when afebrile for 24 hr - Current Medication List Current Medications: Active Medications Acetaminophen (Tylenol -) 650 mg PO Q6H PRN PRN Reason: FEVER Last Admin: 04/29/19 06:00 Dose: 650 mg Amino Acids (Prosource No Carb Liquid Pkt) 30 ml PO BID@0800,1730 [facility] Last Admin: 04/29/19 18:02 Dose: 30 ml Amlodipine Besylate (Norvasc -) 10 mg PO DAILY [facility] Last Admin: 04/29/19 09:23 Dose: Not Given Atorvastatin Calcium (Lipitor -) 10 mg PO HS [facility] Last Admin: 04/29/19 21:26 Dose: 10 mg Clonidine (Catapres -) 0.1 mg PO DAILY [facility] Last Admin: 04/29/19 09:10 Dose: Not Given Famotidine (Pepcid -) 20 mg PO DAILY [facility] Last Admin: 04/29/19 09:24 Dose: 20 mg Heparin Sodium (Porcine) (Heparin -) 5,000 unit SQ BID [facility] Last Admin: 04/29/19 21:26 Dose: 5,000 unit Ganciclovir 60 mg/ Dextrose 100 mls @ 100 mls/hr IVPB [id number] [facility] Stop: 05/04/19 18:59 Last Admin: 04/29/19 18:03 Dose: Not Given Methylprednisolone Sodium Succinate (Solu-Medrol -) 100 mg IVPUSH DAILY [facility] Stop: 04/30/19 10:01 Last Admin: 04/29/19 14:43 Dose: 100 mg Metoprolol Succinate (Toprol Xl -) 50 mg PO DAILY [facility] Last Admin: 04/29/19 09:24 Dose: Not Given Multivit/Ca Carb/B Cmplx/FA/Prenat (Nephro-Niharika -) 1 tablet PO DAILY [facility] Last Admin: 04/29/19 09:23 Dose: 1 tablet Multivitamins/Minerals/Vitamin C (Tab-A-Vit -) 1 tab PO DAILY [facility] Last Admin: 04/29/19 09:24 Dose: 1 tab - Objective Vital Signs: Vital Signs Temperature 98 F 04/30/19 06:00 Pulse Rate 87 04/30/19 06:00 Respiratory Rate 18 04/30/19 06:00 Blood Pressure 106/60 04/30/19 06:00 O2 Sat by Pulse Oximetry (%) 100 04/29/19 21:00 Additional Findings/Remarks: Constitutional: Yes: Well Nourished, No Distress, Calm Eyes: Yes: WNL, Conjunctiva Clear, EOM Intact HENT: Yes: WNL, Atraumatic, Normocephalic Neck: Yes: WNL, Supple, Trachea Midline Cardiovascular: Yes: WNL, Regular Rate and Rhythm Respiratory: Yes: Regular, CTA Bilaterally, Diminished (at bases) Gastrointestinal: Yes: WNL, Normal Bowel Sounds, Soft, nontender ...Rectal Exam: Yes: Deferred Renal/: Yes: Anuria Breast(s): Yes: WNL Musculoskeletal: Yes: WNL Extremities: Yes: Other left arm fistula +bruit +thrill. Edema: Yes Edema: LLE: Trace, RLE: Trace Peripheral Pulses WNL: Yes Peripheral Pulses: Left Radial: 2+, Right Radial: 2+, Left Doralis Pedis: 2+, Right Dorsalis Pedis: 2+, Left Femoral: 2+, Right Femoral: 2+ Integumentary: Yes: WNL Neurological: Yes: WNL, Alert, Oriented ...Motor Strength: WNL Psychiatric: Yes: WNL Labs: CBC, BMP 04/29/19 10:00 04/29/19 10:00 INR, PTT INR 1.09 (0.83-1.09) 04/14/19 12:00 Problem List - Problems (1) Anemia in chronic kidney disease, on chronic dialysis Assessment/Plan: ESRD on HD Hgb stable continue to monitor H/H Code(s): N18.6 - END STAGE RENAL DISEASE; D63.1 - ANEMIA IN CHRONIC KIDNEY DISEASE; Z99.2 - DEPENDENCE ON RENAL DIALYSIS (2) Fever Assessment/Plan: afebrile since Tmax on 04/29 101.6 given steroids as per conversation with Dr Tavarez transplant surgeon at [facility] with resolution of fevers.Appointment made for follow up with Dr Lawrence/Dr Hilton at [facility] for follow up on [phone] for discussion of possible transplant nephrectomy All BCx, Ucx NGTD abd CT without acute pathology TTE without vegetations Doppler of fistula patent continue to observe off abx infectiuos workup all negative CMV+ and being treated with Gancyclovir possible appreciate ID consultation Code(s): R50.9 - FEVER, UNSPECIFIED Qualifiers: Fever type: unspecified Qualified Code(s): R50.9 - Fever, unspecified (3) Weakness Assessment/Plan: weakness improving c/w PT fall precautions Code(s): R53.1 - WEAKNESS (4) ESRD on hemodialysis Assessment/Plan: HD as per renal Dr Lamas following Code(s): N18.6 - END STAGE RENAL DISEASE; Z99.2 - DEPENDENCE ON RENAL DIALYSIS (5) Hypertension Assessment/Plan: on norvasc,nifidepine,hydralazine , metoprolol, lasix at home c/w antihypertensive meds as BP allows Code(s): I10 - ESSENTIAL (PRIMARY) HYPERTENSION (6) Kidney transplant rejection Assessment/Plan: off all antirejection meds since Mar Transplant surgeon at [facility] Dr Tavarez Transplant nephrology Dr Ivy [phone] (7) Prophylactic measure Assessment/Plan: FEN Fluids: no addition IVF at this time Electrolytes: replete as indicated Nutrition: renal diet DVT prophylaxis: heparin sq oob, ambulation Dispo: requires in-patient admission Full code discharge planning Code(s): Z29.9 - ENCOUNTER FOR PROPHYLACTIC MEASURES, UNSPECIFIED (8) CMV (cytomegalovirus infection) status positive Assessment/Plan: Patient will need treatment with antivirals per ID for approximately 2 weeks to be coordinated with dialysis (6 doses total). ID following Code(s): B25.9 - CYTOMEGALOVIRAL DISEASE, UNSPECIFIED Visit type - Emergency Visit Emergency Visit: Yes ED Registration Date: 04/16/19 Care time: The patient presented to the Emergency Department on the above date and was hospitalized for further evaluation of their emergent condition. - New Patient This patient is new to me today: No - Critical Care Critical Care patient: No - Discharge Referral Referred to [facility] Med P.C.: No
[2019-04-30] MEDS: AMINO ACIDS/PROTEIN HYDROLYS 30 ML LIQUID.PKT PO SCH ×2 (09:11→17:03)
[2019-04-30] MEDS: cloNIDine HCL 0.1 MG TABLET PO SCH (09:11)
[2019-04-30] MEDS: HEPARIN NA (PORCINE) 5,000 UNITS/ML 1ML VIAL SQ SCH ×2 (09:13→21:58)
[2019-04-30] MEDS: VITAMIN B COMP W-C 1 EA TABLET PO SCH (09:14)
[2019-04-30] MEDS: MULTIVITAMINS (DAILY MVI) TABLET (FP) PO SCH (09:14)
[2019-04-30] MEDS: FAMOTIDINE 20 MG TABLET PO SCH (09:15)
[2019-04-30] MEDS: amLODIPine BESYLATE 10 MG TABLET (FP) PO SCH (09:15)
[2019-04-30] MEDS: methylPREDNISolone NA SUCC 125 MG/2 ML VIAL IVPUSH SCH (09:18)
--- NOTE | 2019-04-30 11:46 | PN ---
Progress Note, Physician History of Present Illness: has been afebrile no new issues - Current Medication List Current Medications: Active Medications Acetaminophen (Tylenol -) 650 mg PO Q6H PRN PRN Reason: FEVER Last Admin: 04/29/19 06:00 Dose: 650 mg Amino Acids (Prosource No Carb Liquid Pkt) 30 ml PO BID@0800,1730 [facility] Last Admin: 04/30/19 09:11 Dose: 30 ml Amlodipine Besylate (Norvasc -) 10 mg PO DAILY [facility] Last Admin: 04/30/19 09:15 Dose: Not Given Atorvastatin Calcium (Lipitor -) 10 mg PO HS [facility] Last Admin: 04/29/19 21:26 Dose: 10 mg Clonidine (Catapres -) 0.1 mg PO DAILY [facility] Last Admin: 04/30/19 09:11 Dose: Not Given Famotidine (Pepcid -) 20 mg PO DAILY [facility] Last Admin: 04/30/19 09:15 Dose: 20 mg Heparin Sodium (Porcine) (Heparin -) 5,000 unit SQ BID [facility] Last Admin: 04/30/19 09:13 Dose: 5,000 unit Ganciclovir 60 mg/ Dextrose 100 mls @ 100 mls/hr IVPB [id number]@1800 [facility] Stop: 05/04/19 18:59 Last Admin: 04/29/19 18:03 Dose: Not Given Metoprolol Succinate (Toprol Xl -) 50 mg PO DAILY [facility] Last Admin: 04/30/19 09:15 Dose: 50 mg Multivit/Ca Carb/B Cmplx/FA/Prenat (Nephro-Niharika -) 1 tablet PO DAILY [facility] Last Admin: 04/30/19 09:14 Dose: 1 tablet Multivitamins/Minerals/Vitamin C (Tab-A-Vit -) 1 tab PO DAILY [facility] Last Admin: 04/30/19 09:14 Dose: 1 tab - Objective Vital Signs: Vital Signs Temperature 99 F 04/30/19 08:23 Pulse Rate 96 H 04/30/19 08:23 Respiratory Rate 18 04/30/19 09:00 Blood Pressure 111/56 L 04/30/19 08:23 O2 Sat by Pulse Oximetry (%) 100 04/30/19 09:00 Constitutional: Yes: No Distress, Calm Cardiovascular: Yes: S1, S2 Respiratory: Yes: Regular, CTA Bilaterally Gastrointestinal: Yes: Normal Bowel Sounds, Soft Musculoskeletal: Yes: WNL Extremities: Yes: WNL Neurological: Yes: Alert, Oriented Psychiatric: Yes: Alert, Oriented Labs: CBC, BMP 04/29/19 10:00 04/29/19 10:00 INR, PTT INR 1.09 (0.83-1.09) 04/14/19 12:00 Assessment/Plan Problem List - Problems (1) Anemia in chronic kidney disease, on chronic dialysis Code(s): N18.6 - END STAGE RENAL DISEASE; D63.1 - ANEMIA IN CHRONIC KIDNEY DISEASE; Z99.2 - DEPENDENCE ON RENAL DIALYSIS (2) Fever Code(s): R50.9 - FEVER, UNSPECIFIED (3) Weakness Code(s): R53.1 - WEAKNESS (4) ESRD on hemodialysis Code(s): N18.6 - END STAGE RENAL DISEASE; Z99.2 - DEPENDENCE ON RENAL DIALYSIS (5) Hypertension Code(s): I10 - ESSENTIAL (PRIMARY) HYPERTENSION (6) Kidney transplant rejection Assessment/Plan: off all antirejection meds since Mar plan continue iv antivirals rest as per the team
--- NOTE | 2019-04-30 18:56 | PN ---
Progress Note, Physician History of Present Illness: Pt seen and examined at bedside. She is awake and alert. She says that she feels better. - Current Medication List Current Medications: Active Medications Acetaminophen (Tylenol -) 650 mg PO Q6H PRN PRN Reason: FEVER Last Admin: 04/29/19 06:00 Dose: 650 mg Amino Acids (Prosource No Carb Liquid Pkt) 30 ml PO BID@0800,1730 [facility] Last Admin: 04/30/19 17:03 Dose: 30 ml Amlodipine Besylate (Norvasc -) 10 mg PO DAILY [facility] Last Admin: 04/30/19 09:15 Dose: Not Given Atorvastatin Calcium (Lipitor -) 10 mg PO HS [facility] Last Admin: 04/29/19 21:26 Dose: 10 mg Clonidine (Catapres -) 0.1 mg PO DAILY [facility] Last Admin: 04/30/19 09:11 Dose: Not Given Famotidine (Pepcid -) 20 mg PO DAILY [facility] Last Admin: 04/30/19 09:15 Dose: 20 mg Heparin Sodium (Porcine) (Heparin -) 5,000 unit SQ BID [facility] Last Admin: 04/30/19 09:13 Dose: 5,000 unit Ganciclovir 60 mg/ Dextrose 100 mls @ 100 mls/hr IVPB [email or web address] [facility] Stop: 05/04/19 18:59 Last Admin: 04/29/19 18:03 Dose: Not Given Metoprolol Succinate (Toprol Xl -) 50 mg PO DAILY [facility] Last Admin: 04/30/19 09:15 Dose: 50 mg Multivit/Ca Carb/B Cmplx/FA/Prenat (Nephro-Niharika -) 1 tablet PO DAILY [facility] Last Admin: 04/30/19 09:14 Dose: 1 tablet Multivitamins/Minerals/Vitamin C (Tab-A-Vit -) 1 tab PO DAILY [facility] Last Admin: 04/30/19 09:14 Dose: 1 tab - Objective Vital Signs: Vital Signs Temperature 97.8 F 04/30/19 17:16 Pulse Rate 78 04/30/19 17:16 Respiratory Rate 18 04/30/19 17:16 Blood Pressure 118/56 L 04/30/19 17:16 O2 Sat by Pulse Oximetry (%) 100 04/30/19 09:00 Constitutional: Yes: Calm Eyes: Yes: Conjunctiva Clear HENT: Yes: Atraumatic Cardiovascular: Yes: S1, S2 Respiratory: Yes: CTA Bilaterally Gastrointestinal: Yes: Soft Genitourinary: Yes: Other (graft soft and non tender) Musculoskeletal: Yes: WNL Edema: No Integumentary: Yes: WNL Neurological: Yes: Oriented Psychiatric: Yes: Oriented Labs: CBC, BMP 04/29/19 10:00 04/29/19 10:00 INR, PTT INR 1.09 (0.83-1.09) 04/14/19 12:00 Problem List - Problems (1) ESRD on hemodialysis Code(s): N18.6 - END STAGE RENAL DISEASE; Z99.2 - DEPENDENCE ON RENAL DIALYSIS (2) Fever Code(s): R50.9 - FEVER, UNSPECIFIED Qualifiers: Fever type: unspecified Qualified Code(s): R50.9 - Fever, unspecified Assessment/Plan Current Medications Generic Name Dose Route Start Last Admin Trade Name Freq PRN Reason Stop Dose Admin Acetaminophen 650 mg 04/17/19 18:30 04/29/19 06:00 Tylenol - PO 650 mg Q6H PRN Administration FEVER Amino Acids 30 ml 04/29/19 17:30 04/30/19 17:03 Prosource No Carb Liquid Pkt PO 30 ml BID@0800,1730 [facility] Administration Amlodipine Besylate 10 mg 04/18/19 10:00 04/30/19 09:15 Norvasc - PO Not Given DAILY [facility] Atorvastatin Calcium 10 mg 04/17/19 22:00 04/29/19 21:26 Lipitor - PO 10 mg HS [facility] Administration Clonidine 0.1 mg 04/18/19 10:00 04/30/19 09:11 Catapres - PO Not Given DAILY [facility] Famotidine 20 mg 04/18/19 10:00 04/30/19 09:15 Pepcid - PO 20 mg DAILY [facility] Administration Heparin Sodium (Porcine) 5,000 unit 04/17/19 22:00 04/30/19 09:13 Heparin - SQ 5,000 unit BID [facility] Administration Ganciclovir 60 mg/ Dextrose 100 mls @ 100 mls/hr 04/22/19 18:00 04/29/19 18: 03 IVPB 05/04/19 18:59 Not Given [email or web address] [facility] Metoprolol Succinate 50 mg 04/18/19 10:00 04/30/19 09:15 Toprol Xl - PO 50 mg DAILY [facility] Administration Multivit/Ca Carb/B Cmplx/FA/Prenat 1 tablet 04/17/19 17:00 04/30/19 09:14 Nephro-Niharika - PO 1 tablet DAILY [facility] Administration Multivitamins/Minerals/Vitamin C 1 tab 04/18/19 10:00 04/30/19 09:14 Tab-A-Vit - PO 1 tab DAILY [facility] Administration Impression 1. ESRD 2. kidney transplant 3. htn 4. anemia 5. BK nephropathy 6. r/o sepsis 7. positive CMV Plan - HD tomorrow - cont meds - pt on gancyclovir - cultures negative so far - antivirals per ID - transplant center did not want transfer. they recommended steroids and outpt follow up for possible transplant nephrectomy. She will see the Surgeon on Saturday at 9 am.
[2019-04-30] MEDS: ATORVASTATIN CA 10 MG TABLET (FP) PO SCH (21:57)
[2019-05-01] MEDS ORDERED: predniSONE 10 MG TABLET (UD) PO ONE (10:00)
--- NOTE | 2019-05-01 10:23 | PN ---
Progress Note, Physician - Current Medication List Current Medications: Active Medications Acetaminophen (Tylenol -) 650 mg PO Q6H PRN PRN Reason: FEVER Last Admin: 04/29/19 06:00 Dose: 650 mg Amino Acids (Prosource No Carb Liquid Pkt) 30 ml PO BID@0800,1730 [facility] Last Admin: 04/30/19 17:03 Dose: 30 ml Amlodipine Besylate (Norvasc -) 10 mg PO DAILY [facility] Last Admin: 04/30/19 09:15 Dose: Not Given Atorvastatin Calcium (Lipitor -) 10 mg PO HS [facility] Last Admin: 04/30/19 21:57 Dose: 10 mg Clonidine (Catapres -) 0.1 mg PO DAILY [facility] Last Admin: 04/30/19 09:11 Dose: Not Given Epoetin Talha-epbx 4,000 unit/ (Epoetin Talha-epbx 10,000 unit) 14,000 unit SQ ONCE ONE Stop: 05/01/19 11:01 Famotidine (Pepcid -) 20 mg PO DAILY [facility] Last Admin: 04/30/19 09:15 Dose: 20 mg Heparin Sodium (Porcine) (Heparin -) 5,000 unit SQ BID [facility] Last Admin: 04/30/19 21:58 Dose: 5,000 unit Ganciclovir 60 mg/ Dextrose 100 mls @ 100 mls/hr IVPB [email or web address] [facility] Stop: 05/04/19 18:59 Last Admin: 04/29/19 18:03 Dose: Not Given Sodium Chloride (Normal Saline -) 250 mls @ 3,000 mls/hr IV PRN PRN PRN Reason: Hypotension during Dialysis Stop: 05/01/19 10:31 Metoprolol Succinate (Toprol Xl -) 50 mg PO DAILY [facility] Last Admin: 04/30/19 09:15 Dose: 50 mg Multivit/Ca Carb/B Cmplx/FA/Prenat (Nephro-Niharika -) 1 tablet PO DAILY [facility] Last Admin: 04/30/19 09:14 Dose: 1 tablet Multivitamins/Minerals/Vitamin C (Tab-A-Vit -) 1 tab PO DAILY [facility] Last Admin: 04/30/19 09:14 Dose: 1 tab - Objective Vital Signs: Vital Signs Temperature 97.8 F 05/01/19 09:40 Pulse Rate 81 05/01/19 10:15 Respiratory Rate 18 05/01/19 10:15 Blood Pressure 127/68 05/01/19 10:15 O2 Sat by Pulse Oximetry (%) 100 04/30/19 21:00 Labs: CBC, BMP 04/29/19 10:00 04/29/19 10:00 INR, PTT INR 1.09 (0.83-1.09) 04/14/19 12:00
[2019-05-01] MEDS ORDERED: SODIUM CHLORIDE 250 ML IV PRN (10:30)
[2019-05-01 10:36] LABS: HEMATOCRIT 27.4 % (32.4-45.2); HEMOGLOBIN 8.9 GM/dL (10.7-15.3); MCH 30.2 pg (25.7-33.7); MCHC 32.4 g/dl (32.0-36.0); MEAN CELL VOLUME 93.2 fl (80-96); MEAN PLT VOLUME 9.2 fl (7.5-11.1); PLATELET COUNT 196 K/MM3 (134-434); RBC 2.95 M/mm3 (3.60-5.2); RDW 16.4 % (11.6-15.6); WHITE BLOOD COUNT 6.9 K/mm3 (4.0-10.0)
[2019-05-01] MEDS ORDERED: EPOETIN ALFA-EPBX 4,000 UNIT, EPOETIN ALFA-EPBX 10,000 UNIT SQ ONE (11:00)
[2019-05-01 11:03] LABS: BLOOD UREA NITROGEN 79.2 mg/dL (7-18); CALCIUM 8.1 mg/dL (8.5-10.1); CREATININE 6.7 mg/dL (0.55-1.3); POTASSIUM 4.1 mmol/L (3.5-5.1)
[2019-05-01] MEDS: WATER IVPB SCH ×2 (12:33→17:33)
[2019-05-01] MEDS: GANCICLOVIR IVPB SCH ×2 (12:33→17:33)
[2019-05-01] MEDS: DEXTROSE 5% IVPB SCH ×2 (12:33→17:33)
[2019-05-01 13:44] LABS: CREATININE 1.3 mg/dL (0.55-1.3)
[2019-05-01] MEDS: MULTIVITAMINS (DAILY MVI) TABLET (FP) PO SCH (14:10)
[2019-05-01] MEDS: VITAMIN B COMP W-C 1 EA TABLET PO SCH (14:10)
[2019-05-01] MEDS: amLODIPine BESYLATE 10 MG TABLET (FP) PO SCH (14:10)
[2019-05-01] MEDS: FAMOTIDINE 20 MG TABLET PO SCH (14:10)
[2019-05-01] MEDS: cloNIDine HCL 0.1 MG TABLET PO SCH (14:11)
[2019-05-01] MEDS: AMINO ACIDS/PROTEIN HYDROLYS 30 ML LIQUID.PKT PO SCH ×2 (14:11→17:34)
[2019-05-01] MEDS: HEPARIN NA (PORCINE) 5,000 UNITS/ML 1ML VIAL SQ SCH ×2 (14:11→21:38)
--- NOTE | 2019-05-01 18:04 | PN ---
Progress Note, Physician History of Present Illness: Pt seen and examined at bedside. She is eager to go home. - Current Medication List Current Medications: Active Medications Acetaminophen (Tylenol -) 650 mg PO Q6H PRN PRN Reason: FEVER Last Admin: 04/29/19 06:00 Dose: 650 mg Amino Acids (Prosource No Carb Liquid Pkt) 30 ml PO BID@0800,1730 [facility] Last Admin: 05/01/19 17:34 Dose: Not Given Amlodipine Besylate (Norvasc -) 10 mg PO DAILY [facility] Last Admin: 05/01/19 14:10 Dose: 10 mg Atorvastatin Calcium (Lipitor -) 10 mg PO HS [facility] Last Admin: 04/30/19 21:57 Dose: 10 mg Clonidine (Catapres -) 0.1 mg PO DAILY [facility] Last Admin: 05/01/19 14:11 Dose: 0.1 mg Famotidine (Pepcid -) 20 mg PO DAILY [facility] Last Admin: 05/01/19 14:10 Dose: 20 mg Heparin Sodium (Porcine) (Heparin -) 5,000 unit SQ BID [facility] Last Admin: 05/01/19 14:11 Dose: 5,000 unit Ganciclovir 60 mg/ Dextrose 100 mls @ 100 mls/hr IVPB [email or web address] [facility] Stop: 05/04/19 18:59 Last Admin: 05/01/19 17:33 Dose: Not Given Metoprolol Succinate (Toprol Xl -) 50 mg PO DAILY [facility] Last Admin: 05/01/19 14:10 Dose: 50 mg Multivit/Ca Carb/B Cmplx/FA/Prenat (Nephro-Niharika -) 1 tablet PO DAILY [facility] Last Admin: 05/01/19 14:10 Dose: 1 tablet Multivitamins/Minerals/Vitamin C (Tab-A-Vit -) 1 tab PO DAILY [facility] Last Admin: 05/01/19 14:10 Dose: 1 tab - Objective Vital Signs: Vital Signs Temperature 97.9 F 05/01/19 14:09 Pulse Rate 95 H 05/01/19 14:09 Respiratory Rate 05/01/19 14:09 Blood Pressure 129/65 05/01/19 14:09 O2 Sat by Pulse Oximetry (%) 100 04/30/19 21:00 Constitutional: Yes: Anxious Eyes: Yes: Conjunctiva Clear HENT: Yes: Atraumatic Neck: Yes: Supple Cardiovascular: Yes: S1, S2 Respiratory: Yes: CTA Bilaterally Gastrointestinal: Yes: Soft Genitourinary: Yes: WNL Musculoskeletal: Yes: WNL Edema: No Neurological: Yes: Oriented Psychiatric: Yes: Oriented Labs: CBC, BMP 05/01/19 09:45 05/01/19 12:45 INR, PTT INR 1.09 (0.83-1.09) 04/14/19 12:00 Problem List - Problems (1) ESRD on hemodialysis Code(s): N18.6 - END STAGE RENAL DISEASE; Z99.2 - DEPENDENCE ON RENAL DIALYSIS (2) Fever Code(s): R50.9 - FEVER, UNSPECIFIED Qualifiers: Fever type: unspecified Qualified Code(s): R50.9 - Fever, unspecified Assessment/Plan Current Medications Generic Name Dose Route Start Last Admin Trade Name Freq PRN Reason Stop Dose Admin Acetaminophen 650 mg 04/17/19 18:30 04/29/19 06:00 Tylenol - PO 650 mg Q6H PRN Administration FEVER Amino Acids 30 ml 04/29/19 17:30 05/01/19 17:34 Prosource No Carb Liquid Pkt PO Not Given BID@0800,1730 [facility] Amlodipine Besylate 10 mg 04/18/19 10:00 05/01/19 14:10 Norvasc - PO 10 mg DAILY [facility] Administration Atorvastatin Calcium 10 mg 04/17/19 22:00 04/30/19 21:57 Lipitor - PO 10 mg HS [facility] Administration Clonidine 0.1 mg 04/18/19 10:00 05/01/19 14:11 Catapres - PO 0.1 mg DAILY [facility] Administration Famotidine 20 mg 04/18/19 10:00 05/01/19 14:10 Pepcid - PO 20 mg DAILY [facility] Administration Heparin Sodium (Porcine) 5,000 unit 04/17/19 22:00 05/01/19 14:11 Heparin - SQ 5,000 unit BID [facility] Administration Ganciclovir 60 mg/ Dextrose 100 mls @ 100 mls/hr 04/22/19 18:00 05/01/19 17: 33 IVPB 05/04/19 18:59 Not Given [email or web address] [facility] Metoprolol Succinate 50 mg 04/18/19 10:00 05/01/19 14:10 Toprol Xl - PO 50 mg DAILY [facility] Administration Multivit/Ca Carb/B Cmplx/FA/Prenat 1 tablet 04/17/19 17:00 05/01/19 14:10 Nephro-Niharika - PO 1 tablet DAILY [facility] Administration Multivitamins/Minerals/Vitamin C 1 tab 04/18/19 10:00 05/01/19 14:10 Tab-A-Vit - PO 1 tab DAILY [facility] Administration Impression 1. ESRD 2. kidney transplant 3. htn 4. anemia 5. BK nephropathy 6. r/o sepsis 7. positive CMV Plan - HD today - called HD unit, gancyclovir is not ready - steroids per transplant team - will need outpt follow up with transplant team - pt on gancyclovir
--- NOTE | 2019-05-01 18:09 | PN ---
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 She was sent to ED from HD for c/o weakness during sessions. She denies N/V/C/D, dysuria, hematuria, rash,fever. Of note she has been off anti rejection medications since mar. 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 Pending DC home to arrange continuation of Gancyclovir for CMV+ as per ID recommendations, otherwise VSS, patient denies any complaints, family at bedside. PE VSS Constitutional: Yes: Well Nourished, No Distress, Calm, sitting in chair along side bed Eyes: Yes: WNL, Conjunctiva Clear, EOM Intact HENT: Yes: WNL, Atraumatic, Normocephalic Neck: Yes: WNL, Supple, Trachea Midline Cardiovascular: Yes: WNL, Regular Rate and Rhythm Respiratory: Yes: Regular, CTA Bilaterally, Diminished (at bases) Gastrointestinal: Yes: WNL, Normal Bowel Sounds, Soft, nontender ...Rectal Exam: Yes: Deferred Renal/: Yes: Anuria Breast(s): Yes: WNL Musculoskeletal: Yes: WNL Extremities: Yes: Other left arm fistula +bruit +thrill. Edema: Yes Edema: LLE: Trace, RLE: Trace Peripheral Pulses WNL: Yes Peripheral Pulses: Left Radial: 2+, Right Radial: 2+, Left Doralis Pedis: 2+, Right Dorsalis Pedis: 2+, Left Femoral: 2+, Right Femoral: 2+ Vital Signs - 24 hr 04/30/19 05/01/19 05/01/19 21:00 01:00 05:00 Temperature 97.7 F 98 F 97.7 F Pulse Rate 69 68 74 Respiratory 17 17 17 Rate Blood Pressure 121/62 111/53 L 124/59 L O2 Sat by Pulse 100 Oximetry (%) 05/01/19 05/01/19 05/01/19 08:45 09:00 09:40 Temperature 98.6 F 97.9 F 97.8 F Pulse Rate 80 78 79 Respiratory 20 18 18 Rate Blood Pressure 127/70 142/65 124/65 O2 Sat by Pulse 100 Oximetry (%) 05/01/19 05/01/19 05/01/19 09:45 10:15 10:45 Temperature Pulse Rate 72 81 79 Respiratory 18 18 18 Rate Blood Pressure 125/63 127/68 123/65 O2 Sat by Pulse Oximetry (%) 05/01/19 05/01/19 05/01/19 11:15 11:45 12:15 Temperature Pulse Rate 79 75 80 Respiratory 18 18 18 Rate Blood Pressure 137/73 134/69 126/71 O2 Sat by Pulse Oximetry (%) 05/01/19 05/01/19 05/01/19 12:45 12:50 14:09 Temperature 97.9 F Pulse Rate 79 87 95 H Respiratory 18 18 20 Rate Blood Pressure 135/71 126/71 129/65 O2 Sat by Pulse Oximetry (%) Microbiology 04/22/19 10:00 Blood - Peripheral Venous Blood Culture - Final NO GROWTH AFTER 5 DAYS INCUBATION 04/22/19 09:45 Blood - Peripheral Venous Blood Culture - Final NO GROWTH AFTER 5 DAYS INCUBATION 04/26/19 06:05 Urine - Urine Clean Catch Urine Culture - Final NO GROWTH OBTAINED 04/21/19 07:55 Blood - Peripheral Venous Blood Culture - Final NO GROWTH AFTER 5 DAYS INCUBATION 04/21/19 07:47 Blood - Peripheral Venous Blood Culture - Final NO GROWTH AFTER 5 DAYS INCUBATION 04/20/19 20:25 Blood - Peripheral Venous Blood Culture - Final NO GROWTH AFTER 5 DAYS INCUBATION 04/20/19 20:30 Blood - Peripheral Venous Blood Culture - Final NO GROWTH AFTER 5 DAYS INCUBATION 04/19/19 11:10 Blood - Picc Line Blood Culture - Final NO GROWTH AFTER 5 DAYS INCUBATION 04/19/19 11:10 Blood - Picc Line Blood Culture - Final NO GROWTH AFTER 5 DAYS INCUBATION 04/14/19 21:30 Blood - Peripheral Venous Blood Culture - Final NO GROWTH AFTER 5 DAYS INCUBATION 04/14/19 21:30 Blood - Peripheral Venous Blood Culture - Final NO GROWTH AFTER 5 DAYS INCUBATION 04/14/19 12:00 Blood - Peripheral Venous Blood Culture - Final NO GROWTH AFTER 5 DAYS INCUBATION 04/14/19 12:00 Blood - Peripheral Venous Blood Culture - Final NO GROWTH AFTER 5 DAYS INCUBATION 04/14/19 13:00 Urine - Urine Clean Catch Urine Culture - Final NO GROWTH OBTAINED Laboratory Results - last 24 hr 05/01/19 05/01/19 05/01/19 09:45 09:45 12:45 WBC 6.9 RBC 2.95 L Hgb 8.9 L Hct 27.4 L MCV 93.2 MCH 30.2 MCHC 32.4 RDW 16.4 H Plt Count 196 D MPV 9.2 Sodium 134 L Potassium 4.1 Chloride 96 L Carbon Dioxide 27 Anion Gap 12 BUN 79.2 H 11.0 Creatinine 6.7 H 1.3 Est GFR (CKD-EPI)AfAm 7.01 50.92 Est GFR (CKD-EPI)NonAf 6.05 43.93 Random Glucose 158 H Calcium 8.1 L Home Medications Medication Instructions Recorded Amlodipine Besylate [Norvasc -] 10 mg PO DAILY 04/19/14 Famotidine [Pepcid -] 20 mg PO DAILY 10/23/18 Metoprolol Succinate [Toprol Xl] 50 mg PO DAILY 10/23/18 Multivitamin [Multiple Vitamins] 1 each PO DAILY 10/23/18 Pravastatin Sodium [Pravachol -] 40 mg PO HS 10/23/18 cloNIDine HCL [Catapres -] 0.1 mg PO DAILY 10/23/18 Amlodipine Besylate [Norvasc -] 10 mg PO DAILY #0 tablet 04/28/19 Ganciclovir [Cytovene (Restricted 60 mg IVPB [email or web address] vial 04/28/19 To Id) -] Metoprolol Succinate [Toprol XL -] 50 mg PO DAILY #0 tab.sr.24h 04/28/19 cloNIDine HCL [Catapres -] 0.1 mg PO DAILY #0 tablet 04/28/19 Amino Acids/Protein Hydrolys 30 ml PO BID@0800,1730 #60 packet 04/29/19 [Prosource No Carb Liquid Pkt] Current Medications Generic Name Dose Route Start Last Admin Trade Name Freq PRN Reason Stop Dose Admin Acetaminophen 650 mg 04/17/19 18:30 04/29/19 06:00 Tylenol - PO 650 mg Q6H PRN Administration FEVER Amino Acids 30 ml 04/29/19 17:30 05/01/19 17:34 Prosource No Carb Liquid Pkt PO Not Given BID@0800,1730 [facility] Amlodipine Besylate 10 mg 04/18/19 10:00 05/01/19 14:10 Norvasc - PO 10 mg DAILY [facility] Administration Atorvastatin Calcium 10 mg 04/17/19 22:00 04/30/19 21:57 Lipitor - PO 10 mg HS [facility] Administration Clonidine 0.1 mg 04/18/19 10:00 05/01/19 14:11 Catapres - PO 0.1 mg DAILY [facility] Administration Famotidine 20 mg 04/18/19 10:00 05/01/19 14:10 Pepcid - PO 20 mg DAILY [facility] Administration Heparin Sodium (Porcine) 5,000 unit 04/17/19 22:00 05/01/19 14:11 Heparin - SQ 5,000 unit BID [facility] Administration Ganciclovir 60 mg/ Dextrose 100 mls @ 100 mls/hr 04/22/19 18:00 05/01/19 17: 33 IVPB 05/04/19 18:59 Not Given [email or web address] [facility] Metoprolol Succinate 50 mg 04/18/19 10:00 05/01/19 14:10 Toprol Xl - PO 50 mg DAILY [facility] Administration Multivit/Ca Carb/B Cmplx/FA/Prenat 1 tablet 04/17/19 17:00 05/01/19 14:10 Nephro-Niharika - PO 1 tablet DAILY [facility] Administration Multivitamins/Minerals/Vitamin C 1 tab 04/18/19 10:00 05/01/19 14:10 Tab-A-Vit - PO 1 tab DAILY [facility] Administration A/p: 63 F h/o ESRD on HD (partial session today), s/p renal transplant s/p 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 She was sent to ED from HD for c/o weakness during sessions. She denies N/V/C/D, dysuria, hematuria, rash,fever. Of note she has been off anti rejection medications since mar. 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 Awaiting gancyclovir for DC to be given at HD center. Renal transplation s/p rejection Afebrile overnight Given steroids as per conversation with Dr Tavarez transplant surgeon at [facility] with resolution of fevers. Appointment made for follow up with Dr Lawrence/Dr Hilton at [facility] for follow up on [phone] for discussion of possible transplant nephrectomy. Prednisone 30mg given by renal service, will arrange for daily Prednisone ( likely 5mg daily) for DC continue to observe off abx CMV+ and being treated with Gancyclovir will need to arrange this medication to be given during HD session, awaiting insurance approval ID consult: Dr Burns Renal consult: Dr Lamas Weakness improved after HD, now ambulatory HTN controlled, cont. BP meds Na restricted diet, renal diet ACD on Epoetin Iron replacement as per renal DVT ppx: Heparin SC. Visit type - Emergency Visit Emergency Visit: Yes ED Registration Date: 04/16/19 Care time: The patient presented to the Emergency Department on the above date and was hospitalized for further evaluation of their emergent condition. - New Patient This patient is new to me today: Yes Date on this admission: 05/01/19 - Critical Care Critical Care patient: No - Discharge Referral Referred to [facility] No
[2019-05-01] MEDS ORDERED: EPOETIN ALFA 3,000 UNIT/1 ML ML SQ ONE (18:56)
[2019-05-01] MEDS: ATORVASTATIN CA 10 MG TABLET (FP) PO SCH (21:38)
[2019-05-02] MEDS: HEPARIN NA (PORCINE) 5,000 UNITS/ML 1ML VIAL SQ SCH ×2 (10:07→22:05)
[2019-05-02] MEDS: AMINO ACIDS/PROTEIN HYDROLYS 30 ML LIQUID.PKT PO SCH ×2 (10:07→17:43)
[2019-05-02] MEDS: MULTIVITAMINS (DAILY MVI) TABLET (FP) PO SCH (10:08)
[2019-05-02] MEDS: VITAMIN B COMP W-C 1 EA TABLET PO SCH (10:08)
[2019-05-02] MEDS: FAMOTIDINE 20 MG TABLET PO SCH (10:08)
[2019-05-02] MEDS: cloNIDine HCL 0.1 MG TABLET PO SCH (10:09)
[2019-05-02] MEDS: amLODIPine BESYLATE 10 MG TABLET (FP) PO SCH (10:09)
[2019-05-02] MEDS: ACETAMINOPHEN 325 MG TABLET (FP) PO PRN (15:49)
--- NOTE | 2019-05-02 17:05 | PN ---
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 She was sent to ED from HD for c/o weakness during sessions. She denies N/V/C/D, dysuria, hematuria, rash,fever. Of note she has been off anti rejection medications since mar. 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 Pending DC home to arrange continuation of Gancyclovir for CMV+ as per ID recommendations, otherwise VSS, patient denies any complaints, family at bedside. PE VSS Constitutional: Yes: Well Nourished, No Distress, Calm, sleeping in bed, arousable Eyes: Yes: WNL, Conjunctiva Clear, EOM Intact HENT: Yes: WNL, Atraumatic, Normocephalic Neck: Yes: WNL, Supple, Trachea Midline Cardiovascular: Yes: WNL, Regular Rate and Rhythm Respiratory: Yes: Regular, CTA Bilaterally, Diminished (at bases) Gastrointestinal: Yes: WNL, Normal Bowel Sounds, Soft, nontender ...Rectal Exam: Yes: Deferred Renal/: Yes: Anuria Breast(s): Yes: WNL Musculoskeletal: Yes: WNL Extremities: Yes: Other left arm fistula +bruit +thrill. Edema: Yes Edema: LLE: Trace, RLE: Trace Peripheral Pulses WNL: Yes Peripheral Pulses: Left Radial: 2+, Right Radial: 2+, Left Doralis Pedis: 2+, Right Dorsalis Pedis: 2+, Left Femoral: 2+, Right Femoral: 2+ Vital Signs - 24 hr 05/01/19 05/01/19 05/01/19 18:58 21:00 21:41 Temperature 99.2 F 98.6 F Pulse Rate 77 82 Respiratory 18 22 H 22 H Rate Blood Pressure 99/53 L 105/50 L O2 Sat by Pulse 100 Oximetry (%) 05/02/19 05/02/19 05/02/19 06:19 09:00 10:00 Temperature 98.4 F 97.5 F L Pulse Rate 62 78 Respiratory 20 20 Rate Blood Pressure 111/40 L 114/52 L O2 Sat by Pulse 100 Oximetry (%) 05/02/19 14:56 Temperature 98.5 F Pulse Rate 81 Respiratory 20 Rate Blood Pressure 114/52 L O2 Sat by Pulse Oximetry (%) Microbiology 04/22/19 10:00 Blood - Peripheral Venous Blood Culture - Final NO GROWTH AFTER 5 DAYS INCUBATION 04/22/19 09:45 Blood - Peripheral Venous Blood Culture - Final NO GROWTH AFTER 5 DAYS INCUBATION 04/26/19 06:05 Urine - Urine Clean Catch Urine Culture - Final NO GROWTH OBTAINED 04/21/19 07:55 Blood - Peripheral Venous Blood Culture - Final NO GROWTH AFTER 5 DAYS INCUBATION 04/21/19 07:47 Blood - Peripheral Venous Blood Culture - Final NO GROWTH AFTER 5 DAYS INCUBATION 04/20/19 20:25 Blood - Peripheral Venous Blood Culture - Final NO GROWTH AFTER 5 DAYS INCUBATION 04/20/19 20:30 Blood - Peripheral Venous Blood Culture - Final NO GROWTH AFTER 5 DAYS INCUBATION 04/19/19 11:10 Blood - Picc Line Blood Culture - Final NO GROWTH AFTER 5 DAYS INCUBATION 04/19/19 11:10 Blood - Picc Line Blood Culture - Final NO GROWTH AFTER 5 DAYS INCUBATION 04/14/19 21:30 Blood - Peripheral Venous Blood Culture - Final NO GROWTH AFTER 5 DAYS INCUBATION 04/14/19 21:30 Blood - Peripheral Venous Blood Culture - Final NO GROWTH AFTER 5 DAYS INCUBATION 04/14/19 12:00 Blood - Peripheral Venous Blood Culture - Final NO GROWTH AFTER 5 DAYS INCUBATION 04/14/19 12:00 Blood - Peripheral Venous Blood Culture - Final NO GROWTH AFTER 5 DAYS INCUBATION 04/14/19 13:00 Urine - Urine Clean Catch Urine Culture - Final NO GROWTH OBTAINED Current Medications Generic Name Dose Route Start Last Admin Trade Name Freq PRN Reason Stop Dose Admin Acetaminophen 650 mg 04/17/19 18:30 05/02/19 15:49 Tylenol - PO 650 mg Q6H PRN Administration FEVER Amino Acids 30 ml 04/29/19 17:30 05/02/19 10:07 Prosource No Carb Liquid Pkt PO 30 ml BID@0800,1730 [facility] Administration Amlodipine Besylate 10 mg 04/18/19 10:00 05/02/19 10:09 Norvasc - PO Not Given DAILY [facility] Atorvastatin Calcium 10 mg 04/17/19 22:00 05/01/19 21:38 Lipitor - PO 10 mg HS [facility] Administration Clonidine 0.1 mg 04/18/19 10:00 05/02/19 10:09 Catapres - PO Not Given DAILY [facility] Famotidine 20 mg 04/18/19 10:00 05/02/19 10:08 Pepcid - PO 20 mg DAILY [facility] Administration Heparin Sodium (Porcine) 5,000 unit 04/17/19 22:00 05/02/19 10:07 Heparin - SQ 5,000 unit BID [facility] Administration Ganciclovir 60 mg/ Dextrose 100 mls @ 100 mls/hr 04/22/19 18:00 05/01/19 17: 33 IVPB 05/04/19 18:59 Not Given [id number] [facility] Metoprolol Succinate 50 mg 04/18/19 10:00 05/02/19 10:09 Toprol Xl - PO Not Given DAILY [facility] Multivit/Ca Carb/B Cmplx/FA/Prenat 1 tablet 04/17/19 17:00 05/02/19 10:08 Nephro-Niharika - PO 1 tablet DAILY [facility] Administration Multivitamins/Minerals/Vitamin C 1 tab 04/18/19 10:00 05/02/19 10:08 Tab-A-Vit - PO 1 tab DAILY [facility] Administration A/p: 63 F h/o ESRD on HD (partial session today), s/p renal transplant s/p 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 She was sent to ED from HD for c/o weakness during sessions. She denies N/V/C/D, dysuria, hematuria, rash,fever. Of note she has been off anti rejection medications since mar. 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 Awaiting gancyclovir for DC to be given at HD center. Renal transplantation s/p rejection Afebrile overnight, VSS Given steroids as per conversation with Dr Tavarez transplant surgeon at [facility] with resolution of fevers. Appointment made for follow up with Dr Lawrence/Dr Hilton at [facility] for follow up on [phone] for discussion of possible transplant nephrectomy. Prednisone course given as inpatient, she'll likely need Prednisone 5mg daily at discharge in view of chronic rejection continue to observe off abx CMV+ and being treated with Gancyclovir will need to arrange this medication to be given during HD session (as per ID recommendation), awaiting insurance approval ID consult: Dr Burns Renal consult: Dr Lamas Weakness improved after HD, now ambulatory HTN controlled, cont. BP meds Na restricted diet, renal diet ACD on Epoetin Iron replacement as per renal DVT ppx: Heparin SC. Visit type - Emergency Visit Emergency Visit: Yes ED Registration Date: 04/16/19 Care time: The patient presented to the Emergency Department on the above date and was hospitalized for further evaluation of their emergent condition. - New Patient This patient is new to me today: No - Critical Care Critical Care patient: No - Discharge Referral Referred to [facility] Med P.C.: No
--- NOTE | 2019-05-02 17:21 | PN ---
Progress Note, Physician History of Present Illness: Pt is alert, afebrile. No specific complaints. - Current Medication List Current Medications: Active Medications Acetaminophen (Tylenol -) 650 mg PO Q6H PRN PRN Reason: FEVER Last Admin: 05/02/19 15:49 Dose: 650 mg Amino Acids (Prosource No Carb Liquid Pkt) 30 ml PO BID@0800,1730 [facility] Last Admin: 05/02/19 10:07 Dose: 30 ml Amlodipine Besylate (Norvasc -) 10 mg PO DAILY [facility] Last Admin: 05/02/19 10:09 Dose: Not Given Atorvastatin Calcium (Lipitor -) 10 mg PO HS [facility] Last Admin: 05/01/19 21:38 Dose: 10 mg Clonidine (Catapres -) 0.1 mg PO DAILY [facility] Last Admin: 05/02/19 10:09 Dose: Not Given Famotidine (Pepcid -) 20 mg PO DAILY [facility] Last Admin: 05/02/19 10:08 Dose: 20 mg Heparin Sodium (Porcine) (Heparin -) 5,000 unit SQ BID [facility] Last Admin: 05/02/19 10:07 Dose: 5,000 unit Ganciclovir 60 mg/ Dextrose 100 mls @ 100 mls/hr IVPB [id number] [facility] Stop: 05/04/19 18:59 Last Admin: 05/01/19 17:33 Dose: Not Given Metoprolol Succinate (Toprol Xl -) 50 mg PO DAILY [facility] Last Admin: 05/02/19 10:09 Dose: Not Given Multivit/Ca Carb/B Cmplx/FA/Prenat (Nephro-Niharika -) 1 tablet PO DAILY [facility] Last Admin: 05/02/19 10:08 Dose: 1 tablet Multivitamins/Minerals/Vitamin C (Tab-A-Vit -) 1 tab PO DAILY [facility] Last Admin: 05/02/19 10:08 Dose: 1 tab - Objective Vital Signs: Vital Signs Temperature 98.5 F 05/02/19 14:56 Pulse Rate 81 05/02/19 14:56 Respiratory Rate 20 05/02/19 14:56 Blood Pressure 114/52 L 05/02/19 14:56 O2 Sat by Pulse Oximetry (%) 100 05/02/19 09:00 Constitutional: Yes: No Distress, Calm Neck: Yes: Supple Cardiovascular: Yes: Regular Rate and Rhythm Respiratory: Yes: CTA Bilaterally Gastrointestinal: Yes: Normal Bowel Sounds, Soft Edema: No Integumentary: Yes: WNL Neurological: Yes: Alert, Oriented Labs: CBC, BMP 05/01/19 09:45 05/01/19 12:45 INR, PTT INR 1.09 (0.83-1.09) 04/14/19 12:00 Microbiology 04/22/19 10:00 Blood - Peripheral Venous Blood Culture - Final NO GROWTH AFTER 5 DAYS INCUBATION 04/22/19 09:45 Blood - Peripheral Venous Blood Culture - Final NO GROWTH AFTER 5 DAYS INCUBATION 04/26/19 06:05 Urine - Urine Clean Catch Urine Culture - Final NO GROWTH OBTAINED 04/21/19 07:55 Blood - Peripheral Venous Blood Culture - Final NO GROWTH AFTER 5 DAYS INCUBATION 04/21/19 07:47 Blood - Peripheral Venous Blood Culture - Final NO GROWTH AFTER 5 DAYS INCUBATION 04/20/19 20:25 Blood - Peripheral Venous Blood Culture - Final NO GROWTH AFTER 5 DAYS INCUBATION 04/20/19 20:30 Blood - Peripheral Venous Blood Culture - Final NO GROWTH AFTER 5 DAYS INCUBATION 04/19/19 11:10 Blood - Picc Line Blood Culture - Final NO GROWTH AFTER 5 DAYS INCUBATION 04/19/19 11:10 Blood - Picc Line Blood Culture - Final NO GROWTH AFTER 5 DAYS INCUBATION 04/14/19 21:30 Blood - Peripheral Venous Blood Culture - Final NO GROWTH AFTER 5 DAYS INCUBATION 04/14/19 21:30 Blood - Peripheral Venous Blood Culture - Final NO GROWTH AFTER 5 DAYS INCUBATION 04/14/19 12:00 Blood - Peripheral Venous Blood Culture - Final NO GROWTH AFTER 5 DAYS INCUBATION 04/14/19 12:00 Blood - Peripheral Venous Blood Culture - Final NO GROWTH AFTER 5 DAYS INCUBATION 04/14/19 13:00 Urine - Urine Clean Catch Urine Culture - Final NO GROWTH OBTAINED Problem List - Problems (1) ESRD on hemodialysis Code(s): N18.6 - END STAGE RENAL DISEASE; Z99.2 - DEPENDENCE ON RENAL DIALYSIS (2) Fever Code(s): R50.9 - FEVER, UNSPECIFIED Qualifiers: Fever type: unspecified Qualified Code(s): R50.9 - Fever, unspecified (3) Anemia Code(s): D64.9 - ANEMIA, UNSPECIFIED (4) Hypertension Code(s): I10 - ESSENTIAL (PRIMARY) HYPERTENSION Assessment/Plan Fever ESRD on HD Hx of kidney transplant s/p rejection CMV IgG + Hx of BK nephropathy Anemia HTN - Pt now afebrile - on IV Gancyclovir - awaiting insurance approval to give as outpt - s/p course of broad spectrum antibiotics - All cultures neg. continue monitor
[2019-05-02] MEDS: ATORVASTATIN CA 10 MG TABLET (FP) PO SCH (22:05)
[2019-05-03] MEDS: AMINO ACIDS/PROTEIN HYDROLYS 30 ML LIQUID.PKT PO SCH ×2 (09:25→17:34)
[2019-05-03] MEDS: MULTIVITAMINS (DAILY MVI) TABLET (FP) PO SCH (09:26)
[2019-05-03] MEDS: VITAMIN B COMP W-C 1 EA TABLET PO SCH (09:26)
[2019-05-03] MEDS: HEPARIN NA (PORCINE) 5,000 UNITS/ML 1ML VIAL SQ SCH (09:26)
[2019-05-03] MEDS: amLODIPine BESYLATE 10 MG TABLET (FP) PO SCH (09:27)
[2019-05-03] MEDS: FAMOTIDINE 20 MG TABLET PO SCH (09:27)
[2019-05-03] MEDS: cloNIDine HCL 0.1 MG TABLET PO SCH (09:27)
--- NOTE | 2019-05-03 17:24 | PN ---
Progress Note, Physician History of Present Illness: No new events reported. - Current Medication List Current Medications: Active Medications Acetaminophen (Tylenol -) 650 mg PO Q6H PRN PRN Reason: FEVER Last Admin: 05/02/19 15:49 Dose: 650 mg Amino Acids (Prosource No Carb Liquid Pkt) 30 ml PO BID@0800,1730 [facility] Last Admin: 05/03/19 09:25 Dose: 30 ml Amlodipine Besylate (Norvasc -) 10 mg PO DAILY [facility] Last Admin: 05/03/19 09:27 Dose: 10 mg Atorvastatin Calcium (Lipitor -) 10 mg PO HS [facility] Last Admin: 05/02/19 22:05 Dose: 10 mg Clonidine (Catapres -) 0.1 mg PO DAILY [facility] Last Admin: 05/03/19 09:27 Dose: 0.1 mg Famotidine (Pepcid -) 20 mg PO DAILY [facility] Last Admin: 05/03/19 09:27 Dose: 20 mg Ganciclovir 60 mg/ Dextrose 100 mls @ 100 mls/hr IVPB [id number] [facility] Stop: 05/04/19 18:59 Last Admin: 05/01/19 17:33 Dose: Not Given Metoprolol Succinate (Toprol Xl -) 50 mg PO DAILY [facility] Last Admin: 05/03/19 09:26 Dose: 50 mg Multivit/Ca Carb/B Cmplx/FA/Prenat (Nephro-Niharika -) 1 tablet PO DAILY [facility] Last Admin: 05/03/19 09:26 Dose: 1 tablet Multivitamins/Minerals/Vitamin C (Tab-A-Vit -) 1 tab PO DAILY [facility] Last Admin: 05/03/19 09:26 Dose: 1 tab - Objective Vital Signs: Vital Signs Temperature 97.7 F 05/03/19 14:01 Pulse Rate 77 05/03/19 14:01 Respiratory Rate 18 05/03/19 14:01 Blood Pressure 136/66 05/03/19 08:48 O2 Sat by Pulse Oximetry (%) 98 05/03/19 09:00 Constitutional: Yes: No Distress, Calm Cardiovascular: Yes: Regular Rate and Rhythm Respiratory: Yes: Regular Gastrointestinal: Yes: Normal Bowel Sounds, Soft Integumentary: Yes: WNL Neurological: Yes: Alert Labs: CBC, BMP 05/01/19 09:45 05/01/19 12:45 INR, PTT INR 1.09 (0.83-1.09) 04/14/19 12:00 Microbiology 04/22/19 10:00 Blood - Peripheral Venous Blood Culture - Final NO GROWTH AFTER 5 DAYS INCUBATION 04/22/19 09:45 Blood - Peripheral Venous Blood Culture - Final NO GROWTH AFTER 5 DAYS INCUBATION 04/26/19 06:05 Urine - Urine Clean Catch Urine Culture - Final NO GROWTH OBTAINED 04/21/19 07:55 Blood - Peripheral Venous Blood Culture - Final NO GROWTH AFTER 5 DAYS INCUBATION 04/21/19 07:47 Blood - Peripheral Venous Blood Culture - Final NO GROWTH AFTER 5 DAYS INCUBATION 04/20/19 20:25 Blood - Peripheral Venous Blood Culture - Final NO GROWTH AFTER 5 DAYS INCUBATION 04/20/19 20:30 Blood - Peripheral Venous Blood Culture - Final NO GROWTH AFTER 5 DAYS INCUBATION 04/19/19 11:10 Blood - Picc Line Blood Culture - Final NO GROWTH AFTER 5 DAYS INCUBATION 04/19/19 11:10 Blood - Picc Line Blood Culture - Final NO GROWTH AFTER 5 DAYS INCUBATION 04/14/19 21:30 Blood - Peripheral Venous Blood Culture - Final NO GROWTH AFTER 5 DAYS INCUBATION 04/14/19 21:30 Blood - Peripheral Venous Blood Culture - Final NO GROWTH AFTER 5 DAYS INCUBATION 04/14/19 12:00 Blood - Peripheral Venous Blood Culture - Final NO GROWTH AFTER 5 DAYS INCUBATION 04/14/19 12:00 Blood - Peripheral Venous Blood Culture - Final NO GROWTH AFTER 5 DAYS INCUBATION 04/14/19 13:00 Urine - Urine Clean Catch Urine Culture - Final NO GROWTH OBTAINED Problem List - Problems (1) ESRD on hemodialysis Code(s): N18.6 - END STAGE RENAL DISEASE; Z99.2 - DEPENDENCE ON RENAL DIALYSIS (2) Fever Code(s): R50.9 - FEVER, UNSPECIFIED Qualifiers: Fever type: unspecified Qualified Code(s): R50.9 - Fever, unspecified (3) Anemia Code(s): D64.9 - ANEMIA, UNSPECIFIED (4) Hypertension Code(s): I10 - ESSENTIAL (PRIMARY) HYPERTENSION Assessment/Plan Fever ESRD on HD Hx of kidney transplant s/p rejection CMV IgG + Hx of BK nephropathy Anemia HTN - Pt remains afebrile, without complaints. - IV Gancyclovir - s/p course of antibiotics - All cultures neg., vitals stable
--- NOTE | 2019-05-03 18:34 | PN ---
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 She was sent to ED from HD for c/o weakness during sessions. She denies N/V/C/D, dysuria, hematuria, rash,fever. Of note she has been off anti rejection medications since mar. 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 Pending DC home to arrange continuation of Gancyclovir for CMV+ as per ID recommendations, otherwise VSS, patient denies any complaints, sleeping comfortably in bed. PE VSS Constitutional: Yes: Well Nourished, No Distress, Calm, sleeping in bed, arousable Eyes: Yes: WNL, Conjunctiva Clear, EOM Intact HENT: Yes: WNL, Atraumatic, Normocephalic Neck: Yes: WNL, Supple, Trachea Midline Cardiovascular: Yes: WNL, Regular Rate and Rhythm Respiratory: Yes: Regular, CTA Bilaterally, Diminished (at bases) Gastrointestinal: Yes: WNL, Normal Bowel Sounds, Soft, nontender ...Rectal Exam: Yes: Deferred Renal/: Yes: Anuria Breast(s): Yes: WNL Musculoskeletal: Yes: WNL Extremities: Yes: Other left arm fistula +bruit +thrill. 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 She was sent to ED from HD for c/o weakness during sessions. She denies N/V/C/D, dysuria, hematuria, rash,fever. Of note she has been off anti rejection medications since mar. 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 Awaiting gancyclovir for DC to be given at HD center. Renal transplantation s/p rejection Afebrile overnight, VSS Given steroids as per conversation with Dr Tavarez transplant surgeon at [facility] with resolution of fevers. Appointment made for follow up with Dr Lawrence/Dr Hilton at [facility] for follow up on [phone] for discussion of possible transplant nephrectomy. Prednisone course given as inpatient, she'll likely need Prednisone 5mg daily at discharge in view of chronic rejection continue to observe off abx CMV+ and being treated with Gancyclovir will need to arrange this medication to be given during HD session (as per ID recommendation), awaiting insurance approval ID consult: Dr Burns Renal consult: Dr Lamas Weakness improved after HD, now ambulatory resting comfortably HTN controlled, cont. BP meds Na restricted diet, renal diet ACD on Epoetin Iron replacement as per renal DVT ppx: Heparin SC. Visit type - Emergency Visit Emergency Visit: Yes ED Registration Date: 04/16/19 Care time: The patient presented to the Emergency Department on the above date and was hospitalized for further evaluation of their emergent condition. - New Patient This patient is new to me today: No - Critical Care Critical Care patient: No - Discharge Referral Referred to [facility] Med P.C.: No
[2019-05-03] MEDS: ATORVASTATIN CA 10 MG TABLET (FP) PO SCH (21:17)
[2019-05-04] MEDS ORDERED: SODIUM CHLORIDE 250 ML IV PRN (07:38)
[2019-05-04 10:01] LABS: ALBUMIN 2.1 g/dl (3.4-5.0); BILIRUBIN,TOTAL 0.3 mg/dL (0.2-1); BLOOD UREA NITROGEN 94.1 mg/dL (7-18); CALCIUM 7.8 mg/dL (8.5-10.1); PHOSPHOROUS 2.5 mg/dL (2.5-4.9); POTASSIUM 4.2 mmol/L (3.5-5.1); TOT PROT 5.6 g/dl (6.4-8.2)
[2019-05-04 10:10] LABS: CREATININE 8.3 mg/dL (0.55-1.3)
--- NOTE | 2019-05-04 12:50 | PN ---
Progress Note, Physician Chief Complaint: No fevers over night. Seen in dialysis. 2 additional antiviral doses prior to DC History of Present Illness: 63F w/ a history of ESRD on HD (partial session today), s/p renal transplant s/ p rejection 2/2 BK nephropathy, HTN, CKD who presents for evaluation of 5 days of chills, congestion, cough. She was sent to ED from HD for c/o weakness during sessions. She denies N/V/C/D, dysuria, hematuria, rash,fever. Of note she has been off anti rejection medications since mar. 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 Pending dc to home when afebrile for 24 hr - Current Medication List Current Medications: Active Medications Acetaminophen (Tylenol -) 650 mg PO Q6H PRN PRN Reason: FEVER Last Admin: 05/02/19 15:49 Dose: 650 mg Amino Acids (Prosource No Carb Liquid Pkt) 30 ml PO BID@0800,1730 [facility] Last Admin: 05/03/19 17:34 Dose: 30 ml Amlodipine Besylate (Norvasc -) 10 mg PO DAILY [facility] Last Admin: 05/03/19 09:27 Dose: 10 mg Atorvastatin Calcium (Lipitor -) 10 mg PO HS [facility] Last Admin: 05/03/19 21:17 Dose: 10 mg Clonidine (Catapres -) 0.1 mg PO DAILY [facility] Last Admin: 05/03/19 09:27 Dose: 0.1 mg Famotidine (Pepcid -) 20 mg PO DAILY [facility] Last Admin: 05/03/19 09:27 Dose: 20 mg Ganciclovir 60 mg/ Dextrose 100 mls @ 100 mls/hr IVPB [id number] [facility] Stop: 05/04/19 18:59 Last Admin: 05/01/19 17:33 Dose: Not Given Sodium Chloride (Normal Saline -) 250 mls @ 3,000 mls/hr IV PRN PRN PRN Reason: Hypotension during Dialysis Stop: 05/05/19 07:38 Metoprolol Succinate (Toprol Xl -) 50 mg PO DAILY [facility] Last Admin: 05/03/19 09:26 Dose: 50 mg Multivit/Ca Carb/B Cmplx/FA/Prenat (Nephro-Niharika -) 1 tablet PO DAILY [facility] Last Admin: 02/02/20 09:26 Dose: 1 tablet Multivitamins/Minerals/Vitamin C (Tab-A-Vit -) 1 tab PO DAILY [facility] Last Admin: 05/03/19 09:26 Dose: 1 tab - Objective Vital Signs: Vital Signs Temperature 97.8 F 05/04/19 12:26 Pulse Rate 80 05/04/19 12:26 Respiratory Rate 18 05/04/19 12:26 Blood Pressure 142/63 05/04/19 12:26 O2 Sat by Pulse Oximetry (%) 98 05/04/19 09:00 Additional Findings/Remarks: Constitutional: Yes: Well Nourished, No Distress, Calm Eyes: Yes: WNL, Conjunctiva Clear, EOM Intact HENT: Yes: WNL, Atraumatic, Normocephalic Neck: Yes: WNL, Supple, Trachea Midline Cardiovascular: Yes: WNL, Regular Rate and Rhythm Respiratory: Yes: Regular, CTA Bilaterally, Diminished (at bases) Gastrointestinal: Yes: WNL, Normal Bowel Sounds, Soft, nontender ...Rectal Exam: Yes: Deferred Renal/: Yes: Anuria Breast(s): Yes: WNL Musculoskeletal: Yes: WNL Extremities: Yes: Other left arm fistula +bruit +thrill. Edema: Yes Edema: LLE: Trace, RLE: Trace Peripheral Pulses WNL: Yes Peripheral Pulses: Left Radial: 2+, Right Radial: 2+, Left Doralis Pedis: 2+, Right Dorsalis Pedis: 2+, Left Femoral: 2+, Right Femoral: 2+ Integumentary: Yes: WNL Neurological: Yes: WNL, Alert, Oriented ...Motor Strength: WNL Psychiatric: Yes: WNL Labs: CBC, BMP 05/01/19 09:45 05/04/19 08:45 INR, PTT INR 1.09 (0.83-1.09) 04/14/19 12:00 Problem List - Problems (1) Anemia in chronic kidney disease, on chronic dialysis Assessment/Plan: ESRD on HD Hgb stable continue to monitor H/H Code(s): N18.6 - END STAGE RENAL DISEASE; D63.1 - ANEMIA IN CHRONIC KIDNEY DISEASE; Z99.2 - DEPENDENCE ON RENAL DIALYSIS (2) Fever Assessment/Plan: afebrile since Tmax on 04/29 101.6 All BCx, Ucx NGTD abd CT without acute pathology TTE without vegetations Doppler of fistula patent continue to observe off abx infectious workup all negative CMV+ and being treated with Gancyclovir mainatin on prednisone appreciate ID consultation Code(s): R50.9 - FEVER, UNSPECIFIED Qualifiers: Fever type: unspecified Qualified Code(s): R50.9 - Fever, unspecified (3) Weakness Assessment/Plan: weakness improved c/w PT fall precautions Code(s): R53.1 - WEAKNESS (4) ESRD on hemodialysis Assessment/Plan: HD as per renal Dr Lamas following Code(s): N18.6 - END STAGE RENAL DISEASE; Z99.2 - DEPENDENCE ON RENAL DIALYSIS (5) Hypertension Assessment/Plan: on norvasc,nifidepine,hydralazine , metoprolol, lasix at home c/w antihypertensive meds as BP allows Code(s): I10 - ESSENTIAL (PRIMARY) HYPERTENSION (6) Kidney transplant rejection Assessment/Plan: off all antirejection meds since Mar Transplant surgeon at [facility] Dr Tavarez Transplant nephrology Dr Ivy [phone] given steroids as per conversation with Dr Tavarez transplant surgeon at [facility] with resolution of fevers.Appointment made for follow up with Dr Lawrence/Dr Hilton at [facility] (7) Prophylactic measure Assessment/Plan: FEN Fluids: no addition IVF at this time Electrolytes: replete as indicated Nutrition: renal diet DVT prophylaxis: heparin sq oob, ambulation Dispo: requires in-patient admission Full code discharge planning Code(s): Z29.9 - ENCOUNTER FOR PROPHYLACTIC MEASURES, UNSPECIFIED (8) CMV (cytomegalovirus infection) status positive Assessment/Plan: Patient will need treatment with antivirals per ID for approximately 2 weeks to be coordinated with dialysis (6 doses total-last dose 2/5). ID following Code(s): B25.9 - CYTOMEGALOVIRAL DISEASE, UNSPECIFIED Visit type - Emergency Visit Emergency Visit: Yes ED Registration Date: 04/16/19 Care time: The patient presented to the Emergency Department on the above date and was hospitalized for further evaluation of their emergent condition. - New Patient This patient is new to me today: No - Critical Care Critical Care patient: No - Discharge Referral Referred to [facility] Med P.C.: No
[2019-05-04] MEDS: AMINO ACIDS/PROTEIN HYDROLYS 30 ML LIQUID.PKT PO SCH ×2 (13:52→16:58)
[2019-05-04] MEDS: FAMOTIDINE 20 MG TABLET PO SCH (13:53)
[2019-05-04] MEDS: VITAMIN B COMP W-C 1 EA TABLET PO SCH (13:53)
[2019-05-04] MEDS: MULTIVITAMINS (DAILY MVI) TABLET (FP) PO SCH (13:53)
[2019-05-04] MEDS: cloNIDine HCL 0.1 MG TABLET PO SCH (13:53)
[2019-05-04] MEDS: amLODIPine BESYLATE 10 MG TABLET (FP) PO SCH (13:53)
--- NOTE | 2019-05-04 15:10 | PN ---
Progress Note, Physician History of Present Illness: has been afebrile no new issues - Current Medication List Current Medications: Active Medications Acetaminophen (Tylenol -) 650 mg PO Q6H PRN PRN Reason: FEVER Last Admin: 05/02/19 15:49 Dose: 650 mg Amino Acids (Prosource No Carb Liquid Pkt) 30 ml PO BID@0800,1730 [facility] Last Admin: 05/04/19 13:52 Dose: 30 ml Amlodipine Besylate (Norvasc -) 10 mg PO DAILY [facility] Last Admin: 05/04/19 13:53 Dose: 10 mg Atorvastatin Calcium (Lipitor -) 10 mg PO HS [facility] Last Admin: 05/03/19 21:17 Dose: 10 mg Clonidine (Catapres -) 0.1 mg PO DAILY [facility] Last Admin: 05/04/19 13:53 Dose: 0.1 mg Famotidine (Pepcid -) 20 mg PO DAILY [facility] Last Admin: 05/04/19 13:53 Dose: 20 mg Ganciclovir 60 mg/ Dextrose 100 mls @ 100 mls/hr IVPB MoWeFr@1800 [facility] Stop: 05/04/19 18:59 Last Admin: 05/01/19 17:33 Dose: Not Given Sodium Chloride (Normal Saline -) 250 mls @ 3,000 mls/hr IV PRN PRN PRN Reason: Hypotension during Dialysis Stop: 05/05/19 07:38 Metoprolol Succinate (Toprol Xl -) 50 mg PO DAILY [facility] Last Admin: 05/04/19 13:53 Dose: 50 mg Multivit/Ca Carb/B Cmplx/FA/Prenat (Nephro-Niharika -) 1 tablet PO DAILY [facility] Last Admin: 05/04/19 13:53 Dose: 1 tablet Multivitamins/Minerals/Vitamin C (Tab-A-Vit -) 1 tab PO DAILY [facility] Last Admin: 05/04/19 13:53 Dose: 1 tab - Objective Vital Signs: Vital Signs Temperature 98.8 F 05/04/19 13:00 Pulse Rate 83 05/04/19 13:00 Respiratory Rate 18 05/04/19 13:00 Blood Pressure 123/60 05/04/19 13:00 O2 Sat by Pulse Oximetry (%) 98 05/04/19 09:00 Constitutional: Yes: No Distress, Calm Cardiovascular: Yes: S1, S2 Respiratory: Yes: Regular, CTA Bilaterally Gastrointestinal: Yes: Normal Bowel Sounds, Soft Musculoskeletal: Yes: WNL Extremities: Yes: WNL Neurological: Yes: Alert, Oriented Psychiatric: Yes: Alert, Oriented Labs: CBC, BMP 05/01/19 09:45 05/04/19 08:45 INR, PTT INR 1.09 (0.83-1.09) 04/14/19 12:00 Assessment/Plan Problem List - Problems (1) Anemia in chronic kidney disease, on chronic dialysis Code(s): N18.6 - END STAGE RENAL DISEASE; D63.1 - ANEMIA IN CHRONIC KIDNEY DISEASE; Z99.2 - DEPENDENCE ON RENAL DIALYSIS (2) Fever Code(s): R50.9 - FEVER, UNSPECIFIED (3) Weakness Code(s): R53.1 - WEAKNESS (4) ESRD on hemodialysis Code(s): N18.6 - END STAGE RENAL DISEASE; Z99.2 - DEPENDENCE ON RENAL DIALYSIS (5) Hypertension Code(s): I10 - ESSENTIAL (PRIMARY) HYPERTENSION (6) Kidney transplant rejection Assessment/Plan: off all antirejection meds since Mar plan continue current mgmt rest as per the team
[2019-05-04] MEDS: DEXTROSE 5% IVPB SCH (17:01)
[2019-05-04] MEDS: WATER IVPB SCH (17:01)
[2019-05-04] MEDS: GANCICLOVIR IVPB SCH (17:01)
--- NOTE | 2019-05-04 17:01 | PN ---
Progress Note, Physician History of Present Illness: Pt seen and examined at bedside. She is awake and alert. She denies shortness of breath. She is agitated and eager to go home. - Current Medication List Current Medications: Active Medications Acetaminophen (Tylenol -) 650 mg PO Q6H PRN PRN Reason: FEVER Last Admin: 05/02/19 15:49 Dose: 650 mg Amino Acids (Prosource No Carb Liquid Pkt) 30 ml PO BID@0800,1730 [facility] Last Admin: 05/04/19 16:58 Dose: Not Given Amlodipine Besylate (Norvasc -) 10 mg PO DAILY [facility] Last Admin: 05/04/19 13:53 Dose: 10 mg Atorvastatin Calcium (Lipitor -) 10 mg PO HS [facility] Last Admin: 05/03/19 21:17 Dose: 10 mg Clonidine (Catapres -) 0.1 mg PO DAILY [facility] Last Admin: 05/04/19 13:53 Dose: 0.1 mg Famotidine (Pepcid -) 20 mg PO DAILY [facility] Last Admin: 05/04/19 13:53 Dose: 20 mg Ganciclovir 60 mg/ Dextrose 100 mls @ 100 mls/hr IVPB MoWeFr@1800 [facility] Stop: 05/04/19 18:59 Last Admin: 05/01/19 17:33 Dose: Not Given Sodium Chloride (Normal Saline -) 250 mls @ 3,000 mls/hr IV PRN PRN PRN Reason: Hypotension during Dialysis Stop: 05/05/19 07:38 Metoprolol Succinate (Toprol Xl -) 50 mg PO DAILY [facility] Last Admin: 05/04/19 13:53 Dose: 50 mg Multivit/Ca Carb/B Cmplx/FA/Prenat (Nephro-Niharika -) 1 tablet PO DAILY [facility] Last Admin: 05/04/19 13:53 Dose: 1 tablet Multivitamins/Minerals/Vitamin C (Tab-A-Vit -) 1 tab PO DAILY [facility] Last Admin: 05/04/19 13:53 Dose: 1 tab - Objective Vital Signs: Vital Signs Temperature 99.7 F H 05/04/19 15:16 Pulse Rate 85 05/04/19 15:16 Respiratory Rate 20 05/04/19 15:16 Blood Pressure 110/53 L 05/04/19 15:16 O2 Sat by Pulse Oximetry (%) 98 05/04/19 09:00 Constitutional: Yes: Calm Eyes: Yes: Conjunctiva Clear HENT: Yes: Atraumatic Neck: Yes: Supple Cardiovascular: Yes: S1, S2 Respiratory: Yes: CTA Bilaterally Gastrointestinal: Yes: Soft Genitourinary: Yes: WNL Musculoskeletal: Yes: WNL Edema: No Neurological: Yes: Oriented Psychiatric: Yes: Oriented Labs: CBC, BMP 05/01/19 09:45 05/04/19 08:45 INR, PTT INR 1.09 (0.83-1.09) 04/14/19 12:00 Problem List - Problems (1) ESRD on hemodialysis Code(s): N18.6 - END STAGE RENAL DISEASE; Z99.2 - DEPENDENCE ON RENAL DIALYSIS (2) Fever Code(s): R50.9 - FEVER, UNSPECIFIED Qualifiers: Fever type: unspecified Qualified Code(s): R50.9 - Fever, unspecified Assessment/Plan Current Medications Generic Name Dose Route Start Last Admin Trade Name Freq PRN Reason Stop Dose Admin Acetaminophen 650 mg 04/17/19 18:30 05/02/19 15:49 Tylenol - PO 650 mg Q6H PRN Administration FEVER Amino Acids 30 ml 04/29/19 17:30 05/04/19 16:58 Prosource No Carb Liquid Pkt PO Not Given BID@0800,1730 [facility] Amlodipine Besylate 10 mg 04/18/19 10:00 05/04/19 13:53 Norvasc - PO 10 mg DAILY [facility] Administration Atorvastatin Calcium 10 mg 04/17/19 22:00 05/03/19 21:17 Lipitor - PO 10 mg HS [facility] Administration Clonidine 0.1 mg 04/18/19 10:00 05/04/19 13:53 Catapres - PO 0.1 mg DAILY [facility] Administration Famotidine 20 mg 04/18/19 10:00 05/04/19 13:53 Pepcid - PO 20 mg DAILY [facility] Administration Ganciclovir 60 mg/ Dextrose 100 mls @ 100 mls/hr 04/22/19 18:00 05/01/19 17: 33 IVPB 05/04/19 18:59 Not Given MoWeFr@1800 [facility] Sodium Chloride 250 mls @ 3,000 mls/hr 05/04/19 07:38 Normal Saline - IV 05/05/19 07:38 PRN PRN Hypotension during Dialysis Metoprolol Succinate 50 mg 04/18/19 10:00 05/04/19 13:53 Toprol Xl - PO 50 mg DAILY [facility] Administration Multivit/Ca Carb/B Cmplx/FA/Prenat 1 tablet 04/17/19 17:00 05/04/19 13:53 Nephro-Niharika - PO 1 tablet DAILY [facility] Administration Multivitamins/Minerals/Vitamin C 1 tab 04/18/19 10:00 05/04/19 13:53 Tab-A-Vit - PO 1 tab DAILY [facility] Administration Impression 1. ESRD 2. kidney transplant 3. htn 4. anemia 5. BK nephropathy 6. r/o sepsis 7. positive CMV Plan - HD today - pharmacy will dispense last dose of ganciclovir - next HD on (TTS) - outpt follow up with transplant team
[2019-05-04] MEDS: ATORVASTATIN CA 10 MG TABLET (FP) PO SCH (22:18)
[2019-05-05] MEDS: FAMOTIDINE 20 MG TABLET PO SCH (09:12)
[2019-05-05] MEDS: AMINO ACIDS/PROTEIN HYDROLYS 30 ML LIQUID.PKT PO SCH (09:12)
[2019-05-05] MEDS: amLODIPine BESYLATE 10 MG TABLET (FP) PO SCH (09:12)
[2019-05-05] MEDS: MULTIVITAMINS (DAILY MVI) TABLET (FP) PO SCH (09:13)
[2019-05-05] MEDS: cloNIDine HCL 0.1 MG TABLET PO SCH (09:13)
[2019-05-05] MEDS: VITAMIN B COMP W-C 1 EA TABLET PO SCH (09:13)
[2019-05-05 09:16] VITALS: BP 116/66; PULSE 101; TEMP 98.5
--- NOTE | 2019-05-05 09:18 | DS ---
Physical Exam: SUBJECTIVE: Patient seen and examined at the bedside. wants to go home today. She will follow up with her home dialysis center. OBJECTIVE: Patient is a 63 year old female with a significant past medical history of ESRD on HD, s/p renal transplant s/p rejection 2/2 BK nephropathy, HTN, CKD who was sent to [facility] ED on 04/16/2019 for fever and chills during dialysis. She also reported abdominal pain. Patient has been off antirejection medications s/p Renal transplant with failure per renal. Per ID, patient is + for CMV virus and will need treatment with ganciclovir to be coordinated with dialysis (will need for a total of 2 weeks = 6 doses). She has received 5 doses of gancyclovir during her hospital stay and will receive her 6th and final dose this with dialysis. She is afebrile and agrees to follow up with the kidney specialist on discharge. Vital Signs Period Temp Pulse Resp BP Sys/[place] Pulse Ox Last 24 Hr 97.8 F-100.6 F 65-101 17-20 94-143/40-76 98 PHYSICAL EXAM GENERAL: The patient is awake in no acute distress. HEAD: Normal with no signs of trauma. EYES: PERRL, extraocular movements intact, sclera anicteric, conjunctiva clear. No ptosis. ENT: Ears normal, nares patent, oropharynx clear without exudates NECK: Trachea midline, full range of motion, supple. LUNGS: Breath sounds equal, diminished bilaterally HEART: Regular rate and rhythm ABDOMEN: Soft, nontender, nondistended, normoactive bowel sounds EXTREMITIES: no edema. NEUROLOGICAL: Normal speech, gait not observed. PSYCH: Normal mood, normal affect. SKIN: Warm, dry, normal turgor, no rashes or lesions noted LABS Laboratory Results - last 24 hr 05/04/19 08:45 Sodium 132 L Potassium 4.2 Chloride 97 L Carbon Dioxide 24 Anion Gap 12 BUN 94.1 H Creatinine 8.3 H* Est GFR (CKD-EPI)AfAm 5.41 Est GFR (CKD-EPI)NonAf 4.67 Random Glucose 136 H Calcium 7.8 L Phosphorus 2.5 Total Bilirubin 0.3 AST 19 ALT 17 Alkaline Phosphatase 94 Total Protein 5.6 L Albumin 2.1 L HOSPITAL COURSE: Date of Admission:04/16/19 Date of Discharge: 05/05/19 Minutes to complete discharge: 45 Discharge Summary Problems reviewed: Yes Reason For Visit: ESRD,SEPSIS,HYPERTENSION Current Active Problems Anemia in chronic kidney disease, on chronic dialysis (Acute) CMV (cytomegalovirus infection) status positive (Acute) ESRD on hemodialysis (Acute) Fever (Acute) Sepsis (Acute) Weakness (Acute) Condition: Stable - Instructions Diet, Activity, Other Instructions: DISCHARGE YOUR VISIT You came to the hospital because you have fever and chills during dialysis MEDICATIONS Please continue to take your home medications as prescribed. You will need to receive antiviral therapy with your dialysis for one more dose Here is your new medications list and these are the ONLY medications you should be on at home Metoprolol XL 50mg ONCE PER DAY for blood pressure control Clonidone 0.1mg ONCE PER DAY for blood pressure control Norvasc (Amlodopine) 10mg ONCE PER DAY for blood pressure control Lipitor 10mg ONCE PER DAY at bed time for cholesterol Pepcid 20mg ONCE PER DAY for stomach upset DIET Continue your home diet ADDITIONAL CARE Please make an appointment to see your primary care provider, Dr. Rodriguez 1 week from today. Appoinment with Dr Johnson on Sat at 9:00. Go to the second floor at [facility] in Transplant center, arrive 15 min before appointment ADDITIONAL INFORMATION Please call 911 or come directly to the emergency department if you experience unusual headache, vision change, shortness of breath, chest pain, numbness, tingling, loss of alertness/awareness, loss of function, unusual bleeding or any alarming symptoms. Thank you for allowing me to care for you. You have an appointment with Dr. Vera (Kidney Transplant Specialist). Bring your discharge paperwork with you.. Ranjeet Tomas, JANET, [facility] [phone] Referrals: Katie Lamas MD [Staff Physician] - Manas Rodriguez [Primary Care Provider] - Disposition: HOME - Home Medications Comprehensive Discharge Medication List: Ambulatory Orders Amlodipine Besylate [Norvasc -] 10 mg PO DAILY 04/19/14 Famotidine [Pepcid -] 20 mg PO DAILY 10/23/18 Metoprolol Succinate [Toprol Xl] 50 mg PO DAILY 10/23/18 Multivitamin [Multiple Vitamins] 1 each PO DAILY 10/23/18 Pravastatin Sodium [Pravachol -] 40 mg PO HS 10/23/18 cloNIDine HCL [Catapres -] 0.1 mg PO DAILY 10/23/18 Amlodipine Besylate [Norvasc -] 10 mg PO DAILY #0 tablet 04/28/19 Ganciclovir [Cytovene (Restricted To Id) -] 60 mg IVPB MoWeFr@1800 vial Metoprolol Succinate [Toprol XL -] 50 mg PO DAILY #0 tab.sr.24h 04/28/19 cloNIDine HCL [Catapres -] 0.1 mg PO DAILY #0 tablet 04/28/19 Amino Acids/Protein Hydrolys [Prosource No Carb Liquid Pkt] 30 ml PO BID@0800, 1730 #60 packet 04/29/19 Ganciclovir [Cytovene (Restricted To Id) -] 60 mg IV Q2D #2 vial 05/04/19 Problem List - Problems (1) CMV (cytomegalovirus infection) status positive Code(s): B25.9 - CYTOMEGALOVIRAL DISEASE, UNSPECIFIED (2) Anemia in chronic kidney disease, on chronic dialysis Code(s): N18.6 - END STAGE RENAL DISEASE; D63.1 - ANEMIA IN CHRONIC KIDNEY DISEASE; Z99.2 - DEPENDENCE ON RENAL DIALYSIS (3) ESRD on hemodialysis Code(s): N18.6 - END STAGE RENAL DISEASE; Z99.2 - DEPENDENCE ON RENAL DIALYSIS (4) Fever Code(s): R50.9 - FEVER, UNSPECIFIED Qualifiers: Fever type: unspecified Qualified Code(s): R50.9 - Fever, unspecified (5) Sepsis Code(s): A41.9 - SEPSIS, UNSPECIFIED ORGANISM Qualifiers: Sepsis type: sepsis due to unspecified organism Sepsis acute organ dysfunction status: unspecified Qualified Code(s): A41.9 - Sepsis, unspecified organism (6) Weakness Code(s): R53.1 - WEAKNESS (7) Anemia Code(s): D64.9 - ANEMIA, UNSPECIFIED (9) Thrombocytopenia Code(s): D69.6 - THROMBOCYTOPENIA, UNSPECIFIED (10) Hypertension Code(s): I10 - ESSENTIAL (PRIMARY) HYPERTENSION (11) Prophylactic measure Code(s): Z29.9 - ENCOUNTER FOR PROPHYLACTIC MEASURES, UNSPECIFIED This patient is new to me today: No Emergency Visit: Yes ED Registration Date: 04/16/19 Care time: The patient presented to the Emergency Department on the above date and was hospitalized for further evaluation of their emergent condition. Critical Care patient: No - Discharge Referral Referred to [facility] No
== END 2019-05-05 10:11 | disposition home or self-care (01) | DRG 871 ==
LOC: JER 11:17 → JERBED 12:02 → INTOOBSV 12:02 → J2W 04-15 01:02 → OBSVTOIN 04-16 08:03 → J7W 04-17 18:18
PROVIDERS: ATTEND Nurse Practitioner Family
PROC: 5A1D70Z Performance of Urinary Filtration, Intermittent, Less than 6 Hours Per Day (ICD-10-PCS; principal; 2019-05-04)
PROC: 5A1D70Z Performance of Urinary Filtration, Intermittent, Less than 6 Hours Per Day (ICD-10-PCS; 2019-05-04)
DX: A41.9 Sepsis, unspecified organism (principal); N18.6 End stage renal disease; I12.0 Hypertensive chronic kidney disease with stage 5 chronic kidney disease or end stage renal disease; N17.9 Acute kidney failure, unspecified; B25.9 Cytomegaloviral disease, unspecified; Z94.0 Kidney transplant status; D63.1 Anemia in chronic kidney disease; Z99.2 Dependence on renal dialysis; D64.9 Anemia, unspecified; D69.6 Thrombocytopenia, unspecified; N14.2 Nephropathy induced by unspecified drug, medicament or biological substance; N28.1 Cyst of kidney, acquired; K21.9 Gastro-esophageal reflux disease without esophagitis; E78.5 Hyperlipidemia, unspecified; R10.9 Unspecified abdominal pain; R05 Cough; R50.9 Fever, unspecified; R53.1 Weakness; Z87.891 Personal history of nicotine dependence; Z29.9 Encounter for prophylactic measures, unspecified
CPT/HCPCS: 36415; 36430; 36511; 71045-TC-FY; 74176-TC; 80048; 80053; 81003; 82565; 82803; 82962; 83605; 83735; 84100; 84484; 84520; 85025; 85027; 85610; 85730; 86644; 86645; 86803; 86850; 86900; 86901; 86922; 87040; 87086; 87340; 87804; 90670; 93005; 93010; 93306-TC; 93970-TC; 93971; 97116-GP; 97161-GP; 99285-25; G0378; G0480; J0131; J0735; J0885; J1644; J7030; P9038; P9058; Q5106

== ENCOUNTER 2019-11-11 17:34 | Inpatient (IN) | payer OTHER ==
--- NOTE | 2019-11-11 18:54 | PDOC ---
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 Senior Medical Director service was used to communicate with the patient([id number]). Patient reports that she received a call from , who told her to go to ER because her blood is low. She is a poor historian, not cooperative with her examinations, not able to get information, she reports that "she does not know". Called her son( [phone] multiple times for collateral info: Did not answer. [facility]- as per pt 11/11/19 19:29 11/11/19 19:36 Past History - Medical History Allergies/Adverse Reactions: Allergies Allergy/AdvReac Type Severity Reaction Status Date / Time No Known Drug Allergies Allergy Verified 11/11/19 17:41 Home Medications: Ambulatory Orders Amlodipine Besylate [Norvasc -] 2.5 mg PO DAILY 04/19/14 Famotidine [Pepcid -] 20 mg PO DAILY 10/23/18 Metoprolol Succinate [Toprol Xl] 50 mg PO DAILY 10/23/18 Multivitamin [Multiple Vitamins] 1 each PO DAILY 10/23/18 Pravastatin Sodium [Pravachol -] 40 mg PO HS 10/23/18 cloNIDine HCL [Catapres -] 0.1 mg PO DAILY 10/23/18 Amlodipine Besylate [Norvasc -] 10 mg PO DAILY #0 tablet 04/28/19 Ganciclovir [Cytovene (Restricted To Id) -] 60 mg IVPB MoWeFr@1800 vial 04/28/19 Metoprolol Succinate [Toprol XL -] 50 mg PO DAILY #0 tab.sr.24h 04/28/19 cloNIDine HCL [Catapres -] 0.1 mg PO DAILY #0 tablet 04/28/19 Amino Acids/Protein Hydrolys [Prosource No Carb Liquid Pkt] 30 ml PO BID@0800,1730 #60 packet 04/29/19 Ganciclovir [Cytovene (Restricted To Id) -] 60 mg IV Q2D #2 vial 05/04/19 Anemia: Yes Asthma: No Cancer: No Cardiac Disorders: No CVA: No COPD: No CHF: No Dementia: No Diabetes: No Dialysis: Yes GI Disorders: Yes (GERD) Disorders: No HTN: Yes Hypercholesterolemia: Yes Liver Disease: No Seizures: No Thyroid Disease: No - Reproductive History Is Patient Now?: No - Immunization History Immunization Up to Date: No - Psycho-Social/Smoking History Smoking History: Former smoker Have you smoked in the past 12 months: No Number of Cigarettes Smoked Daily: 20 Information on smoking cessation initiated: No 'Breaking Loose' booklet given: 04/19/14 - Substance Abuse Hx (Audit-C & DAST Scrn) How often the patient has a drink containing alcohol: Never Score: In Men: 4 or > Positive; In Women: 3 or > Positive: 0 Screen Result (Pos requires Nsg. Audit-10AR): Negative In the last yr the pt used illegal drug/Rx for NonMed reason: No Score: Yes response is considered Positive: 0 Screen Result (Positive result requires Nsg. DAST-10): Negative Review of Systems - Review of Systems Able to Perform ROS?: No (see HPI) Is the patient limited Thai proficient: Yes Constitutional: No: Chills, Fever Respiratory: No: Cough Cardiac (ROS): No: Chest Pain, Palpitations *Physical Exam - Vital Signs Last Vital Signs Temp Pulse Resp BP Pulse Ox 98.3 F 72 17 162/64 100 11/11/19 17:39 11/11/19 17:39 11/11/19 17:39 11/11/19 17:39 11/11/19 17:39 - Physical Exam General Appearance: Yes: Thin. No: Apparent Distress HEENT: positive: Pale Conjunctivae. negative: Rhinorrhea Neck: positive: Supple. negative: Carotid bruit, Lymphadenopathy (R), Lymph adenopathy (L) Respiratory/Chest: positive: Normal Breath Sounds. negative: Respiratory Distress, Rales, Rhonchi Cardiovascular: positive: Regular Rhythm, Regular Rate, S1, S2, Systolic Murmur (4/6 along the left sternal border) Vascular Pulses: Carotid (R): 2+, Carotid (L): 2+, Dorsalis-Pedis (R): 1+, Doralis-Pedis (L): 1+ Gastrointestinal/Abdominal: positive: Soft. 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 - CBC, CMP, PT/PTT - EKG: NSR, no S/T wave changes - CXR: cardiomegaly, no infiltrates - Hgb: 6.6, 1 unit of PRBC - Nephro consulted: Dr. Lamas- HD tomorrow - Dispo: adm anemia and dialysis in AM 11/11/19 19:05 11/11/19 20:15 11/11/19 20:32 11/11/19 20:50 Discharge - Discharge Information Problems reviewed: Yes Clinical Impression/Diagnosis: Anemia in chronic kidney disease, on chronic dialysis Condition: Fair - Admission Yes - Follow up/Referral - Patient Discharge Instructions - Post Discharge Activity
[2019-11-11 19:38] LABS: BASO % 1.2 % (0-2.0); HEMATOCRIT 20.3 % (32.4-45.2); LYMPH % 44.6 % (8-40); MCH 33.1 pg (25.7-33.7); MCHC 32.8 g/dl (32.0-36.0); MEAN PLT VOLUME 10.2 fl (7.5-11.1); MONO % 11.4 % (3.8-10.2); NEUT % 40.8 % (42.8-82.8); PLATELET COUNT 67 K/MM3 (134-434); RBC 2.01 M/mm3 (3.60-5.2); RDW 15.4 % (11.6-15.6); WHITE BLOOD COUNT 2.3 K/mm3 (4.0-10.0)
[2019-11-11 19:41] LABS: HEMOGLOBIN 6.6 GM/dL (10.7-15.3)
[2019-11-11 19:47] LABS: INR 1.07 (0.83-1.09); PROTHROMBIN TIME (PATIENT) 12.6 SEC (9.7-13.0)
[2019-11-11 19:49] LABS: ACTIVATED PTT 34.3 SECONDS (25.2-36.5)
[2019-11-11 20:11] LABS: ALBUMIN 3.3 g/dl (3.4-5.0); BILIRUBIN,TOTAL 0.4 mg/dL (0.2-1); CALCIUM 8.4 mg/dL (8.5-10.1); CREATININE 6.4 mg/dL (0.55-1.3); POTASSIUM 4.7 mmol/L (3.5-5.1); TOT PROT 6.8 g/dl (6.4-8.2)
--- NOTE | 2019-11-11 20:34 | PDOC ---
Documentation entered by Joan Olivares SCRIBE, acting as scribe for Claire Brown DO. Claire Brown DO: This documentation has been prepared by the jaky, Joan Olivares SCRIBE, under my direction and personally reviewed by me in its entirety. I confirm that the documentation accurately reflects all work, treatment, procedures, and medical decision making performed by me. 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 Patient stated that her doctor advised her to come to the ED because her "blood is low". Patient is a poor historian. Patient denies: any other related symptoms. Allergies: NKDA - Physicial Exam PE: 11/11/19 20:30 Gen: awake, nad heart: +s1s2 reg lungs: cta b/l abd: soft, nt/nd +bs ext: no c/c/e, AV fistula with bruit and thrill to LUE, pulses intact - Medical Decision Making 11/11/19 20:31 a/p: 64yo female sent from HD for eval of low h/h -hgb at HD was 6.8 -pt denies complaints -case discussed with Dr. Lamas, pt needs 1unit prbc and he will perform HD tomorrow -will repeat labs -will obtain ekg, cxr 11/11/19 20:33 repeat h/h 6.6 pt consents to blood transfusion [facility] 11/11/19 20:33 cxr shows cardiomegaly, no focal pna 11/11/19 21:55 resident discussed the case with [facility] who accepts pt to service Heart Score/ECG Review - ECG Intrepretation Comment:: 11/11/19 20:32 sinus at 72, nl axis, nl interval, q waves septally which are age indeterminate, qtc 488, abnl ekg Discharge - Discharge Information Problems reviewed: Yes Clinical Impression/Diagnosis: Anemia in chronic kidney disease, on chronic dialysis Condition: Fair - Admission Yes - Follow up/Referral Referrals: ON STAFF,NOT [Primary Care Provider] - - Patient Discharge Instructions - Post Discharge Activity
--- NOTE | 2019-11-11 20:59 | PN ---
Teaching Attending Note Name of Resident: Tenzin Rodríguez ATTENDING PHYSICIAN STATEMENT I saw and evaluated the patient. I reviewed the resident's note and discussed the case with the resident. I agree with the resident's findings and plan as documented. SUBJECTIVE: Patient is a 64 year old woman with a PMH of ESRD on hemodialysis, Recent COVID- 19 infection, Failed kidney transplant and HTN who presents with abnormal laboratory results form PCP/Dialysis center. Patient reports that she received a call from Dr. Coy, who told her to go to ER because her blood is low. Was dialyzed yesterday. Patient has urinary incontinence but is unable to provide additional specific information. Patient denies chest pain, shortness of breath, abdominal pain, headache, palpitations, dizziness, fever, chills, nausea, vomiting, diarrhea, constipation, dysuria, frequency, urgency, melena, hematochezia or hematuria. Denies alcohol, tobacco or illicit drug use. No sick contacts or recent travels. Family history of ?polycystic kidney disease and HTN. OBJECTIVE: Alert and not orthostatic Vital Signs Period Temp Pulse Resp BP Sys/[place] Pulse Ox Last 24 Hr 98.3 F 72 17 162/64 100 HEENT: No Jaundice, eye redness or discharge, PERRLA, EOMI. Normocephalic, atraumatic. External ears are normal and hearing is grossly intact. No nasal discharge. Neck: Supple, nontender. No palpable adenopathy or thyromegaly. No JVD Chest: Good effort. Clear to auscultation and percussion. Heart: Regular. No S3, rub or murmur Abdomen: Not distended, soft, nontender and no HSM. No rebound or guarding. Normal bowel sounds. Ext: Peripheral pulses intact. No leg edema. Left upper arm AV fistual with good bruit and thrill. Skin: Warm and dry. No petechiae, rash or ecchymosis. Neuro: Alert. Oriented x3. CN 2-12 grossly intact. Sensation grossly intact in all four extremities and DTR are symmetric. Psych: Appropriate mood and affect. Good insight. Home Medications Medication Instructions Recorded Amlodipine Besylate [Norvasc -] 10 mg PO DAILY 04/19/14 Famotidine [Pepcid -] 20 mg PO DAILY 10/23/18 Metoprolol Succinate [Toprol Xl] 50 mg PO DAILY 10/23/18 Multivitamin [Multiple Vitamins] 1 each PO DAILY 10/23/18 Pravastatin Sodium [Pravachol -] 40 mg PO HS 10/23/18 cloNIDine HCL [Catapres -] 0.1 mg PO DAILY 10/23/18 Amlodipine Besylate [Norvasc -] 10 mg PO DAILY #0 tablet 04/28/19 Ganciclovir [Cytovene (Restricted 60 mg IVPB MoWeFr@1800 vial 04/28/19 To Id) -] Metoprolol Succinate [Toprol XL -] 50 mg PO DAILY #0 tab.sr.24h 04/28/19 cloNIDine HCL [Catapres -] 0.1 mg PO DAILY #0 tablet 04/28/19 Amino Acids/Protein Hydrolys 30 ml PO BID@0800,1730 #60 packet 04/29/19 [Prosource No Carb Liquid Pkt] Ganciclovir [Cytovene (Restricted 60 mg IV Q2D #2 vial 05/04/19 To Id) -] Abnormal Lab Results 11/11/19 11/11/19 11/11/19 18:40 18:40 18:40 WBC 2.3 L RBC 2.01 L Hgb 6.6 L* Hct 20.3 L D MCV 101.0 H Plt Count 67 L D Absolute Neuts (auto) 0.9 L Neutrophils % 40.8 L D Lymphocytes % 44.6 H D Monocytes % 11.4 H Anion Gap 7 L BUN 31.0 H Creatinine 6.4 H Random Glucose 118 H Calcium 8.4 L Alkaline Phosphatase 142 H Albumin 3.3 L Crossmatch See Detail ASSESSMENT AND PLAN: 1. Pancytopenia/ESRD - Etiology unclear - may be related to recent COVID-19 infection or recent Gancyclovir therapy. Will get records from PCP to find out why she was on Gancyclovir and for how long. Anemia likely partly due to ESRD. Will get serial stool guaiacs, reticulocyte count, iron studies, fibrinogen, fibrinogen degradation products, haptoglobin, d-dimer, vitamin B12 and folate levels. Get CT abdomen/pelvis to evaluate spleen, liver and rule out mass llesion. Would need to rule out intravascular hemolysis before transfusing PRBC. Consult Hematology. CXR shows cardiomegaly with increased interstitial markings. Viral testing for COVID-19 ordered and patient placed on airborne, droplet and contact isolation. EKG shows NSR at 72/minute and QTc 488 with septal infarct of indeterminate age. Not significantly changed compared to prior EKG. Initial troponin is negative. Will avoid drugs that may prolong QTc. Consult Nephrology for ESRD care. Will continue comprehensive care for all of patients comorbid conditions. 2. Hypoalbuminemia - Possibly due to combined effects of malnutrition and inflammation associated with comorbid conditions. Will ensure adequate dietary protein intake and also consult engraver. Urinalysis pending. 3. Uncontrolled hypertension Will restart suitable outpatient antihypertensive drugs when clinically appropriate. Subsequently, will revise regimen to ensure [id number] excellent BP control. Patient counseled on the injurious effects of uncontrolled hypertension. Nonpharmacologic measures to control hypertension like weight loss, salt restriction and exercise stressed. Importance of adherence to treatment regimen and attainment of normotension emphasized. 4. DVT prophylaxis - SCD; monitor closely for capillary rupture. 5. Advance directives - Full code
--- NOTE | 2019-11-12 01:07 | HP ---
Informant: Son over the phone. CHIEF COMPLAINT: ESRD referred due to low blood level PCP: HISTORY OF PRESENT ILLNESS: Patient is a 64 year old woman with a PMH of HTN, ESRD on hemodialysis, failed kidney transplant and recent Covid-19 infection who was advised by her physician-Dr Coy to go the ED due to low blood level. Patient is a known dialysis patient scheduled for 3x weekly dialysis with access points being A-V fistula/graft in the left arm. Next dialysis is scheduled for today. Patient received renal transplant 4 years ago which failed two years later following recurrent pyelonephritis that failed to respond to treatment leading to subsequent removal of failed kidney and return to 3weekly dialysis. Patient experiences occasional incontinence and feeling of fainting whenever she stands on her feet but denies dysuria, frequency, urgency, melena, hematochezia or hematuria. There is no chest pain, shortness of breath, abdominal pain, headache, palpitations, dizziness, fever, chills, nausea, vomiting, diarrhea, constipation, LOC, seizures, stroke or fall. ER course was notable for: (1) (2) (3) Recent Travel: No PAST SURGICAL HISTORY: Social History: Lives in a rehab center in [facility]. Has medicaid insurance Smoking:No Alcohol:No Drugs: No Allergies: No known allergy FHx: HTN and Polycystic kidney disease Hx of Hospitalizations: Up to 25 hospitalizations since onset of ESRD HOME MEDICATIONS: Home Medications Medication Instructions Recorded Amlodipine Besylate [Norvasc -] 10 mg PO DAILY 04/19/14 Famotidine [Pepcid -] 20 mg PO DAILY 10/23/18 Metoprolol Succinate [Toprol Xl] 50 mg PO DAILY 10/23/18 Multivitamin [Multiple Vitamins] 1 each PO DAILY 10/23/18 Pravastatin Sodium [Pravachol -] 40 mg PO HS 10/23/18 cloNIDine HCL [Catapres -] 0.1 mg PO DAILY 10/23/18 Amlodipine Besylate [Norvasc -] 10 mg PO DAILY #0 tablet 04/28/19 Ganciclovir [Cytovene (Restricted 60 mg IVPB MoWeFr@1800 vial 04/28/19 To Id) -] Metoprolol Succinate [Toprol XL -] 50 mg PO DAILY #0 tab.sr.24h 04/28/19 cloNIDine HCL [Catapres -] 0.1 mg PO DAILY #0 tablet 01/28/20 Amino Acids/Protein Hydrolys 30 ml PO BID@0800,1730 #60 packet 04/29/19 [Prosource No Carb Liquid Pkt] Ganciclovir [Cytovene (Restricted 60 mg IV Q2D #2 vial 05/04/19 To Id) -] REVIEW OF SYSTEMS Negative except as above Vital Signs - 24 hr 11/11/19 17:39 Temperature 98.3 F Pulse Rate 72 Respiratory 17 Rate Blood Pressure 162/64 O2 Sat by Pulse 100 Oximetry (%) PHYSICAL EXAMINATION GENERAL: Awake, alert, and fully oriented, in no acute distress. HEAD: Normal with no signs of trauma. EYES: Sclera anicteric, mild pallor NECK: Normal range of motion, supple without lymphadenopathy or masses. LUNGS: Vesicular breath sounds equal and b/l. No wheezes, and no crackles. HEART: Murmur heard in aortic and pulmonic valvular regions. A-V fistula/graft: patent with turbulent flow on auscultation ABDOMEN: Soft, flat, nontender MUSCULOSKELETAL: No CVA tenderness. UPPER EXTREMITIES:Lt arm Patent A-V fistula/graft with turbulent flow LOWER EXTREMITIES: 2+ pulses, warm, 2+ pedal edema. NEUROLOGICAL: Normal speech. No focal neurological deficit PSYCHIATRIC: Cooperative. Good eye contact. Appropriate mood and affect. SKIN: Warm, dry, normal turgor, no rashes, longitudinal scar noted on ant-lat surface left arm in the region of the A-V fistula. Normal capillary refill. Laboratory Results - last 24 hr 11/11/19 11/11/19 11/11/19 18:40 18:40 18:40 WBC 2.3 L RBC 2.01 L Hgb 6.6 L* Hct 20.3 L D MCV 101.0 H MCH 33.1 MCHC 32.8 RDW 15.4 Plt Count 67 L D MPV 10.2 D Absolute Neuts (auto) 0.9 L Neutrophils % 40.8 L D Lymphocytes % 44.6 H D Monocytes % 11.4 H Eosinophils % 2.0 Basophils % 1.2 Nucleated RBC % 0 PT with INR 12.60 INR 1.07 PTT (Actin FS) 34.3 Sodium 141 Potassium 4.7 Chloride 102 Carbon Dioxide 32 Anion Gap 7 L BUN 31.0 H Creatinine 6.4 H Est GFR (CKD-EPI)AfAm 7.36 Est GFR (CKD-EPI)NonAf 6.35 Random Glucose 118 H Calcium 8.4 L Total Bilirubin 0.4 AST 18 ALT 15 Alkaline Phosphatase 142 H Total Protein 6.8 Albumin 3.3 L Blood Type Antibody Screen Crossmatch 11/11/19 18:40 WBC RBC Hgb Hct MCV MCH MCHC RDW Plt Count MPV Absolute Neuts (auto) Neutrophils % Lymphocytes % Monocytes % Eosinophils % Basophils % Nucleated RBC % PT with INR INR PTT (Actin FS) Sodium Potassium Chloride Carbon Dioxide Anion Gap BUN Creatinine Est GFR (CKD-EPI)AfAm Est GFR (CKD-EPI)NonAf Random Glucose Calcium Total Bilirubin AST ALT Alkaline Phosphatase Total Protein Albumin Blood Type A NEGATIVE Antibody Screen Negative Crossmatch See Detail ASSESSMENT/PLAN: #Pancytopenia: Likely due to decreased EPO in ESRD ? Immunologic effect of recent Covid infection ? BM suppressive effect of gancyclovir Serum Iron studies: Iron, ferritin, TIBC, reticulocytes count Serial FOBT Fibrinogen, fibrinogen degradation products, haptoglobin, D-dimer, vitamin B12 and folate levels. Abdomen/Pelvic CT to evaluate spleen, liver and to r/o mass lesion. R/O intravascular hemolysis before transfusing PRBC Consult Hematology. #ESRD: known ESRD patient Patent A-V fistulae on Lt arm 3x weekly dialysis uncontrolled HTN Elevated BUN AND Creatinine Continue blood pressure mgt as advised Viral testing for COVID-19 pending and patient placed on airborne, droplet and contact isolation. Consult Nephrology for ESRD care Follow delivery mgr consult as recommended #QTc PROLONGATION: QTc 488 Initial troponin-negative Avoid QTc prolonging meds EKG shows NSR at 72/minute and with septal infarct of indeterminate age. #Hypoalbuminemia: Likely due to reduced production in malnutrition and chronic inflammation induced hypoalbuminemia Eduate patient on dietary protein intake. Consult statement services representative. F/U Urinalysis #Uncontrolled HTN: Resume antihypertensive when clinically appropriate Call local pharm in am to med rec antihypertensive for appropraite dosing and optimal BP control. Patient educated on benefits of med adherence and complications of poorly controlled BP Nonpharmacologic measures to control hypertension like weight loss, salt restriction and exercise stressed. Importance of adherence to treatment regimen and attainment of normotension emphasized. #FEN: Continue to monitor electrolyte and follow delivery mgr recommendations Sodium controlled diet #DVT prophylaxis: SCD: monitor closely for capillary rupture. #DISPOSITION: Admit med surg Maintain fall, seizures and aspiration precaution Contact PCP in AM to find out why patient was on Gancyclovir Will continue comprehensive care for all of patient's comorbid conditions as clinically necessary Full code Visit type - Emergency Visit Emergency Visit: Yes ED Registration Date: 11/11/19 Care time: The patient presented to the Emergency Department on the above date and was hospitalized for further evaluation of their emergent condition. - New Patient This patient is new to me today: Yes Date on this admission: 11/11/19 - Critical Care Critical Care patient: No ATTENDING PHYSICIAN STATEMENT I saw and evaluated the patient. I reviewed the resident's note and discussed the case with the resident. I agree with the resident's findings and plan as documented. SUBJECTIVE: OBJECTIVE: ASSESSMENT AND PLAN:
[2019-11-12] MEDS ORDERED: amLODIPine BESYLATE 10 MG TABLET (FP) PO ONE (01:38)
[2019-11-12] MEDS ORDERED: SODIUM CHLORIDE 250 ML IV PRN (07:00)
--- NOTE | 2019-11-12 08:24 | PN ---
Progress Note, Physician Chief Complaint: Patient denies any new complaints. 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 - Current Medication List Current Medications: Active Medications Amino Acids (Prosource No Carb Liquid Pkt) 30 ml PO BID@0800,1730 [facility] Amlodipine Besylate (Norvasc -) 10 mg PO DAILY [facility] Last Admin: 11/12/19 12:26 Dose: 10 mg Documented by: Atorvastatin Calcium (Lipitor -) 10 mg PO HS [facility] Clonidine (Catapres -) 0.1 mg PO DAILY [facility] Last Admin: 11/12/19 12:27 Dose: 0.1 mg Documented by: Epoetin Talha (Procrit -) 10,000 unit IVPUSH ONCE ONE Stop: 11/12/19 07:01 Famotidine (Pepcid -) 20 mg PO DAILY [facility] Sodium Chloride (Normal Saline -) 250 mls @ 3,000 mls/hr IV PRN PRN PRN Reason: Hypotension during Dialysis Stop: 11/13/19 07:00 Metoprolol Succinate (Toprol Xl -) 50 mg PO DAILY [facility] Last Admin: 11/12/19 12:26 Dose: 50 mg Documented by: Metoprolol Succinate (Toprol Xl -) 50 mg PO DAILY [facility] Multivitamins/Minerals/Vitamin C (Tab-A-Vit -) 1 tab PO DAILY [facility] Last Admin: 11/12/19 12:26 Dose: 1 tab Documented by: - Objective Vital Signs: Vital Signs Temperature 98.6 F 11/12/19 06:00 Pulse Rate 70 11/12/19 06:00 Respiratory Rate 18 11/12/19 06:00 Blood Pressure 158/70 11/12/19 06:00 O2 Sat by Pulse Oximetry (%) 100 11/12/19 06:00 General: Elderly woman, sick looking, cachectic comfortable, not in distress HEENT mucous membranes moist, + anemia, no jaundice, PERRLA, no nystagmus Neck: No JVD, supple, no bruit, thyroid palpably normal, normal carotid pulsations. Chest: Nontender, bilateral basal rales. CVS: S1-S2 regularno murmur/gallop/rub Abdomen: Nondistended, soft, bowel sounds present. Extremities: No edema., No Calf tenderness, pulses present TECHNOLOGY COACH: AO X3 , no gross motor sensory deficit Labs: CBC,CMP WBC 2.3 K/mm3 (4.0-10.0) L 11/11/19 18:40 RBC 2.01 M/mm3 (3.60-5.2) L 11/11/19 18:40 Hgb 6.6 GM/dL (10.7-15.3) L* 11/11/19 18:40 Hct 20.3 % (32.4-45.2) L D 11/11/19 18:40 MCV 101.0 fl (80-96) H 11/11/19 18:40 MCH 33.1 pg (25.7-33.7) 11/11/19 18:40 MCHC 32.8 g/dl (32.0-36.0) 11/11/19 18:40 RDW 15.4 % (11.6-15.6) 11/11/19 18:40 Plt Count 67 K/MM3 (134-434) L D 11/11/19 18:40 MPV 10.2 fl (7.5-11.1) D 11/11/19 18:40 Absolute Neuts (auto) 0.9 K/mm3 (1.5-8.0) L 11/11/19 18:40 Neutrophils % 40.8 % (42.8-82.8) L D 11/11/19 18:40 Lymphocytes % 44.6 % (8-40) H D 11/11/19 18:40 Monocytes % 11.4 % (3.8-10.2) H 11/11/19 18:40 Eosinophils % 2.0 % (0-4.5) 11/11/19 18:40 Basophils % 1.2 % (0-2.0) 11/11/19 18:40 Nucleated RBC % 0 % (0-0) 11/11/19 18:40 Sodium 141 mmol/L (136-145) 11/11/19 18:40 Potassium 4.7 mmol/L (3.5-5.1) 11/11/19 18:40 Chloride 102 mmol/L (98-107) 11/11/19 18:40 Carbon Dioxide 32 mmol/L (21-32) 11/11/19 18:40 Anion Gap 7 MMOL/L (8-16) L 11/11/19 18:40 BUN 31.0 mg/dL (7-18) H 11/11/19 18:40 Creatinine 6.4 mg/dL (0.55-1.3) H 11/11/19 18:40 Est GFR (CKD-EPI)AfAm 7.36 11/11/19 18:40 Est GFR (CKD-EPI)NonAf 6.35 11/11/19 18:40 Random Glucose 118 mg/dL (74-106) H 11/11/19 18:40 Calcium 8.4 mg/dL (8.5-10.1) L 11/11/19 18:40 Total Bilirubin 0.4 mg/dL (0.2-1) 11/11/19 18:40 AST 18 U/L (15-37) 11/11/19 18:40 ALT 15 U/L (13-61) 11/11/19 18:40 Alkaline Phosphatase 142 U/L (45-117) H 11/11/19 18:40 Total Protein 6.8 g/dl (6.4-8.2) 11/11/19 18:40 Albumin 3.3 g/dl (3.4-5.0) L 11/11/19 18:40 - ....Imaging Chest X-ray: Report Reviewed (Cardiomegaly, pulmonary) X-ray: Report Reviewed Cat Scan: Report Reviewed (Abdomen: Polycystic disease bilateral renal and hepatic cyst, removal of previously transplanted kidney, splenomegaly) EKG: Report Reviewed Problem List - Problems (1) Severe anemia Assessment/Plan: Patient has history of recurrent anemia previously hospitalization because of severe anemia, no clinical history of active bleeding blood work-up shows pancytopenia received 1 unit packed RBC will follow continue patient also received Epogen will follow-up hematology consult recommendations. We will follow-up LDH reticulocyte count as patient MCV is 101, COVID-19 antibody as patient has history of cold infection Problems reviewed: Yes Code(s): D64.9 - ANEMIA, UNSPECIFIED (2) Pancytopenia Assessment/Plan: Blood work-up shows low WBC, anemia and thrombocytopenia 97 we will follow-up hemato-oncology recommendations for pancytopenia, Problems reviewed: Yes Code(s): D61.818 - OTHER PANCYTOPENIA (3) ESRD on hemodialysis Assessment/Plan: On hemodialysis as per renal recommendations Problems reviewed: Yes Code(s): N18.6 - END STAGE RENAL DISEASE; Z99.2 - DEPENDENCE ON RENAL DIALYSIS (4) Hypertension Assessment/Plan: Well-controlled resume all home medications metoprolol 50 mg, amlodipine 10 mg and clonidine Problems reviewed: Yes Code(s): I10 - ESSENTIAL (PRIMARY) HYPERTENSION (5) Kidney transplant rejection Assessment/Plan: Patient has history of kidney transplant rejection and removal not use Problems reviewed: Yes (6) CMV (cytomegalovirus infection) status positive Assessment/Plan: History of CMV received ganciclovir will discuss with ID for suppressive ganciclovir if indicated Problems reviewed: Yes Code(s): B25.9 - CYTOMEGALOVIRAL DISEASE, UNSPECIFIED
--- NOTE | 2019-11-12 12:10 | CON.ID ---
Consult Consult Specialty:: infectious diseases Referred by:: Reason for Consultation:: chronic cmv,weakness - History of Present Illness Chief Complaint: weakness History of Present Illness: 64 year old woman with a PMH of HTN, ESRD on hemodialysis, failed kidney transplant and recent Covid-19 infection who was advised by her physician-Dr Coy to go the ED due to low blood level. Patient is a known dialysis patient scheduled for 3x weekly dialysis with access points being A-V fistula/graft in the left arm. Next dialysis is scheduled for today. Patient received renal transplant 4 years ago which failed two years later following recurrent pyelonephritis that failed to respond to treatment leading to subsequent removal of failed kidney and return to 3weekly dialysis. Patient experiences occasional incontinence and feeling of fainting whenever she stands on her feet but denies dysuria, frequency, urgency, melena, hematochezia or hematuria. There is no chest pain, shortness of breath, abdominal pain, h eadache, palpitations, dizziness, fever, chills, nausea, vomiting, diarrhea, constipation, LOC, seizures, stroke or fall. denies any fever or any other issues patient also has known h/o of cmv and was treated for the same currently patient is stable - History Source History Provided By: Patient, Medical Record Limitations to Obtaining History: Language Barrier - Past Medical History Cardio/Vascular: Yes: HTN, Hyperlipdemia Gastrointestinal: Yes: GERD Renal/: Yes: Renal Failure, Hemodialysis ...: No - Past Surgical History Past Surgical History: Yes: AV Fistula/Graft, Kidney Transplant - Alcohol/Substance Use Hx Alcohol Use: No - Smoking History Smoking history: Former smoker Have you smoked in the past 12 months: No Aproximately how many cigarettes per day: 20 - Social History ADL: Independent Occupation: on disability History of Recent Travel: No Home Medications - Allergies Allergies/Adverse Reactions: Allergies Allergy/AdvReac Type Severity Reaction Status Date / Time No Known Drug Allergies Allergy Verified 11/11/19 17:41 - Home Medications Home Medications: Ambulatory Orders Amlodipine Besylate [Norvasc -] 2.5 mg PO DAILY 04/19/14 Famotidine [Pepcid -] 20 mg PO DAILY 10/23/18 Metoprolol Succinate [Toprol Xl] 50 mg PO DAILY 10/23/18 Multivitamin [Multiple Vitamins] 1 each PO DAILY 10/23/18 Pravastatin Sodium [Pravachol -] 40 mg PO HS 10/23/18 cloNIDine HCL [Catapres -] 0.1 mg PO DAILY 10/23/18 Amlodipine Besylate [Norvasc -] 10 mg PO DAILY #0 tablet 04/28/19 Ganciclovir [Cytovene (Restricted To Id) -] 60 mg IVPB MoWeFr@1800 vial 04/28/19 Metoprolol Succinate [Toprol XL -] 50 mg PO DAILY #0 tab.sr.24h 04/28/19 cloNIDine HCL [Catapres -] 0.1 mg PO DAILY #0 tablet 04/28/19 Amino Acids/Protein Hydrolys [Prosource No Carb Liquid Pkt] 30 ml PO BID@0800,1730 #60 packet 04/29/19 Ganciclovir [Cytovene (Restricted To Id) -] 60 mg IV Q2D #2 vial 05/04/19 Review of Systems - Review of Systems Constitutional: reports: Weakness Eyes: reports: No Symptoms HENT: reports: No Symptoms Neck: reports: No Symptoms Cardiovascular: reports: No Symptoms Respiratory: reports: No Symptoms Gastrointestinal: reports: No Symptoms Genitourinary: reports: No Symptoms Musculoskeletal: reports: No Symptoms Integumentary: reports: No Symptoms Neurological: reports: No Symptoms Endocrine: reports: No Symptoms Hematology/Lymphatic: reports: No Symptoms Psychiatric: reports: No Symptoms Physical Exam Vital Signs: Vital Signs Temperature 98.6 F 11/12/19 06:00 Pulse Rate 70 11/12/19 06:00 Respiratory Rate 18 11/12/19 06:00 Blood Pressure 158/70 11/12/19 06:00 O2 Sat by Pulse Oximetry (%) 100 11/12/19 06:00 Constitutional: Yes: Well Nourished, No Distress, Calm Cardiovascular: Yes: S1, S2 Respiratory: Yes: Regular, CTA Bilaterally Gastrointestinal: Yes: Normal Bowel Sounds, Soft Musculoskeletal: Yes: WNL Extremities: Yes: WNL Neurological: Yes: Alert, Oriented Psychiatric: Yes: Alert, Oriented Labs: CBC, BMP 11/11/19 18:40 11/11/19 18:40 Imaging - Results Chest X-ray: Report Reviewed, Image Reviewed Cat Scan: Report Reviewed, Image Reviewed Assessment/Plan pancytopenia h/o of cmv wekness htn plan will continue to monitor no fevers noted monitor wbc rest as per the team
[2019-11-12] MEDS: amLODIPine BESYLATE 10 MG TABLET (FP) PO SCH (12:26)
[2019-11-12] MEDS: MULTIVITAMINS (DAILY MVI) TABLET (FP) PO SCH (12:26)
[2019-11-12] MEDS: cloNIDine HCL 0.1 MG TABLET PO SCH (12:27)
--- NOTE | 2019-11-12 13:43 | CONSULT ---
Consultation: REQUESTING PROVIDER: Dr. Gomes CONSULT REQUEST: We have been asked to medically evaluate this patient for pancytopenia. HISTORY OF PRESENT ILLNESS: Patient is a 64 year old woman with a PMH of HTN, ESRD on hemodialysis, failed kidney transplant and recent Covid-19 infection who was advised by her physician to go the ED due to low blood level. Patient reports feeling well and has no complaints, but was called by her doctors from [facility] to go to the hospital due to low blood count. At the ED, patient was found to be pancytopenic with WBC of 2.3, Hgb of 6.[address] of 67. Patient denies any recent illness or sick contacts. She denies any fevers, chills, headache, dizziness, chest pain, SOB, abdominal pain, diarrhea, urinary symptoms. Confirmed with patient and patient's pharmacy, patient is not taking any antivirals. As per her PCP, no hx of any viral illness. Followed up GI in 2018 for a colonoscopy but unclear if patient returned for follow up for routine colonoscopy. In Mar 2019, mammogram revealed some indefinite findings, breast sonogram recommended but was not done. PMHx:HTN, ESRD on hemodialysis, failed kidney transplant and COVID PSHx: kidney transplant Allergies: NKDA SHx: denies smoking, drinking, illicit drug use FHx: HTN, PCKD, no history of cancers REVIEW OF SYSTEMS: CONSTITUTIONAL: Absent: fever, chills, diaphoresis, generalized weakness, malaise, loss of appetite, weight change HEENT: Absent: rhinorrhea, nasal congestion, throat pain, throat swelling, difficulty swallowing, mouth swelling, ear pain, eye pain, visual changes CARDIOVASCULAR: Absent: chest pain, syncope, palpitations, irregular heart rate, lighthead edness, peripheral edema RESPIRATORY: Absent: cough, shortness of breath, dyspnea with exertion, orthopnea, wheezing, stridor, hemoptysis GASTROINTESTINAL: Absent: abdominal pain, abdominal distension, nausea, vomiting, diarrhea, constipation, melena, hematochezia GENITOURINARY: Absent: dysuria, frequency, urgency, hesitancy, hematuria, flank pain, genital pain MUSCULOSKELETAL: Absent: myalgia, arthralgia, joint swelling, back pain, neck pain SKIN: Absent: rash, itching, pallor HEMATOLOGIC/IMMUNOLOGIC: Absent: easy bleeding, easy bruising, lymphadenopathy, frequent infections ENDOCRINE: Absent: unexplained weight gain, unexplained weight loss, heat intolerance, cold intolerance NEUROLOGIC: Absent: headache, focal weakness or paresthesias, dizziness, unsteady gait, seizure, mental status changes, bladder or bowel incontinence PSYCHIATRIC: Absent: anxiety, depression, suicidal or homicidal ideation, hallucinations. PHYSICAL EXAMINATION Vital Signs - 24 hr 11/11/19 11/12/19 11/12/19 17:39 01:45 02:30 Temperature 98.3 F 98.1 F Pulse Rate 72 74 73 Respiratory 17 18 18 Rate Blood Pressure 162/64 224/96 H 203/96 H O2 Sat by Pulse 100 100 100 Oximetry (%) 11/12/19 11/12/19 11/12/19 03:00 06:00 12:36 Temperature 98.6 F 99.1 F Pulse Rate 69 70 71 Respiratory 18 18 16 Rate Blood Pressure 144/68 158/70 153/79 O2 Sat by Pulse 100 100 93 L Oximetry (%) GENERAL: Awake, alert, and fully oriented, in no acute distress. HEAD: Normal with no signs of trauma. EYES: PERRLA, EOMI, sclera anicteric, conjunctiva clear. EARS, NOSE, THROAT: Moist mucous membranes. NECK: Normal range of motion, supple LUNGS: Breath sounds equal, clear to auscultation bilaterally. HEART: Regular rate and rhythm, normal S1 and S2 without murmur ABDOMEN: Soft, nontender, not distended, normoactive bowel sounds. +hepatomegaly MUSCULOSKELETAL: Normal range of motion at all joints. LOWER EXTREMITIES: 2+ pulses, warm, well-perfused. No peripheral edema. NEUROLOGICAL: Cranial nerves II-XII intact. Normal speech. PSYCHIATRIC: Cooperative. Good eye contact. SKIN: Warm, dry, normal turgor Laboratory Results - last 24 hr 11/11/19 11/11/19 11/11/19 18:40 18:40 18:40 WBC 2.3 L RBC 2.01 L Hgb 6.6 L* Hct 20.3 L D MCV 101.0 H MCH 33.1 MCHC 32.8 RDW 15.4 Plt Count 67 L D MPV 10.2 D Absolute Neuts (auto) 0.9 L Neutrophils % 40.8 L D Lymphocytes % 44.6 H D Monocytes % 11.4 H Eosinophils % 2.0 Basophils % 1.2 Nucleated RBC % 0 PT with INR 12.60 INR 1.07 PTT (Actin FS) 34.3 Sodium 141 Potassium 4.7 Chloride 102 Carbon Dioxide 32 Anion Gap 7 L BUN 31.0 H Creatinine 6.4 H Est GFR (CKD-EPI)AfAm 7.36 Est GFR (CKD-EPI)NonAf 6.35 Random Glucose 118 H Calcium 8.4 L Total Bilirubin 0.4 AST 18 ALT 15 Alkaline Phosphatase 142 H Total Protein 6.8 Albumin 3.3 L Blood Type Antibody Screen Crossmatch 11/11/19 18:40 WBC RBC Hgb Hct MCV MCH MCHC RDW Plt Count MPV Absolute Neuts (auto) Neutrophils % Lymphocytes % Monocytes % Eosinophils % Basophils % Nucleated RBC % PT with INR INR PTT (Actin FS) Sodium Potassium Chloride Carbon Dioxide Anion Gap BUN Creatinine Est GFR (CKD-EPI)AfAm Est GFR (CKD-EPI)NonAf Random Glucose Calcium Total Bilirubin AST ALT Alkaline Phosphatase Total Protein Albumin Blood Type A NEGATIVE Antibody Screen Negative Crossmatch See Detail Active Medications Generic Name Dose Route Start Last Admin Trade Name Freq PRN Reason Stop Dose Admin Amino Acids 30 ml 11/12/19 17:30 Prosource No Carb Liquid Pkt PO BID@0800,1730 SERJIO Amlodipine Besylate 10 mg 11/12/19 10:00 11/12/19 12:26 Norvasc - PO 10 mg DAILY SERJIO Administration Atorvastatin Calcium 10 mg 11/12/19 22:00 Lipitor - PO HS SERJIO Clonidine 0.1 mg 11/12/19 10:00 11/12/19 12:27 Catapres - PO 0.1 mg DAILY SERJIO Administration Epoetin Talha 10,000 unit 11/12/19 07:00 Procrit - IVPUSH 11/12/19 07:01 ONCE ONE Famotidine 20 mg 11/12/19 10:00 Pepcid - PO DAILY SERJIO Sodium Chloride 250 mls @ 3,000 mls/hr 11/12/19 07:00 Normal Saline - IV 11/13/19 07:00 PRN PRN Hypotension during Dialysis Metoprolol Succinate 50 mg 11/12/19 10:00 11/12/19 12:26 Toprol Xl - PO 50 mg DAILY SERJIO Administration Multivitamins/Minerals/Vitamin C 1 tab 11/12/19 10:00 11/12/19 12:26 Tab-A-Vit - PO 1 tab DAILY SERJIO Administration ASSESSMENT/PLAN: Patient is a 64 year old woman with a PMH of HTN, ESRD on hemodialysis, failed kidney transplant and recent Covid-19 infection who was advised by her physician to go the ED due to low blood level. We have been consulted to medically evaluate pancytopenia. #Pancytopenia -leukopenia/thrombocytopenia likely 2/2 splenomegaly, r/o MPN, MDS, MM, autoimmune, hemolysis -macrocytic anemia may be 2/2 vitb12, folate deficiencies, liver disease, in setting of ESRD -will order SPEP -CT A/P : cardiomegaly, small b/l pleural effusions, and possible mild congestion. Hepatosplenomegaly with multiple hepatic cysts. APCKD. -PBS revealed normocytic, normochromic RBCs with some poikilocytosis/anisocytosis -Retic ct, LDH, ferritin, iron studies, fibrinogen, d-dimer, vit b12, folate, TSH Dispo: We will continue to follow the patient. Thank you for this consultative opportunity. Visit type - Emergency Visit Emergency Visit: Yes ED Registration Date: 11/11/19 Care time: The patient presented to the Emergency Department on the above date and was hospitalized for further evaluation of their emergent condition. - New Patient This patient is new to me today: Yes Date on this admission: 11/12/19 - Critical Care Critical Care patient: No ATTENDING PHYSICIAN STATEMENT I saw and evaluated the patient. I reviewed the resident's note and discussed the case with the resident. I agree with the resident's findings and plan as documented. SUBJECTIVE: OBJECTIVE: ASSESSMENT AND PLAN:
--- NOTE | 2019-11-12 14:44 | CONSULT ---
Consult Consult Specialty:: Nephrology Reason for Consultation:: esrd - History of Present Illness Chief Complaint: sent in for low hg History of Present Illness: Pt is a 64 year old female with pmhx of esrd, failed kidney transplant, anemia and htn who I sent in from HD for low hg. She was found to have worsening anemia. SHe is awake and alert. She has no complaints. She denies shortness of breath. She is due for HD today. 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 She denies chest pain or palpitations. - History Source History Provided By: Patient - Past Medical History Cardio/Vascular: Yes: HTN, Hyperlipdemia Gastrointestinal: Yes: GERD Renal/: Yes: Renal Failure, Hemodialysis ...: No - Past Surgical History Past Surgical History: Yes: AV Fistula/Graft, Kidney Transplant - Alcohol/Substance Use Hx Alcohol Use: No - Smoking History Smoking history: Former smoker Have you smoked in the past 12 months: No Aproximately how many cigarettes per day: 20 - Social History ADL: Independent Occupation: on disability History of Recent Travel: No Home Medications - Allergies Allergies/Adverse Reactions: Allergies Allergy/AdvReac Type Severity Reaction Status Date / Time No Known Drug Allergies Allergy Verified 11/11/19 17:41 - Home Medications Home Medications: Ambulatory Orders Amlodipine Besylate [Norvasc -] 2.5 mg PO DAILY 04/19/14 Famotidine [Pepcid -] 20 mg PO DAILY 10/23/18 Metoprolol Succinate [Toprol Xl] 50 mg PO DAILY 10/23/18 Multivitamin [Multiple Vitamins] 1 each PO DAILY 10/23/18 Pravastatin Sodium [Pravachol -] 40 mg PO HS 10/23/18 cloNIDine HCL [Catapres -] 0.1 mg PO DAILY 10/23/18 Amlodipine Besylate [Norvasc -] 10 mg PO DAILY #0 tablet 04/28/19 Ganciclovir [Cytovene (Restricted To Id) -] 60 mg IVPB MoWeFr@1800 vial 04/28/19 Metoprolol Succinate [Toprol XL -] 50 mg PO DAILY #0 tab.sr.24h 04/28/19 cloNIDine HCL [Catapres -] 0.1 mg PO DAILY #0 tablet 04/28/19 Amino Acids/Protein Hydrolys [Prosource No Carb Liquid Pkt] 30 ml PO BID@0800,1730 #60 packet 04/29/19 Ganciclovir [Cytovene (Restricted To Id) -] 60 mg IV Q2D #2 vial 05/04/19 Family Medical History Family History: Denies Review of Systems - Review of Systems Constitutional: reports: Weakness Eyes: reports: No Symptoms HENT: reports: No Symptoms Neck: reports: No Symptoms Cardiovascular: reports: No Symptoms Respiratory: reports: No Symptoms Gastrointestinal: reports: No Symptoms Genitourinary: reports: No Symptoms Musculoskeletal: reports: No Symptoms Integumentary: reports: No Symptoms Neurological: reports: No Symptoms Endocrine: reports: No Symptoms Hematology/Lymphatic: reports: No Symptoms Psychiatric: reports: No Symptoms Physical Exam Vital Signs: Vital Signs Temperature 99.1 F 11/12/19 12:36 Pulse Rate 71 11/12/19 12:36 Respiratory Rate 16 11/12/19 12:36 Blood Pressure 153/79 11/12/19 12:36 O2 Sat by Pulse Oximetry (%) 93 L 11/12/19 12:36 Constitutional: Yes: Calm Eyes: Yes: Conjunctiva Clear HENT: Yes: Atraumatic Neck: Yes: Supple Cardiovascular: Yes: S1, S2 Respiratory: Yes: CTA Bilaterally Gastrointestinal: Yes: Normal Bowel Sounds, Soft Renal/: Yes: WNL Musculoskeletal: Yes: WNL Edema: No Neurological: Yes: Oriented Psychiatric: Yes: Oriented Labs: CBC, BMP 11/11/19 18:40 11/11/19 18:40 Laboratory Tests 11/11/19 11/11/19 18:40 18:40 WBC 2.3 L Hgb 6.6 L* Plt Count 67 L D Sodium 141 Potassium 4.7 Imaging - Results Cat Scan: Report Reviewed Problem List - Problems (1) Anemia in chronic kidney disease, on chronic dialysis Code(s): N18.6 - END STAGE RENAL DISEASE; D63.1 - ANEMIA IN CHRONIC KIDNEY DISEASE; Z99.2 - DEPENDENCE ON RENAL DIALYSIS (2) Pancytopenia Code(s): D61.818 - OTHER PANCYTOPENIA (3) ESRD on hemodialysis Code(s): N18.6 - END STAGE RENAL DISEASE; Z99.2 - DEPENDENCE ON RENAL DIALYSIS Assessment/Plan Current Medications Generic Name Dose Route Start Last Admin Trade Name Freq PRN Reason Stop Dose Admin Amino Acids 30 ml 11/12/19 17:30 Prosource No Carb Liquid Pkt PO BID@0800,1730 SERJIO Amlodipine Besylate 10 mg 11/12/19 10:00 11/12/19 12:26 Norvasc - PO 10 mg DAILY SERJIO Administration Atorvastatin Calcium 10 mg 11/12/19 22:00 Lipitor - PO HS SERJIO Clonidine 0.1 mg 11/12/19 10:00 11/12/19 12:27 Catapres - PO 0.1 mg DAILY SERJIO Administration Epoetin Talha 10,000 unit 11/12/19 07:00 Procrit - IVPUSH 11/12/19 07:01 ONCE ONE Famotidine 20 mg 11/12/19 10:00 Pepcid - PO DAILY SERJIO Sodium Chloride 250 mls @ 3,000 mls/hr 11/12/19 07:00 Normal Saline - IV 11/13/19 07:00 PRN PRN Hypotension during Dialysis Metoprolol Succinate 50 mg 11/12/19 10:00 11/12/19 12:26 Toprol Xl - PO 50 mg DAILY SERJIO Administration Multivitamins/Minerals/Vitamin C 1 tab 11/12/19 10:00 11/12/19 12:26 Tab-A-Vit - PO 1 tab DAILY SERJIO Administration Impression 1. ESRD 2. 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 htn 4. anemia 5. BK nephropathy 6. pancytopenia 7. hx of CMV Plan - transfuse prbc - epogen with HD - HD today - pancytopenia workup - HD today - renal diet - monitor bp on meds
--- NOTE | 2019-11-12 14:46 | EKG ---
Test Reason : Blood Pressure : / mmHG Vent. Rate : 072 BPM Atrial Rate : 072 BPM P-R Int : 136 ms QRS Dur : 084 ms QT Int : 446 ms P-R-T Axes : 075 040 078 degrees QTc Int : 488 ms NORMAL SINUS RHYTHM NONSPECIFIC ST AND T WAVE ABNORMALITY PROLONGED QT ABNORMAL ECG WHEN COMPARED WITH ECG OF 14-APR-2019 11:46, NONSPECIFIC T WAVE ABNORMALITY NOW EVIDENT IN LATERAL LEADS Confirmed by DESIRE SHARP, DAVID ([id number]) on 11/12/2019 2:46:10 PM Referred By: Confirmed By:DAVID PHIPPS MD
--- NOTE | 2019-11-12 17:17 | PN ---
Teaching Attending Note Name of Resident: Catherine Jane ATTENDING PHYSICIAN STATEMENT I saw and evaluated the patient. I reviewed the resident's note and discussed the case with the resident. I agree with the resident's findings and plan as documented. 64 yo F with h/o HTN, ESRD on hemodialysis, failed kidney transplant and recent Covid-19 infection. Sent to ED by PCP with recent onset pancytopenia and macrocytosis. 04/2019 wbc and plt WNL, then had mild/mod anemia. Pt sleepy and lethargic, was not able to add to current HPI. Uncertain if pt had started any new medications prior to admission. Active Medications Generic Name Dose Route Start Last Admin Trade Name Freq PRN Reason Stop Dose Admin Amino Acids 30 ml 11/12/19 17:30 Prosource No Carb Liquid Pkt PO BID@0800,1730 SERJIO Amlodipine Besylate 10 mg 11/12/19 10:00 11/12/19 12:26 Norvasc - PO 10 mg DAILY SERJIO Administration Atorvastatin Calcium 10 mg 11/12/19 22:00 Lipitor - PO HS SERJIO Clonidine 0.1 mg 11/12/19 10:00 11/12/19 12:27 Catapres - PO 0.1 mg DAILY SERJIO Administration Epoetin Talha 10,000 unit 11/12/19 07:00 Procrit - IVPUSH 11/12/19 07:01 ONCE ONE Famotidine 20 mg 11/12/19 10:00 Pepcid - PO DAILY SERJIO Sodium Chloride 250 mls @ 3,000 mls/hr 11/12/19 07:00 Normal Saline - IV 11/13/19 07:00 PRN PRN Hypotension during Dialysis Metoprolol Succinate 50 mg 11/12/19 10:00 11/12/19 12:26 Toprol Xl - PO 50 mg DAILY SERJIO Administration Multivitamins/Minerals/Vitamin C 1 tab 11/12/19 10:00 11/12/19 12:26 Tab-A-Vit - PO 1 tab DAILY SERJIO Administration PE: lethargic thin chest clear cor rrr, no murmurs Abd +HM, +SM, nt, dec bs. ext no edema CBC WBC 2.3 K/mm3 (4.0-10.0) L 11/11/19 18:40 RBC 2.01 M/mm3 (3.60-5.2) L 11/11/19 18:40 Hgb 6.6 GM/dL (10.7-15.3) L* 11/11/19 18:40 Hct 20.3 % (32.4-45.2) L D 11/11/19 18:40 MCV 101.0 fl (80-96) H 11/11/19 18:40 MCH 33.1 pg (25.7-33.7) 11/11/19 18:40 MCHC 32.8 g/dl (32.0-36.0) 11/11/19 18:40 RDW 15.4 % (11.6-15.6) 11/11/19 18:40 Plt Count 67 K/MM3 (134-434) L D 11/11/19 18:40 MPV 10.2 fl (7.5-11.1) D 11/11/19 18:40 Absolute Neuts (auto) 0.9 K/mm3 (1.5-8.0) L 11/11/19 18:40 Neutrophils % 40.8 % (42.8-82.8) L D 11/11/19 18:40 Lymphocytes % 44.6 % (8-40) H D 11/11/19 18:40 Monocytes % 11.4 % (3.8-10.2) H 11/11/19 18:40 Eosinophils % 2.0 % (0-4.5) 11/11/19 18:40 Basophils % 1.2 % (0-2.0) 11/11/19 18:40 Nucleated RBC % 0 % (0-0) 11/11/19 18:40 Imp: 64 yo F with recent onset of pancytopenia and macrocytosis, possibly from HSM. Worsening anemia in setting of ESRD. Awaiting PRBC transfusion with next HD. Concern for possible MDS. Blood smear showed relatively normal appearing rbcs, decrease myeloid series and plts. -retic, LDH -spep, B12, folate levels. -ferritin, tibc. -outpt med review. -d/w House Staff
[2019-11-12] MEDS ORDERED: EPOETIN ALFA 10,000 UNIT/1 ML VIAL IVPUSH ONE (19:00)
[2019-11-12 19:29] LABS: HEMATOCRIT 23.3 % (32.4-45.2); HEMOGLOBIN 7.7 GM/dL (10.7-15.3); MCH 32.5 pg (25.7-33.7); MCHC 33.2 g/dl (32.0-36.0); MEAN CELL VOLUME 97.9 fl (80-96); MEAN PLT VOLUME 10.7 fl (7.5-11.1); PLATELET COUNT 65 K/MM3 (134-434); RBC 2.38 M/mm3 (3.60-5.2); RDW 17.3 % (11.6-15.6); RETICULOCYTES 0.94 % (0.5-1.5)
[2019-11-12 19:42] LABS: BLOOD UREA NITROGEN 48.1 mg/dL (7-18); CALCIUM 8.7 mg/dL (8.5-10.1); POTASSIUM 5.9 mmol/L (3.5-5.1)
[2019-11-12 19:50] LABS: CREATININE 7.9 mg/dL (0.55-1.3)
[2019-11-12] MEDS: ATORVASTATIN CA 10 MG TABLET (FP) PO SCH (21:38)
[2019-11-12] MEDS: AMINO ACIDS/PROTEIN HYDROLYS 30 ML LIQUID.PKT PO SCH (22:07)
--- NOTE | 2019-11-13 07:35 | PN ---
Progress Note, Physician Chief Complaint: Patient denies any new complaints. History of Present Illness: 64 year old female with history of polycystic kidney disease, ESRD on hemodialysis, status post renal transplant failure with removal of transplanted kidney, previously treated for CMV in April 2019 with ganciclovir, recent COVID-19 infection, HTN , yesterday patient was called back by rn occupational for low hemoglobin 6.6 no hematemesis melena patient has previous hospitalization for similar presentation with low H&H to 5.5, patient blood work-up shows pancytopenia. Received 2 unit packed RBC H&H improved to 9.7 platelet count 73,000 LDH is normal - Current Medication List Current Medications: Active Medications Amino Acids (Prosource No Carb Liquid Pkt) 30 ml PO BID@0800,1730 [facility] Last Admin: 11/12/19 22:07 Dose: Not Given Documented by: Amlodipine Besylate (Norvasc -) 10 mg PO DAILY [facility] Last Admin: 11/12/19 12:26 Dose: 10 mg Documented by: Atorvastatin Calcium (Lipitor -) 10 mg PO HS [facility] Last Admin: 11/12/19 21:38 Dose: 10 mg Documented by: Clonidine (Catapres -) 0.1 mg PO DAILY [facility] Last Admin: 11/12/19 12:27 Dose: 0.1 mg Documented by: Famotidine (Pepcid -) 20 mg PO DAILY [facility] Sodium Chloride (Normal Saline -) 250 mls @ 3,000 mls/hr IV PRN PRN PRN Reason: Hypotension during Dialysis Stop: 11/13/19 07:00 Metoprolol Succinate (Toprol Xl -) 50 mg PO DAILY [facility] Last Admin: 11/12/19 12:26 Dose: 50 mg Documented by: Multivitamins/Minerals/Vitamin C (Tab-A-Vit -) 1 tab PO DAILY [facility] Last Admin: 11/12/19 12:26 Dose: 1 tab Documented by: - Objective Vital Signs: Vital Signs Temperature 98.6 F 11/13/19 06:00 Pulse Rate 72 11/13/19 06:00 Respiratory Rate 16 11/13/19 06:00 Blood Pressure 141/66 11/13/19 06:00 O2 Sat by Pulse Oximetry (%) 96 11/13/19 06:00 General: Elderly man, comfortable, not in distress HEENT mucous membranes moist, no anemia, no jaundice, PERRLA, no nystagmus Neck: No JVD, supple, no bruit, thyroid palpably normal, normal carotid pulsations. Chest: Nontender,/bilateral wheezing/bilateral basal rales. CVS: S1-S2 regular no murmur/gallop/rub Abdomen: Nondistended, soft, bowel sounds present. Extremities: Right great toe amputation, second toe bluish discoloration with bleb formation, infected cyst wound amputation with exudative base, inflammation of surrounding skin no edema., No Calf tenderness, pulses feeble TURN OUT: Alert oriented grossly nonfocal Labs: CBC, BMP 11/12/19 18:15 11/12/19 18:15 INR, PTT INR 1.07 (0.83-1.09) 11/11/19 18:40 Fibrinogen 209.0 mg/dL (238-498) L 11/12/19 18:15 Problem List - Problems (1) Severe anemia Assessment/Plan: Patient has history of recurrent anemia previously hospitalization because of severe anemia, no clinical history of active bleeding blood work-up shows normal LDH, elevated serum ferritin, normal B12, repeat hemoglobin 9.7 after transfusion platelet improved to 73 K we will follow-up pending hematology work- up and hematology recommendations. Code(s): D64.9 - ANEMIA, UNSPECIFIED (2) Pancytopenia Assessment/Plan: Blood work-up shows low WBC, anemia and thrombocytopenia , H&H improved after packed RBC transfusion, we will follow-up hemato-oncology recommendations for pancytopenia, Code(s): D61.818 - OTHER PANCYTOPENIA (3) ESRD on hemodialysis Assessment/Plan: On hemodialysis as per renal recommendations Code(s): N18.6 - END STAGE RENAL DISEASE; Z99.2 - DEPENDENCE ON RENAL DIALYSIS (4) Hypertension Assessment/Plan: Well-controlled resume all home medications metoprolol 50 mg, amlodipine 10 mg and clonidine Code(s): I10 - ESSENTIAL (PRIMARY) HYPERTENSION (5) Kidney transplant rejection Assessment/Plan: Patient has history of kidney transplant rejection and removal not use (6) CMV (cytomegalovirus infection) status positive Assessment/Plan: History of CMV received ganciclovir currently not on any therapy Problems reviewed: Yes Code(s): B25.9 - CYTOMEGALOVIRAL DISEASE, UNSPECIFIED
[2019-11-13] MEDS: AMINO ACIDS/PROTEIN HYDROLYS 30 ML LIQUID.PKT PO SCH ×2 (08:50→17:05)
[2019-11-13] MEDS: MULTIVITAMINS (DAILY MVI) TABLET (FP) PO SCH (09:35)
[2019-11-13] MEDS: cloNIDine HCL 0.1 MG TABLET PO SCH (09:35)
[2019-11-13] MEDS: amLODIPine BESYLATE 10 MG TABLET (FP) PO SCH (09:35)
[2019-11-13 09:44] LABS: BASO % 0.4 % (0-2.0); HEMATOCRIT 29.1 % (32.4-45.2); HEMOGLOBIN 9.7 GM/dL (10.7-15.3); LYMPH % 28.7 % (8-40); MCH 31.7 pg (25.7-33.7); MCHC 33.4 g/dl (32.0-36.0); MEAN PLT VOLUME 10.2 fl (7.5-11.1); MONO % 7.1 % (3.8-10.2); NEUT % 62.8 % (42.8-82.8); PLATELET COUNT 73 K/MM3 (134-434); RBC 3.06 M/mm3 (3.60-5.2); RDW 17.6 % (11.6-15.6); WHITE BLOOD COUNT 3.2 K/mm3 (4.0-10.0)
[2019-11-13 10:13] LABS: ALBUMIN 3.4 g/dl (3.4-5.0); CALCIUM 8.8 mg/dL (8.5-10.1); CREATININE 3.9 mg/dL (0.55-1.3); MAGNESIUM 2.2 mg/dL (1.8-2.4); PHOSPHOROUS 2.4 mg/dL (2.5-4.9); POTASSIUM 4.3 mmol/L (3.5-5.1)
[2019-11-13 10:15] LABS: BILIRUBIN,TOTAL 0.9 mg/dL (0.2-1); BLOOD UREA NITROGEN 17.2 mg/dL (7-18); TOT PROT 6.9 g/dl (6.4-8.2)
--- NOTE | 2019-11-13 12:09 | PN ---
Progress Note, Physician History of Present Illness: stable received transfusions afebrile - Current Medication List Current Medications: Active Medications Amino Acids (Prosource No Carb Liquid Pkt) 30 ml PO BID@0800,1730 [facility] Last Admin: 11/13/19 08:50 Dose: 30 ml Documented by: Amlodipine Besylate (Norvasc -) 10 mg PO DAILY [facility] Last Admin: 11/13/19 09:35 Dose: 10 mg Documented by: Atorvastatin Calcium (Lipitor -) 10 mg PO HS [facility] Last Admin: 11/12/19 21:38 Dose: 10 mg Documented by: Clonidine (Catapres -) 0.1 mg PO DAILY [facility] Last Admin: 11/13/19 09:35 Dose: 0.1 mg Documented by: Famotidine (Pepcid -) 20 mg PO Q2D [facility] Sodium Chloride (Normal Saline -) 250 mls @ 3,000 mls/hr IV PRN PRN PRN Reason: Hypotension during Dialysis Stop: 11/13/19 07:00 Metoprolol Succinate (Toprol Xl -) 50 mg PO DAILY [facility] Last Admin: 11/13/19 09:35 Dose: 50 mg Documented by: Multivitamins/Minerals/Vitamin C (Tab-A-Vit -) 1 tab PO DAILY [facility] Last Admin: 11/13/19 09:35 Dose: 1 tab Documented by: - Objective Vital Signs: Vital Signs Temperature 98.6 F 11/13/19 06:00 Pulse Rate 72 11/13/19 06:00 Respiratory Rate 16 11/13/19 06:00 Blood Pressure 141/66 11/13/19 06:00 O2 Sat by Pulse Oximetry (%) 96 11/13/19 06:00 Constitutional: Yes: No Distress, Calm Cardiovascular: Yes: S1, S2 Respiratory: Yes: Regular, CTA Bilaterally Gastrointestinal: Yes: Normal Bowel Sounds, Soft Musculoskeletal: Yes: WNL Extremities: Yes: Other Wound/Incision: Yes: Other Neurological: Yes: Alert, Oriented Psychiatric: Yes: Alert, Oriented Labs: CBC, BMP 11/13/19 07:56 11/13/19 07:56 INR, PTT INR 1.07 (0.83-1.09) 11/11/19 18:40 Fibrinogen 209.0 mg/dL (238-498) L 11/12/19 18:15 Assessment/Plan pancytopenia h/o of cmv wekness htn plan will continue to monitor no fevers noted monitor wbc rest as per the team
[2019-11-13] MEDS: FAMOTIDINE 20 MG TABLET PO SCH (13:46)
--- NOTE | 2019-11-13 14:34 | PN ---
Physical Exam: SUBJECTIVE: Patient seen and examined. No acute events overnight. Patient feels well and has no complaints. OBJECTIVE: Vital Signs Temperature 98.9 F 11/13/19 10:00 Pulse Rate 70 11/13/19 10:00 Respiratory Rate 16 11/13/19 10:00 Blood Pressure 152/72 11/13/19 10:00 O2 Sat by Pulse Oximetry (%) 95 11/13/19 10:00 GENERAL: Awake, alert, and fully oriented, in no acute distress. HEAD: Normal with no signs of trauma. EYES: PERRLA, EOMI, sclera anicteric, conjunctiva clear. EARS, NOSE, THROAT: Moist mucous membranes. NECK: Normal range of motion, supple LUNGS: Breath sounds equal, clear to auscultation bilaterally. HEART: Regular rate and rhythm, normal S1 and S2 without murmur ABDOMEN: Soft, nontender, not distended, normoactive bowel sounds. +hepatomegaly MUSCULOSKELETAL: Normal range of motion at all joints. LOWER EXTREMITIES: 2+ pulses, warm, well-perfused. No peripheral edema. NEUROLOGICAL: Cranial nerves II-XII intact. Normal speech. PSYCHIATRIC: Cooperative. Good eye contact. SKIN: Warm, dry, normal turgor Laboratory Results - last 24 hr 11/12/19 11/12/19 11/12/19 00:43 18:15 18:15 WBC 3.0 L Corrected WBC (auto) RBC 2.38 L Hgb 7.7 L Hct 23.3 L MCV 97.9 H MCH 32.5 MCHC 33.2 RDW 17.3 H Plt Count 65 L MPV 10.7 Absolute Neuts (auto) Neutrophils % Lymphocytes % Monocytes % Eosinophils % Basophils % Nucleated RBC % Manual Slide Review Platelet Comment Retic Count 0.94 Fibrinogen 209.0 L D-Dimer Sodium Potassium Chloride Carbon Dioxide Anion Gap BUN Creatinine Est GFR (CKD-EPI)AfAm Est GFR (CKD-EPI)NonAf Random Glucose Calcium Phosphorus Magnesium Iron TIBC Iron Saturation Unsaturated IBC Ferritin Total Bilirubin AST ALT Alkaline Phosphatase LD Total Total Protein Albumin Vitamin B12 Serum Folate TSH Free T4 COVID-19 (HERIBERTO) Not detected Blood Type Antibody Screen Crossmatch 11/12/19 11/12/19 11/12/19 18:15 18:15 18:15 WBC Corrected WBC (auto) RBC Hgb Hct MCV MCH MCHC RDW Plt Count MPV Absolute Neuts (auto) Neutrophils % Lymphocytes % Monocytes % Eosinophils % Basophils % Nucleated RBC % Manual Slide Review Platelet Comment Retic Count Fibrinogen D-Dimer 2525 H Sodium Potassium Chloride Carbon Dioxide Anion Gap BUN Creatinine Est GFR (CKD-EPI)AfAm Est GFR (CKD-EPI)NonAf Random Glucose Calcium Phosphorus Magnesium Iron 49 L TIBC 150 L Iron Saturation 32 Unsaturated IBC 101 L Ferritin 1028.3 H Total Bilirubin AST ALT Alkaline Phosphatase LD Total 187 Total Protein Albumin Vitamin B12 282 Serum Folate 13 TSH 7.59 H Free T4 COVID-19 (HERIBERTO) Blood Type A NEGATIVE Antibody Screen Negative Crossmatch See Detail 11/12/19 11/12/19 11/13/19 18:15 18:15 07:56 WBC Cancelled 3.2 L Corrected WBC (auto) Cancelled RBC Cancelled 3.06 L Hgb Cancelled 9.7 L Hct Cancelled 29.1 L D MCV Cancelled 95.0 MCH Cancelled 31.7 MCHC Cancelled 33.4 RDW Cancelled 17.6 H Plt Count Cancelled 73 L MPV Cancelled 10.2 Absolute Neuts (auto) 2.0 Neutrophils % 62.8 D Lymphocytes % 28.7 D Monocytes % 7.1 Eosinophils % 1.0 Basophils % 0.4 Nucleated RBC % 0 Manual Slide Review Cancelled Platelet Comment Cancelled Retic Count Fibrinogen D-Dimer Sodium 138 Potassium 5.9 H Chloride 103 Carbon Dioxide 28 Anion Gap 8 BUN 48.1 H Creatinine 7.9 H* Est GFR (CKD-EPI)AfAm 5.71 Est GFR (CKD-EPI)NonAf 4.92 Random Glucose 114 H Calcium 8.7 Phosphorus Magnesium Iron TIBC Iron Saturation Unsaturated IBC Ferritin Total Bilirubin AST ALT Alkaline Phosphatase LD Total Total Protein Albumin Vitamin B12 Serum Folate TSH Free T4 COVID-19 (HERIBERTO) Blood Type Antibody Screen Crossmatch 11/13/19 07:56 WBC Corrected WBC (auto) RBC Hgb Hct MCV MCH MCHC RDW Plt Count MPV Absolute Neuts (auto) Neutrophils % Lymphocytes % Monocytes % Eosinophils % Basophils % Nucleated RBC % Manual Slide Review Platelet Comment Retic Count Fibrinogen D-Dimer Sodium 142 Potassium 4.3 Chloride 103 Carbon Dioxide 33 H Anion Gap 6 L BUN 17.2 Creatinine 3.9 H Est GFR (CKD-EPI)AfAm 13.40 Est GFR (CKD-EPI)NonAf 11.56 Random Glucose 85 Calcium 8.8 Phosphorus 2.4 L Magnesium 2.2 Iron TIBC Iron Saturation Unsaturated IBC Ferritin Total Bilirubin 0.9 AST 35 ALT 30 Alkaline Phosphatase 142 H LD Total Total Protein 6.9 Albumin 3.4 Vitamin B12 Serum Folate TSH Free T4 0.91 COVID-19 (HERIBERTO) Blood Type Antibody Screen Crossmatch Active Medications Generic Name Dose Route Start Last Admin Trade Name Freq PRN Reason Stop Dose Admin Amino Acids 30 ml 11/12/19 17:30 11/13/19 08:50 Prosource No Carb Liquid Pkt PO 30 ml BID@0800,1730 SERJIO Administration Amlodipine Besylate 10 mg 11/12/19 10:00 11/13/19 09:35 Norvasc - PO 10 mg DAILY SERJIO Administration Atorvastatin Calcium 10 mg 11/12/19 22:00 11/12/19 21:38 Lipitor - PO 10 mg HS SERJIO Administration Clonidine 0.1 mg 11/12/19 10:00 11/13/19 09:35 Catapres - PO 0.1 mg DAILY SERJIO Administration Famotidine 20 mg 11/13/19 12:00 11/13/19 13:46 Pepcid - PO 20 mg Q2D SERJIO Administration Sodium Chloride 250 mls @ 3,000 mls/hr 11/12/19 07:00 Normal Saline - IV 11/13/19 07:00 PRN PRN Hypotension during Dialysis Metoprolol Succinate 50 mg 11/12/19 10:00 11/13/19 09:35 Toprol Xl - PO 50 mg DAILY SERJIO Administration Multivitamins/Minerals/Vitamin C 1 tab 11/12/19 10:00 11/13/19 09:35 Tab-A-Vit - PO 1 tab DAILY SEJRIO Administration ASSESSMENT/PLAN: Patient is a 64 year old woman with a PMH of HTN, ESRD on hemodialysis, failed kidney transplant and recent Covid-19 infection who was advised by her physician to go the ED due to low blood level. We have been consulted to medically evaluate pancytopenia. #Pancytopenia -leukopenia/thrombocytopenia likely 2/2 splenomegaly, possible MDS -macrocytic anemia may be 2/2 liver disease, in setting of ESRD -SPEP pending -CT A/P : cardiomegaly, small b/l pleural effusions, and possible mild congestion. Hepatosplenomegaly with multiple hepatic cysts. APCKD. -PBS revealed normocytic, normochromic RBCs with some poikilocytosis/anisocytosis -ferritin elevated, TSAT 32%, B12/folate normal, TSH elevated free T4 normal -fibrinogen 209 , d-dimer 2525, Retic ct normal, LDH normal -flow cytometry/FISH/cytogenetics Visit type - Emergency Visit Emergency Visit: Yes ED Registration Date: 11/11/19 Care time: The patient presented to the Emergency Department on the above date and was hospitalized for further evaluation of their emergent condition. - New Patient This patient is new to me today: Yes Date on this admission: 11/13/19 - Critical Care Critical Care patient: No ATTENDING PHYSICIAN STATEMENT I saw and evaluated the patient. I reviewed the resident's note and discussed the case with the resident. I agree with the resident's findings and plan as documented. SUBJECTIVE: OBJECTIVE: ASSESSMENT AND PLAN:
[2019-11-13] MEDS ORDERED: SODIUM CHLORIDE 250 ML IV PRN (15:26)
--- NOTE | 2019-11-13 15:26 | PN ---
Progress Note, Physician History of Present Illness: Pt seen and examined at bedside. She is awake and alert. She denies shortness of breath. - Current Medication List Current Medications: Active Medications Amino Acids (Prosource No Carb Liquid Pkt) 30 ml PO BID@0800,1730 [facility] Last Admin: 11/13/19 08:50 Dose: 30 ml Documented by: Amlodipine Besylate (Norvasc -) 10 mg PO DAILY [facility] Last Admin: 11/13/19 09:35 Dose: 10 mg Documented by: Atorvastatin Calcium (Lipitor -) 10 mg PO HS [facility] Last Admin: 11/12/19 21:38 Dose: 10 mg Documented by: Clonidine (Catapres -) 0.1 mg PO DAILY [facility] Last Admin: 11/13/19 09:35 Dose: 0.1 mg Documented by: Famotidine (Pepcid -) 20 mg PO Q2D [facility] Last Admin: 11/13/19 13:46 Dose: 20 mg Documented by: Sodium Chloride (Normal Saline -) 250 mls @ 3,000 mls/hr IV PRN PRN PRN Reason: Hypotension during Dialysis Stop: 11/13/19 07:00 Metoprolol Succinate (Toprol Xl -) 50 mg PO DAILY [facility] Last Admin: 11/13/19 09:35 Dose: 50 mg Documented by: Multivitamins/Minerals/Vitamin C (Tab-A-Vit -) 1 tab PO DAILY [facility] Last Admin: 11/13/19 09:35 Dose: 1 tab Documented by: - Objective Vital Signs: Vital Signs Temperature 100.0 F H 11/13/19 15:05 Pulse Rate 66 11/13/19 15:05 Respiratory Rate 16 11/13/19 15:05 Blood Pressure 110/54 L 11/13/19 15:05 O2 Sat by Pulse Oximetry (%) 90 L 11/13/19 15:05 Constitutional: Yes: Calm Eyes: Yes: Conjunctiva Clear HENT: Yes: Atraumatic Cardiovascular: Yes: S1, S2 Respiratory: Yes: CTA Bilaterally Gastrointestinal: Yes: Soft Genitourinary: Yes: WNL Musculoskeletal: Yes: WNL Edema: No Neurological: Yes: Oriented Psychiatric: Yes: Oriented Labs: CBC, BMP 11/13/19 07:56 11/13/19 07:56 INR, PTT INR 1.07 (0.83-1.09) 11/11/19 18:40 Fibrinogen 209.0 mg/dL (238-498) L 11/12/19 18:15 Problem List - Problems (1) Anemia in chronic kidney disease, on chronic dialysis Code(s): N18.6 - END STAGE RENAL DISEASE; D63.1 - ANEMIA IN CHRONIC KIDNEY DISEASE; Z99.2 - DEPENDENCE ON RENAL DIALYSIS (2) Pancytopenia Code(s): D61.818 - OTHER PANCYTOPENIA (3) ESRD on hemodialysis Code(s): N18.6 - END STAGE RENAL DISEASE; Z99.2 - DEPENDENCE ON RENAL DIALYSIS Assessment/Plan Current Medications Generic Name Dose Route Start Last Admin Trade Name Freq PRN Reason Stop Dose Admin Amino Acids 30 ml 11/12/19 17:30 11/13/19 08:50 Prosource No Carb Liquid Pkt PO 30 ml BID@0800,1730 SERJIO Administration Amlodipine Besylate 10 mg 11/12/19 10:00 11/13/19 09:35 Norvasc - PO 10 mg DAILY SERJIO Administration Atorvastatin Calcium 10 mg 11/12/19 22:00 11/12/19 21:38 Lipitor - PO 10 mg HS SERJIO Administration Clonidine 0.1 mg 11/12/19 10:00 11/13/19 09:35 Catapres - PO 0.1 mg DAILY SERJIO Administration Famotidine 20 mg 11/13/19 12:00 11/13/19 13:46 Pepcid - PO 20 mg Q2D SERJIO Administration Sodium Chloride 250 mls @ 3,000 mls/hr 11/12/19 07:00 Normal Saline - IV 11/13/19 07:00 PRN PRN Hypotension during Dialysis Metoprolol Succinate 50 mg 11/12/19 10:00 11/13/19 09:35 Toprol Xl - PO 50 mg DAILY SERJIO Administration Multivitamins/Minerals/Vitamin C 1 tab 11/12/19 10:00 11/13/19 09:35 Tab-A-Vit - PO 1 tab DAILY SERJIO Administration Impression 1. ESRD 2. 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 htn 4. anemia 5. BK nephropathy 6. pancytopenia 7. hx of CMV Plan - hg improved - monitor cbc - HD tomorrow - heme follow up - pancytopenia workup - renal diet - monitor bp
[2019-11-13] MEDS: ATORVASTATIN CA 10 MG TABLET (FP) PO SCH (21:02)
--- NOTE | 2019-11-13 22:34 | PN.HO ---
Progress Note (short form) - Note Progress Note: PAtient seen and examined Discussed via per diem interpreter Denies any complaints AFVSS Cor: RSR, No murmurs, No gallops Lungs: Clear to P&A Abd: Soft, Normal bowel sounds, No organomegaly Ext:No significant edema Labs/Meds reviewed A/P 64 yo F with polycystic kidney disease, on dialyiss, h/o renal transplant, now with pancytopenia and macrocytosis, Worsening anemia in setting of ESRD. TSAT 32%, Ferritin 1000s. Stool occult negative Differential ----liver disease ( hepatic cysts), low fibrinogen, macrocytosis suggestive of this B12 --282. TSH-7. Folate nl Concern for possible MDS---- discussed this with patient check flow/FISH/ cytogenetics Patient refusing BMBX will need heme f/u outpatient differential --liverdz/ occult infxn/MDS Low nl B12 High tSH IRon studies s/o chronic disease---procrit per renal team
[2019-11-14 08:47] LABS: BASO % 0.4 % (0-2.0); EOS % 1.6 % (0-4.5); HEMATOCRIT 30.3 % (32.4-45.2); HEMOGLOBIN 10.2 GM/dL (10.7-15.3); LYMPH % 31.9 % (8-40); MCH 32.4 pg (25.7-33.7); MCHC 33.5 g/dl (32.0-36.0); MEAN CELL VOLUME 96.6 fl (80-96); MEAN PLT VOLUME 11.2 fl (7.5-11.1); MONO % 7.3 % (3.8-10.2); NEUT % 58.8 % (42.8-82.8); PLATELET COUNT 64 K/MM3 (134-434); RBC 3.14 M/mm3 (3.60-5.2); RDW 16.6 % (11.6-15.6); WHITE BLOOD COUNT 3.2 K/mm3 (4.0-10.0)
[2019-11-14 09:14] LABS: CREATININE 5.4 mg/dL (0.55-1.3); POTASSIUM 4.1 mmol/L (3.5-5.1)
[2019-11-14 09:24] LABS: BLOOD UREA NITROGEN 43.8 mg/dL (7-18)
[2019-11-14] MEDS: LIDOCAINE 2.5%/PRILOCAINE 2.5% (5 Gram/TUBE) TP SCH (09:30)
[2019-11-14] MEDS: AMINO ACIDS/PROTEIN HYDROLYS 30 ML LIQUID.PKT PO SCH ×2 (10:05→17:56)
[2019-11-14] MEDS: MULTIVITAMINS (DAILY MVI) TABLET (FP) PO SCH (10:05)
[2019-11-14 11:05] LABS: ALBUMIN 3.4 g/dl (3.4-5.0); BILIRUBIN,TOTAL 0.6 mg/dL (0.2-1)
[2019-11-14] MEDS ORDERED: EPOETIN ALFA 10,000 UNIT/1 ML VIAL SQ ONE (11:45)
[2019-11-14] MEDS ORDERED: PT OWN MED DRAWER 7, Y5N ONE (14:39)
[2019-11-14] MEDS: cloNIDine HCL 0.1 MG TABLET PO SCH (14:47)
[2019-11-14] MEDS: amLODIPine BESYLATE 10 MG TABLET (FP) PO SCH (14:47)
--- NOTE | 2019-11-14 15:07 | PN ---
Progress Note, Physician History of Present Illness: Pt seen and examined at bedside. She is awake and alert. She is tolerating HD. - Current Medication List Current Medications: Active Medications Amino Acids (Prosource No Carb Liquid Pkt) 30 ml PO BID@0800,1730 [facility] Last Admin: 11/14/19 10:05 Dose: 30 ml Documented by: Amlodipine Besylate (Norvasc -) 10 mg PO DAILY [facility] Last Admin: 11/14/19 14:47 Dose: 10 mg Documented by: Atorvastatin Calcium (Lipitor -) 10 mg PO HS [facility] Last Admin: 11/13/19 21:02 Dose: 10 mg Documented by: Clonidine (Catapres -) 0.1 mg PO DAILY [facility] Last Admin: 11/14/19 14:47 Dose: 0.1 mg Documented by: Famotidine (Pepcid -) 20 mg PO Q2D [facility] Last Admin: 11/13/19 13:46 Dose: 20 mg Documented by: Sodium Chloride (Normal Saline -) 250 mls @ 3,000 mls/hr IV PRN PRN PRN Reason: Hypotension during Dialysis Stop: 11/14/19 15:26 Lidocaine/Prilocaine (Emla -) 1 applic TP Q48H [facility] Last Admin: 11/14/19 09:30 Dose: 1 applic Documented by: Metoprolol Succinate (Toprol Xl -) 50 mg PO DAILY [facility] Last Admin: 11/14/19 14:47 Dose: 50 mg Documented by: Multivitamins/Minerals/Vitamin C (Tab-A-Vit -) 1 tab PO DAILY [facility] Last Admin: 11/14/19 10:05 Dose: 1 tab Documented by: - Objective Vital Signs: Vital Signs Temperature 98.3 F 11/14/19 10:00 Pulse Rate 68 11/14/19 14:05 Respiratory Rate 18 11/14/19 14:05 Blood Pressure 168/74 11/14/19 14:05 O2 Sat by Pulse Oximetry (%) 90 L 11/14/19 10:00 Constitutional: Yes: Calm Eyes: Yes: Conjunctiva Clear HENT: Yes: Atraumatic Neck: Yes: Supple Cardiovascular: Yes: S1, S2 Respiratory: Yes: CTA Bilaterally Gastrointestinal: Yes: Normal Bowel Sounds, Soft Genitourinary: Yes: WNL Musculoskeletal: Yes: WNL Edema: No Neurological: Yes: Oriented Psychiatric: Yes: Oriented Labs: CBC, BMP 11/14/19 07:42 11/14/19 07:42 INR, PTT INR 1.07 (0.83-1.09) 11/11/19 18:40 Fibrinogen 209.0 mg/dL (238-498) L 11/12/19 18:15 Problem List - Problems (1) Anemia in chronic kidney disease, on chronic dialysis Code(s): N18.6 - END STAGE RENAL DISEASE; D63.1 - ANEMIA IN CHRONIC KIDNEY DISEASE; Z99.2 - DEPENDENCE ON RENAL DIALYSIS (2) Pancytopenia Code(s): D61.818 - OTHER PANCYTOPENIA (3) ESRD on hemodialysis Code(s): N18.6 - END STAGE RENAL DISEASE; Z99.2 - DEPENDENCE ON RENAL DIALYSIS Assessment/Plan Current Medications Generic Name Dose Route Start Last Admin Trade Name Freq PRN Reason Stop Dose Admin Amino Acids 30 ml 11/12/19 17:30 11/14/19 10:05 Prosource No Carb Liquid Pkt PO 30 ml BID@0800,1730 SERJIO Administration Amlodipine Besylate 10 mg 11/12/19 10:00 11/14/19 14:47 Norvasc - PO 10 mg DAILY SERJIO Administration Atorvastatin Calcium 10 mg 11/12/19 22:00 11/13/19 21:02 Lipitor - PO 10 mg HS SERJIO Administration Clonidine 0.1 mg 11/12/19 10:00 11/14/19 14:47 Catapres - PO 0.1 mg DAILY SERJIO Administration Famotidine 20 mg 11/13/19 12:00 11/13/19 13:46 Pepcid - PO 20 mg Q2D SERJIO Administration Sodium Chloride 250 mls @ 3,000 mls/hr 11/13/19 15:26 Normal Saline - IV 11/14/19 15:26 PRN PRN Hypotension during Dialysis Lidocaine/Prilocaine 1 applic 11/14/19 06:00 11/14/19 09:30 Emla - TP 1 applic Q48H SERJIO Administration Metoprolol Succinate 50 mg 11/12/19 10:00 11/14/19 14:47 Toprol Xl - PO 50 mg DAILY SERJIO Administration Multivitamins/Minerals/Vitamin C 1 tab 11/12/19 10:00 11/14/19 10:05 Tab-A-Vit - PO 1 tab DAILY SERJIO Administration Impression 1. ESRD 2. 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 htn 4. anemia 5. BK nephropathy 6. pancytopenia 7. hx of CMV Plan - hg improving - HD today - heme input appreciate, pt will need outpt follow up - refused bone marrow - pancytopenia workup in progress - renal diet - monitor bp
--- NOTE | 2019-11-14 16:23 | PN ---
Progress Note, Physician Chief Complaint: No acute events History of Present Illness: 64 yo Female with chronic anemia, HTN, polycystic kidney disease on dialysis, h/o renal transplant, now with pancytopenia and macrocytosis, Worsening anemia in setting of ESRD - Current Medication List Current Medications: Active Medications Amino Acids (Prosource No Carb Liquid Pkt) 30 ml PO BID@0800,1730 [facility] Last Admin: 11/14/19 10:05 Dose: 30 ml Documented by: Amlodipine Besylate (Norvasc -) 10 mg PO DAILY [facility] Last Admin: 11/14/19 14:47 Dose: 10 mg Documented by: Atorvastatin Calcium (Lipitor -) 10 mg PO HS [facility] Last Admin: 11/13/19 21:02 Dose: 10 mg Documented by: Clonidine (Catapres -) 0.1 mg PO DAILY [facility] Last Admin: 11/14/19 14:47 Dose: 0.1 mg Documented by: Famotidine (Pepcid -) 20 mg PO Q2D [facility] Last Admin: 11/13/19 13:46 Dose: 20 mg Documented by: Lidocaine/Prilocaine (Emla -) 1 applic TP Q48H [facility] Last Admin: 11/14/19 09:30 Dose: 1 applic Documented by: Metoprolol Succinate (Toprol Xl -) 50 mg PO DAILY [facility] Last Admin: 11/14/19 14:47 Dose: 50 mg Documented by: Multivitamins/Minerals/Vitamin C (Tab-A-Vit -) 1 tab PO DAILY [facility] Last Admin: 11/14/19 10:05 Dose: 1 tab Documented by: - Objective Vital Signs: Vital Signs Temperature 99.4 F 11/14/19 15:00 Pulse Rate 65 11/14/19 15:00 Respiratory Rate 18 11/14/19 15:00 Blood Pressure 133/54 L 11/14/19 15:00 O2 Sat by Pulse Oximetry (%) 93 L 11/14/19 15:00 Constitutional: Yes: Well Nourished, No Distress, Calm Eyes: Yes: WNL, Conjunctiva Clear, EOM Intact HENT: Yes: WNL, Atraumatic, Normocephalic Neck: Yes: WNL, Supple Cardiovascular: Yes: WNL, Regular Rate and Rhythm Respiratory: Yes: WNL, Regular, CTA Bilaterally Gastrointestinal: Yes: WNL, Normal Bowel Sounds, Soft Genitourinary: Yes: WNL Musculoskeletal: Yes: WNL Extremities: Yes: WNL Edema: Yes Peripheral Pulses WNL: Yes Integumentary: Yes: WNL Neurological: Yes: WNL, Alert, Oriented ...Motor Strength: WNL Psychiatric: Yes: WNL, Alert, Oriented Labs: CBC, BMP 11/14/19 07:42 11/14/19 07:42 INR, PTT INR 1.07 (0.83-1.09) 11/11/19 18:40 Fibrinogen 209.0 mg/dL (238-498) L 11/12/19 18:15 Impression/Plan Impression/Plan: 64 yo Female with chronic anemia, HTN, polycystic kidney disease on dialysis, h/o renal transplant, now with pancytopenia and macrocytosis, Worsening anemia in setting of ESRD (1) Pancytopenia Assessment/Plan: Blood work-up shows low WBC, anemia and thrombocytopenia , H&H improved after packed RBC transfusion, we will follow-up hemato-oncology recommendations for pancytopenia, As per hem TSAT 32%, Ferritin 1000s. Stool occult negative Differential ----liver disease ( hepatic cysts), low fibrinogen, macrocytosis suggestive of this B12 --282. TSH-7. Folate nl Concern for possible MDS---- discussed this with patient check flow/FISH/ cytogenetics Patient refusing BMBX will need heme follow-up outpatient Code(s): D61.818 - OTHER PANCYTOPENIA (2) ESRD on hemodialysis Assessment/Plan: On hemodialysis as per renal recommendations Low normal B12 High TSH IRon studies s/o chronic disease---procrit per renal team Code(s): N18.6 - END STAGE RENAL DISEASE; Z99.2 - DEPENDENCE ON RENAL DIALYSIS (3) Hypertension Assessment/Plan: Well-controlled resumed all home medications metoprolol 50 mg, amlodipine 10 mg and clonidine Code(s): I10 - ESSENTIAL (PRIMARY) HYPERTENSION (4) Kidney transplant rejection Assessment/Plan: 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 - New Patient This patient is new to me today: Yes Date on this admission: 11/14/19 - Critical Care Critical Care patient: No - Discharge Referral Referred to [facility] No
--- NOTE | 2019-11-14 18:14 | PN ---
Progress Note, Physician History of Present Illness: Pt is alert, without distress. States she feels fine. Temp of 99.4F - Current Medication List Current Medications: Active Medications Amino Acids (Prosource No Carb Liquid Pkt) 30 ml PO BID@0800,1730 [facility] Last Admin: 11/14/19 17:56 Dose: 30 ml Documented by: Amlodipine Besylate (Norvasc -) 10 mg PO DAILY [facility] Last Admin: 11/14/19 14:47 Dose: 10 mg Documented by: Atorvastatin Calcium (Lipitor -) 10 mg PO HS [facility] Last Admin: 11/13/19 21:02 Dose: 10 mg Documented by: Clonidine (Catapres -) 0.1 mg PO DAILY [facility] Last Admin: 11/14/19 14:47 Dose: 0.1 mg Documented by: Famotidine (Pepcid -) 20 mg PO Q2D [facility] Last Admin: 11/13/19 13:46 Dose: 20 mg Documented by: Lidocaine/Prilocaine (Emla -) 1 applic TP Q48H [facility] Last Admin: 11/14/19 09:30 Dose: 1 applic Documented by: Metoprolol Succinate (Toprol Xl -) 50 mg PO DAILY [facility] Last Admin: 11/14/19 14:47 Dose: 50 mg Documented by: Multivitamins/Minerals/Vitamin C (Tab-A-Vit -) 1 tab PO DAILY [facility] Last Admin: 11/14/19 10:05 Dose: 1 tab Documented by: - Objective Vital Signs: Vital Signs Temperature 99.4 F 11/14/19 15:00 Pulse Rate 65 11/14/19 15:00 Respiratory Rate 18 11/14/19 15:00 Blood Pressure 133/54 L 11/14/19 15:00 O2 Sat by Pulse Oximetry (%) 93 L 11/14/19 15:00 Constitutional: Yes: No Distress, Calm Cardiovascular: Yes: Regular Rate and Rhythm Respiratory: Yes: CTA Bilaterally Gastrointestinal: Yes: Normal Bowel Sounds, Soft Integumentary: Yes: WNL Neurological: Yes: Alert Labs: CBC, BMP 11/14/19 07:42 11/14/19 07:42 INR, PTT INR 1.07 (0.83-1.09) 11/11/19 18:40 Fibrinogen 209.0 mg/dL (238-498) L 08/13/20 18:15 - ....Imaging Chest X-ray: Report Reviewed Cat Scan: Report Reviewed Problem List - Problems (1) Pancytopenia Code(s): D61.818 - OTHER PANCYTOPENIA (2) CMV (cytomegalovirus infection) status positive Code(s): B25.9 - CYTOMEGALOVIRAL DISEASE, UNSPECIFIED (3) ESRD on hemodialysis Code(s): N18.6 - END STAGE RENAL DISEASE; Z99.2 - DEPENDENCE ON RENAL DIALYSIS (4) Fever Code(s): R50.9 - FEVER, UNSPECIFIED Qualifiers: Fever type: unspecified Qualified Code(s): R50.9 - Fever, unspecified (5) Hypertension Code(s): I10 - ESSENTIAL (PRIMARY) HYPERTENSION (7) Thrombocytopenia Code(s): D69.6 - THROMBOCYTOPENIA, UNSPECIFIED Assessment/Plan Pt with temp of 99.4F , vitals stable, without distress Continue monitor closely If fever persists will start empiric antibiotics, send cultures/imaging Heme/Onc following Monitor cbc
[2019-11-14] MEDS: ATORVASTATIN CA 10 MG TABLET (FP) PO SCH (21:40)
[2019-11-15] MEDS: AMINO ACIDS/PROTEIN HYDROLYS 30 ML LIQUID.PKT PO SCH ×2 (08:55→16:39)
[2019-11-15] MEDS ORDERED: PT OWN MED DRAWER 7, Y5N ONE (09:30)
[2019-11-15] MEDS: cloNIDine HCL 0.1 MG TABLET PO SCH (09:34)
[2019-11-15] MEDS: amLODIPine BESYLATE 10 MG TABLET (FP) PO SCH (09:34)
[2019-11-15] MEDS: MULTIVITAMINS (DAILY MVI) TABLET (FP) PO SCH (09:34)
[2019-11-15] MEDS: FAMOTIDINE 20 MG TABLET PO SCH (09:34)
--- NOTE | 2019-11-15 10:50 | PN ---
Physical Exam: SUBJECTIVE: Patient seen and examined 11/15/19: Pt denies any pain, wants to go home. Refused bm biopsy. Jaquelin po OBJECTIVE: Vital Signs Period Temp Pulse Resp BP Sys/[place] Pulse Ox Last 24 Hr 98.1 F-99.4 F 60-69 16-18 126-168/54-94 93-97 GENERAL: The patient is awake, alert, and fully oriented, in no acute distress. HEAD: Normal with no signs of trauma. EYES: extraocular movements intact, sclera anicteric, conjunctiva clear. No ptosis. ENT: Ears normal, nares patent, oropharynx clear without exudates, moist mucous membranes. NECK: Trachea midline, full range of motion, supple. LUNGS: Breath sounds equal, clear to auscultation bilaterally, no wheezes, no crackles, no accessory muscle use. HEART: Regular rate and rhythm, S1, S2 without murmur, rub or gallop. ABDOMEN: Soft, nontender, nondistended, normoactive bowel sounds, no guarding, no rebound, no hepatosplenomegaly, no masses. EXTREMITIES: 2+ pulses, warm, well-perfused, no edema. NEUROLOGICAL: Cranial nerves II through XII grossly intact. Normal speech, gait not observed. PSYCH: Normal mood, normal affect. SKIN: Warm, dry, normal turgor, no rashes or lesions noted Laboratory Results - last 24 hr 11/11/19 11/14/19 18:40 07:42 Total Bilirubin 0.6 AST 28 ALT 27 Alkaline Phosphatase 140 H Total Protein 7.0 Albumin 3.4 Blood Type A NEGATIVE Antibody Screen Negative Crossmatch See Detail Active Medications Generic Name Dose Route Start Last Admin Trade Name Olvinq PRN Reason Stop Dose Admin Amino Acids 30 ml 11/12/19 17:30 11/15/19 08:55 Prosource No Carb Liquid Pkt PO 30 ml BID@0800,1730 SERJIO Administration Amlodipine Besylate 10 mg 11/12/19 10:00 11/15/19 09:34 Norvasc - PO 10 mg DAILY SERJIO Administration Atorvastatin Calcium 10 mg 11/12/19 22:00 11/14/19 21:40 Lipitor - PO 10 mg HS SERJIO Administration Clonidine 0.1 mg 11/12/19 10:00 11/15/19 09:34 Catapres - PO 0.1 mg DAILY SERJIO Administration Famotidine 20 mg 11/13/19 12:00 11/15/19 09:34 Pepcid - PO 20 mg Q2D SERJIO Administration Lidocaine/Prilocaine 1 applic 11/14/19 06:00 11/14/19 09:30 Emla - TP 1 applic Q48H SERJIO Administration Metoprolol Succinate 50 mg 11/12/19 10:00 11/15/19 09:34 Toprol Xl - PO 50 mg DAILY SERJIO Administration Multivitamins/Minerals/Vitamin C 1 tab 11/12/19 10:00 11/15/19 09:34 Tab-A-Vit - PO 1 tab DAILY SERJIO Administration ASSESSMENT/PLAN: 64 yo Female with chronic anemia, HTN, polycystic kidney disease on dialysis, h/o renal transplant, now with pancytopenia and macrocytosis, Worsening anemia in setting of ESRD, noted to be pancytopenic (1) Pancytopenia Assessment/Plan: Blood work-up shows low WBC, anemia and thrombocytopenia , H&H improved after packed RBC transfusion. WBC better today will monitor work up in process, labs still pending As per hem TSAT 32%, Ferritin 1000s. Stool occult negative Differential ----liver disease ( hepatic cysts), low fibrinogen, macrocytosis suggestive of this TSH-7 ( normal free T4), Folate nl Concern for possible MDS---- discussed this with patient check flow/FISH/ cytogenetics Patient refusing BMBX Due to recent COVID infection, gancyclovir? 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 - New Patient This patient is new to me today: Yes Date on this admission: 11/15/19 - Critical Care Critical Care patient: No - Discharge Referral Referred to [facility] No
--- NOTE | 2019-11-15 14:17 | PN ---
Progress Note, Physician History of Present Illness: Pt seen and examined at bedside. She is awake and alert. She now agrees to bone marrow biopsy. - Current Medication List Current Medications: Active Medications Amino Acids (Prosource No Carb Liquid Pkt) 30 ml PO BID@0800,1730 [facility] Last Admin: 11/15/19 08:55 Dose: 30 ml Documented by: Amlodipine Besylate (Norvasc -) 10 mg PO DAILY [facility] Last Admin: 11/15/19 09:34 Dose: 10 mg Documented by: Atorvastatin Calcium (Lipitor -) 10 mg PO HS [facility] Last Admin: 11/14/19 21:40 Dose: 10 mg Documented by: Clonidine (Catapres -) 0.1 mg PO DAILY [facility] Last Admin: 11/15/19 09:34 Dose: 0.1 mg Documented by: Famotidine (Pepcid -) 20 mg PO Q2D [facility] Last Admin: 11/15/19 09:34 Dose: 20 mg Documented by: Lidocaine/Prilocaine (Emla -) 1 applic TP Q48H [facility] Last Admin: 11/14/19 09:30 Dose: 1 applic Documented by: Metoprolol Succinate (Toprol Xl -) 50 mg PO DAILY [facility] Last Admin: 11/15/19 09:34 Dose: 50 mg Documented by: Multivitamins/Minerals/Vitamin C (Tab-A-Vit -) 1 tab PO DAILY [facility] Last Admin: 11/15/19 09:34 Dose: 1 tab Documented by: - Objective Vital Signs: Vital Signs Temperature 98.7 F 11/15/19 10:00 Pulse Rate 65 11/15/19 10:00 Respiratory Rate 16 11/15/19 10:00 Blood Pressure 130/56 L 11/15/19 10:00 O2 Sat by Pulse Oximetry (%) 96 11/15/19 10:00 Constitutional: Yes: Calm Eyes: Yes: Conjunctiva Clear HENT: Yes: Atraumatic Neck: Yes: Supple Cardiovascular: Yes: S1, S2 Respiratory: Yes: CTA Bilaterally Gastrointestinal: Yes: Normal Bowel Sounds, Soft Genitourinary: Yes: WNL Musculoskeletal: Yes: WNL Edema: No Neurological: Yes: Oriented Psychiatric: Yes: Oriented Labs: CBC, BMP 11/14/19 07:42 11/14/19 07:42 INR, PTT INR 1.07 (0.83-1.09) 11/11/19 18:40 Fibrinogen 209.0 mg/dL (238-498) L 11/12/19 18:15 Problem List - Problems (1) Anemia in chronic kidney disease, on chronic dialysis Code(s): N18.6 - END STAGE RENAL DISEASE; D63.1 - ANEMIA IN CHRONIC KIDNEY DISEASE; Z99.2 - DEPENDENCE ON RENAL DIALYSIS (2) Pancytopenia Code(s): D61.818 - OTHER PANCYTOPENIA (3) ESRD on hemodialysis Code(s): N18.6 - END STAGE RENAL DISEASE; Z99.2 - DEPENDENCE ON RENAL DIALYSIS Assessment/Plan Current Medications Generic Name Dose Route Start Last Admin Trade Name Freq PRN Reason Stop Dose Admin Amino Acids 30 ml 11/12/19 17:30 11/15/19 08:55 Prosource No Carb Liquid Pkt PO 30 ml BID@0800,1730 SERJIO Administration Amlodipine Besylate 10 mg 11/12/19 10:00 11/15/19 09:34 Norvasc - PO 10 mg DAILY SERJIO Administration Atorvastatin Calcium 10 mg 11/12/19 22:00 11/14/19 21:40 Lipitor - PO 10 mg HS SERJIO Administration Clonidine 0.1 mg 11/12/19 10:00 11/15/19 09:34 Catapres - PO 0.1 mg DAILY SERJIO Administration Famotidine 20 mg 11/13/19 12:00 11/15/19 09:34 Pepcid - PO 20 mg Q2D SERJIO Administration Lidocaine/Prilocaine 1 applic 11/14/19 06:00 11/14/19 09:30 Emla - TP 1 applic Q48H SERJIO Administration Metoprolol Succinate 50 mg 11/12/19 10:00 11/15/19 09:34 Toprol Xl - PO 50 mg DAILY SERJIO Administration Multivitamins/Minerals/Vitamin C 1 tab 11/12/19 10:00 11/15/19 09:34 Tab-A-Vit - PO 1 tab DAILY SERJIO Administration Impression 1. ESRD 2. 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 htn 4. anemia 5. BK nephropathy 6. pancytopenia 7. hx of CMV Plan - repeat cbc in am - pt now agrees to bone marrow - recall hematology - pt tolerated HD yesterday, next session on Saturday - pancytopenia workup in progress - renal diet - monitor bp
--- NOTE | 2019-11-15 16:04 | PN ---
Progress Note, Physician History of Present Illness: Pt afebrile in past 24 hrs. No new complaints. Agrees to have bone marrow biopsy. - Current Medication List Current Medications: Active Medications Amino Acids (Prosource No Carb Liquid Pkt) 30 ml PO BID@0800,1730 [facility] Last Admin: 11/15/19 08:55 Dose: 30 ml Documented by: Amlodipine Besylate (Norvasc -) 10 mg PO DAILY [facility] Last Admin: 11/15/19 09:34 Dose: 10 mg Documented by: Atorvastatin Calcium (Lipitor -) 10 mg PO HS [facility] Last Admin: 11/14/19 21:40 Dose: 10 mg Documented by: Clonidine (Catapres -) 0.1 mg PO DAILY [facility] Last Admin: 11/15/19 09:34 Dose: 0.1 mg Documented by: Famotidine (Pepcid -) 20 mg PO Q2D [facility] Last Admin: 11/15/19 09:34 Dose: 20 mg Documented by: Lidocaine/Prilocaine (Emla -) 1 applic TP Q48H [facility] Last Admin: 11/14/19 09:30 Dose: 1 applic Documented by: Metoprolol Succinate (Toprol Xl -) 50 mg PO DAILY [facility] Last Admin: 11/15/19 09:34 Dose: 50 mg Documented by: Multivitamins/Minerals/Vitamin C (Tab-A-Vit -) 1 tab PO DAILY [facility] Last Admin: 11/15/19 09:34 Dose: 1 tab Documented by: - Objective Vital Signs: Vital Signs Temperature 98.3 F 11/15/19 14:00 Pulse Rate 60 11/15/19 14:00 Respiratory Rate 18 11/15/19 14:00 Blood Pressure 115/60 11/15/19 14:00 O2 Sat by Pulse Oximetry (%) 96 11/15/19 14:00 Constitutional: Yes: No Distress Cardiovascular: Yes: Regular Rate and Rhythm Respiratory: Yes: CTA Bilaterally Gastrointestinal: Yes: Normal Bowel Sounds Musculoskeletal: Yes: WNL Extremities: Yes: WNL Integumentary: Yes: WNL Neurological: Yes: Alert Labs: CBC, BMP 11/14/19 07:42 11/14/19 07:42 INR, PTT INR 1.07 (0.83-1.09) 11/11/19 18:40 Fibrinogen 209.0 mg/dL (238-498) L 11/12/19 18:15 Laboratory Results - last 24 hr 11/11/19 18:40 Blood Type A NEGATIVE Antibody Screen Negative Crossmatch See Detail Microbiology 11/14/19 11:20 Blood - Peripheral Venous Blood Culture - Preliminary NO GROWTH OBTAINED AFTER 24 HOURS, INCUBATION TO CONTINUE FOR 4 DAYS. 11/14/19 11:50 Blood - Peripheral Venous Blood Culture - Preliminary NO GROWTH OBTAINED AFTER 24 HOURS, INCUBATION TO CONTINUE FOR 4 DAYS. Problem List - Problems (1) Pancytopenia Code(s): D61.818 - OTHER PANCYTOPENIA (2) CMV (cytomegalovirus infection) status positive Code(s): B25.9 - CYTOMEGALOVIRAL DISEASE, UNSPECIFIED (3) ESRD on hemodialysis Code(s): N18.6 - END STAGE RENAL DISEASE; Z99.2 - DEPENDENCE ON RENAL DIALYSIS (4) Fever Code(s): R50.9 - FEVER, UNSPECIFIED Qualifiers: Fever type: unspecified Qualified Code(s): R50.9 - Fever, unspecified (5) Hypertension Code(s): I10 - ESSENTIAL (PRIMARY) HYPERTENSION (7) Thrombocytopenia Code(s): D69.6 - THROMBOCYTOPENIA, UNSPECIFIED Assessment/Plan Pancytopenia Fever Hx of CMV r/o MDS PKD , Hx of renal transplant ESRD on HD -- pt afebrile in past 24hr, off antibiotics -- CMV PCR, ag ordered -- Heme/Onc follow up , bone marrow biopsy -- continue monitor
[2019-11-15] MEDS: ATORVASTATIN CA 10 MG TABLET (FP) PO SCH (21:40)
[2019-11-16] MEDS: LIDOCAINE 2.5%/PRILOCAINE 2.5% (5 Gram/TUBE) TP SCH (06:32)
[2019-11-16] MEDS: AMINO ACIDS/PROTEIN HYDROLYS 30 ML LIQUID.PKT PO SCH ×2 (08:24→18:08)
[2019-11-16] MEDS: cloNIDine HCL 0.1 MG TABLET PO SCH (09:17)
[2019-11-16] MEDS: amLODIPine BESYLATE 10 MG TABLET (FP) PO SCH (09:17)
[2019-11-16] MEDS: MULTIVITAMINS (DAILY MVI) TABLET (FP) PO SCH (09:17)
[2019-11-16 12:34] LABS: BASO % 0.3 % (0-2.0); EOS % 2.1 % (0-4.5); HEMATOCRIT 27.1 % (32.4-45.2); HEMOGLOBIN 9.1 GM/dL (10.7-15.3); LYMPH % 33.1 % (8-40); MCH 32.9 pg (25.7-33.7); MCHC 33.6 g/dl (32.0-36.0); MEAN CELL VOLUME 97.8 fl (80-96); MEAN PLT VOLUME 11.4 fl (7.5-11.1); NEUT % 54.5 % (42.8-82.8); PLATELET COUNT 55 K/MM3 (134-434); RBC 2.78 M/mm3 (3.60-5.2); RDW 16.1 % (11.6-15.6); WHITE BLOOD COUNT 2.6 K/mm3 (4.0-10.0)
[2019-11-16 12:50] LABS: ALBUMIN 3.3 g/dl (3.4-5.0); BILIRUBIN,TOTAL 0.5 mg/dL (0.2-1); BLOOD UREA NITROGEN 67.8 mg/dL (7-18); CALCIUM 8.9 mg/dL (8.5-10.1); MAGNESIUM 2.2 mg/dL (1.8-2.4); PHOSPHOROUS 2.8 mg/dL (2.5-4.9); POTASSIUM 4.4 mmol/L (3.5-5.1); TOT PROT 6.7 g/dl (6.4-8.2)
[2019-11-16] MEDS ORDERED: SODIUM CHLORIDE 250 ML IV PRN (14:21)
--- NOTE | 2019-11-16 14:21 | PN ---
Progress Note, Physician History of Present Illness: Pt seen and examined at bedside. She is awake and alert. She agrees to the bone marrow biopsy. - Current Medication List Current Medications: Active Medications Amino Acids (Prosource No Carb Liquid Pkt) 30 ml PO BID@0800,1730 [facility] Last Admin: 11/16/19 08:24 Dose: 30 ml Documented by: Amlodipine Besylate (Norvasc -) 10 mg PO DAILY [facility] Last Admin: 11/16/19 09:17 Dose: 10 mg Documented by: Atorvastatin Calcium (Lipitor -) 10 mg PO HS [facility] Last Admin: 11/15/19 21:40 Dose: 10 mg Documented by: Clonidine (Catapres -) 0.1 mg PO DAILY [facility] Last Admin: 11/16/19 09:17 Dose: 0.1 mg Documented by: Famotidine (Pepcid -) 20 mg PO Q2D [facility] Last Admin: 11/15/19 09:34 Dose: 20 mg Documented by: Lidocaine/Prilocaine (Emla -) 1 applic TP Q48H [facility] Last Admin: 11/16/19 06:32 Dose: Not Given Documented by: Metoprolol Succinate (Toprol Xl -) 50 mg PO DAILY [facility] Last Admin: 11/16/19 09:17 Dose: 50 mg Documented by: Multivitamins/Minerals/Vitamin C (Tab-A-Vit -) 1 tab PO DAILY [facility] Last Admin: 11/16/19 09:17 Dose: 1 tab Documented by: - Objective Vital Signs: Vital Signs Temperature 98.2 F 11/16/19 10:00 Pulse Rate 60 11/16/19 10:00 Respiratory Rate 16 11/16/19 10:00 Blood Pressure 150/69 11/16/19 10:00 O2 Sat by Pulse Oximetry (%) 93 L 11/16/19 10:00 Constitutional: Yes: Calm Eyes: Yes: Conjunctiva Clear HENT: Yes: Atraumatic Neck: Yes: Supple Cardiovascular: Yes: S1, S2 Respiratory: Yes: CTA Bilaterally Gastrointestinal: Yes: Normal Bowel Sounds, Soft Genitourinary: Yes: WNL Musculoskeletal: Yes: WNL Edema: No Neurological: Yes: Oriented Psychiatric: Yes: Oriented Labs: CBC, BMP 11/16/19 11:50 11/16/19 11:50 INR, PTT INR 1.07 (0.83-1.09) 11/11/19 18:40 Fibrinogen 209.0 mg/dL (238-498) L 11/12/19 18:15 Problem List - Problems (1) Anemia in chronic kidney disease, on chronic dialysis Code(s): N18.6 - END STAGE RENAL DISEASE; D63.1 - ANEMIA IN CHRONIC KIDNEY DISEASE; Z99.2 - DEPENDENCE ON RENAL DIALYSIS (2) Pancytopenia Code(s): D61.818 - OTHER PANCYTOPENIA (3) ESRD on hemodialysis Code(s): N18.6 - END STAGE RENAL DISEASE; Z99.2 - DEPENDENCE ON RENAL DIALYSIS Assessment/Plan Current Medications Generic Name Dose Route Start Last Admin Trade Name Freq PRN Reason Stop Dose Admin Amino Acids 30 ml 11/12/19 17:30 11/16/19 08:24 Prosource No Carb Liquid Pkt PO 30 ml BID@0800,1730 SERJIO Administration Amlodipine Besylate 10 mg 11/12/19 10:00 11/16/19 09:17 Norvasc - PO 10 mg DAILY SERJIO Administration Atorvastatin Calcium 10 mg 11/12/19 22:00 11/15/19 21:40 Lipitor - PO 10 mg HS SERJIO Administration Clonidine 0.1 mg 11/12/19 10:00 11/16/19 09:17 Catapres - PO 0.1 mg DAILY SERJIO Administration Famotidine 20 mg 11/13/19 12:00 11/15/19 09:34 Pepcid - PO 20 mg Q2D SERJIO Administration Lidocaine/Prilocaine 1 applic 11/14/19 06:00 11/16/19 06:32 Emla - TP Not Given Q48H SERJIO Metoprolol Succinate 50 mg 11/12/19 10:00 11/16/19 09:17 Toprol Xl - PO 50 mg DAILY SERJIO Administration Multivitamins/Minerals/Vitamin C 1 tab 11/12/19 10:00 11/16/19 09:17 Tab-A-Vit - PO 1 tab DAILY SERJIO Administration Impression 1. ESRD 2. 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 htn 4. anemia 5. BK nephropathy 6. pancytopenia 7. hx of CMV Plan - pt agrees to bm biopsy - HD tomorrow - hematology follow up - cont epogen with hd - monitor hg - renal diet - monitor bp
--- NOTE | 2019-11-16 14:45 | PN ---
Progress Note, Physician History of Present Illness: stable no new issues for bm biopsy - Current Medication List Current Medications: Active Medications Amino Acids (Prosource No Carb Liquid Pkt) 30 ml PO BID@0800,1730 [facility] Last Admin: 11/16/19 08:24 Dose: 30 ml Documented by: Amlodipine Besylate (Norvasc -) 10 mg PO DAILY [facility] Last Admin: 11/16/19 09:17 Dose: 10 mg Documented by: Atorvastatin Calcium (Lipitor -) 10 mg PO HS [facility] Last Admin: 11/15/19 21:40 Dose: 10 mg Documented by: Clonidine (Catapres -) 0.1 mg PO DAILY [facility] Last Admin: 11/16/19 09:17 Dose: 0.1 mg Documented by: Epoetin Talha (Procrit -) 10,000 unit IVPUSH ONCE ONE Stop: 11/17/19 14:22 Famotidine (Pepcid -) 20 mg PO Q2D [facility] Last Admin: 11/15/19 09:34 Dose: 20 mg Documented by: Sodium Chloride (Normal Saline -) 250 mls @ 3,000 mls/hr IV PRN PRN PRN Reason: Hypotension during Dialysis Stop: 11/17/19 14:21 Lidocaine/Prilocaine (Emla -) 1 applic TP Q48H [facility] Last Admin: 11/16/19 06:32 Dose: Not Given Documented by: Metoprolol Succinate (Toprol Xl -) 50 mg PO DAILY [facility] Last Admin: 11/16/19 09:17 Dose: 50 mg Documented by: Multivitamins/Minerals/Vitamin C (Tab-A-Vit -) 1 tab PO DAILY [facility] Last Admin: 11/16/19 09:17 Dose: 1 tab Documented by: - Objective Vital Signs: Vital Signs Temperature 97.8 F 11/16/19 14:00 Pulse Rate 61 11/16/19 14:00 Respiratory Rate 16 11/16/19 14:00 Blood Pressure 123/63 11/16/19 14:00 O2 Sat by Pulse Oximetry (%) 99 11/16/19 14:00 Constitutional: Yes: No Distress, Calm, Thin Cardiovascular: Yes: S1, S2 Respiratory: Yes: Regular, CTA Bilaterally Gastrointestinal: Yes: Normal Bowel Sounds, Soft Musculoskeletal: Yes: WNL Extremities: Yes: WNL Neurological: Yes: Alert, Oriented Psychiatric: Yes: Alert, Oriented Labs: CBC, BMP 11/16/19 11:50 11/16/19 11:50 INR, PTT INR 1.07 (0.83-1.09) 11/11/19 18:40 Fibrinogen 209.0 mg/dL (238-498) L 11/12/19 18:15 Assessment/Plan Problem List - Problems (1) Pancytopenia Code(s): D61.818 - OTHER PANCYTOPENIA (2) CMV (cytomegalovirus infection) status positive Code(s): B25.9 - CYTOMEGALOVIRAL DISEASE, UNSPECIFIED (3) ESRD on hemodialysis Code(s): N18.6 - END STAGE RENAL DISEASE; Z99.2 - DEPENDENCE ON RENAL DIALYSIS (4) Fever Code(s): R50.9 - FEVER, UNSPECIFIED Qualifiers: Fever type: unspecified Qualified Code(s): R50.9 - Fever, unspecified (5) Hypertension Code(s): I10 - ESSENTIAL (PRIMARY) HYPERTENSION (7) Thrombocytopenia Code(s): D69.6 - THROMBOCYTOPENIA, UNSPECIFIED Assessment/Plan Pancytopenia Fever Hx of CMV r/o MDS PKD , Hx of renal transplant ESRD on HD plan continue current mgmt follow bm biopsy rest as per the team
--- NOTE | 2019-11-16 17:57 | PN ---
Teaching Attending Note Name of Resident: Catherine Jane ATTENDING PHYSICIAN STATEMENT I saw and evaluated the patient. I reviewed the resident's note and discussed the case with the resident. I agree with the resident's findings and plan as documented. ASSESSMENT AND PLAN: 64 yo F with polycystic kidney disease, on dialyiss, h/o renal transplant, now with pancytopenia and macrocytosis, Worsening anemia in setting of ESRD. TSAT 32%, Ferritin 1000s. Stool occult negative Differential ----liver disease ( hepatic cysts), low fibrinogen, macrocytosis suggestive of this B12 --282. TSH-7. Folate nl Concern also for possible MDS- check flow/FISH/ cytogenetics rediscussed BMBX -- will schedule BMBX differential --liverdz/ occult infxn/MDS Low nl B12 ---- replete PO vit. B12 , will dose PO givne thrombocytopeia High tSH IRon studies s/o chronic disease---procrit per renal team check HIV( discussed with patient and got verbal consent_, RADHA, RF
--- NOTE | 2019-11-16 19:01 | PN ---
Progress Note, Physician Chief Complaint: 24HR Events pt amenable to bone marrow biopsy, heme recalled flow cytometry sent to lab- awaiting results History of Present Illness: 64 year old woman with a PMH of ESRD on hemodialysis, Recent COVID-19 infection, Failed kidney transplant and HTN who presents with abnormal laboratory results form PCP/Dialysis center. Patient reports that she received a call from Dr. Coy, who told her to go to ER because her blood is low. pt has persistently low WBC, PLTS and H/H. Pt initially refused bone marrow biopsy and is now consenting as she sees the benefit of bone marrow analysis. - Current Medication List Current Medications: Active Medications Amino Acids (Prosource No Carb Liquid Pkt) 30 ml PO BID@0800,1730 [facility] Last Admin: 11/16/19 18:08 Dose: 30 ml Documented by: Amlodipine Besylate (Norvasc -) 10 mg PO DAILY [facility] Last Admin: 11/16/19 09:17 Dose: 10 mg Documented by: Atorvastatin Calcium (Lipitor -) 10 mg PO HS [facility] Last Admin: 11/15/19 21:40 Dose: 10 mg Documented by: Clonidine (Catapres -) 0.1 mg PO DAILY [facility] Last Admin: 11/16/19 09:17 Dose: 0.1 mg Documented by: Epoetin Talha (Procrit -) 10,000 unit IVPUSH ONCE ONE Stop: 11/17/19 14:22 Famotidine (Pepcid -) 20 mg PO Q2D [facility] Last Admin: 11/15/19 09:34 Dose: 20 mg Documented by: Sodium Chloride (Normal Saline -) 250 mls @ 3,000 mls/hr IV PRN PRN PRN Reason: Hypotension during Dialysis Stop: 11/17/19 14:21 Lidocaine/Prilocaine (Emla -) 1 applic TP Q48H [facility] Last Admin: 11/16/19 06:32 Dose: Not Given Documented by: Metoprolol Succinate (Toprol Xl -) 50 mg PO DAILY [facility] Last Admin: 11/16/19 09:17 Dose: 50 mg Documented by: Multivitamins/Minerals/Vitamin C (Tab-A-Vit -) 1 tab PO DAILY [facility] Last Admin: 11/16/19 09:17 Dose: 1 tab Documented by: - Objective Vital Signs: Vital Signs Temperature 97.4 F L 11/16/19 18:00 Pulse Rate 61 11/16/19 18:00 Respiratory Rate 16 11/16/19 18:00 Blood Pressure 123/56 L 11/16/19 18:00 O2 Sat by Pulse Oximetry (%) 98 11/16/19 18:00 Constitutional: Yes: Well Nourished, No Distress, Calm Eyes: Yes: Conjunctiva Clear HENT: Yes: Atraumatic, Normocephalic Neck: Yes: Supple, Trachea Midline Cardiovascular: Yes: Regular Rate and Rhythm Respiratory: Yes: Regular, CTA Bilaterally Gastrointestinal: Yes: Normal Bowel Sounds, Soft Musculoskeletal: Yes: WNL, Other ( Left upper arm AV fistual with good bruit and thrill.) Extremities: Yes: WNL Edema: No Integumentary: Yes: WNL Neurological: Yes: Alert, Oriented ...Motor Strength: WNL Psychiatric: Yes: Alert, Oriented Labs: CBC, BMP 11/16/19 11:50 11/16/19 11:50 INR, PTT INR 1.07 (0.83-1.09) 11/11/19 18:40 Fibrinogen 209.0 mg/dL (238-498) L 11/12/19 18:15 Impression/Plan Impression/Plan: (1) Pancytopenia Assessment/Plan: Blood work-up shows low WBC, anemia and thrombocytopenia , H&H improved after packed RBC transfusion. Stool occult negative Concern for possible MDS---- bone marrow biopsy on 11/16 check flow/FISH/ cytogenetics - pending will need heme follow-up outpatient Code(s): D61.818 - OTHER PANCYTOPENIA (2) ESRD on hemodialysis Assessment/Plan: On hemodialysis T--Sat IRon studies c/o chronic disease---Epogen w/ HD trend H/H renal diet Code(s): N18.6 - END STAGE RENAL DISEASE; Z99.2 - DEPENDENCE ON RENAL DIALYSIS (3) Hypertension Assessment/Plan: Well-controlled resumed all home medications metoprolol 50 mg, amlodipine 10 mg and clonidine Code(s): I10 - ESSENTIAL (PRIMARY) HYPERTENSION (4) Kidney transplant rejection Assessment/Plan: 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 - New Patient This patient is new to me today: Yes Date on this admission: 11/16/19 - Critical Care Critical Care patient: No - Discharge Referral Referred to [facility] Med [facility] No
[2019-11-16] MEDS: ATORVASTATIN CA 10 MG TABLET (FP) PO SCH (21:57)
[2019-11-17] MEDS: AMINO ACIDS/PROTEIN HYDROLYS 30 ML LIQUID.PKT PO SCH ×2 (09:00→17:22)
[2019-11-17 11:03] LABS: HEMATOCRIT 25.4 % (32.4-45.2); HEMOGLOBIN 8.5 GM/dL (10.7-15.3); MCH 32.3 pg (25.7-33.7); MCHC 33.4 g/dl (32.0-36.0); MEAN CELL VOLUME 96.7 fl (80-96); MEAN PLT VOLUME 10.6 fl (7.5-11.1); PLATELET COUNT 57 K/MM3 (134-434); RBC 2.62 M/mm3 (3.60-5.2); RDW 15.6 % (11.6-15.6); WHITE BLOOD COUNT 2.7 K/mm3 (4.0-10.0)
[2019-11-17 11:21] LABS: INR 1.03 (0.83-1.09); PROTHROMBIN TIME (PATIENT) 12.2 SEC (9.7-13.0)
[2019-11-17 11:24] LABS: ACTIVATED PTT 33.4 SECONDS (25.2-36.5); BLOOD UREA NITROGEN 87.8 mg/dL (7-18); CALCIUM 8.7 mg/dL (8.5-10.1); CREATININE 7.3 mg/dL (0.55-1.3); POTASSIUM 4.6 mmol/L (3.5-5.1)
[2019-11-17] MEDS ORDERED: EPOETIN ALFA 10,000 UNIT/1 ML VIAL IVPUSH ONE (11:30)
--- NOTE | 2019-11-17 12:22 | PN ---
Progress Note, Physician - Current Medication List Current Medications: Active Medications Amino Acids (Prosource No Carb Liquid Pkt) 30 ml PO BID@0800,1730 [facility] Last Admin: 11/16/19 18:08 Dose: 30 ml Documented by: Amlodipine Besylate (Norvasc -) 10 mg PO DAILY [facility] Last Admin: 11/16/19 09:17 Dose: 10 mg Documented by: Atorvastatin Calcium (Lipitor -) 10 mg PO HS [facility] Last Admin: 11/16/19 21:57 Dose: 10 mg Documented by: Clonidine (Catapres -) 0.1 mg PO DAILY [facility] Last Admin: 11/16/19 09:17 Dose: 0.1 mg Documented by: Cyanocobalamin (Vitamin B12 -) 1,000 mcg PO DAILY [facility] Famotidine (Pepcid -) 20 mg PO Q2D [facility] Last Admin: 11/15/19 09:34 Dose: 20 mg Documented by: Sodium Chloride (Normal Saline -) 250 mls @ 3,000 mls/hr IV PRN PRN PRN Reason: Hypotension during Dialysis Stop: 11/17/19 14:21 Lidocaine/Prilocaine (Emla -) 1 applic TP Q48H [facility] Last Admin: 11/16/19 06:32 Dose: Not Given Documented by: Metoprolol Succinate (Toprol Xl -) 50 mg PO DAILY [facility] Last Admin: 11/16/19 09:17 Dose: 50 mg Documented by: Multivitamins/Minerals/Vitamin C (Tab-A-Vit -) 1 tab PO DAILY [facility] Last Admin: 11/16/19 09:17 Dose: 1 tab Documented by: - Objective Vital Signs: Vital Signs Temperature 98.4 F 11/17/19 10:00 Pulse Rate 60 11/17/19 10:45 Respiratory Rate 18 11/17/19 10:45 Blood Pressure 152/73 11/17/19 10:45 O2 Sat by Pulse Oximetry (%) 99 11/17/19 06:00 Labs: CBC, BMP 11/17/19 10:15 11/17/19 10:15 INR, PTT INR 1.03 (0.83-1.09) 11/17/19 10:15 Fibrinogen 209.0 mg/dL (238-498) L 11/12/19 18:15
--- NOTE | 2019-11-17 12:47 | PN ---
Physical Exam: SUBJECTIVE: Patient seen and examined. Afebrile. No acute events overnight. OBJECTIVE: Vital Signs Temperature 98.4 F 11/17/19 10:00 Pulse Rate 62 11/17/19 12:15 Respiratory Rate 18 11/17/19 12:15 Blood Pressure 162/73 11/17/19 12:15 O2 Sat by Pulse Oximetry (%) 99 11/17/19 06:00 GENERAL: Awake, alert, and fully oriented, in no acute distress. HEAD: Normal with no signs of trauma. EYES: PERRLA, EOMI, sclera anicteric, conjunctiva clear. EARS, NOSE, THROAT: Moist mucous membranes. NECK: Normal range of motion, supple LUNGS: Breath sounds equal, clear to auscultation bilaterally. HEART: Regular rate and rhythm, normal S1 and S2 without murmur ABDOMEN: Soft, nontender, not distended, normoactive bowel sounds. +hepatomegaly MUSCULOSKELETAL: Normal range of motion at all joints. LOWER EXTREMITIES: 2+ pulses, warm, well-perfused. No peripheral edema. NEUROLOGICAL: Cranial nerves II-XII intact. Normal speech. PSYCHIATRIC: Cooperative. Good eye contact. SKIN: Warm, dry, normal turgor Laboratory Results - last 24 hr 11/13/19 11/16/19 11/16/19 07:56 11:50 11:50 WBC RBC Hgb Hct MCV MCH MCHC RDW Plt Count MPV PT with INR INR PTT (Actin FS) Sodium 138 Potassium 4.4 Chloride 98 Carbon Dioxide 31 Anion Gap 10 BUN 67.8 H Creatinine 6.0 H Est GFR (CKD-EPI)AfAm 7.96 Est GFR (CKD-EPI)NonAf 6.87 Random Glucose 89 Calcium 8.9 Phosphorus 2.8 Magnesium 2.2 Total Bilirubin 0.5 AST 20 ALT 23 Alkaline Phosphatase 133 H Total Protein 6.7 Total Protein (PEP) 6.7 Albumin 3.3 L Albumin (PEP) 3.6 Globulin 3.1 Albumin/Globulin Ratio 1.2 Beta Globulins 0.8 Stool Occult Blood MANDY M-Santos Not observed Rheumatoid Factor CMV IgG Ab > 10.00 H 11/16/19 11/17/19 11/17/19 11:50 08:40 10:15 WBC RBC Hgb Hct MCV MCH MCHC RDW Plt Count MPV PT with INR 12.20 INR 1.03 PTT (Actin FS) 33.4 Sodium Potassium Chloride Carbon Dioxide Anion Gap BUN Creatinine Est GFR (CKD-EPI)AfAm Est GFR (CKD-EPI)NonAf Random Glucose Calcium Phosphorus Magnesium Total Bilirubin AST ALT Alkaline Phosphatase Total Protein Total Protein (PEP) Albumin Albumin (PEP) Globulin Albumin/Globulin Ratio Beta Globulins Stool Occult Blood Negative MANDY M-Santos Rheumatoid Factor CMV IgG Ab > 10.00 H 11/17/19 11/17/19 11/17/19 10:15 10:15 10:15 WBC 2.7 L RBC 2.62 L Hgb 8.5 L Hct 25.4 L MCV 96.7 H MCH 32.3 MCHC 33.4 RDW 15.6 Plt Count 57 L MPV 10.6 PT with INR INR PTT (Actin FS) Sodium 137 Potassium 4.6 Chloride 98 Carbon Dioxide 27 Anion Gap 12 BUN 87.8 H Creatinine 7.3 H Est GFR (CKD-EPI)AfAm 6.28 Est GFR (CKD-EPI)NonAf 5.42 Random Glucose 95 Calcium 8.7 Phosphorus Magnesium Total Bilirubin AST ALT Alkaline Phosphatase Total Protein Total Protein (PEP) Albumin Albumin (PEP) Globulin Albumin/Globulin Ratio Beta Globulins Stool Occult Blood MANDY M-Santos Rheumatoid Factor < 10.0 CMV IgG Ab Active Medications Generic Name Dose Route Start Last Admin Trade Name Freq PRN Reason Stop Dose Admin Amino Acids 30 ml 11/12/19 17:30 11/16/19 18:08 Prosource No Carb Liquid Pkt PO 30 ml BID@0800,1730 SERJIO Administration Amlodipine Besylate 10 mg 11/12/19 10:00 11/16/19 09:17 Norvasc - PO 10 mg DAILY SERJIO Administration Atorvastatin Calcium 10 mg 11/12/19 22:00 11/16/19 21:57 Lipitor - PO 10 mg HS SERJIO Administration Clonidine 0.1 mg 11/12/19 10:00 11/16/19 09:17 Catapres - PO 0.1 mg DAILY SERJIO Administration Cyanocobalamin 1,000 mcg 11/17/19 10:00 Vitamin B12 - PO DAILY SERJIO Famotidine 20 mg 11/13/19 12:00 11/15/19 09:34 Pepcid - PO 20 mg Q2D SERJIO Administration Sodium Chloride 250 mls @ 3,000 mls/hr 11/16/19 14:21 Normal Saline - IV 11/17/19 14:21 PRN PRN Hypotension during Dialysis Lidocaine/Prilocaine 1 applic 11/14/19 06:00 11/16/19 06:32 Emla - TP Not Given Q48H SERJIO Metoprolol Succinate 50 mg 11/12/19 10:00 11/16/19 09:17 Toprol Xl - PO 50 mg DAILY SERJIO Administration Multivitamins/Minerals/Vitamin C 1 tab 11/12/19 10:00 11/16/19 09:17 Tab-A-Vit - PO 1 tab DAILY SER[facility]IO Administration ASSESSMENT/PLAN: Patient is a 64 year old woman with a PMH of HTN, ESRD on hemodialysis, failed kidney transplant and recent Covid-19 infection who was advised by her physician to go the ED due to low blood level. We have been consulted to medically evaluate pancytopenia. #Pancytopenia -leukopenia/thrombocytopenia likely 2/2 splenomegaly, liver disease, possible MDS -macrocytic anemia may be 2/2 liver disease, in setting of ESRD -SPEP results noted -CT A/P : cardiomegaly, small b/l pleural effusions, and possible mild congestion. Hepatosplenomegaly with multiple hepatic cysts. APCKD. -PBS revealed normocytic, normochromic RBCs with some poikilocytosis/anisocytosis -ferritin elevated, TSAT 32%, B12/folate normal, TSH elevated free T4 normal -fibrinogen 209 , d-dimer 2525, Retic ct normal, LDH normal -flow cytometry/FISH/cytogenetics pending -for bone marrow bx -elevated CMV Ab -will check HIV, RADHA, RF levels Visit type - Emergency Visit Emergency Visit: Yes ED Registration Date: 11/11/19 Care time: The patient presented to the Emergency Department on the above date and was hospitalized for further evaluation of their emergent condition. - New Patient This patient is new to me today: No - Critical Care Critical Care patient: No ATTENDING PHYSICIAN STATEMENT I saw and evaluated the patient. I reviewed the resident's note and discussed the case with the resident. I agree with the resident's findings and plan as documented. SUBJECTIVE: OBJECTIVE: ASSESSMENT AND PLAN:
--- NOTE | 2019-11-17 14:02 | PN ---
Progress Note, Physician History of Present Illness: Pt seen and examined at bedside. She is tolerating HD. - Current Medication List Current Medications: Active Medications Amino Acids (Prosource No Carb Liquid Pkt) 30 ml PO BID@0800,1730 [facility] Last Admin: 11/16/19 18:08 Dose: 30 ml Documented by: Amlodipine Besylate (Norvasc -) 10 mg PO DAILY [facility] Last Admin: 11/16/19 09:17 Dose: 10 mg Documented by: Atorvastatin Calcium (Lipitor -) 10 mg PO HS [facility] Last Admin: 11/16/19 21:57 Dose: 10 mg Documented by: Clonidine (Catapres -) 0.1 mg PO DAILY [facility] Last Admin: 11/16/19 09:17 Dose: 0.1 mg Documented by: Cyanocobalamin (Vitamin B12 -) 1,000 mcg PO DAILY [facility] Famotidine (Pepcid -) 20 mg PO Q2D [facility] Last Admin: 11/15/19 09:34 Dose: 20 mg Documented by: Sodium Chloride (Normal Saline -) 250 mls @ 3,000 mls/hr IV PRN PRN PRN Reason: Hypotension during Dialysis Stop: 11/17/19 14:21 Lidocaine/Prilocaine (Emla -) 1 applic TP Q48H [facility] Last Admin: 11/16/19 06:32 Dose: Not Given Documented by: Metoprolol Succinate (Toprol Xl -) 50 mg PO DAILY [facility] Last Admin: 11/16/19 09:17 Dose: 50 mg Documented by: Multivitamins/Minerals/Vitamin C (Tab-A-Vit -) 1 tab PO DAILY [facility] Last Admin: 11/16/19 09:17 Dose: 1 tab Documented by: - Objective Vital Signs: Vital Signs Temperature 98.4 F 11/17/19 10:00 Pulse Rate 62 11/17/19 12:15 Respiratory Rate 18 11/17/19 12:15 Blood Pressure 162/73 11/17/19 12:15 O2 Sat by Pulse Oximetry (%) 99 11/17/19 06:00 Constitutional: Yes: Calm Eyes: Yes: Conjunctiva Clear HENT: Yes: Atraumatic Neck: Yes: Supple Cardiovascular: Yes: S1, S2 Respiratory: Yes: CTA Bilaterally Gastrointestinal: Yes: Normal Bowel Sounds, Soft Genitourinary: Yes: WNL Musculoskeletal: Yes: WNL Edema: No Integumentary: Yes: WNL Neurological: Yes: Oriented Psychiatric: Yes: Oriented Labs: CBC, BMP 11/17/19 10:15 11/17/19 10:15 INR, PTT INR 1.03 (0.83-1.09) 11/17/19 10:15 Fibrinogen 209.0 mg/dL (238-498) L 11/12/19 18:15 Problem List - Problems (1) Anemia in chronic kidney disease, on chronic dialysis Code(s): N18.6 - END STAGE RENAL DISEASE; D63.1 - ANEMIA IN CHRONIC KIDNEY DISEASE; Z99.2 - DEPENDENCE ON RENAL DIALYSIS (2) Pancytopenia Code(s): D61.818 - OTHER PANCYTOPENIA (3) ESRD on hemodialysis Code(s): N18.6 - END STAGE RENAL DISEASE; Z99.2 - DEPENDENCE ON RENAL DIALYSIS Assessment/Plan Current Medications Generic Name Dose Route Start Last Admin Trade Name Freq PRN Reason Stop Dose Admin Amino Acids 30 ml 11/12/19 17:30 11/16/19 18:08 Prosource No Carb Liquid Pkt PO 30 ml BID@0800,1730 SERJIO Administration Amlodipine Besylate 10 mg 11/12/19 10:00 11/16/19 09:17 Norvasc - PO 10 mg DAILY SERJIO Administration Atorvastatin Calcium 10 mg 11/12/19 22:00 11/16/19 21:57 Lipitor - PO 10 mg HS SERJIO Administration Clonidine 0.1 mg 11/12/19 10:00 11/16/19 09:17 Catapres - PO 0.1 mg DAILY SERJIO Administration Cyanocobalamin 1,000 mcg 11/17/19 10:00 Vitamin B12 - PO DAILY [facility] Famotidine 20 mg 11/13/19 12:00 11/15/19 09:34 Pepcid - PO 20 mg Q2D SERJIO Administration Sodium Chloride 250 mls @ 3,000 mls/hr 11/16/19 14:21 Normal Saline - IV 11/17/19 14:21 PRN PRN Hypotension during Dialysis Lidocaine/Prilocaine 1 applic 11/14/19 06:00 11/16/19 06:32 Emla - TP Not Given Q48H [facility] Metoprolol Succinate 50 mg 11/12/19 10:00 11/16/19 09:17 Toprol Xl - PO 50 mg DAILY SER[facility]IO Administration Multivitamins/Minerals/Vitamin C 1 tab 11/12/19 10:00 11/16/19 09:17 Tab-A-Vit - PO 1 tab DAILY SERJIO Administration Impression 1. ESRD 2. 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 htn 4. anemia 5. BK nephropathy 6. pancytopenia 7. hx of CMV Plan - HD today - BM biopsy today - heme follow up - epogen for anemia - pancytopenia workup in progress - renal diet - monitor bp
[2019-11-17] MEDS ORDERED: ONDANSETRON 4 MG/2 ML VIAL IVPUSH PRN (15:56)
[2019-11-17 16:02] VITALS: BMI 20.5
--- NOTE | 2019-11-17 16:03 | PN ---
Physical Exam: SUBJECTIVE: Patient seen and examined in dialysis. for a biopsy today. OBJECTIVE: Patient is a 64 year old woman with a PMH of ESRD on hemodialysis, Recent COVID- 19 infection, failed kidney transplant with (transplant kidney removal last year) and HTN who presents to the ED on 11/11/2019 with abnormal laboratory resu lts form PCP/Dialysis center. Patient reports that she received a call from Dr. Coy, who told her to go to ER because her blood is low. pt has persistently low WBC, PLTS and H/H. Pt initially refused bone marrow biopsy and is now consenting as she sees the benefit of bone marrow analysis. Vital Signs Period Temp Pulse Resp BP Sys/[place] Pulse Ox Last 24 Hr 97.4 F-98.7 F 58-104 11-18 123-188/56-86 98-100 GENERAL: The patient is awake, alert, and fully oriented, in no acute distress. HEAD: Normal with no signs of trauma. EYES: PERRL, extraocular movements intact, sclera anicteric, conjunctiva clear. No ptosis. ENT: Ears normal, nares patent, oropharynx clear without exudates, moist mucous membranes. NECK: Trachea midline, full range of motion, supple. LUNGS: Breath sounds equal, clear to auscultation bilaterally HEART: Regular rate and rhythm ABDOMEN: Soft, nontender, nondistended, normoactive bowel sounds EXTREMITIES: no edema. NEUROLOGICAL: Normal speech, gait not observed. PSYCH: Normal mood, normal affect. SKIN: Warm, dry, normal turgor, no rashes or lesions noted Laboratory Results - last 24 hr 11/13/19 11/16/19 11/16/19 07:56 11:50 11:50 WBC RBC Hgb Hct MCV MCH MCHC RDW Plt Count MPV PT with INR INR PTT (Actin FS) Sodium Potassium Chloride Carbon Dioxide Anion Gap BUN Creatinine Est GFR (CKD-EPI)AfAm Est GFR (CKD-EPI)NonAf Random Glucose Calcium Total Protein (PEP) 6.7 Albumin (PEP) 3.6 Globulin 3.1 Albumin/Globulin Ratio 1.2 Beta Globulins 0.8 Stool Occult Blood MANDY M-Santos Not observed Rheumatoid Factor CMV IgG Ab > 10.00 H > 10.00 H 11/17/19 11/17/19 11/17/19 08:40 10:15 10:15 WBC RBC Hgb Hct MCV MCH MCHC RDW Plt Count MPV PT with INR 12.20 INR 1.03 PTT (Actin FS) 33.4 Sodium Potassium Chloride Carbon Dioxide Anion Gap BUN Creatinine Est GFR (CKD-EPI)AfAm Est GFR (CKD-EPI)NonAf Random Glucose Calcium Total Protein (PEP) Albumin (PEP) Globulin Albumin/Globulin Ratio Beta Globulins Stool Occult Blood Negative MANDY M-Santos Rheumatoid Factor < 10.0 CMV IgG Ab 11/17/19 11/17/19 10:15 10:15 WBC 2.7 L RBC 2.62 L Hgb 8.5 L Hct 25.4 L MCV 96.7 H MCH 32.3 MCHC 33.4 RDW 15.6 Plt Count 57 L MPV 10.6 PT with INR INR PTT (Actin FS) Sodium 137 Potassium 4.6 Chloride 98 Carbon Dioxide 27 Anion Gap 12 BUN 87.8 H Creatinine 7.3 H Est GFR (CKD-EPI)AfAm 6.28 Est GFR (CKD-EPI)NonAf 5.42 Random Glucose 95 Calcium 8.7 Total Protein (PEP) Albumin (PEP) Globulin Albumin/Globulin Ratio Beta Globulins Stool Occult Blood MANDY M-Santos Rheumatoid Factor CMV IgG Ab Active Medications Generic Name Dose Route Start Last Admin Trade Name Freq PRN Reason Stop Dose Admin Amino Acids 30 ml 11/12/19 17:30 11/16/19 18:08 Prosource No Carb Liquid Pkt PO 30 ml BID@0800,1730 SERJIO Administration Amlodipine Besylate 10 mg 11/12/19 10:00 11/16/19 09:17 Norvasc - PO 10 mg DAILY SERJIO Administration Atorvastatin Calcium 10 mg 11/12/19 22:00 11/16/19 21:57 Lipitor - PO 10 mg HS SERJIO Administration Clonidine 0.1 mg 11/12/19 10:00 11/16/19 09:17 Catapres - PO 0.1 mg DAILY SER[facility]IO Administration Cyanocobalamin 1,000 mcg 11/17/19 10:00 Vitamin B12 - PO DAILY [facility] Famotidine 20 mg 11/13/19 12:00 11/15/19 09:34 Pepcid - PO 20 mg Q2D SERJIO Administration Lidocaine/Prilocaine 1 applic 11/14/19 06:00 11/16/19 06:32 Emla - TP Not Given Q48H [facility] Metoprolol Succinate 50 mg 11/12/19 10:00 11/16/19 09:17 Toprol Xl - PO 50 mg DAILY SERJIO Administration Multivitamins/Minerals/Vitamin C 1 tab 11/12/19 10:00 11/16/19 09:17 Tab-A-Vit - PO 1 tab DAILY SER[facility]IO Administration Ondansetron HCl 4 mg 11/17/19 15:56 Zofran Injection IVPUSH Q6H PRN NAUSEA AND/OR VOMITING ASSESSMENT/PLAN: Problem List - Problems (1) Anemia in chronic kidney disease, on chronic dialysis Assessment/Plan: monitor CBC daily Code(s): N18.6 - END STAGE RENAL DISEASE; D63.1 - ANEMIA IN CHRONIC KIDNEY DISEASE; Z99.2 - DEPENDENCE ON RENAL DIALYSIS (2) Pancytopenia Assessment/Plan: Blood work-up shows low WBC, anemia and thrombocytopenia, H&H improved after packed RBC transfusion. 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 - New Patient This patient is new to me today: Yes Date on this admission: 11/17/19 - Critical Care Critical Care patient: No - Discharge Referral Referred to [facility] No
--- NOTE | 2019-11-17 17:04 | PN ---
Teaching Attending Note Name of Resident: Catherine Jane ATTENDING PHYSICIAN STATEMENT I saw and evaluated the patient. I reviewed the resident's note and discussed the case with the resident. I agree with the resident's findings and plan as documented. ASSESSMENT AND PLAN: 64 y/o lady with polycystic kidney disease, on dialyis, h/o renal transplant, now with pancytopenia and macrocytosis, Worsening anemia in setting of ESRD. TSAT 32%, Ferritin 1000s. Stool occult negative Differential ----liver disease ( hepatic cysts), low fibrinogen, macrocytosis suggestive of this B12 --282. TSH-7. Folate nl Concern also for possible MDS- check flow/FISH/ cytogenetics Had BMBx today Pt reporting "low blood" all of her adult life. differential --liverdz/ occult infxn/MDS Low nl B12 ---- replete PO vit. B12 , will dose PO givne thrombocytopeia High TSH Iron studies s/o chronic disease---procrit per renal team check HIV( discussed with patient and got verbal consent_, RADHA, RF
[2019-11-17] MEDS: FAMOTIDINE 20 MG TABLET PO SCH (17:22)
[2019-11-17] MEDS: cloNIDine HCL 0.1 MG TABLET PO SCH (17:22)
[2019-11-17] MEDS: MULTIVITAMINS (DAILY MVI) TABLET (FP) PO SCH (17:22)
[2019-11-17] MEDS: CYANOCOBALAMIN 1,000 MCG TABLET (FP) PO SCH (17:22)
[2019-11-17] MEDS: amLODIPine BESYLATE 10 MG TABLET (FP) PO SCH (17:22)
[2019-11-17] MEDS: ATORVASTATIN CA 10 MG TABLET (FP) PO SCH (21:17)
[2019-11-17] MEDS ORDERED: ACETAMINOPHEN 325 MG TABLET (FP) PO ONE (21:20)
[2019-11-18] MEDS: LIDOCAINE 2.5%/PRILOCAINE 2.5% (5 Gram/TUBE) TP SCH (06:52)
[2019-11-18] MEDS: AMINO ACIDS/PROTEIN HYDROLYS 30 ML LIQUID.PKT PO SCH (09:47)
[2019-11-18] MEDS: CYANOCOBALAMIN 1,000 MCG TABLET (FP) PO SCH (09:47)
[2019-11-18] MEDS: MULTIVITAMINS (DAILY MVI) TABLET (FP) PO SCH (09:48)
[2019-11-18] MEDS: amLODIPine BESYLATE 10 MG TABLET (FP) PO SCH (09:48)
[2019-11-18] MEDS: cloNIDine HCL 0.1 MG TABLET PO SCH (09:48)
[2019-11-18 09:49] VITALS: BP 146/64; PULSE 62; TEMP 98.1
[2019-11-18 11:21] LABS: BASO % 0.4 % (0-2.0); EOS % 1.5 % (0-4.5); HEMATOCRIT 25.4 % (32.4-45.2); HEMOGLOBIN 8.5 GM/dL (10.7-15.3); LYMPH % 37.4 % (8-40); MCH 32.9 pg (25.7-33.7); MCHC 33.4 g/dl (32.0-36.0); MEAN CELL VOLUME 98.6 fl (80-96); MEAN PLT VOLUME 11.1 fl (7.5-11.1); MONO % 9.9 % (3.8-10.2); NEUT % 50.8 % (42.8-82.8); PLATELET COUNT 56 K/MM3 (134-434); RBC 2.58 M/mm3 (3.60-5.2); RDW 16.2 % (11.6-15.6); WHITE BLOOD COUNT 2.2 K/mm3 (4.0-10.0)
--- NOTE | 2019-11-18 11:45 | PN ---
Progress Note, Physician - Current Medication List Current Medications: Active Medications Amino Acids (Prosource No Carb Liquid Pkt) 30 ml PO BID@0800,1730 [facility] Last Admin: 11/18/19 09:47 Dose: 30 ml Documented by: Amlodipine Besylate (Norvasc -) 10 mg PO DAILY [facility] Last Admin: 11/18/19 09:48 Dose: 10 mg Documented by: Atorvastatin Calcium (Lipitor -) 10 mg PO HS [facility] Last Admin: 11/17/19 21:17 Dose: 10 mg Documented by: Clonidine (Catapres -) 0.1 mg PO DAILY [facility] Last Admin: 11/18/19 09:48 Dose: 0.1 mg Documented by: Cyanocobalamin (Vitamin B12 -) 1,000 mcg PO DAILY [facility] Last Admin: 11/18/19 09:47 Dose: 1,000 mcg Documented by: Famotidine (Pepcid -) 20 mg PO Q2D [facility] Last Admin: 11/17/19 17:22 Dose: 20 mg Documented by: Lidocaine/Prilocaine (Emla -) 1 applic TP Q48H [facility] Last Admin: 11/18/19 06:52 Dose: Not Given Documented by: Metoprolol Succinate (Toprol Xl -) 50 mg PO DAILY [facility] Last Admin: 11/18/19 09:48 Dose: 50 mg Documented by: Multivitamins/Minerals/Vitamin C (Tab-A-Vit -) 1 tab PO DAILY [facility] Last Admin: 11/18/19 09:48 Dose: 1 tab Documented by: Ondansetron HCl (Zofran Injection) 4 mg IVPUSH Q6H PRN PRN Reason: NAUSEA AND/OR VOMITING - Objective Vital Signs: Vital Signs Temperature 98.1 F 11/18/19 09:49 Pulse Rate 62 11/18/19 09:49 Respiratory Rate 18 11/18/19 09:49 Blood Pressure 146/64 11/18/19 09:49 O2 Sat by Pulse Oximetry (%) 98 11/18/19 09:49 Labs: CBC, BMP 11/18/19 10:38 INR, PTT INR 1.03 (0.83-1.09) 11/17/19 10:15 Fibrinogen 209.0 mg/dL (238-498) L 11/12/19 18:15
[2019-11-18] MEDS ORDERED: SODIUM CHLORIDE 250 ML IV PRN (11:49)
--- NOTE | 2019-11-18 11:49 | PN ---
Progress Note, Physician History of Present Illness: Pt seen and examined at bedside. She is eager to go home. She denies shortness of breath. - Current Medication List Current Medications: Active Medications Amino Acids (Prosource No Carb Liquid Pkt) 30 ml PO BID@0800,1730 [facility] Last Admin: 11/18/19 09:47 Dose: 30 ml Documented by: Amlodipine Besylate (Norvasc -) 10 mg PO DAILY [facility] Last Admin: 11/18/19 09:48 Dose: 10 mg Documented by: Atorvastatin Calcium (Lipitor -) 10 mg PO HS [facility] Last Admin: 11/17/19 21:17 Dose: 10 mg Documented by: Clonidine (Catapres -) 0.1 mg PO DAILY [facility] Last Admin: 11/18/19 09:48 Dose: 0.1 mg Documented by: Cyanocobalamin (Vitamin B12 -) 1,000 mcg PO DAILY [facility] Last Admin: 11/18/19 09:47 Dose: 1,000 mcg Documented by: Famotidine (Pepcid -) 20 mg PO Q2D [facility] Last Admin: 11/17/19 17:22 Dose: 20 mg Documented by: Lidocaine/Prilocaine (Emla -) 1 applic TP Q48H [facility] Last Admin: 11/18/19 06:52 Dose: Not Given Documented by: Metoprolol Succinate (Toprol Xl -) 50 mg PO DAILY [facility] Last Admin: 11/18/19 09:48 Dose: 50 mg Documented by: Multivitamins/Minerals/Vitamin C (Tab-A-Vit -) 1 tab PO DAILY [facility] Last Admin: 11/18/19 09:48 Dose: 1 tab Documented by: Ondansetron HCl (Zofran Injection) 4 mg IVPUSH Q6H PRN PRN Reason: NAUSEA AND/OR VOMITING - Objective Vital Signs: Vital Signs Temperature 98.1 F 11/18/19 09:49 Pulse Rate 62 11/18/19 09:49 Respiratory Rate 18 11/18/19 09:49 Blood Pressure 146/64 11/18/19 09:49 O2 Sat by Pulse Oximetry (%) 98 11/18/19 09:49 Constitutional: Yes: Calm Eyes: Yes: Conjunctiva Clear HENT: Yes: Atraumatic Neck: Yes: Supple Cardiovascular: Yes: S1, S2 Respiratory: Yes: CTA Bilaterally Gastrointestinal: Yes: Soft Genitourinary: Yes: WNL Musculoskeletal: Yes: WNL Edema: No Integumentary: Yes: WNL Neurological: Yes: Oriented Psychiatric: Yes: Oriented Labs: CBC, BMP 11/18/19 10:38 INR, PTT INR 1.03 (0.83-1.09) 11/17/19 10:15 Fibrinogen 209.0 mg/dL (238-498) L 11/12/19 18:15 Problem List - Problems (1) Anemia in chronic kidney disease, on chronic dialysis Code(s): N18.6 - END STAGE RENAL DISEASE; D63.1 - ANEMIA IN CHRONIC KIDNEY DISEASE; Z99.2 - DEPENDENCE ON RENAL DIALYSIS (2) Pancytopenia Code(s): D61.818 - OTHER PANCYTOPENIA (3) ESRD on hemodialysis Code(s): N18.6 - END STAGE RENAL DISEASE; Z99.2 - DEPENDENCE ON RENAL DIALYSIS Assessment/Plan Current Medications Generic Name Dose Route Start Last Admin Trade Name Freq PRN Reason Stop Dose Admin Amino Acids 30 ml 11/12/19 17:30 11/18/19 09:47 Prosource No Carb Liquid Pkt PO 30 ml BID@0800,1730 SERJIO Administration Amlodipine Besylate 10 mg 11/12/19 10:00 11/18/19 09:48 Norvasc - PO 10 mg DAILY SERJIO Administration Atorvastatin Calcium 10 mg 11/12/19 22:00 11/17/19 21:17 Lipitor - PO 10 mg HS SERJIO Administration Clonidine 0.1 mg 11/12/19 10:00 11/18/19 09:48 Catapres - PO 0.1 mg DAILY SER[facility]IO Administration Cyanocobalamin 1,000 mcg 11/17/19 10:00 11/18/19 09:47 Vitamin B12 - PO 1,000 mcg DAILY SERJIO Administration Famotidine 20 mg 11/13/19 12:00 11/17/19 17:22 Pepcid - PO 20 mg Q2D SERJIO Administration Lidocaine/Prilocaine 1 applic 11/14/19 06:00 11/18/19 06:52 Emla - TP Not Given Q48H SERJIO Metoprolol Succinate 50 mg 11/12/19 10:00 11/18/19 09:48 Toprol Xl - PO 50 mg DAILY SER[facility]IO Administration Multivitamins/Minerals/Vitamin C 1 tab 11/12/19 10:00 11/18/19 09:48 Tab-A-Vit - PO 1 tab DAILY [facility]IO Administration Ondansetron HCl 4 mg 11/17/19 15:56 Zofran Injection IVPUSH Q6H PRN NAUSEA AND/OR VOMITING Impression 1. ESRD 2. 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 htn 4. anemia 5. BK nephropathy 6. pancytopenia 7. hx of CMV Plan - HD tomorrow - follow bone marrow biopsy - cont epogen - cont supplements - discussed plan with her son - heme input appreciated - epogen for anemia - pancytopenia workup in progress - renal diet - monitor bp
[2019-11-18 11:57] LABS: ALBUMIN 3.2 g/dl (3.4-5.0); BILIRUBIN,TOTAL 0.5 mg/dL (0.2-1); CREATININE 4.2 mg/dL (0.55-1.3); MAGNESIUM 2.2 mg/dL (1.8-2.4); POTASSIUM 4.2 mmol/L (3.5-5.1); TOT PROT 6.3 g/dl (6.4-8.2)
[2019-11-18 11:59] LABS: CALCIUM 8.7 mg/dL (8.5-10.1)
[2019-11-18 12:01] LABS: BLOOD UREA NITROGEN 34.5 mg/dL (7-18)
--- NOTE | 2019-11-18 12:32 | DS ---
Physical Exam: SUBJECTIVE: Patient seen and examined. She tells me she feels well, denies any malaise or pain and wants to go home. I spoke to her son Amaury and discussed what pancytopenia is and the need for follow up with Dr. Ha for results of biopsy done on 11/17/2019. Son and patient agree to follow up.= OBJECTIVE: Patient is a 64 year old woman with a PMH of ESRD on hemodialysis, Recent COVID- 19 infection, failed kidney transplant with (transplant kidney removal last year) and HTN who presents to the ED on 11/11/2019 with abnormal laboratory results form PCP/Dialysis center. Patient reports that she received a call from her PCP and told her to go to ER because her blood is low and was noted to have pancytopenia. Patient is s/p bone marrow biopsy on 11/17/2019. patient monitored overnight s/p biopsy without acute issues. She will follow up outpatient with Dr. Ha. Dr Ha informed. Vital Signs Period Temp Pulse Resp BP Sys/[place] Pulse Ox Last 24 Hr 98.1 F-99.1 F 55-76 11-18 110-188/57-86 92-100 PHYSICAL EXAM GENERAL: The patient is awake, alert, and fully oriented, in no acute distress. HEAD: Normal with no signs of trauma. EYES: PERRL, extraocular movements intact, sclera anicteric, conjunctiva clear. No ptosis. ENT: Ears normal, nares patent, oropharynx clear without exudates, moist mucous membranes. NECK: Trachea midline, full range of motion, supple. LUNGS: Breath sounds equal, clear to auscultation bilaterally HEART: Regular rate and rhythm ABDOMEN: Soft, nontender, nondistended, normoactive bowel sounds EXTREMITIES: no edema. NEUROLOGICAL: Normal speech, gait not observed. PSYCH: Normal mood, normal affect. SKIN: Warm, dry, normal turgor, no rashes or lesions noted LABS Laboratory Results - last 24 hr 11/17/19 11/18/19 11/18/19 10:15 10:38 10:38 WBC 2.2 L RBC 2.58 L Hgb 8.5 L Hct 25.4 L MCV 98.6 H MCH 32.9 MCHC 33.4 RDW 16.2 H Plt Count 56 L MPV 11.1 Absolute Neuts (auto) 1.1 L Neutrophils % 50.8 Lymphocytes % 37.4 Monocytes % 9.9 Eosinophils % 1.5 Basophils % 0.4 Nucleated RBC % 0 Sodium 141 Potassium 4.2 Chloride 102 Carbon Dioxide 33 H Anion Gap 7 L BUN 34.5 H Creatinine 4.2 H Est GFR (CKD-EPI)AfAm 12.25 Est GFR (CKD-EPI)NonAf 10.57 Random Glucose 94 Calcium 8.7 Magnesium 2.2 Total Bilirubin 0.5 AST 19 ALT 17 Alkaline Phosphatase 123 H Total Protein 6.3 L Albumin 3.2 L HIV Ag/Ab Combo Qual Negative HOSPITAL COURSE: Date of Admission:11/11/19 Date of Discharge: 11/18/19 Minutes to complete discharge: 60 Discharge Summary Problems reviewed: Yes Reason For Visit: SENT BY DR Rojas Active Problems Anemia in chronic kidney disease, on chronic dialysis (Acute) DVT prophylaxis (Acute) Pancytopenia (Acute) Severe anemia (Acute) Condition: Fair - Instructions Diet, Activity, Other Instructions: Mrs Branch. You were admitted to [facility] on 11/11/2019 for pancytopenia. What is pancytopenia? Pancytopenia is a condition that occurs when a person has low counts all all three blood cells (low white blood cells, low platelets, low hemoglobin and hematocrit) We did a bone marrow biopsy on 11/17/2019 to further evaluate the underlying cause. The biopsy may take up to 1 week for results. Please follow up with Dr. Ha by calling her office for a follow up appointment at the following phone numbers: [phone] or [phone]. It is important that you follow up. Please continue your dialysis at your home dialysis center and follow up with Dr. Lamas. Please continue all the medications as outlined in your discharge instructions. FOLLOW UPS: Please follow up with Dr. Ha within 1-2 weeks by calling her office for an appointment Please follow up with Dr. Lamas MEDICATIONS: Continue all your home medications New medications: B12 supplements 1000mg - YOU will need to have your b12 levels re-checked with your primary care doctor. Thank you for allowing us to care for you. Referrals: Dilcia Martinez MD [Staff Physician] - ON STAFF,NOT [Primary Care Provider] - Katie Lamas MD [Staff Physician] - Disposition: HOME - Home Medications Comprehensive Discharge Medication List: Ambulatory Orders Amlodipine Besylate [Norvasc -] 2.5 mg PO DAILY 04/19/14 Famotidine [Pepcid -] 20 mg PO DAILY 10/23/18 Metoprolol Succinate [Toprol Xl] 50 mg PO DAILY 10/23/18 Multivitamin [Multiple Vitamins] 1 each PO DAILY 10/23/18 Pravastatin Sodium [Pravachol -] 40 mg PO HS 10/23/18 cloNIDine HCL [Catapres -] 0.1 mg PO DAILY 10/23/18 Amino Acids/Protein Hydrolys [Prosource No Carb Liquid Pkt] 30 ml PO BID@0800,1730 #60 packet 04/29/19 Cyanocobalamin [Vitamin B12 -] 1,000 mcg PO DAILY #30 tablet 11/18/19 Problem List - Problems (1) Anemia in chronic kidney disease, on chronic dialysis Assessment/Plan: monitor CBC daily Code(s): N18.6 - END STAGE RENAL DISEASE; D63.1 - ANEMIA IN CHRONIC KIDNEY DISEASE; Z99.2 - DEPENDENCE ON RENAL DIALYSIS (2) Pancytopenia Assessment/Plan: Code(s): D61.818 - OTHER PANCYTOPENIA (3) ESRD on hemodialysis Code(s): N18.6 - END STAGE RENAL DISEASE; Z99.2 - DEPENDENCE ON RENAL DIALYSIS (4) Kidney transplant rejection Assessment/Plan: (5) Prophylactic measure Code(s): Z29.9 - ENCOUNTER FOR PROPHYLACTIC MEASURES, UNSPECIFIED (6) DVT prophylaxis Assessment/Plan: Code(s): Z29.9 - ENCOUNTER FOR PROPHYLACTIC MEASURES, UNSPECIFIED This patient is new to me today: No Emergency Visit: Yes ED Registration Date: 11/11/19 Care time: The patient presented to the Emergency Department on the above date and was hospitalized for further evaluation of their emergent condition. Critical Care patient: No - Discharge Referral Referred to [facility] Med P.C.: No
[2019-11-19] MEDS ORDERED: EPOETIN ALFA 10,000 UNIT/1 ML VIAL IVPUSH ONE (11:49)
--- NOTE | 2019-11-19 17:18 | PATH ---
Surgical Pathology Report Patient Name: SITA LOPEZ Med. Rec. #: [id number] /Age/Gender: 1955 (Age: 64) / F Account: [id number] Location: [address] [place] [address]/[facility] Taken: 11/16/2019 Received: 11/16/2019 Reported: 11/19/2019 Physicians: Dilcia Martinez M.D. Specimen(s) Received PERIPHERAL BLOOD Clinical History 64 year old female with personal history of ESRD came to the ED after found to have pancytopenia on routine labs Previous surgery: Kidney transplant (failed, removed) Final Diagnosis COMPREHENSIVE FLOW PANEL performed and interpreted at [place], [place] ([id number]) shows the following: INTERPRETATION: No atypical flow cytometric findings seen MYELODYSPLASIA FISH PANEL performed and interpreted at [place], [place] ([id number]) shows the following: INTERPRETATION: No evidence of deletion 5q or monosomy 5 is present. No evidence of deletion 7q or monosomy 7 is present. No evidence of trisomy 8 (+8) is present. No evidence of deletion 13q14.2 is present. No evidence of a rearrangement of 11q23. No evidence of a deletion of the p53 (17p13) locus. No evidence of deletion 20q12 is present. COMMENTS: Correlation with pending cytogenetics is recommended. See [facility] reports for additional details. Electronically Signed Sanna Casarez M.D. Gross Description Received are 2 green top tubes and 2 purple top tubes of peripheral blood which are sent to [facility]. /11/16/2019 [facility]/11/16/2019
--- NOTE | 2019-12-01 16:06 | PATH ---
Surgical Pathology Report Patient Name: SITA LOPEZ [facility]. Rec. #: [id number] /Age/Gender: 1955 (Age: 64) / F Account: [id number] Location: [address] [place] [address] Taken: 11/17/2019 Received: 11/17/2019 Reported: 12/01/2019 Physicians: Erick Olsen M.D. Roberto Sica, MD Specimen(s) Received A: BONE MARROW BIOPSY B: BONE MARROW CLOT C: BONE MARROW ASPIRATION SMEARS D: BONE MARROW BLOOD Clinical History Anemia/pancytopenia Final Diagnosis A-D. BONE MARROW, CLOT, ASPIRATE SMEARS, BLOOD, BIOPSY: VARIABLY CELLULAR MARROW (RANGING FROM ~10-40% CELLULARITY) WITH TRILINEAGE HEMATOPOIESIS AND ERYTHROID PREDOMINANCE. MEGAKARYOCYTES ARE PRESENT IN ADEQUATE NUMBER. NO EVIDENCE OF AN INVOLVEMENT BY LYMPHOMA. PLASMA CELLS (<5%) ARE POLYTYPIC. INCREASED IRON STORES. SEE COMMENT. COMMENT: Overt morphologic features diagnostic of a myelodysplastic syndrome are not identified in the specimens examined. FISH study for MDS is negative. Flow cytometry does not show evidence for an increased blast population, abnormal myeloid maturation or a lymphoproliferative disorder. Pending karyotypic analysis and an Intelligen myeloid study will be helpful in identification of a clonal abnormality; a summary report will follow. Correlation with relevant clinical and laboratory findings is recommended. This case was sent to Dr. Liborio Shen from [place], [place] ([id number]) the diagnosis above reflects her opinion. FLOW CYTOMETRY performed and interpreted at [facility] ([id number]) shows the following: INTERPRETATION: BONE MARROW ASPIRATE: In the sample analyzed, there is no evidence for abnormal myeloid maturation or an increased blast population. There is no evidence for a lymphoproliferative disorder. FLUORESCENCE IN-SITU HYBRIDIZATION (FISH) performed and interpreted at [place], [place] ([id number]) shows the following: INTERPRETATION: MDS panel 1. Negative for monosomy 5 and a deletion of CSF1R/RPS14 on the long arm of chromosome 5 at q33. 2. Negative for monosomy 7 and a deletion of MDFIC on the long arm of chromosome 7 at q31. 3. Negative for trisomy 8. 4. Negative for a deletion of PTPRT on the long arm of chromosome 20 at q12. CHROMOSOME ANALYSIS performed and interpreted at [facility], [place], [place] ([id number]) shows the following: RESULTS: 46,XX[20] Female karyotype INTERPRETATION: Normal female chromosome complement observed in all cells examined. There was no evidence of a chromosome abnormality within the limits of the technology utilized. See [facility] reports for additional details. Reports faxed to Dr. Martinez on 11/24/2019 and 11/27/2019. Electronically Signed Sanna Casarez M.D. Addendum Reported: 12/09/2019 Addendum Diagnosis INTELLIGEN (R) MYELOID performed and interpreted at [facility], [place], [place] ([phone]) shows the following: RESULTS: No clinically significant variants were detected. See [facility] report for additional details. Report faxed to Dr. Martinez's office, 12/09/19. Sanna Casarez M.D. Gross Description A. Received in formalin labeled "bone marrow biopsy," is a 0.3 cm in length x 0.1 cm in diameter wright, cylindrical portion of bone. The specimen is submitted in toto in one cassette, following decalcification. B. Received in formalin labeled "bone marrow biopsy clot," is a 2.8 x 2.5 x 0.3 cm aggregate of red-brown blood clot. The specimen is entirely submitted in one cassette. C. Received are 9 bone marrow aspiration smear slides. Stained with Branch-[place] and iron Stain. D. Received are to be top tubes of bone marrow blood which are sent [facility] for ancillary testing. 11/18/2019 saudi11/18/2019
== END 2019-11-18 13:28 | disposition home or self-care (01) | DRG 808 ==
LOC: JER 17:34 → SUPCPDRO 17:34 → JERBED 20:35 → J5S 11-12 01:00
PROVIDERS: ADMIT Internal Medicine; ATTEND Nurse Practitioner Family
PROC: 5A1D70Z Performance of Urinary Filtration, Intermittent, Less than 6 Hours Per Day (ICD-10-PCS; principal; 2019-11-12)
PROC: 5A1D70Z Performance of Urinary Filtration, Intermittent, Less than 6 Hours Per Day (ICD-10-PCS; 2019-11-14)
PROC: 5A1D70Z Performance of Urinary Filtration, Intermittent, Less than 6 Hours Per Day (ICD-10-PCS; 2019-11-17)
PROC: 07DR3ZX Extraction of Iliac Bone Marrow, Percutaneous Approach, Diagnostic (ICD-10-PCS; 2019-11-17)
DX: D61.818 Other pancytopenia (principal); N18.6 End stage renal disease; B25.9 Cytomegaloviral disease, unspecified; R64 Cachexia; Z68.1 Body mass index [BMI] 19.9 or less, adult; I13.11 Hypertensive heart and chronic kidney disease without heart failure, with stage 5 chronic kidney disease, or end stage renal disease; Q61.3 Polycystic kidney, unspecified; T86.11 Kidney transplant rejection; D46.9 Myelodysplastic syndrome, unspecified; D63.1 Anemia in chronic kidney disease; Z99.2 Dependence on renal dialysis; K76.89 Other specified diseases of liver; R94.31 Abnormal electrocardiogram [ECG] [EKG]; E88.09 Other disorders of plasma-protein metabolism, not elsewhere classified; D69.6 Thrombocytopenia, unspecified; K21.9 Gastro-esophageal reflux disease without esophagitis; N05.9 Unspecified nephritic syndrome with unspecified morphologic changes; R16.1 Splenomegaly, not elsewhere classified; R50.9 Fever, unspecified
CPT/HCPCS: 20225; 36415; 36430; 71045-TC-FY; 74176-TC; 80048; 80053; 82272; 82607; 82728; 82746; 83540; 83550; 83615; 83735; 84100; 84155; 84165; 84439; 84443; 85025; 85027; 85045; 85379; 85384; 85610; 85730; 86038; 86431; 86644; 86769; 86803; 86850; 86900; 86901; 86922; 87040; 87086; 87186; 87340; 87389; 87497; 88300-TC; 88305-TC; 88311-TC; 88313-TC; 93005; 93010; 93970-TC; 99285-25; J0735; J0885; P9058; Q9967; U0003

== ENCOUNTER 2020-06-28 13:34 | Inpatient (IN) | payer OTHER ==
[2020-06-28] MEDS ORDERED: ACETAMINOPHEN 1000 MG/100 ML VIAL (NON FORMULARY) IVPB ONE (14:08)
[2020-06-28] MEDS ORDERED: ACETAMINOPHEN INJECTION 100 ML IVPB ONE (14:12)
[2020-06-28] MEDS ORDERED: VANCOMYCIN 1 GM in D5W (PRE-DOCKED) 1,000 MG/250 ML IVPB ONE (14:22)
[2020-06-28] MEDS ORDERED: PIPERACILLIN/TAZOB 4.5 GM 4.5 GM in DEXTROSE 5%-WATER 100 ML IVPB ONE (14:22)
[2020-06-28] MEDS ORDERED: PIPERACILLIN/TAZOB 4.5 GM 4.5 GM/100 ML BAG IVPB ONE (14:44)
[2020-06-28] MEDS ORDERED: VANCOMYCIN 1 GRAM (PRE-DOCKED) 1,000 MG/250 ML BAG IVPB ONE (14:44)
[2020-06-28 15:00] LABS: BASO % 0.8 % (0-2.0); EOS % 1.4 % (0-4.5); HEMATOCRIT 30.6 % (32.4-45.2); HEMOGLOBIN 10.1 GM/dL (10.7-15.3); LYMPH % 20.4 % (8-40); MCH 31.9 pg (25.7-33.7); MCHC 32.9 g/dl (32.0-36.0); MEAN CELL VOLUME 96.9 fl (80-96); MEAN PLT VOLUME 8.3 fl (7.5-11.1); MONO % 8.6 % (3.8-10.2); NEUT % 68.8 % (42.8-82.8); PLATELET COUNT 129 K/MM3 (134-434); RBC 3.16 M/mm3 (3.60-5.2); RDW 18.7 % (11.6-15.6); WHITE BLOOD COUNT 3.4 K/mm3 (4.0-10.0)
[2020-06-28 15:07] LABS: INR 1.08 (0.83-1.09)
[2020-06-28 15:10] LABS: ACTIVATED PTT 36.2 SECONDS (25.2-36.5)
[2020-06-28 15:21] LABS: POTASSIUM 4.4 mmol/L (3.5-5.1)
[2020-06-28 15:23] LABS: CALCIUM 8.8 mg/dL (8.5-10.1)
[2020-06-28 15:24] LABS: ALBUMIN 3.4 g/dl (3.4-5.0); BLOOD UREA NITROGEN 13.8 mg/dL (7-18)
[2020-06-28 15:28] LABS: BILIRUBIN,TOTAL 0.7 mg/dL (0.2-1)
[2020-06-28 15:29] LABS: TOT PROT 7.4 g/dl (6.4-8.2)
[2020-06-28 15:32] LABS: VENOUS PCO2 40.6 mmHg (38-52); VENOUS PH 7.498 (7.310-7.410)
[2020-06-28 15:33] LABS: VENOUS O2 SATURATION 98.8 % (70-80)
[2020-06-28] MEDS ORDERED: ONDANSETRON 4 MG/2 ML VIAL ONE (17:36)
[2020-06-28] MEDS ORDERED: METOCLOPRAMIDE HCL INJECTION 10 MG/2 ML VIAL IVPB ONE (18:41)
[2020-06-28 18:56] LABS: MAGNESIUM 2.2 mg/dL (1.8-2.4)
[2020-06-28] MEDS ORDERED: ONDANSETRON 4 MG/2 ML VIAL IVPUSH ONE (19:09)
[2020-06-29 04:18] LABS: ARTERIAL BLOOD GAS BASE EXCESS 3.6 mmol/L (-2-2); ARTERIAL BLOOD GAS PO2 44.7 mmHg (80-100); ARTERIAL BLOOD GAS pH 7.457 (7.350-7.450)
[2020-06-29] MEDS ORDERED: VANCOMYCIN 1 GM in D5W (PRE-DOCKED) 1,000 MG/250 ML IVPB SCH (06:00)
[2020-06-29] MEDS ORDERED: PIPERACILLIN/TAZOB 2.25 GM 2.25 GM/50 ML BAG IVPB ONE ×2 (07:00→17:03)
[2020-06-29] MEDS ORDERED: VANCOMYCIN 1 GRAM (PRE-DOCKED) 1,000 MG/250 ML BAG IVPB ONE ×2 (07:00→08:02)
[2020-06-29] MEDS: PIPERACILLIN/TAZOB 2.25 GM 2.25 GM in DEXTROSE 5%-WATER - 50 ML IVPB SCH ×3 (07:15→16:11)
[2020-06-29] MEDS: HEPARIN NA (PORCINE) 5,000 UNITS/ML 1ML VIAL SQ SCH (08:00)
[2020-06-29] MEDS ORDERED: HEPARIN NA (PORCINE) 5,000 UNITS/ML 1ML VIAL ONE (08:09)
[2020-06-29 09:07] LABS: BASO % 0.3 % (0-2.0); EOS % 2.5 % (0-4.5); HEMATOCRIT 29.3 % (32.4-45.2); HEMOGLOBIN 9.7 GM/dL (10.7-15.3); LYMPH % 6.7 % (8-40); MCH 32.3 pg (25.7-33.7); MCHC 33.2 g/dl (32.0-36.0); MEAN CELL VOLUME 97.4 fl (80-96); MEAN PLT VOLUME 8.9 fl (7.5-11.1); MONO % 6.4 % (3.8-10.2); NEUT % 84.1 % (42.8-82.8); PLATELET COUNT 94 K/MM3 (134-434); RBC 3.01 M/mm3 (3.60-5.2); RDW 19.1 % (11.6-15.6); WHITE BLOOD COUNT 3.2 K/mm3 (4.0-10.0)
[2020-06-29 09:31] LABS: CALCIUM 7.6 mg/dL (8.5-10.1)
[2020-06-29 09:32] LABS: ALBUMIN 2.9 g/dl (3.4-5.0); BLOOD UREA NITROGEN 30.2 mg/dL (7-18); MAGNESIUM 2.3 mg/dL (1.8-2.4)
[2020-06-29 09:35] LABS: CREATININE 5.3 mg/dL (0.55-1.3); PHOSPHOROUS 3.3 mg/dL (2.5-4.9)
[2020-06-29 09:36] LABS: BILIRUBIN,TOTAL 0.9 mg/dL (0.2-1)
[2020-06-29] MEDS ORDERED: SODIUM CHLORIDE 1,000 ML IV SCH ×2 (10:00→12:28)
[2020-06-29] MEDS: ACETAMINOPHEN 1000 MG/100 ML VIAL (NON FORMULARY) IVPB PRN (13:16)
[2020-06-29] MEDS ORDERED: ACETAMINOPHEN INJECTION 100 ML IVPB ONE (13:19)
[2020-06-29] MEDS ORDERED: CEFEPIME 1 GM/100 ML BAG IVPB ONE (19:32)
[2020-06-29] MEDS: CEFEPIME 1 GM in DEXTROSE 5%-WATER 1 GM/100 ML BAG IVPB SCH (20:11)
[2020-06-29] MEDS ORDERED: SODIUM CHLORIDE 250 ML IV PRN (20:47)
[2020-06-29] MEDS ORDERED: HEPARIN NA (PORCINE) 5,000 UNITS/ML 1ML VIAL IVPUSH ONE (21:00)
[2020-06-29] MEDS ORDERED: EPOETIN ALFA-EPBX 4,000 UNIT/ML VIAL SQ ONE (21:00)
[2020-06-29] MEDS: ALBUMIN HUMAN 25% 12.5 GM/50 ML VIAL IVPB SCH ×4 (22:37→23:25)
[2020-06-30] MEDS: HEPARIN NA (PORCINE) 5,000 UNITS/ML 1ML VIAL SQ SCH ×2 (01:42→01:43)
[2020-06-30] MEDS: ASPIRIN COATED 81 MG TABLET.EC PO SCH ×2 (01:42→21:39)
[2020-06-30] MEDS ORDERED: PIPERACILLIN/TAZOB 2.25 GM 2.25 GM in DEXTROSE 5%-WATER - 50 ML IVPB SCH (03:00)
[2020-06-30] MEDS ORDERED: VANCOMYCIN 1 GM in D5W (PRE-DOCKED) 1,000 MG/250 ML IVPB SCH (06:00)
[2020-06-30] MEDS ORDERED: ALBUTEROL SO4 HFA INHALER IH PRN (06:09)
[2020-06-30 06:54] LABS: HEMATOCRIT 24.7 % (32.4-45.2); MCH 31.7 pg (25.7-33.7); MCHC 32.5 g/dl (32.0-36.0); MEAN CELL VOLUME 97.4 fl (80-96); MEAN PLT VOLUME 9.5 fl (7.5-11.1); PLATELET COUNT 82 K/MM3 (134-434); RBC 2.53 M/mm3 (3.60-5.2); RDW 18.4 % (11.6-15.6); WHITE BLOOD COUNT 2.6 K/mm3 (4.0-10.0)
[2020-06-30 07:05] LABS: POTASSIUM 3.9 mmol/L (3.5-5.1)
[2020-06-30 07:08] LABS: BLOOD UREA NITROGEN 13.9 mg/dL (7-18); CALCIUM 7.6 mg/dL (8.5-10.1)
[2020-06-30 07:11] LABS: PHOSPHOROUS 2.8 mg/dL (2.5-4.9)
[2020-06-30 07:12] LABS: TOT PROT 6.5 g/dl (6.4-8.2)
[2020-06-30 07:13] LABS: BILIRUBIN,TOTAL 0.8 mg/dL (0.2-1)
[2020-06-30] MEDS ORDERED: ALBUTEROL SO4 HFA INHALER IH SCH (10:00)
[2020-06-30] MEDS ORDERED: NIFEdipine E.R. 90 MG TABLET PO SCH ×2 (10:00→14:46)
[2020-06-30] MEDS: ACETAMINOPHEN 1000 MG/100 ML VIAL (NON FORMULARY) IVPB PRN (12:17)
[2020-06-30] MEDS ORDERED: CEFEPIME HCL 1 GM VIAL (RESTRICTED TO ID) ONE (15:41)
[2020-06-30] MEDS ORDERED: DEXTROSE 5%-WATER 100 ML IVPB ONE (15:41)
[2020-06-30] MEDS: CEFEPIME 1 GM in DEXTROSE 5%-WATER 1 GM/100 ML BAG IVPB SCH (17:43)
[2020-06-30] MEDS: ATORVASTATIN CA 10 MG TABLET (FP) PO SCH (21:39)
[2020-07-01] MEDS: HEPARIN NA (PORCINE) 5,000 UNITS/ML 1ML VIAL SQ SCH ×2 (06:16→22:01)
[2020-07-01 09:08] LABS: HEMATOCRIT 29.5 % (32.4-45.2); HEMOGLOBIN 9.8 GM/dL (10.7-15.3); MCH 32.1 pg (25.7-33.7); MCHC 33.1 g/dl (32.0-36.0); MEAN PLT VOLUME 9.4 fl (7.5-11.1); PLATELET COUNT 104 K/MM3 (134-434); RBC 3.05 M/mm3 (3.60-5.2); RDW 18.4 % (11.6-15.6)
[2020-07-01 09:23] LABS: POTASSIUM 4.5 mmol/L (3.5-5.1)
[2020-07-01 09:28] LABS: CALCIUM 8.3 mg/dL (8.5-10.1)
[2020-07-01 09:29] LABS: ALBUMIN 3.3 g/dl (3.4-5.0); BLOOD UREA NITROGEN 33.9 mg/dL (7-18); MAGNESIUM 2.3 mg/dL (1.8-2.4)
[2020-07-01 09:30] LABS: CREATININE 5.2 mg/dL (0.55-1.3)
[2020-07-01 09:31] LABS: BILIRUBIN,TOTAL 0.6 mg/dL (0.2-1); TOT PROT 7.2 g/dl (6.4-8.2)
[2020-07-01 09:32] LABS: PHOSPHOROUS 2.9 mg/dL (2.5-4.9)
[2020-07-01] MEDS ORDERED: SODIUM CHLORIDE 250 ML IV PRN (09:39)
[2020-07-01] MEDS ORDERED: HEPARIN NA (PORCINE) 5,000 UNITS/ML 1ML VIAL IVPUSH ONE (09:45)
[2020-07-01] MEDS ORDERED: EPOETIN ALFA-EPBX 10,000 UNIT/ML VIAL SQ ONE (10:00)
[2020-07-01 13:13] LABS: HEP B CORE AB, TOT Negative (Negative)
[2020-07-01 15:39] VITALS: BMI 20.1
[2020-07-01] MEDS ORDERED: CEFEPIME HCL 1 GM VIAL (RESTRICTED TO ID) ONE (17:41)
[2020-07-01] MEDS ORDERED: DEXTROSE 5%-WATER 100 ML IVPB ONE (17:42)
[2020-07-01] MEDS: CEFEPIME 1 GM in DEXTROSE 5%-WATER 1 GM/100 ML BAG IVPB SCH (17:55)
[2020-07-01] MEDS: ASPIRIN COATED 81 MG TABLET.EC PO SCH (22:00)
[2020-07-01] MEDS: ATORVASTATIN CA 10 MG TABLET (FP) PO SCH (22:01)
[2020-07-02] MEDS: HEPARIN NA (PORCINE) 5,000 UNITS/ML 1ML VIAL SQ SCH ×2 (06:39→22:22)
[2020-07-02 08:57] LABS: HEMATOCRIT 27.6 % (32.4-45.2); HEMOGLOBIN 8.8 GM/dL (10.7-15.3); MCH 31.1 pg (25.7-33.7); MEAN PLT VOLUME 9.3 fl (7.5-11.1); PLATELET COUNT 98 K/MM3 (134-434); RBC 2.84 M/mm3 (3.60-5.2); RDW 18.5 % (11.6-15.6); WHITE BLOOD COUNT 2.6 K/mm3 (4.0-10.0)
[2020-07-02 09:16] LABS: POTASSIUM 3.6 mmol/L (3.5-5.1)
[2020-07-02 09:20] LABS: CALCIUM 7.8 mg/dL (8.5-10.1); MAGNESIUM 1.9 mg/dL (1.8-2.4)
[2020-07-02 09:21] LABS: BLOOD UREA NITROGEN 14.9 mg/dL (7-18)
[2020-07-02 09:23] LABS: CREATININE 3.6 mg/dL (0.55-1.3); PHOSPHOROUS 2.2 mg/dL (2.5-4.9)
[2020-07-02 09:25] LABS: BILIRUBIN,TOTAL 0.6 mg/dL (0.2-1); TOT PROT 6.6 g/dl (6.4-8.2)
[2020-07-02] MEDS: amLODIPine BESYLATE 2.5 MG TABLET (FP) PO SCH (10:14)
[2020-07-02] MEDS: LEVOTHYROXINE NA 25 MCG TABLET (FP) PO SCH (14:02)
[2020-07-02] MEDS ORDERED: DEXTROSE 5%-WATER 100 ML IVPB ONE (19:24)
[2020-07-02] MEDS ORDERED: CEFEPIME HCL 1 GM VIAL (RESTRICTED TO ID) ONE (19:24)
[2020-07-02] MEDS: CEFEPIME 1 GM in DEXTROSE 5%-WATER 1 GM/100 ML BAG IVPB SCH (19:27)
[2020-07-02] MEDS: ASPIRIN COATED 81 MG TABLET.EC PO SCH (22:22)
[2020-07-02] MEDS: ATORVASTATIN CA 10 MG TABLET (FP) PO SCH (22:22)
[2020-07-03] MEDS: HEPARIN NA (PORCINE) 5,000 UNITS/ML 1ML VIAL SQ SCH ×3 (06:27→22:04)
[2020-07-03] MEDS: LEVOTHYROXINE NA 25 MCG TABLET (FP) PO SCH (06:27)
[2020-07-03 09:00] LABS: BASO % 1.1 % (0-2.0); EOS % 21.9 % (0-4.5); HEMATOCRIT 28.1 % (32.4-45.2); LYMPH % 44.4 % (8-40); MCH 31.3 pg (25.7-33.7); MCHC 32.2 g/dl (32.0-36.0); MEAN CELL VOLUME 97.1 fl (80-96); MEAN PLT VOLUME 9.4 fl (7.5-11.1); MONO % 11.3 % (3.8-10.2); NEUT % 21.3 % (42.8-82.8); PLATELET COUNT 110 K/MM3 (134-434); RBC 2.89 M/mm3 (3.60-5.2); RDW 18.9 % (11.6-15.6); RETICULOCYTES 1.58 % (0.5-1.5); WHITE BLOOD COUNT 3.2 K/mm3 (4.0-10.0)
[2020-07-03 09:23] LABS: POTASSIUM 4.1 mmol/L (3.5-5.1)
[2020-07-03 09:25] LABS: CALCIUM 8.2 mg/dL (8.5-10.1)
[2020-07-03 09:26] LABS: ALBUMIN 3.1 g/dl (3.4-5.0); BLOOD UREA NITROGEN 30.7 mg/dL (7-18); MAGNESIUM 2.1 mg/dL (1.8-2.4)
[2020-07-03 09:29] LABS: CREATININE 5.5 mg/dL (0.55-1.3)
[2020-07-03 09:30] LABS: BILIRUBIN,TOTAL 0.5 mg/dL (0.2-1)
[2020-07-03 09:31] LABS: TOT PROT 6.9 g/dl (6.4-8.2)
[2020-07-03] MEDS: amLODIPine BESYLATE 2.5 MG TABLET (FP) PO SCH (10:29)
[2020-07-03 11:20] LABS: ANISOCYTOSIS 1+; MACROCYTOSIS 2+; PLATELET ESTIMATE DECREASED
[2020-07-03] MEDS ORDERED: NAPH,MB-DB/K PH,MBDB POWDER PACKET PO ONE (11:23)
[2020-07-03] MEDS ORDERED: CEFEPIME HCL 1 GM VIAL (RESTRICTED TO ID) ONE (17:17)
[2020-07-03] MEDS ORDERED: DEXTROSE 5%-WATER 100 ML IVPB ONE (17:17)
[2020-07-03] MEDS: CEFEPIME 1 GM in DEXTROSE 5%-WATER 1 GM/100 ML BAG IVPB SCH (17:48)
[2020-07-03] MEDS: ATORVASTATIN CA 10 MG TABLET (FP) PO SCH (22:04)
[2020-07-03] MEDS: ASPIRIN COATED 81 MG TABLET.EC PO SCH (22:04)
[2020-07-04] MEDS: HEPARIN NA (PORCINE) 5,000 UNITS/ML 1ML VIAL SQ SCH ×3 (05:59→22:17)
[2020-07-04] MEDS: LEVOTHYROXINE NA 25 MCG TABLET (FP) PO SCH (05:59)
[2020-07-04 09:21] LABS: EOS % 16.9 % (0-4.5); HEMATOCRIT 26.1 % (32.4-45.2); HEMOGLOBIN 8.5 GM/dL (10.7-15.3); MCH 31.5 pg (25.7-33.7); MCHC 32.8 g/dl (32.0-36.0); MEAN CELL VOLUME 96.2 fl (80-96); MEAN PLT VOLUME 9.6 fl (7.5-11.1); MONO % 10.3 % (3.8-10.2); NEUT % 30.8 % (42.8-82.8); PLATELET COUNT 102 K/MM3 (134-434); RBC 2.71 M/mm3 (3.60-5.2); RDW 18.8 % (11.6-15.6); WHITE BLOOD COUNT 3.5 K/mm3 (4.0-10.0)
[2020-07-04 09:27] LABS: POTASSIUM 4.4 mmol/L (3.5-5.1)
[2020-07-04 09:34] LABS: BLOOD UREA NITROGEN 39.5 mg/dL (7-18)
[2020-07-04 09:38] LABS: CREATININE 7.3 mg/dL (0.55-1.3); PHOSPHOROUS 2.4 mg/dL (2.5-4.9)
[2020-07-04 10:38] LABS: ANISOCYTOSIS 1+; MACROCYTOSIS 0; PLATELET ESTIMATE DECREASED
[2020-07-04] MEDS ORDERED: EPOETIN ALFA-EPBX 4,000 UNIT/ML VIAL IVPUSH ONE (11:00)
[2020-07-04] MEDS ORDERED: PT OWN MED DRAWER 7, Y5N ONE (11:24)
[2020-07-04] MEDS: amLODIPine BESYLATE 2.5 MG TABLET (FP) PO SCH (13:59)
[2020-07-04 19:06] LABS: TRANSGLUTAMINASE IGA < 2 U/mL (0-3)
[2020-07-04] MEDS: ATORVASTATIN CA 10 MG TABLET (FP) PO SCH (22:17)
[2020-07-04] MEDS: ASPIRIN COATED 81 MG TABLET.EC PO SCH (22:17)
[2020-07-05] MEDS: HEPARIN NA (PORCINE) 5,000 UNITS/ML 1ML VIAL SQ SCH ×3 (05:47→21:17)
[2020-07-05] MEDS: LEVOTHYROXINE NA 25 MCG TABLET (FP) PO SCH (06:19)
[2020-07-05 08:49] LABS: HEMATOCRIT 26.3 % (32.4-45.2); HEMOGLOBIN 8.6 GM/dL (10.7-15.3); MCH 31.8 pg (25.7-33.7); MCHC 32.9 g/dl (32.0-36.0); MEAN CELL VOLUME 96.6 fl (80-96); MEAN PLT VOLUME 9.4 fl (7.5-11.1); PLATELET COUNT 116 K/MM3 (134-434); RBC 2.72 M/mm3 (3.60-5.2); RDW 19.1 % (11.6-15.6); WHITE BLOOD COUNT 3.6 K/mm3 (4.0-10.0)
[2020-07-05 09:17] LABS: POTASSIUM 4.4 mmol/L (3.5-5.1)
[2020-07-05 09:26] LABS: CALCIUM 8.3 mg/dL (8.5-10.1)
[2020-07-05 09:27] LABS: ALBUMIN 2.9 g/dl (3.4-5.0); BLOOD UREA NITROGEN 21.6 mg/dL (7-18); MAGNESIUM 2.2 mg/dL (1.8-2.4)
[2020-07-05 09:29] LABS: CREATININE 5.1 mg/dL (0.55-1.3); PHOSPHOROUS 2.6 mg/dL (2.5-4.9)
[2020-07-05 09:30] LABS: BILIRUBIN,TOTAL 0.6 mg/dL (0.2-1)
[2020-07-05 09:31] LABS: TOT PROT 6.6 g/dl (6.4-8.2)
[2020-07-05] MEDS: amLODIPine BESYLATE 2.5 MG TABLET (FP) PO SCH (10:55)
[2020-07-05 13:08] LABS: TRANSGLUTAMINASE IGG 4 U/mL (0-5)
[2020-07-05] MEDS: ATORVASTATIN CA 10 MG TABLET (FP) PO SCH (21:17)
[2020-07-05] MEDS: ASPIRIN COATED 81 MG TABLET.EC PO SCH (21:17)
[2020-07-06] MEDS: HEPARIN NA (PORCINE) 5,000 UNITS/ML 1ML VIAL SQ SCH ×3 (05:22→21:21)
[2020-07-06] MEDS: LEVOTHYROXINE NA 25 MCG TABLET (FP) PO SCH (06:02)
[2020-07-06] MEDS ORDERED: EPOETIN ALFA-EPBX 10,000 UNIT/ML VIAL SQ ONE (08:00)
[2020-07-06] MEDS ORDERED: SODIUM CHLORIDE 250 ML IV PRN (08:00)
[2020-07-06] MEDS ORDERED: HEPARIN NA (PORCINE) 5,000 UNITS/ML 1ML VIAL IVPUSH ONE (08:00)
[2020-07-06] MEDS ORDERED: LEVOTHYROXINE NA 50 MCG TABLET (FP) PO SCH (08:17)
[2020-07-06 08:41] LABS: BASO % 1.9 % (0-2.0); EOS % 9.5 % (0-4.5); HEMATOCRIT 26.9 % (32.4-45.2); HEMOGLOBIN 8.9 GM/dL (10.7-15.3); LYMPH % 50.2 % (8-40); MCH 32.2 pg (25.7-33.7); MCHC 33.2 g/dl (32.0-36.0); MEAN CELL VOLUME 97.1 fl (80-96); MEAN PLT VOLUME 9.3 fl (7.5-11.1); MONO % 10.2 % (3.8-10.2); NEUT % 28.2 % (42.8-82.8); PLATELET COUNT 120 K/MM3 (134-434); RBC 2.77 M/mm3 (3.60-5.2); RDW 19.6 % (11.6-15.6); WHITE BLOOD COUNT 3.5 K/mm3 (4.0-10.0)
[2020-07-06 09:47] LABS: ALBUMIN 3.1 g/dl (3.4-5.0); BILIRUBIN,TOTAL 0.5 mg/dL (0.2-1); BLOOD UREA NITROGEN 36.1 mg/dL (7-18); CALCIUM 7.5 mg/dL (8.5-10.1); CREATININE 6.8 mg/dL (0.55-1.3); PHOSPHOROUS 3.4 mg/dL (2.5-4.9); POTASSIUM 4.4 mmol/L (3.5-5.1); TOT PROT 6.7 g/dl (6.4-8.2)
[2020-07-06] MEDS ORDERED: ACETAMINOPHEN 500 MG TABLET (FP) PO ONE (14:28)
[2020-07-06] MEDS: amLODIPine BESYLATE 2.5 MG TABLET (FP) PO SCH (14:31)
[2020-07-06] MEDS: ASPIRIN COATED 81 MG TABLET.EC PO SCH (21:21)
[2020-07-06] MEDS: ATORVASTATIN CA 10 MG TABLET (FP) PO SCH (21:21)
[2020-07-07 04:40] VITALS: BP 153/70; PULSE 66; TEMP 98.3
[2020-07-07] MEDS: HEPARIN NA (PORCINE) 5,000 UNITS/ML 1ML VIAL SQ SCH (05:59)
[2020-07-07] MEDS: amLODIPine BESYLATE 2.5 MG TABLET (FP) PO SCH (10:31)
== END 2020-07-07 14:25 | disposition home or self-care (01) | DRG 871 ==
LOC: JER 13:34 → JERBED 06-29 01:50 → JICU 06-29 22:18 → J6S 06-30 23:04
PROVIDERS: ADMIT Internal Medicine; ATTEND Internal Medicine
DX: A41.89 Other specified sepsis (principal); G93.41 Metabolic encephalopathy; N18.6 End stage renal disease; K65.1 Peritoneal abscess; I12.0 Hypertensive chronic kidney disease with stage 5 chronic kidney disease or end stage renal disease; I24.8 Other forms of acute ischemic heart disease; Q61.3 Polycystic kidney, unspecified; Z94.0 Kidney transplant status; D61.818 Other pancytopenia; E03.9 Hypothyroidism, unspecified; K21.9 Gastro-esophageal reflux disease without esophagitis; E78.5 Hyperlipidemia, unspecified; R16.2 Hepatomegaly with splenomegaly, not elsewhere classified; K76.89 Other specified diseases of liver; L27.0 Generalized skin eruption due to drugs and medicaments taken internally; E87.5 Hyperkalemia; I27.20 Pulmonary hypertension, unspecified; R94.5 Abnormal results of liver function studies
CPT/HCPCS: 10005; 36415; 36600; 70450-TC; 71045-TC-FY; 74177-TC; 74181-TC; 76705-TC; 80048; 80053; 82105; 82550; 82607; 82728; 82803; 82962; 82977; 83516; 83540; 83550; 83605; 83615; 83735; 84100; 84155; 84165; 84436; 84443; 84466; 84481; 84484; 85025; 85027; 85045; 85610; 85730; 86140; 86682; 86704; 86706; 86707; 86708; 86709; 86803; 87040; 87340; 87804; 93005; 93010; 93306-TC; 93971; 99285-25; C9803; G0480; J0131; J1644; P9047; Q5106; Q9967; U0003; U0005

== ENCOUNTER 2021-03-30 15:17 | Inpatient (IN) | payer OTHER ==
[2021-03-30] MEDS ORDERED: ACETAMINOPHEN 1000 MG/100 ML BAG IVPB ONE (15:51)
[2021-03-30] MEDS ORDERED: SODIUM CHLORIDE 0.9% 500 ML INFUS.BAG IV ONE (15:53)
[2021-03-30] MEDS ORDERED: PIPERACILLIN/TAZOB 3.375 GM 3.375 GM in DEXTROSE 5%-WATER - 50 ML IVPB ONE (15:53)
[2021-03-30] MEDS ORDERED: VANCOMYCIN 1 GRAM (PRE-DOCKED) 1,000 MG/250 ML BAG IVPB ONE ×2 (15:53→16:55)
[2021-03-30 16:01] VITALS: BMI 24.5
[2021-03-30] MEDS ORDERED: ACETAMINOPHEN INJECTION 100 ML IVPB ONE (16:55)
[2021-03-30] MEDS ORDERED: PIPERACILLIN/TAZOB 3.375 GM 3.375 GM/50 ML BAG IVPB ONE (16:56)
[2021-03-30 16:59] LABS: BASO % 0.5 % (0-2.0); EOS % 1.2 % (0-4.5); HEMATOCRIT 30.7 % (32.4-45.2); LYMPH % 14.8 % (8-40); MCH 30.7 pg (25.7-33.7); MCHC 32.5 g/dl (32.0-36.0); MEAN CELL VOLUME 94.5 fl (80-96); MEAN PLT VOLUME 9.2 fl (7.5-11.1); MONO % 5.6 % (3.8-10.2); NEUT % 77.9 % (42.8-82.8); PLATELET COUNT 111 10^3/uL (134-434); RBC 3.25 M/mm3 (3.60-5.2); RDW 19.4 % (11.6-15.6); WHITE BLOOD COUNT 2.4 K/mm3 (4.0-10.0)
[2021-03-30 17:11] LABS: INR 1.03 (0.83-1.09); PROTHROMBIN TIME (PATIENT) 12.1 SEC (9.7-13.0)
[2021-03-30 17:14] LABS: ACTIVATED PTT 31.8 SECONDS (25.2-36.5)
[2021-03-30 17:24] LABS: VENOUS BASE EXCESS 15.3 mmol/L (-2-2); VENOUS O2 SATURATION 34.7 % (70-80); VENOUS PCO2 62.7 mmHg (38-52); VENOUS PH 7.442 (7.310-7.410)
[2021-03-30 17:28] LABS: MAGNESIUM 2.5 mg/dL (1.8-2.4)
[2021-03-30 17:38] LABS: CALCIUM 8.5 mg/dL (8.5-10.1)
[2021-03-30 17:40] LABS: ALBUMIN 3.6 g/dl (3.4-5.0)
[2021-03-30 17:41] LABS: CREATININE 2.9 mg/dL (0.55-1.3); TOT PROT 8.3 g/dl (6.4-8.2)
[2021-03-30 17:43] LABS: BILIRUBIN,TOTAL 0.5 mg/dL (0.2-1)
[2021-03-30 23:13] LABS: PHOSPHOROUS 2.6 mg/dL (2.5-4.9)
[2021-03-31] MEDS ORDERED: PIPERACILLIN/TAZOB 2.25 GM 2.25 GM/50 ML BAG IVPB ONE (01:47)
[2021-03-31] MEDS: PIPERACILLIN/TAZOB 2.25 GM 2.25 GM in DEXTROSE 5%-WATER - 50 ML IVPB SCH ×3 (01:52→17:36)
[2021-03-31] MEDS ORDERED: ONDANSETRON 4 MG/2 ML VIAL IVPUSH ONE ×2 (02:16→07:30)
[2021-03-31] MEDS ORDERED: ACETAMINOPHEN 1000 MG/100 ML BAG IVPB ONE ×2 (02:16→07:30)
[2021-03-31] MEDS: HEPARIN NA (PORCINE) 5,000 UNITS/ML 1ML VIAL SQ SCH ×3 (06:14→22:03)
[2021-03-31] MEDS ORDERED: ACETAMINOPHEN 325 MG TABLET (FP) PO PRN (06:15)
[2021-03-31] MEDS ORDERED: ACETAMINOPHEN 325 MG TABLET (FP) ONE (06:25)
[2021-03-31] MEDS ORDERED: LEVOTHYROXINE NA 50 MCG TABLET (FP) PO SCH (07:00)
[2021-03-31] MEDS ORDERED: ONDANSETRON 4 MG/2 ML VIAL IVPUSH PRN (07:29)
[2021-03-31] MEDS ORDERED: DEXTROSE 5%-WATER - 50 ML IVPB ONE ×2 (08:57→17:19)
[2021-03-31] MEDS ORDERED: PIPERACILLIN/TAZOBACTAM 2.25 GM VIAL IVPB ONE ×2 (08:57→17:19)
[2021-03-31] MEDS: ACETAMINOPHEN 1000 MG/100 ML BAG IVPB PRN ×2 (08:59→22:00)
[2021-03-31 09:38] LABS: HEMATOCRIT 25.3 % (32.4-45.2); HEMOGLOBIN 8.2 GM/dL (10.7-15.3); MCH 30.7 pg (25.7-33.7); MCHC 32.4 g/dl (32.0-36.0); MEAN CELL VOLUME 94.8 fl (80-96); MEAN PLT VOLUME 9.4 fl (7.5-11.1); PLATELET COUNT 86 10^3/uL (134-434); RBC 2.67 M/mm3 (3.60-5.2); RDW 19.1 % (11.6-15.6); WHITE BLOOD COUNT 2.5 K/mm3 (4.0-10.0)
[2021-03-31 09:45] LABS: ALBUMIN 3.2 g/dl (3.4-5.0); BLOOD UREA NITROGEN 15.7 mg/dL (7-18); MAGNESIUM 2.2 mg/dL (1.8-2.4)
[2021-03-31 09:48] LABS: CREATININE 4.4 mg/dL (0.55-1.3); PHOSPHOROUS 2.5 mg/dL (2.5-4.9)
[2021-03-31 09:50] LABS: BILIRUBIN,TOTAL 0.7 mg/dL (0.2-1); TOT PROT 6.5 g/dl (6.4-8.2)
[2021-03-31 09:54] LABS: CALCIUM 7.2 mg/dL (8.5-10.1)
[2021-03-31] MEDS ORDERED: VANCOMYCIN 1 GM in D5W (PRE-DOCKED) 1,000 MG/250 ML IVPB SCH (10:00)
[2021-03-31] MEDS ORDERED: VANCOMYCIN 1 GRAM (PRE-DOCKED) 1,000 MG/250 ML BAG IVPB SCH (10:00)
[2021-03-31 10:39] LABS: ANISOCYTOSIS 3+; MACROCYTOSIS 0; OVALOCYTE 2+; PLATELET ESTIMATE DECREASED; TEAR DROP CELLS 1+
[2021-03-31] MEDS ORDERED: SODIUM CHLORIDE 250 ML IV PRN (12:52)
[2021-03-31] MEDS ORDERED: PT OWN MED DRAWER 7, Y5N ONE (14:12)
[2021-03-31] MEDS: LEVOTHYROXINE SODIUM 100 MCG VIAL IVPUSH SCH (14:16)
[2021-04-01] MEDS ORDERED: PIPERACILLIN/TAZOBACTAM 2.25 GM VIAL IVPB ONE ×3 (00:35→17:05)
[2021-04-01] MEDS ORDERED: DEXTROSE 5%-WATER - 50 ML IVPB ONE ×3 (00:35→17:05)
[2021-04-01] MEDS: PIPERACILLIN/TAZOB 2.25 GM 2.25 GM in DEXTROSE 5%-WATER - 50 ML IVPB SCH ×3 (01:11→17:19)
[2021-04-01] MEDS: HEPARIN NA (PORCINE) 5,000 UNITS/ML 1ML VIAL SQ SCH ×3 (05:32→21:06)
[2021-04-01 08:21] LABS: CHLORIDE 94 mmol/L (98-107); SODIUM 137 mmol/L (136-145)
[2021-04-01 08:23] LABS: ALBUMIN 2.7 g/dl (3.4-5.0); BLOOD UREA NITROGEN 27.2 mg/dL (7-18); GLUCOSE,RANDOM 79 mg/dL (74-106); MAGNESIUM 2.1 mg/dL (1.8-2.4)
[2021-04-01 08:27] LABS: ANION GAP 12 MMOL/L (8-16); CO2 30 mmol/L (21-32); CREATININE 6.7 mg/dL (0.55-1.3); PHOSPHOROUS 3.5 mg/dL (2.5-4.9); SGOT/AST 26 U/L (15-37); SGPT/ALT 9 U/L (13-61)
[2021-04-01 08:29] LABS: BILIRUBIN,TOTAL 0.7 mg/dL (0.2-1); TOT PROT 6.3 g/dl (6.4-8.2)
[2021-04-01 08:41] LABS: ALK PHOS 173 U/L (45-117); CALCIUM 6.9 mg/dL (8.5-10.1)
[2021-04-01] MEDS ORDERED: PT OWN MED DRAWER 7, Y5N ONE (09:31)
[2021-04-01] MEDS: LEVOTHYROXINE SODIUM 100 MCG VIAL IVPUSH SCH (09:54)
[2021-04-01] MEDS ORDERED: EPOETIN ALFA-EPBX 3,000 UNIT/ML VIAL IVPUSH ONE (12:45)
[2021-04-01 13:25] LABS: HEMATOCRIT 23.4 % (32.4-45.2); HEMOGLOBIN 7.7 GM/dL (10.7-15.3); MCH 30.8 pg (25.7-33.7); MCHC 32.7 g/dl (32.0-36.0); MEAN CELL VOLUME 94.1 fl (80-96); MEAN PLT VOLUME 10.1 fl (7.5-11.1); PLATELET COUNT 71 10^3/uL (134-434); RBC 2.49 M/mm3 (3.60-5.2); RDW 19.1 % (11.6-15.6); RETICULOCYTES 2.45 % (0.5-1.5); WHITE BLOOD COUNT 2.1 K/mm3 (4.0-10.0)
[2021-04-01 13:33] LABS: INR 1.14 (0.83-1.09); PROTHROMBIN TIME (PATIENT) 13.4 SEC (9.7-13.0)
[2021-04-01 13:36] LABS: ACTIVATED PTT 38.5 SECONDS (25.2-36.5)
[2021-04-01 14:12] LABS: ANISOCYTOSIS 0; MACROCYTOSIS 0; PLATELET ESTIMATE DECREASED
[2021-04-01 14:36] LABS: ERYTHROCYTE SEDIMENTATION RATE 73 mm/hr (0-30)
[2021-04-01 14:57] LABS: LDH 261 U/L (84-246)
[2021-04-01] MEDS ORDERED: ACETAMINOPHEN 325 MG TABLET (FP) PO PRN (15:56)
[2021-04-01] MEDS: GABAPENTIN 100 MG CAPSULE PO SCH (21:07)
[2021-04-01] MEDS: ATORVASTATIN CA 40 MG TABLET (FP) PO SCH (21:07)
[2021-04-02] MEDS ORDERED: DEXTROSE 5%-WATER - 50 ML IVPB ONE ×4 (01:55→17:02)
[2021-04-02] MEDS ORDERED: PIPERACILLIN/TAZOBACTAM 2.25 GM VIAL IVPB ONE ×4 (01:55→17:02)
[2021-04-02] MEDS: PIPERACILLIN/TAZOB 2.25 GM 2.25 GM in DEXTROSE 5%-WATER - 50 ML IVPB SCH ×3 (02:22→17:20)
[2021-04-02] MEDS: GABAPENTIN 100 MG CAPSULE PO SCH ×3 (05:57→21:56)
[2021-04-02] MEDS: HEPARIN NA (PORCINE) 5,000 UNITS/ML 1ML VIAL SQ SCH ×3 (05:57→21:57)
[2021-04-02] MEDS: LEVOTHYROXINE NA 50 MCG TABLET (FP) PO SCH (06:04)
[2021-04-02 07:30] LABS: HEMATOCRIT 24.2 % (32.4-45.2); HEMOGLOBIN 7.5 GM/dL (10.7-15.3); MCH 29.9 pg (25.7-33.7); MCHC 31.1 g/dl (32.0-36.0); MEAN CELL VOLUME 95.9 fl (80-96); MEAN PLT VOLUME 9.5 fl (7.5-11.1); PLATELET COUNT 76 10^3/uL (134-434); RBC 2.52 M/mm3 (3.60-5.2)
[2021-04-02 07:36] LABS: WHITE BLOOD COUNT 1.5 K/mm3 (4.0-10.0)
[2021-04-02 07:51] LABS: CALCIUM 7.5 mg/dL (8.5-10.1)
[2021-04-02 07:52] LABS: ALBUMIN 2.6 g/dl (3.4-5.0); BLOOD UREA NITROGEN 13.3 mg/dL (7-18); MAGNESIUM 2.1 mg/dL (1.8-2.4)
[2021-04-02 07:55] LABS: CREATININE 4.6 mg/dL (0.55-1.3)
[2021-04-02 07:56] LABS: BILIRUBIN,TOTAL 0.6 mg/dL (0.2-1); TOT PROT 6.4 g/dl (6.4-8.2)
[2021-04-02] MEDS: CHOLECALCIFEROL (VIT D3) 1,000 UNIT (25 MCG) TABLET PO SCH (09:47)
[2021-04-02] MEDS: NIFEdipine E.R. 90 MG TABLET PO SCH (09:47)
[2021-04-02] MEDS: ASPIRIN COATED 81 MG TABLET.EC PO SCH (09:48)
[2021-04-02] MEDS: amLODIPine BESYLATE 2.5 MG TABLET (FP) PO SCH (09:48)
[2021-04-02 11:15] LABS: ANISOCYTOSIS 1+; MACROCYTOSIS 0; PLATELET ESTIMATE DECREASED
[2021-04-02] MEDS: ATORVASTATIN CA 40 MG TABLET (FP) PO SCH (21:57)
[2021-04-03] MEDS ORDERED: PIPERACILLIN/TAZOBACTAM 2.25 GM VIAL IVPB ONE ×3 (01:13→17:16)
[2021-04-03] MEDS ORDERED: DEXTROSE 5%-WATER - 50 ML IVPB ONE ×3 (01:13→17:17)
[2021-04-03] MEDS: PIPERACILLIN/TAZOB 2.25 GM 2.25 GM in DEXTROSE 5%-WATER - 50 ML IVPB SCH ×3 (01:26→18:03)
[2021-04-03] MEDS: GABAPENTIN 100 MG CAPSULE PO SCH ×3 (05:53→21:41)
[2021-04-03] MEDS: HEPARIN NA (PORCINE) 5,000 UNITS/ML 1ML VIAL SQ SCH ×3 (05:53→21:42)
[2021-04-03] MEDS: LEVOTHYROXINE NA 50 MCG TABLET (FP) PO SCH (05:59)
[2021-04-03 08:33] LABS: HEMATOCRIT 22.9 % (32.4-45.2); HEMOGLOBIN 7.6 GM/dL (10.7-15.3); MEAN PLT VOLUME 9.6 fl (7.5-11.1); PLATELET COUNT 77 10^3/uL (134-434); RBC 2.44 M/mm3 (3.60-5.2); RDW 18.5 % (11.6-15.6)
[2021-04-03 08:37] LABS: WHITE BLOOD COUNT 1.7 K/mm3 (4.0-10.0)
[2021-04-03 09:01] LABS: ALBUMIN 2.5 g/dl (3.4-5.0); BLOOD UREA NITROGEN 28.2 mg/dL (7-18); CREATININE 7.1 mg/dL (0.55-1.3)
[2021-04-03 09:02] LABS: BILIRUBIN,TOTAL 0.5 mg/dL (0.2-1); TOT PROT 6.1 g/dl (6.4-8.2)
[2021-04-03 09:04] LABS: CALCIUM 7.1 mg/dL (8.5-10.1)
[2021-04-03 09:05] LABS: MAGNESIUM 1.9 mg/dL (1.8-2.4)
[2021-04-03 09:39] LABS: ANISOCYTOSIS 0; MACROCYTOSIS 0; OVALOCYTE 1+; PLATELET ESTIMATE DECREASED; TARGET CELLS 1+
[2021-04-03] MEDS: NIFEdipine E.R. 90 MG TABLET PO SCH (11:00)
[2021-04-03] MEDS: CHOLECALCIFEROL (VIT D3) 1,000 UNIT (25 MCG) TABLET PO SCH (11:00)
[2021-04-03] MEDS: amLODIPine BESYLATE 2.5 MG TABLET (FP) PO SCH (11:00)
[2021-04-03] MEDS: ASPIRIN COATED 81 MG TABLET.EC PO SCH (11:00)
[2021-04-03 14:07] LABS: CMV IgM < 30.0 AU/mL (0.0-29.9)
[2021-04-03] MEDS: ATORVASTATIN CA 40 MG TABLET (FP) PO SCH (21:41)
[2021-04-04] MEDS ORDERED: DEXTROSE 5%-WATER - 50 ML IVPB ONE ×3 (01:05→17:35)
[2021-04-04] MEDS ORDERED: PIPERACILLIN/TAZOBACTAM 2.25 GM VIAL IVPB ONE ×3 (01:05→17:35)
[2021-04-04] MEDS: PIPERACILLIN/TAZOB 2.25 GM 2.25 GM in DEXTROSE 5%-WATER - 50 ML IVPB SCH ×3 (02:29→18:19)
[2021-04-04] MEDS: HEPARIN NA (PORCINE) 5,000 UNITS/ML 1ML VIAL SQ SCH ×3 (05:47→21:16)
[2021-04-04] MEDS: GABAPENTIN 100 MG CAPSULE PO SCH ×3 (05:47→21:16)
[2021-04-04] MEDS: LEVOTHYROXINE NA 50 MCG TABLET (FP) PO SCH (06:55)
[2021-04-04] MEDS: NIFEdipine E.R. 90 MG TABLET PO SCH (09:44)
[2021-04-04] MEDS: amLODIPine BESYLATE 2.5 MG TABLET (FP) PO SCH (09:44)
[2021-04-04] MEDS: ASPIRIN COATED 81 MG TABLET.EC PO SCH (09:44)
[2021-04-04] MEDS: CHOLECALCIFEROL (VIT D3) 1,000 UNIT (25 MCG) TABLET PO SCH (09:44)
[2021-04-04] MEDS ORDERED: FERROUS SO4 325 MG TABLET (FP) PO SCH (11:00)
[2021-04-04] MEDS: IRON POLYSACCHARIDES 150 MG CAPSULE PO SCH (11:43)
[2021-04-04] MEDS ORDERED: SODIUM CHLORIDE 250 ML IV PRN (12:06)
[2021-04-04] MEDS ORDERED: HEPARIN NA (PORCINE) 5,000 UNITS/ML 1ML VIAL IVPUSH ONE (12:15)
[2021-04-04] MEDS ORDERED: EPOETIN ALFA-EPBX 10,000 UNIT/ML VIAL IVPUSH ONE (12:15)
[2021-04-04 12:53] LABS: HEMATOCRIT 20.9 % (32.4-45.2); MCH 30.5 pg (25.7-33.7); MCHC 32.4 g/dl (32.0-36.0); MEAN CELL VOLUME 94.1 fl (80-96); MEAN PLT VOLUME 9.8 fl (7.5-11.1); PLATELET COUNT 74 10^3/uL (134-434); RBC 2.22 M/mm3 (3.60-5.2); RDW 18.8 % (11.6-15.6)
[2021-04-04 13:03] LABS: WHITE BLOOD COUNT 1.7 K/mm3 (4.0-10.0)
[2021-04-04 13:04] LABS: HEMOGLOBIN 6.8 GM/dL (10.7-15.3)
[2021-04-04 13:19] LABS: CHLORIDE 103 mmol/L (98-107); SODIUM 141 mmol/L (136-145)
[2021-04-04 13:20] LABS: CALCIUM 7.1 mg/dL (8.5-10.1)
[2021-04-04 13:21] LABS: ANION GAP 9 MMOL/L (8-16); BLOOD UREA NITROGEN 33.4 mg/dL (7-18); CO2 29 mmol/L (21-32); GLUCOSE,RANDOM 128 mg/dL (74-106)
[2021-04-04 13:29] LABS: CREATININE 8.9 mg/dL (0.55-1.3)
[2021-04-04 14:12] LABS: ANISOCYTOSIS 2+; MACROCYTOSIS 0; OVALOCYTE 2+; PLATELET ESTIMATE DECREASED
[2021-04-04] MEDS: ATORVASTATIN CA 40 MG TABLET (FP) PO SCH (21:16)
[2021-04-05] MEDS ORDERED: PIPERACILLIN/TAZOBACTAM 2.25 GM VIAL IVPB ONE ×2 (00:49→09:43)
[2021-04-05] MEDS ORDERED: DEXTROSE 5%-WATER - 50 ML IVPB ONE ×2 (00:49→09:43)
[2021-04-05] MEDS: PIPERACILLIN/TAZOB 2.25 GM 2.25 GM in DEXTROSE 5%-WATER - 50 ML IVPB SCH ×2 (01:39→11:25)
[2021-04-05] MEDS: GABAPENTIN 100 MG CAPSULE PO SCH ×3 (06:05→21:14)
[2021-04-05] MEDS: HEPARIN NA (PORCINE) 5,000 UNITS/ML 1ML VIAL SQ SCH ×3 (06:05→21:14)
[2021-04-05] MEDS: LEVOTHYROXINE NA 50 MCG TABLET (FP) PO SCH (06:05)
[2021-04-05 08:55] LABS: HEMATOCRIT 22.6 % (32.4-45.2); HEMOGLOBIN 7.4 GM/dL (10.7-15.3); MCH 30.5 pg (25.7-33.7); MCHC 32.8 g/dl (32.0-36.0); MEAN PLT VOLUME 9.4 fl (7.5-11.1); PLATELET COUNT 82 10^3/uL (134-434); RBC 2.43 M/mm3 (3.60-5.2); RDW 18.7 % (11.6-15.6)
[2021-04-05 09:16] LABS: CALCIUM 7.2 mg/dL (8.5-10.1)
[2021-04-05 09:19] LABS: ALBUMIN 2.6 g/dl (3.4-5.0); BLOOD UREA NITROGEN 13.9 mg/dL (7-18)
[2021-04-05 09:21] LABS: CREATININE 5.1 mg/dL (0.55-1.3)
[2021-04-05 09:23] LABS: BILIRUBIN,TOTAL 0.5 mg/dL (0.2-1)
[2021-04-05 09:24] LABS: TOT PROT 6.4 g/dl (6.4-8.2)
[2021-04-05 09:46] LABS: WHITE BLOOD COUNT 1.8 K/mm3 (4.0-10.0)
[2021-04-05 10:06] LABS: ANISOCYTOSIS 3+; MACROCYTOSIS 0; PLATELET ESTIMATE DECREASED
[2021-04-05] MEDS ORDERED: SODIUM CHLORIDE 250 ML IV PRN (11:08)
[2021-04-05] MEDS: amLODIPine BESYLATE 2.5 MG TABLET (FP) PO SCH (11:25)
[2021-04-05] MEDS: IRON POLYSACCHARIDES 150 MG CAPSULE PO SCH (11:25)
[2021-04-05] MEDS: NIFEdipine E.R. 90 MG TABLET PO SCH (11:25)
[2021-04-05] MEDS: CHOLECALCIFEROL (VIT D3) 1,000 UNIT (25 MCG) TABLET PO SCH (11:25)
[2021-04-05] MEDS: ASPIRIN COATED 81 MG TABLET.EC PO SCH (11:25)
[2021-04-05] MEDS: ATORVASTATIN CA 40 MG TABLET (FP) PO SCH (21:14)
[2021-04-06] MEDS: HEPARIN NA (PORCINE) 5,000 UNITS/ML 1ML VIAL SQ SCH ×3 (06:22→21:19)
[2021-04-06] MEDS: GABAPENTIN 100 MG CAPSULE PO SCH ×3 (06:22→21:19)
[2021-04-06] MEDS: LEVOTHYROXINE NA 50 MCG TABLET (FP) PO SCH (06:22)
[2021-04-06] MEDS ORDERED: EPOETIN ALFA-EPBX 10,000 UNIT, EPOETIN ALFA-EPBX 2,000 UNIT SQ ONE (07:00)
[2021-04-06 08:37] LABS: HEMATOCRIT 21.9 % (32.4-45.2); HEMOGLOBIN 7.1 GM/dL (10.7-15.3); MCH 30.1 pg (25.7-33.7); MCHC 32.2 g/dl (32.0-36.0); MEAN CELL VOLUME 93.6 fl (80-96); MEAN PLT VOLUME 9.6 fl (7.5-11.1); PLATELET COUNT 85 10^3/uL (134-434); RBC 2.34 M/mm3 (3.60-5.2); RDW 19.1 % (11.6-15.6)
[2021-04-06 09:08] LABS: ALBUMIN 2.7 g/dl (3.4-5.0); CALCIUM 7.5 mg/dL (8.5-10.1)
[2021-04-06 09:09] LABS: BLOOD UREA NITROGEN 13.9 mg/dL (7-18)
[2021-04-06 09:11] LABS: CREATININE 4.4 mg/dL (0.55-1.3)
[2021-04-06 09:13] LABS: BILIRUBIN,TOTAL 0.5 mg/dL (0.2-1); TOT PROT 6.4 g/dl (6.4-8.2)
[2021-04-06] MEDS ORDERED: EPOETIN ALFA-EPBX 10,000 UNIT/ML VIAL SQ ONE (11:08)
[2021-04-06] MEDS ORDERED: PT OWN MED DRAWER 7, Y5N ONE (11:43)
[2021-04-06] MEDS: IRON POLYSACCHARIDES 150 MG CAPSULE PO SCH (12:00)
[2021-04-06] MEDS: amLODIPine BESYLATE 2.5 MG TABLET (FP) PO SCH (12:00)
[2021-04-06] MEDS: CHOLECALCIFEROL (VIT D3) 1,000 UNIT (25 MCG) TABLET PO SCH (12:00)
[2021-04-06] MEDS: NIFEdipine E.R. 90 MG TABLET PO SCH (12:00)
[2021-04-06] MEDS: ASPIRIN COATED 81 MG TABLET.EC PO SCH (12:00)
[2021-04-06 12:07] LABS: ANISOCYTOSIS 2+; MACROCYTOSIS 0; PLATELET ESTIMATE DECREASED; TEAR DROP CELLS 2+
[2021-04-06] MEDS ORDERED: FERROUS SO4 325 MG TABLET (FP) PO SCH (16:00)
[2021-04-06] MEDS: LISINOPRIL 5 MG TABLET PO SCH (16:15)
[2021-04-06 16:57] LABS: N-TERMINAL BNP 81713.1 pg/ml (5-125)
[2021-04-06] MEDS: ATORVASTATIN CA 40 MG TABLET (FP) PO SCH (21:19)
[2021-04-07] MEDS: HEPARIN NA (PORCINE) 5,000 UNITS/ML 1ML VIAL SQ SCH ×2 (05:43→15:12)
[2021-04-07] MEDS: GABAPENTIN 100 MG CAPSULE PO SCH ×2 (05:43→15:12)
[2021-04-07] MEDS: LEVOTHYROXINE NA 50 MCG TABLET (FP) PO SCH (06:34)
[2021-04-07] MEDS ORDERED: PT OWN MED DRAWER 7, Y5N ONE (09:32)
[2021-04-07 09:48] VITALS: BP 134/56; TEMP 97.2
[2021-04-07] MEDS: NIFEdipine E.R. 90 MG TABLET PO SCH (09:49)
[2021-04-07] MEDS: CHOLECALCIFEROL (VIT D3) 1,000 UNIT (25 MCG) TABLET PO SCH (09:49)
[2021-04-07] MEDS: IRON POLYSACCHARIDES 150 MG CAPSULE PO SCH (09:49)
[2021-04-07] MEDS: ASPIRIN COATED 81 MG TABLET.EC PO SCH (09:49)
[2021-04-07] MEDS: LISINOPRIL 5 MG TABLET PO SCH (09:49)
[2021-04-07 15:32] VITALS: PULSE 71
== END 2021-04-07 17:40 | disposition home health service (06) | DRG 91 ==
LOC: JER 15:17 → JERBED 18:00 → MERGE 18:00 → J4S 03-31 03:37
PROVIDERS: ADMIT Internal Medicine; ATTEND Nurse Practitioner Family
PROC: 5A1D70Z Performance of Urinary Filtration, Intermittent, Less than 6 Hours Per Day (ICD-10-PCS; principal; 2021-04-01)
PROC: 5A1D70Z Performance of Urinary Filtration, Intermittent, Less than 6 Hours Per Day (ICD-10-PCS; 2021-04-04)
PROC: 5A1D70Z Performance of Urinary Filtration, Intermittent, Less than 6 Hours Per Day (ICD-10-PCS; 2021-04-06)
DX: G92.9 Unspecified toxic encephalopathy (principal); N18.6 End stage renal disease; J18.9 Pneumonia, unspecified organism; I13.2 Hypertensive heart and chronic kidney disease with heart failure and with stage 5 chronic kidney disease, or end stage renal disease; I50.32 Chronic diastolic (congestive) heart failure; I24.8 Other forms of acute ischemic heart disease; D61.818 Other pancytopenia; T86.12 Kidney transplant failure; Z94.0 Kidney transplant status; K57.90 Diverticulosis of intestine, part unspecified, without perforation or abscess without bleeding; I27.20 Pulmonary hypertension, unspecified; K83.8 Other specified diseases of biliary tract; R50.9 Fever, unspecified; E78.5 Hyperlipidemia, unspecified; K21.9 Gastro-esophageal reflux disease without esophagitis; R91.1 Solitary pulmonary nodule; R41.82 Altered mental status, unspecified; N28.1 Cyst of kidney, acquired; D64.9 Anemia, unspecified; K76.89 Other specified diseases of liver; E03.9 Hypothyroidism, unspecified; I73.9 Peripheral vascular disease, unspecified; Z99.2 Dependence on renal dialysis
CPT/HCPCS: 36415; 36430; 70450-TC; 71045-TC-FY; 71250-TC; 74176-TC; 76705-TC; 80048; 80053; 80061; 82140; 82550; 82607; 82728; 82747; 82803; 82962; 83036; 83540; 83550; 83605; 83615; 83735; 83880; 84100; 84439; 84443; 84484; 85014; 85025; 85045; 85384; 85610; 85651; 85730; 86140; 86644; 86645; 86803; 86850; 86870; 86900; 86901; 86902; 86922; 87040; 87340; 87804; 87807; 93005; 93010; 93306-TC; 94761; 97116-GP; 97161-GP; 99285-25; C9803-CS; J1644; P9058; Q5106; U0003; U0005

== ENCOUNTER 2021-06-12 10:23 | Emergency (ER) | payer OTHER ==
[2021-06-12 10:31] VITALS: BP 103/58; PULSE 58; TEMP 97.6; BMI 21.9
== END 2021-06-12 12:52 | disposition left against medical advice (07) ==
LOC: JER 10:23
DX: R25.1 Tremor, unspecified (principal)
CPT/HCPCS: 93005; 93010; 99283-25